=== PATIENT | male | born 1970 | race Caucasian/White ===

== ENCOUNTER 2019-02-25 14:11 | Inpatient (IN) | payer OTHER ==
[~2019-02-25] VITALS: Ht 165.1 cm; Wt 51.7 kg
[2019-02-25] VITALS (10 sets, daily range): BP systolic 110–140; BP diastolic 70–84
[2019-02-25] MEDS ORDERED: IV NORMAL SALINE 1000ML BAG 1,000 ML IV ONE ×2 (14:45→15:15)
[2019-02-25 15:20] LABS: BASO # 0.1 x10^3/uL (0.0-0.2); BASO % 1 % (0-3); EOS % 0 % (0-3); HEMATOCRIT 42.5 % (39.0-53.0); HEMOGLOBIN 13.7 g/dL (13.0-17.5); LYMPH # 0.8 x10^3/uL (1.0-4.8); LYMPH % 3 % (24-48); MEAN CORPUSCULAR HEMOGLOBIN 29 pg (25-35); MEAN CORPUSCULAR HGB CONC 32 g/dL (31-37); MEAN CORPUSCULAR VOLUME 91 fL (79-100); MONO # 1.2 x10^3/uL (0.0-1.1); MONO % 5 % (0-9); NEUT # 20.9 x10^3/uL (1.8-7.7); NEUT % 91 % (31-73); PLATELET COUNT 409 x10^3/uL (140-400); RED BLOOD COUNT 4.66 x10^6/uL (4.30-5.70); RED CELL DISTRIBUTION WIDTH 13.6 % (11.5-14.5)
[2019-02-25] MEDS ORDERED: INSULIN,REGULAR 150 UNIT DRIP 150 ML IV ONE (15:30)
[2019-02-25 15:45] LABS: ALBUMIN/GLOBULIN RATIO 0.6 (1.0-1.7); ALK PHOS 146 U/L (46-116); ALT (SGPT) 11 U/L (16-63); AST (SGOT) 13 U/L (15-37); BLOOD UREA NITROGEN 17 mg/dL (8-26); BUN/CREATININE RATIO 13 (6-20); CALCIUM 9.6 mg/dL (8.5-10.1); CHLORIDE 95 mmol/L (98-107); CREATININE 1.3 mg/dL (0.7-1.3); GFR 58.9; POTASSIUM 4.4 mmol/L (3.5-5.1); SODIUM 131 mmol/L (136-145); TOTAL BILIRUBIN 0.5 mg/dL (0.2-1.0); TOTAL PROTEIN 8.3 g/dL (6.4-8.2)
[2019-02-25 15:48] LABS: BASE EXCESS ABG -29 mmol/L (-3-3); CORRECTED PH ABG 6.95; CORRECTED PO2 ABG 136 mmHg; HCO3 ABG 2 mmol/L (21-28); PO2 ABG 148 mmHg (75-108); SAT O2 ABG 97 % (92-99)
[2019-02-25 15:50] LABS: CORRECTED PCO2 ABG < 10 mmHg; PCO2 ABG < 15 mmHg (35-46)
[2019-02-25 15:51] LABS: FIO2 ABG 21
[2019-02-25] MEDS ORDERED: VANCOMYCIN 1GM IVPB FOR OMNI 250 ML IV ONE (16:00)
[2019-02-25 16:08] LABS: CARBON DIOXIDE < 5 mmol/L (21-32); GLUCOSE 542 mg/dL (70-99)
[2019-02-25] MEDS ORDERED: IV NORMAL SALINE 1000ML BAG 1,000 ML IV SCH (16:08)
[2019-02-25] MEDS ORDERED: ONDANSETRON PF 4 MG/2 ML VIAL. IV PRN (16:15)
[2019-02-25] MEDS ORDERED: INSULIN REGULAR VIAL 150 UNIT in 0.9 % SODIUM CHLORIDE 150ML 150 ML IV PRN (16:45)
[2019-02-25] MEDS ORDERED: ACETAMINOPHEN 500 MG TABLET PO PRN (16:45)
[2019-02-25] MEDS ORDERED: TEMAZEPAM 7.5 MG CAPSULE PO PRN (16:45)
[2019-02-25] MEDS ORDERED: POTASSIUM CHLORIDE 10MEQ 100 ML IV PRN ×2 (16:45→21:00)
[2019-02-25] MEDS ORDERED: SODIUM BICARBONATE VIAL 50 MEQ in IV 1/2 NORMAL SALINE 1,000 ML IV ONE (16:45)
[2019-02-25] MEDS ORDERED: ONDANSETRON PF 4 MG/2 ML VIAL. IVP PRN (16:45)
[2019-02-25] MEDS ORDERED: CALCIUM CARBONATE 500 MG TAB.CHEW PO PRN (16:45)
--- NOTE | 2019-02-25 17:24 | PHYS DOC ---
Past Medical History Past Medical History: Diabetes-Type I, Other Additional Past Medical Histor: NEUROPATHY Past Surgical History: No Surgical History Alcohol Use: None Drug Use: None Adult General Chief Complaint Chief Complaint: HYPERGLYCEMIA HPI HPI Patient is a 48 year old male who was brought here by EMS from home due to been confused, general weakness, high blood sugar. Patient had history of insulin- dependent diabetic, he had the insulin at home but he had not taken them for a year. he had been doing okay until yesterday he started feeling weak and tired. His family said he had been picking on his skin on his legs and on his head. he appeared dehydrated, lethargic, following command . he denies any chest pain, no abdominal pain. he denies any fever. All other ROS is negative unless otherwise noted in HPI Review of Systems Review of Systems See above Current Medications Current Medications Current Medications Medications (Trade) Dose Ordered Sig/Rich Start Time Stop Time Status Last Admin Dose Admin Insulin Human Regular 150 ml @ 0 mls/hr 1X ONCE 02/25/19 15:30 02/25/19 15:32 DC 02/25/19 16:01 8.5 MLS/HR Sodium Chloride 1,000 ml @ 1,000 mls/hr 1X ONCE 02/25/19 15:15 02/25/19 16:14 DC 02/25/19 15:20 1,000 MLS/HR Vancomycin HCl 250 ml @ 250 mls/hr 1X ONCE 02/25/19 16:00 02/25/19 16:59 DC 02/25/19 16:04 250 MLS/HR Allergies Allergies Allergies Coded Allergies Type Severity Reaction Last Updated Verified No Known Drug Allergies 02/25/19 No Physical Exam Physical Exam Constitutional: Well developed, APPEARED THIN AND CACHECTIC, MILD acute distress, LETHARGIC appearance. [] HENT: Normocephalic, atraumatic, bilateral external ears normal, oropharynx IS VERY DRIED, no oral exudates, nose normal. [] Eyes: PERRLA, EOMI, conjunctiva normal, no discharge. [] Neck: Normal range of motion, no tenderness, supple, no stridor. [] Cardiovascular:Heart rate regular rhythm, no murmur [] Lungs & Thorax: Bilateral breath sounds clear to auscultation [] Abdomen: Bowel sounds normal, soft, no tenderness, no masses, no pulsatile masses. [] Skin: Warm, dry, no erythema, NONHEALING WOUND ON TOP OF HEAD, MULTIPLE SKIN LESIONS AT DIFFERENT HEALING STAGES ON LEGS. Back: No tenderness, no CVA tenderness. [] Extremities: No tenderness, no cyanosis, no clubbing, ROM intact, no edema. [] Neurologic: Patient was lethargic, but able to follow command. able to move all extremities. Psychologic: Affect normal, judgement normal, mood normal. [] Current Patient Data Vital Signs Vital Signs Date Time Temp Pulse Resp B/P (MAP) Pulse Ox O2 Delivery O2 Flow Rate FiO2 02/25/19 15:43 102 30 103/63 (76) 100 Room Air 02/25/19 14:11 93.4 93.4 Lab Values Laboratory Tests Test 02/25/19 14:22 02/25/19 15:07 02/25/19 15:40 02/25/19 15:48 Glucose (Fingerstick) 514 mg/dL (70-99) *H 484 mg/dL (70-99) H White Blood Count 23.0 x10^3/uL (4.0-11.0) H Red Blood Count 4.66 x10^6/uL (4.30-5.70) Hemoglobin 13.7 g/dL (13.0-17.5) Hematocrit 42.5 % (39.0-53.0) Mean Corpuscular Volume 91 fL (79-100) Mean Corpuscular Hemoglobin 29 pg (25-35) Mean Corpuscular Hemoglobin Concent 32 g/dL (31-37) Red Cell Distribution Width 13.6 % (11.5-14.5) Platelet Count 409 x10^3/uL (140-400) H Neutrophils (%) (Auto) 91 % (31-73) H Lymphocytes (%) (Auto) 3 % (24-48) L Monocytes (%) (Auto) 5 % (0-9) Eosinophils (%) (Auto) 0 % (0-3) Basophils (%) (Auto) 1 % (0-3) Neutrophils # (Auto) 20.9 x10^3/uL (1.8-7.7) H Lymphocytes # (Auto) 0.8 x10^3/uL (1.0-4.8) L Monocytes # (Auto) 1.2 x10^3/uL (0.0-1.1) H Eosinophils # (Auto) 0.0 x10^3/uL (0.0-0.7) Basophils # (Auto) 0.1 x10^3/uL (0.0-0.2) Segmented Neutrophils % 86 % (35-66) H Band Neutrophils % 3 % (0-9) Lymphocytes % 3 % (24-48) L Monocytes % 8 % (0-10) Platelet Estimate Increased (ADEQUATE) Anisocytosis Slight Crenated Cell Present Sodium Level 131 mmol/L (136-145) L Potassium Level 4.4 mmol/L (3.5-5.1) Chloride Level 95 mmol/L (98-107) L Carbon Dioxide Level < 5 mmol/L (21-32) *L Anion Gap (6-14) Blood Urea Nitrogen 17 mg/dL (8-26) Creatinine 1.3 mg/dL (0.7-1.3) Estimated GFR (Cockcroft-Gault) 58.9 BUN/Creatinine Ratio 13 (6-20) Glucose Level 542 mg/dL (70-99) *H Lactic Acid Level 2.0 mmol/L (0.4-2.0) Calcium Level 9.6 mg/dL (8.5-10.1) Total Bilirubin 0.5 mg/dL (0.2-1.0) Aspartate Amino Transferase (AST) 13 U/L (15-37) L Alanine Aminotransferase (ALT) 11 U/L (16-63) L Alkaline Phosphatase 146 U/L (46-116) H Total Protein 8.3 g/dL (6.4-8.2) H Albumin 3.0 g/dL (3.4-5.0) L Albumin/Globulin Ratio 0.6 (1.0-1.7) L Acetone Level Sm pos (NEG) O2 Saturation 97 % (92-99) Arterial Blood pH 6.93 (7.35-7.45) *L Arterial Blood pH (Temp corrected) 6.95 Arterial Blood pCO2 at Patient Temp < 15 mmHg (35-46) *L Arterial Blood pCO2 (Temp correct) < 10 mmHg Arterial Blood pO2 at Patient Temp 148 mmHg (75-108) H Arterial Blood pO2 (Temp corrected) 136 mmHg Arterial Blood HCO3 2 mmol/L (21-28) L Arterial Blood Base Excess -29 mmol/L (-3-3) L FiO2 21 Laboratory Tests 02/25/19 15:07 Laboratory Tests 02/25/19 15:07 EKG EKG EKG WAS READ BY THIS PHYSICIAN AT 1414, RATE OF 97 BPM, NO STEMI, SINUS RHYTHM. Course & Med Decision Making Course & Med Decision Making Pertinent Labs and Imaging studies reviewed. (See chart for details) 40-year-old male history of diabetes, noncompliant, presented ER with severe dehydration Hyper glycemia in DKA, multiple skin lesions on scalp, legs. He was given IV fluid in the ER, IV insulin, IV vancomycin. Patient was admitted to ICU. Dragon Disclaimer Dragon Disclaimer This electronic medical record was generated, in whole or in part, using a voice recognition dictation system. Departure Departure Impression: Primary Impression: DKA (diabetic ketoacidoses) Additional Impressions: Dehydration Scalp abscess Sepsis Disposition: ADMITTED INPATIENT Admitting Physician: FERNANDO ROSALES) Condition: IMPROVED Referrals: UNKNOWN PCP NAME (PCP) Problem Qualifiers JAMI ORTIZ DO Feb 25, 2019 17:24
[2019-02-25 17:42] LABS: % BANDS 3 % (0-9); % LYMPHS 3 % (24-48); % MONOS 8 % (0-10); % SEGS 86 % (35-66); ANISOCYTOSIS SLIGHT; PLT ESTIMATE INCREASED (ADEQUATE)
--- NOTE | 2019-02-25 18:00 | NUR ---
REc'd from ER per cart. Alert and oriented. Able to answer questions, girl friend at bedside. IV x 2 patebnt Bicarb gtt, NS and abx infusing. Visible open sores on body and top of head. Pt appears malnurished. States he has not taken his insulin for a long time. Denies taking any substances, no smoker or alcohol. States he has not been taking any of his prescribed meds (Insulin or amitryptyline for neuropathy. Will cont with DKA and sepsis protocol
[2019-02-25] MEDS: IV NORMAL SALINE 1000ML BAG 1,000 ML IV SCH ×2 (18:04→21:28)
[2019-02-25 19:45] LABS: BLOOD UREA NITROGEN 18 mg/dL (8-26); CALCIUM 8.6 mg/dL (8.5-10.1); CHLORIDE 105 mmol/L (98-107); CREATININE 1.1 mg/dL (0.7-1.3); GFR 71.4; GLUCOSE 367 mg/dL (70-99); POTASSIUM 3.6 mmol/L (3.5-5.1); SODIUM 138 mmol/L (136-145)
[2019-02-25 19:49] LABS: ANION GAP 28 (6-14); CARBON DIOXIDE < 5 mmol/L (21-32)
[2019-02-25] MEDS: IV DEXTROSE 5 %-0.45 % NACL 1,000 ML IV SCH ×2 (20:39→23:26)
[2019-02-25] MEDS: MAGNESIUM SULFATE 4GM 100 ML IV SCH (21:27)
[2019-02-25] MEDS: POTASSIUM CHLORIDE 10MEQ 100 ML IV PRN ×2 (22:10→23:26)
[2019-02-25] MEDS: ceFAZolin SODIUM IV Push 1 GM VIAL. IVP SCH (22:10)
[2019-02-26] VITALS (15 sets, daily range): BP systolic 101–129; BP diastolic 59–72
[2019-02-26] MEDS: POTASSIUM CHLORIDE 10MEQ 100 ML IV PRN ×2 (00:23→01:19)
--- NOTE | 2019-02-26 00:53 | NUR ---
Pt denies taking any medications for over a year.
[2019-02-26] MEDS: IV NORMAL SALINE 1000ML BAG 1,000 ML IV SCH ×3 (01:00→17:28)
[2019-02-26 01:38] LABS: GFR 79.8; POTASSIUM 3.5 mmol/L (3.5-5.1)
[2019-02-26] MEDS ORDERED: DEXTROSE 50% 25 GM / 50ML DISP.SYRIN. IV PRN ×2 (03:00)
[2019-02-26] MEDS ORDERED: INSULIN GLARGINE SYRINGE. SQ ONE (03:30)
[2019-02-26 04:56] LABS: BASO # 0.1 x10^3/uL (0.0-0.2); BASO % 1 % (0-3); EOS % 0 % (0-3); HEMATOCRIT 31.7 % (39.0-53.0); LYMPH % 7 % (24-48); MEAN CORPUSCULAR HEMOGLOBIN 29 pg (25-35); MEAN CORPUSCULAR HGB CONC 35 g/dL (31-37); MEAN CORPUSCULAR VOLUME 84 fL (79-100); MONO # 1.7 x10^3/uL (0.0-1.1); MONO % 12 % (0-9); NEUT # 11.2 x10^3/uL (1.8-7.7); NEUT % 80 % (31-73); PLATELET COUNT 317 x10^3/uL (140-400); RED BLOOD COUNT 3.76 x10^6/uL (4.30-5.70); RED CELL DISTRIBUTION WIDTH 13.1 % (11.5-14.5)
[2019-02-26 05:18] LABS: GFR 79.8; POTASSIUM 3.4 mmol/L (3.5-5.1)
[2019-02-26] MEDS: ceFAZolin SODIUM IV Push 1 GM VIAL. IVP SCH ×3 (05:37→21:23)
[2019-02-26] MEDS: INSULIN LISPRO 300 UNITS/3 ML VIAL. SQ SCH ×3 (08:00→17:33)
[2019-02-26 08:14] LABS: BILIRUBIN,URINE NEGATIVE (NEG); CLARITY,URINE CLEAR; COLOR,URINE YELLOW; NITRITE,URINE NEGATIVE (NEG); PH,URINE 5.5; PROTEIN,URINE 30 mg/dL (NEG-TRACE); UROBILINOGEN,URINE 0.2 mg/dL (0.2 mg/dL)
[2019-02-26 08:19] LABS: CALCIUM 7.8 mg/dL (8.5-10.1); CREATININE 0.9 mg/dL (0.7-1.3); GFR 90.1; POTASSIUM 3.3 mmol/L (3.5-5.1)
[2019-02-26 08:30] LABS: RBC,URINE OCC /HPF (0-2)
[2019-02-26 08:32] LABS: BACTERIA,URINE 0 /HPF (0-FEW); HYALINE CASTS, URINE OCCASIONAL /HPF
[2019-02-26 08:33] LABS: GRANULAR CASTS,URINE FEW /HPF
[2019-02-26] MEDS: VANCOMYCIN 1 GM in IV NORMAL SALINE 250ML 250 ML IV SCH ×2 (09:17→21:22)
[2019-02-26 09:41] LABS: BASE EXCESS ABG -9 mmol/L (-3-3); HCO3 ABG 16 mmol/L (21-28); PCO2 ABG 29 mmHg (35-46); PO2 ABG 93 mmHg (75-108); SAT O2 ABG 96 % (92-99)
[2019-02-26] MEDS: DICLOFENAC SODIUM 1% TOPICAL GEL 100GM TUBE. TP SCH ×2 (10:02→21:22)
[2019-02-26 10:03] LABS: FIO2 ABG 21
--- NOTE | 2019-02-26 10:58 | PDOC1 ---
History and Physical Date of Admission Date of Admission DATE: 02/26/19 TIME: 10:51 Identification/Chief Complaint Chief Complaint change in MS, high BS Source Source: Caregiver, Chart review, Patient History of Present Illness History of Present Illness 48 white male who looks older than stated age, maybe ran out of DM type 1 meds for yrs, has been off for a yr now and so confused and in DKA on arrival with pH 6,.9 , high agap low bicarb etc, I intiated DKA protocol overnight and managed and gave bicarb and now gap closed with BS less than 200s, and feeling much better, conversant with at bedside, Good uO, NS rumning, OK to transfer to non tele bed, eat, DM educn, start long acting and shiort acting (he was counting his carbs 1 yr ago but now SP?), SOme scalp wounds in this DM, im checking [id number] and UA too, WOund care conuslted for scalp.skin lesions that maybe mildly infected so vanc IV started by ER Past Medical History Endocrine: Diabetes Past Surgical History Past Surgical History: No pertinent history Family History Family History: Family History Unknown Social History Smoke: No ALCOHOL: none Drugs: None Current Problem List Problem List Problems Medical Problems: (1) Dehydration Status: Acute (2) DKA (diabetic ketoacidoses) Status: Acute (3) Scalp abscess Status: Acute (4) Sepsis Status: Acute Current Medications Current Medications Current Medications Sodium Chloride 1,000 ml @ 1,000 mls/hr 1X ONCE IV Last administered on 02/25/19at 15:20; Start 02/25/19 at 14:45; Stop 02/25/19 at 15:44; Status DC Sodium Chloride 1,000 ml @ 1,000 mls/hr 1X ONCE IV Last administered on 02/25/19at 15:20; Start 02/25/19 at 15:15; Stop 02/25/19 at 16:14; Status DC Insulin Human Regular 150 ml @ 0 mls/hr 1X ONCE IV Last administered on 02/25/19at 16:01; Start 02/25/19 at 15:30; Stop 02/25/19 at 15:32; Status DC Vancomycin HCl 250 ml @ 250 mls/hr 1X ONCE IV Last administered on 02/25/19at 16:04; Start 02/25/19 at 16:00; Stop 02/25/19 at 16:59; Status DC Ondansetron HCl (Zofran) 4 mg PRN Q8HRS PRN IV NAUSEA/VOMITING; Start 02/25/19 at 16:15; Stop 02/25/19 at 17:32; Status DC Sodium Chloride 1,000 ml @ 100 mls/hr Q10H IV ; Start 02/25/19 at 16:08; Stop 02/26/19 at 08:29; Status DC Sodium Chloride 1,000 ml @ 250 mls/hr Q4H IV Last administered on 02/25/19at 21:28; Start 02/25/19 at 17:00; Stop 02/26/19 at 03:06; Status DC Dextrose/Sodium Chloride 1,000 ml @ 250 mls/hr Q4H IV Last administered on 02/25/19at 23:26; Start 02/25/19 at 16:39; Stop 02/26/19 at 03:06; Status DC Insulin Human Regular 150 unit/ Sodium Chloride 151.5 ml @ 0 mls/hr CONT PRN PRN IV PER PROTOCOL; Start 02/25/19 at 16:45; Stop 02/26/19 at 03:06; Status DC Potassium Chloride/Water 100 ml @ 100 mls/hr PRN Q1HR PRN IV SEE COMMENTS Last administered on 02/26/19at 01:19; Start 02/25/19 at 16:45; Stop 02/26/19 at 03:06; Status DC Potassium Chloride/Water 100 ml @ 100 mls/hr PRN Q1HR PRN IV SEE COMMENTS Last administered on 02/25/19at 23:26; Start 02/25/19 at 16:45; Stop 02/26/19 at 03:06; Status DC Potassium Chloride/Water 100 ml @ 100 mls/hr PRN Q1HR PRN IV SEE COMMENTS; Start 02/25/19 at 16:45; Stop 02/26/19 at 03:06; Status DC Sodium Bicarbonate 50 meq/Sodium Chloride 1,050 ml @ 125 mls/hr 1X ONCE IV Last administered on 02/25/19at 17:51; Start 02/25/19 at 16:45; Stop 02/26/19 at 01:08; Status DC Calcium Carbonate/ Glycine (Tums) 500 mg PRN AFTMEALHC PRN PO INDIGESTION; Start 02/25/19 at 16:45 Temazepam (Restoril) 7.5 mg PRN QHS PRN PO INSOMNIA; Start 02/25/19 at 16:45 Acetaminophen (Tylenol) 500 mg PRN Q6HRS PRN PO MILD PAIN / TEMP; Start 02/25/19 at 16:45 Acetaminophen/ Codeine Phosphate (Tylenol #3) 1 tab PRN Q6HRS PRN PO MODERATE PAIN; Start 02/25/19 at 16:45 Ondansetron HCl (Zofran) 4 mg PRN Q6HRS PRN IVP NAUSEA/VOMITING; Start 02/25/19 at 16:45 Cefazolin Sodium 50 ml @ 100 mls/hr Q8HRS IV ; Start 02/25/19 at 22:00; Status UNV Cefazolin Sodium 50 ml @ As Directed STK-MED ONCE IV ; Start 02/25/19 at 17:12; Stop 02/25/19 at 17:32; Status DC Cefazolin Sodium 50 ml @ 100 mls/hr 1X ONCE IV Last administered on 02/25/19at 17:30; Start 02/25/19 at 17:30; Stop 02/25/19 at 17:59; Status DC Cefazolin Sodium (Ancef) 1 gm Q8HRS IVP Last administered on 02/26/19at 05:37; Start 02/25/19 at 22:00 Potassium Chloride/Water 100 ml @ 100 mls/hr PRN Q1HR PRN IV SEE COMMENTS; Start 02/25/19 at 21:00 Magnesium Sulfate 100 ml @ 25 mls/hr DAILY IV Last administered on 02/25/19at 21:27; Start 02/26/19 at 09:00; Stop 03/01/19 at 08:59 Dextrose (Dextrose 50%-Water Syringe) 12.5 gm PRN Q15MIN PRN IV SEE COMMENTS; Start 02/26/19 at 03:00; Status UNV Insulin Glargine (Lantus Syringe) 20 unit QHS SQ ; Start 02/26/19 at 21:00 Insulin Human Lispro (HumaLOG) 10 units TIDWMEALS SQ ; Start 02/26/19 at 08:00 Dextrose (Dextrose 50%-Water Syringe) 12.5 gm PRN Q15MIN PRN IV SEE COMMENTS; Start 02/26/19 at 03:00 Insulin Glargine (Lantus Syringe) 10 unit 1X ONCE SQ Last administered on 02/26/19at 03:16; Start 02/26/19 at 03:30; Stop 02/26/19 at 03:31; Status DC Sodium Chloride 1,000 ml @ 100 mls/hr Q10H IV Last administered on 02/26/19at 03:16; Start 02/26/19 at 03:00 Vancomycin HCl (Vanco Per Pharmacy) 1 each PRN DAILY PRN MC SEE COMMENTS; Start 02/26/19 at 08:45 Vancomycin HCl 1 gm/Sodium Chloride 250 ml @ 250 mls/hr Q12H IV Last administered on 02/26/19at 09:17; Start 02/26/19 at 09:00 Diclofenac Sodium (Voltaren) 1 faith BID TP Last administered on 02/26/19at 10:02; Start 02/26/19 at 10:30 Allergies Allergies: Coded Allergies: No Known Drug Allergies (Unverified , 02/25/19) ROS Review of System rt hip pain, wants to walk, asks for biofreeze Physical Exam General: Alert, Oriented X3, Cooperative, No acute distress HEENT: Atraumatic, PERRLA, EOMI, Other (scalp lesions) Lungs: Clear to auscultation, Normal air movement Heart: S1S2, RRR, no thrills, no rubs, no gallops, no murmurs Cardiovascular: S1 Abdomen: Normal bowel sounds, Soft, No tenderness, No hepatosplenomegaly, No masses Male Genitals Exam: normal genitalia, normal prostate Rectal Exam: not examined PELVIC: Nml ext genitalia Neuro: Normal gait, Normal speech, Strength at 5/5 X4 ext, Normal tone, Sensation intact, Cranial nerves 3-12 NL, Reflexes 2+ Psych/Mental Status: Mental status NL, Mood NL Vitals Vitals Vital Signs Date Time Temp Pulse Resp B/P (MAP) Pulse Ox O2 Delivery O2 Flow Rate FiO2 02/26/19 10:12 81 16 129/72 (91) 98 Room Air 02/26/19 07:00 98.8 98.8 Labs Labs Laboratory Tests Test 02/25/19 14:22 02/25/19 15:07 02/25/19 15:40 02/25/19 15:48 Glucose (Fingerstick) 514 mg/dL (70-99) 484 mg/dL (70-99) White Blood Count 23.0 x10^3/uL (4.0-11.0) Red Blood Count 4.66 x10^6/uL (4.30-5.70) Hemoglobin 13.7 g/dL (13.0-17.5) Hematocrit 42.5 % (39.0-53.0) Mean Corpuscular Volume 91 fL (79-100) Mean Corpuscular Hemoglobin 29 pg (25-35) Mean Corpuscular Hemoglobin Concent 32 g/dL (31-37) Red Cell Distribution Width 13.6 % (11.5-14.5) Platelet Count 409 x10^3/uL (140-400) Neutrophils (%) (Auto) 91 % (31-73) Lymphocytes (%) (Auto) 3 % (24-48) Monocytes (%) (Auto) 5 % (0-9) Eosinophils (%) (Auto) 0 % (0-3) Basophils (%) (Auto) 1 % (0-3) Neutrophils # (Auto) 20.9 x10^3/uL (1.8-7.7) Lymphocytes # (Auto) 0.8 x10^3/uL (1.0-4.8) Monocytes # (Auto) 1.2 x10^3/uL (0.0-1.1) Eosinophils # (Auto) 0.0 x10^3/uL (0.0-0.7) Basophils # (Auto) 0.1 x10^3/uL (0.0-0.2) Segmented Neutrophils % 86 % (35-66) Band Neutrophils % 3 % (0-9) Lymphocytes % 3 % (24-48) Monocytes % 8 % (0-10) Platelet Estimate Increased (ADEQUATE) Anisocytosis Slight Crenated Cell Present Sodium Level 131 mmol/L (136-145) Potassium Level 4.4 mmol/L (3.5-5.1) Chloride Level 95 mmol/L (98-107) Carbon Dioxide Level < 5 mmol/L (21-32) Anion Gap (6-14) Blood Urea Nitrogen 17 mg/dL (8-26) Creatinine 1.3 mg/dL (0.7-1.3) Estimated GFR (Cockcroft-Gault) 58.9 BUN/Creatinine Ratio 13 (6-20) Glucose Level 542 mg/dL (70-99) Lactic Acid Level 2.0 mmol/L (0.4-2.0) Calcium Level 9.6 mg/dL (8.5-10.1) Total Bilirubin 0.5 mg/dL (0.2-1.0) Aspartate Amino Transf (AST/SGOT) 13 U/L (15-37) Alanine Aminotransferase (ALT/SGPT) 11 U/L (16-63) Alkaline Phosphatase 146 U/L (46-116) Total Protein 8.3 g/dL (6.4-8.2) Albumin 3.0 g/dL (3.4-5.0) Albumin/Globulin Ratio 0.6 (1.0-1.7) Acetone Level Sm pos (NEG) O2 Saturation 97 % (92-99) Arterial Blood pH 6.93 (7.35-7.45) Arterial Blood pH (Temp corrected) 6.95 Arterial Blood pCO2 at Patient Temp < 15 mmHg (35-46) Arterial Blood pCO2 (Temp correct) < 10 mmHg Arterial Blood pO2 at Patient Temp 148 mmHg (75-108) Arterial Blood pO2 (Temp corrected) 136 mmHg Arterial Blood HCO3 2 mmol/L (21-28) Arterial Blood Base Excess -29 mmol/L (-3-3) FiO2 21 Test 02/25/19 16:52 02/25/19 17:50 02/25/19 19:00 02/25/19 19:07 Glucose (Fingerstick) 455 mg/dL (70-99) 407 mg/dL (70-99) 348 mg/dL (70-99) Sodium Level 138 mmol/L (136-145) Potassium Level 3.6 mmol/L (3.5-5.1) Chloride Level 105 mmol/L (98-107) Carbon Dioxide Level < 5 mmol/L (21-32) Anion Gap 28 (6-14) Blood Urea Nitrogen 18 mg/dL (8-26) Creatinine 1.1 mg/dL (0.7-1.3) Estimated GFR (Cockcroft-Gault) 71.4 Glucose Level 367 mg/dL (70-99) Lactic Acid Level 1.8 mmol/L (0.4-2.0) Calcium Level 8.6 mg/dL (8.5-10.1) Magnesium Level 1.7 mg/dL (1.8-2.4) Test 02/25/19 20:10 02/25/19 21:17 02/25/19 22:29 02/25/19 23:34 Glucose (Fingerstick) 269 mg/dL (70-99) 220 mg/dL (70-99) 152 mg/dL (70-99) 134 mg/dL (70-99) Test 02/26/19 00:25 02/26/19 00:38 02/26/19 01:41 02/26/19 02:51 Sodium Level 139 mmol/L (136-145) Potassium Level 3.5 mmol/L (3.5-5.1) Chloride Level 109 mmol/L (98-107) Carbon Dioxide Level 16 mmol/L (21-32) Anion Gap 14 (6-14) Blood Urea Nitrogen 14 mg/dL (8-26) Creatinine 1.0 mg/dL (0.7-1.3) Estimated GFR (Cockcroft-Gault) 79.8 Glucose Level 157 mg/dL (70-99) Calcium Level 8.0 mg/dL (8.5-10.1) Glucose (Fingerstick) 143 mg/dL (70-99) 176 mg/dL (70-99) 173 mg/dL (70-99) Test 02/26/19 04:30 02/26/19 08:00 02/26/19 08:02 White Blood Count 14.0 x10^3/uL (4.0-11.0) Red Blood Count 3.76 x10^6/uL (4.30-5.70) Hemoglobin 11.0 g/dL (13.0-17.5) Hematocrit 31.7 % (39.0-53.0) Mean Corpuscular Volume 84 fL (79-100) Mean Corpuscular Hemoglobin 29 pg (25-35) Mean Corpuscular Hemoglobin Concent 35 g/dL (31-37) Red Cell Distribution Width 13.1 % (11.5-14.5) Platelet Count 317 x10^3/uL (140-400) Neutrophils (%) (Auto) 80 % (31-73) Lymphocytes (%) (Auto) 7 % (24-48) Monocytes (%) (Auto) 12 % (0-9) Eosinophils (%) (Auto) 0 % (0-3) Basophils (%) (Auto) 1 % (0-3) Neutrophils # (Auto) 11.2 x10^3/uL (1.8-7.7) Lymphocytes # (Auto) 1.0 x10^3/uL (1.0-4.8) Monocytes # (Auto) 1.7 x10^3/uL (0.0-1.1) Eosinophils # (Auto) 0.0 x10^3/uL (0.0-0.7) Basophils # (Auto) 0.1 x10^3/uL (0.0-0.2) Sodium Level 138 mmol/L (136-145) 140 mmol/L (136-145) Potassium Level 3.4 mmol/L (3.5-5.1) 3.3 mmol/L (3.5-5.1) Chloride Level 109 mmol/L (98-107) 109 mmol/L (98-107) Carbon Dioxide Level 18 mmol/L (21-32) 17 mmol/L (21-32) Anion Gap 11 (6-14) 14 (6-14) Blood Urea Nitrogen 12 mg/dL (8-26) 12 mg/dL (8-26) Creatinine 1.0 mg/dL (0.7-1.3) 0.9 mg/dL (0.7-1.3) Estimated GFR (Cockcroft-Gault) 79.8 90.1 Glucose Level 116 mg/dL (70-99) 122 mg/dL (70-99) Calcium Level 8.0 mg/dL (8.5-10.1) 7.8 mg/dL (8.5-10.1) Urine Collection Type Unknown Urine Color Yellow Urine Clarity Clear Urine pH 5.5 Urine Specific [place] 1.015 Urine Protein 30 mg/dL (NEG-TRACE) Urine Glucose (UA) >=1000 mg/dL (NEG) Urine Ketones (Stick) >=80 mg/dL (NEG) Urine Blood Trace (NEG) Urine Nitrite Negative (NEG) Urine Bilirubin Negative (NEG) Urine Urobilinogen Dipstick 0.2 mg/dL (0.2 mg/dL) Urine Leukocyte Esterase Negative (NEG) Urine RBC Occ /HPF (0-2) Urine WBC 5-10 /HPF (0-4) Urine Bacteria 0 /HPF (0-FEW) Urine Hyaline Casts Occasional /HPF Urine Granular Casts Few /HPF Urine Mucus Slight /LPF O2 Saturation 96 % (92-99) Arterial Blood pH 7.34 (7.35-7.45) Arterial Blood pCO2 at Patient Temp 29 mmHg (35-46) Arterial Blood pO2 at Patient Temp 93 mmHg (75-108) Arterial Blood HCO3 16 mmol/L (21-28) Arterial Blood Base Excess -9 mmol/L (-3-3) FiO2 21 Laboratory Tests Test 02/25/19 14:22 02/25/19 15:07 02/25/19 15:40 02/25/19 15:48 Glucose (Fingerstick) 514 mg/dL (70-99) 484 mg/dL (70-99) White Blood Count 23.0 x10^3/uL (4.0-11.0) Red Blood Count 4.66 x10^6/uL (4.30-5.70) Hemoglobin 13.7 g/dL (13.0-17.5) Hematocrit 42.5 % (39.0-53.0) Mean Corpuscular Volume 91 fL (79-100) Mean Corpuscular Hemoglobin 29 pg (25-35) Mean Corpuscular Hemoglobin Concent 32 g/dL (31-37) Red Cell Distribution Width 13.6 % (11.5-14.5) Platelet Count 409 x10^3/uL (140-400) Neutrophils (%) (Auto) 91 % (31-73) Lymphocytes (%) (Auto) 3 % (24-48) Monocytes (%) (Auto) 5 % (0-9) Eosinophils (%) (Auto) 0 % (0-3) Basophils (%) (Auto) 1 % (0-3) Neutrophils # (Auto) 20.9 x10^3/uL (1.8-7.7) Lymphocytes # (Auto) 0.8 x10^3/uL (1.0-4.8) Monocytes # (Auto) 1.2 x10^3/uL (0.0-1.1) Eosinophils # (Auto) 0.0 x10^3/uL (0.0-0.7) Basophils # (Auto) 0.1 x10^3/uL (0.0-0.2) Segmented Neutrophils % 86 % (35-66) Band Neutrophils % 3 % (0-9) Lymphocytes % 3 % (24-48) Monocytes % 8 % (0-10) Platelet Estimate Increased (ADEQUATE) Anisocytosis Slight Crenated Cell Present Sodium Level 131 mmol/L (136-145) Potassium Level 4.4 mmol/L (3.5-5.1) Chloride Level 95 mmol/L (98-107) Carbon Dioxide Level < 5 mmol/L (21-32) Anion Gap (6-14) Blood Urea Nitrogen 17 mg/dL (8-26) Creatinine 1.3 mg/dL (0.7-1.3) Estimated GFR (Cockcroft-Gault) 58.9 BUN/Creatinine Ratio 13 (6-20) Glucose Level 542 mg/dL (70-99) Lactic Acid Level 2.0 mmol/L (0.4-2.0) Calcium Level 9.6 mg/dL (8.5-10.1) Total Bilirubin 0.5 mg/dL (0.2-1.0) Aspartate Amino Transf (AST/SGOT) 13 U/L (15-37) Alanine Aminotransferase (ALT/SGPT) 11 U/L (16-63) Alkaline Phosphatase 146 U/L (46-116) Total Protein 8.3 g/dL (6.4-8.2) Albumin 3.0 g/dL (3.4-5.0) Albumin/Globulin Ratio 0.6 (1.0-1.7) Acetone Level Sm pos (NEG) O2 Saturation 97 % (92-99) Arterial Blood pH 6.93 (7.35-7.45) Arterial Blood pH (Temp corrected) 6.95 Arterial Blood pCO2 at Patient Temp < 15 mmHg (35-46) Arterial Blood pCO2 (Temp correct) < 10 mmHg Arterial Blood pO2 at Patient Temp 148 mmHg (75-108) Arterial Blood pO2 (Temp corrected) 136 mmHg Arterial Blood HCO3 2 mmol/L (21-28) Arterial Blood Base Excess -29 mmol/L (-3-3) FiO2 21 Test 02/25/19 16:52 02/25/19 17:50 02/25/19 19:00 02/25/19 19:07 Glucose (Fingerstick) 455 mg/dL (70-99) 407 mg/dL (70-99) 348 mg/dL (70-99) Sodium Level 138 mmol/L (136-145) Potassium Level 3.6 mmol/L (3.5-5.1) Chloride Level 105 mmol/L (98-107) Carbon Dioxide Level < 5 mmol/L (21-32) Anion Gap 28 (6-14) Blood Urea Nitrogen 18 mg/dL (8-26) Creatinine 1.1 mg/dL (0.7-1.3) Estimated GFR (Cockcroft-Gault) 71.4 Glucose Level 367 mg/dL (70-99) Lactic Acid Level 1.8 mmol/L (0.4-2.0) Calcium Level 8.6 mg/dL (8.5-10.1) Magnesium Level 1.7 mg/dL (1.8-2.4) Test 02/25/19 20:10 02/25/19 21:17 02/25/19 22:29 02/25/19 23:34 Glucose (Fingerstick) 269 mg/dL (70-99) 220 mg/dL (70-99) 152 mg/dL (70-99) 134 mg/dL (70-99) Test 02/26/19 00:25 02/26/19 00:38 02/26/19 01:41 02/26/19 02:51 Sodium Level 139 mmol/L (136-145) Potassium Level 3.5 mmol/L (3.5-5.1) Chloride Level 109 mmol/L (98-107) Carbon Dioxide Level 16 mmol/L (21-32) Anion Gap 14 (6-14) Blood Urea Nitrogen 14 mg/dL (8-26) Creatinine 1.0 mg/dL (0.7-1.3) Estimated GFR (Cockcroft-Gault) 79.8 Glucose Level 157 mg/dL (70-99) Calcium Level 8.0 mg/dL (8.5-10.1) Glucose (Fingerstick) 143 mg/dL (70-99) 176 mg/dL (70-99) 173 mg/dL (70-99) Test 02/26/19 04:30 02/26/19 08:00 02/26/19 08:02 White Blood Count 14.0 x10^3/uL (4.0-11.0) Red Blood Count 3.76 x10^6/uL (4.30-5.70) Hemoglobin 11.0 g/dL (13.0-17.5) Hematocrit 31.7 % (39.0-53.0) Mean Corpuscular Volume 84 fL (79-100) Mean Corpuscular Hemoglobin 29 pg (25-35) Mean Corpuscular Hemoglobin Concent 35 g/dL (31-37) Red Cell Distribution Width 13.1 % (11.5-14.5) Platelet Count 317 x10^3/uL (140-400) Neutrophils (%) (Auto) 80 % (31-73) Lymphocytes (%) (Auto) 7 % (24-48) Monocytes (%) (Auto) 12 % (0-9) Eosinophils (%) (Auto) 0 % (0-3) Basophils (%) (Auto) 1 % (0-3) Neutrophils # (Auto) 11.2 x10^3/uL (1.8-7.7) Lymphocytes # (Auto) 1.0 x10^3/uL (1.0-4.8) Monocytes # (Auto) 1.7 x10^3/uL (0.0-1.1) Eosinophils # (Auto) 0.0 x10^3/uL (0.0-0.7) Basophils # (Auto) 0.1 x10^3/uL (0.0-0.2) Sodium Level 138 mmol/L (136-145) 140 mmol/L (136-145) Potassium Level 3.4 mmol/L (3.5-5.1) 3.3 mmol/L (3.5-5.1) Chloride Level 109 mmol/L (98-107) 109 mmol/L (98-107) Carbon Dioxide Level 18 mmol/L (21-32) 17 mmol/L (21-32) Anion Gap 11 (6-14) 14 (6-14) Blood Urea Nitrogen 12 mg/dL (8-26) 12 mg/dL (8-26) Creatinine 1.0 mg/dL (0.7-1.3) 0.9 mg/dL (0.7-1.3) Estimated GFR (Cockcroft-Gault) 79.8 90.1 Glucose Level 116 mg/dL (70-99) 122 mg/dL (70-99) Calcium Level 8.0 mg/dL (8.5-10.1) 7.8 mg/dL (8.5-10.1) Urine Collection Type Unknown Urine Color Yellow Urine Clarity Clear Urine pH 5.5 Urine Specific [place] 1.015 Urine Protein 30 mg/dL (NEG-TRACE) Urine Glucose (UA) >=1000 mg/dL (NEG) Urine Ketones (Stick) >=80 mg/dL (NEG) Urine Blood Trace (NEG) Urine Nitrite Negative (NEG) Urine Bilirubin Negative (NEG) Urine Urobilinogen Dipstick 0.2 mg/dL (0.2 mg/dL) Urine Leukocyte Esterase Negative (NEG) Urine RBC Occ /HPF (0-2) Urine WBC 5-10 /HPF (0-4) Urine Bacteria 0 /HPF (0-FEW) Urine Hyaline Casts Occasional /HPF Urine Granular Casts Few /HPF Urine Mucus Slight /LPF O2 Saturation 96 % (92-99) Arterial Blood pH 7.34 (7.35-7.45) Arterial Blood pCO2 at Patient Temp 29 mmHg (35-46) Arterial Blood pO2 at Patient Temp 93 mmHg (75-108) Arterial Blood HCO3 16 mmol/L (21-28) Arterial Blood Base Excess -9 mmol/L (-3-3) FiO2 21 VTE Prophylaxis Ordered VTE Prophylaxis Devices: Yes VTE Pharmacological Prophylaxi: Yes Assessment/Plan Assessment/Plan s/p severe dka with pH 6.9 and met enceph, resolved s/p bicarb RElative hypotension SKin lesions in a DM DM type 1, out of meds x 1 yr Proteinuria and glucosuria but no UTI RT hip pain PLAn: 2 MN NS 100cc [id number] ADA diet SSI high dose Start lantus and lispro - see orders MEtformin ok Allie will have no use in type 1 DM WOund care for scalp lesions VAnc for now, might be able to shift to PO plus bactroban cream RT hip xray Capsaicin cream/lidoderm patch to hip - if persists, maybe physiatry No home meds to reconcile T,.o ICU FUll code cc 35 including OVENRIGHT MANAGEMENT FOR DKA bicarb fluids etc RADHA RODRIGUEZ MD Feb 26, 2019 10:58
[2019-02-26] MEDS ORDERED: POTASSIUM CHLORIDE 20 MEQ TABLET.ER. PO ONE (11:00)
--- NOTE | 2019-02-26 11:32 | CONS ---
DATE OF CONSULTATION: 02/26/2019 Bello Morales APRN, dictating for Dr. Tobias Sanchez, Infectious Disease. REFERRING PHYSICIAN: Magdalena Hernandez MD REASON FOR CONSULTATION: Bacteremia. 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 At about 8:30, he started not to feel very well. At about 8:30, he became suddenly ill. He does not recall specifics, but that he was pale and talking funny. He was sent to the ER by ambulance. On arrival, he was hypothermic with a temperature of 93.4. He had a WBC count of 23,000. Lactic acid 2.0. He was hypoglycemic with bicarbonate of less than 5. He was found to have multiple wounds on his scalp and both legs. His blood cultures returned positive for gram-positive cocci in clusters in two of two bottles. He is currently on vancomycin and cefazolin. The patient says that about 4 or 5 months ago, he had scraped the top of his head on a garage cabinet door. He often scratches and picks at the area. He also has several wounds on his both legs that appeared after working in the yard several months ago as well. He says his last tetanus has been less than 5 years. He denies antibiotic use or hospitalizations within the last 6 months. He has two small dogs at home. He states that he has a little bit of headache. He denies confusion, sinus-nasal congestion or sore throat. Denies cough, shortness of air, or chest discomfort. He occasionally has some diarrhea. Denies nausea, vomiting or cramps. Denies difficulty passing his urine. He says his feet are very sensitive to touch due to neuropathy. PAST MEDICAL HISTORY: Diabetes. Peripheral neuropathy. PAST SURGICAL HISTORY: Tonsillectomy. FAMILY HISTORY: Noncontributory. SOCIAL HISTORY: The patient is single. He has a live-in girlfriend. He has two dogs. 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 ALLERGIES: No known drug allergies. MEDICATIONS: Vancomycin, cefazolin, bicarbonate, and insulin. Other medications are available and have been reviewed on the MAY. REVIEW OF SYSTEMS: Per history of present illness, otherwise all other review of systems are negative. PHYSICAL EXAMINATION: VITAL SIGNS: Temperature is 98.8, blood pressure 119/67, heart rate 97, respiratory rate 16, and pulse oximetry 98% on room air. Body mass index 19. GENERAL: The patient is propped up in bed, alert, in no apparent distress. HEENT: Pupils are equally round, reactive. Oral cavity, oropharynx pink and moist. He has a superficial scalp wound with dry blood and alopecia. NECK: Supple. LUNGS: Clear to auscultation. HEART: S1, S2 regular. ABDOMEN: Nondistended, soft, nontender with bowel sounds present. EXTREMITIES: Trace pedal edema in lower extremities bilaterally. No cyanosis. He has several dry annular wounds of lower extremities bilaterally with no associated redness, or drainage. SKIN: Warm to touch. NEUROLOGIC: Alert and oriented x 3. LABORATORY DATA: Today's WBC 14.0 from 23.0, hemoglobin 11.0, platelets 317,000. Sodium 140, potassium 3.3, creatinine 0.9, BUN 12, bicarb 17, glucose 122 from 542 on admission. Total bilirubin 0.5, AST 13, ALT 11, albumin 3.0. Urinalysis unremarkable for infection. Acetone level small. Blood cultures show gram-positive cocci in clusters in 2 of 2 bottles from 02/25/2019. DIAGNOSTIC STUDIES: No imaging. IMPRESSION: 1. Gram-positive cocci bacteremia with sepsis present on admission. 2. Nonhealing wounds involving scalp and lower extremities bilaterally. 3. Hypothermia. 4. Leukocytosis. 5. Diabetic ketoacidosis. 6. Peripheral neuropathy. PLAN: Continue the vancomycin per Pharmacy protocol as well as cefazolin. Wound care team has been consulted. We will follow up on culture results and adjust antibiotics accordingly. Continue to monitor WBC count, temperature and renal function closely. Glycemic control per primary. Discussed with significant other at bedside and nursing. Thank you, Dr. Hernandez, for asking us to participate in this patient's care. Should you have further questions or concerns, please call. TOBIAS SANCHEZ MD DR: KRYSTEN/heber JOB#: [id number] / [id number] MTDD
[2019-02-26] MEDS: VANCOMYCIN PER PHARMACY MC PRN (11:37)
--- NOTE | 2019-02-26 11:38 | NUR ---
Pharmacy Vancomycin Dosing Note S:Consulted to monitor and dose vancomycin started 02/25/19. O:NATHALIE WONG is a 48 year old M with Bacteremia . Height: 5 feet, 5 inches Weight: 51.705332 kg [place] Body Weight: 61.50 Adjusted Body Weight: 57.62 Dosing Weight: Actual Other Antibiotics: ANCEF LABS: Last BUN: 12 Last Creatinine: 0.9 Creatinine Clearance: 74 mL/min Last WBC: 14.0 Last Procalcitonin: Tmax (past 24 hours): 98.8 Microbiology: 02/25 BLOOD: g+c in clusters I/O: 2370/1250 Drug Levels: Last level: on at Last dose given 02/26/19 at 0916 Vancomycin Dosing: Loading Dose: x1 Dosing Weight: Actual Target Trough: 15-20 A: Based on: Body weight and renal function P: 1. Start Vancomycin 1000 mg IV q12h 2. Follow up Trough level on 02/27/19 at 0830 3. Pharmacy will continue to monitor, follow and adjust therapy as needed. ASHLYN RIVERA [facility], 02/26/19 [id number]
[2019-02-26] MEDS: LIDOCAINE (700MG/PATCH) PATCH. TD SCH (11:47)
--- NOTE | 2019-02-26 14:00 | NUR ---
Pt transferred to 588 per w/c. Report called to [place]. VSS. Pt belongings transferred with pt.
--- NOTE | 2019-02-26 14:00 | RAD ---
Study: HIP RIGHT 2 VIEW Indication: Pain without recent injury. Comparison: None. Findings: Cam-type deformity with a small bony excrescence at the superolateral femoral head/neck junction. The right hip joint space is maintained with minimal arthrosis.. No acute fracture. No articular surface collapse or other obvious radiographic features of avascular necrosis. 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 No acute fracture. Electronically signed by: SURESH MATHIS MD (02/26/2019 1:57 PM) [facility]
[2019-02-26] MEDS: PATCH REMOVAL. MC SCH (21:22)
[2019-02-26] MEDS: LACTOBACILLUS RHAMNOSUS GG 1 CAPSULE. PO SCH (21:23)
[2019-02-26] MEDS: INSULIN GLARGINE SYRINGE. SQ SCH (21:38)
[2019-02-27] MEDS: IV NORMAL SALINE 1000ML BAG 1,000 ML IV SCH ×3 (01:25→20:40)
[2019-02-27 03:00] VITALS: BP 119/72
[2019-02-27] MEDS: ceFAZolin SODIUM IV Push 1 GM VIAL. IVP SCH ×3 (05:59→21:52)
[2019-02-27 07:00] VITALS: BP 131/78
[2019-02-27 07:09] LABS: HEMOGLOBIN A1C 16.4 % (4.8-5.6)
[2019-02-27] MEDS: INSULIN LISPRO 300 UNITS/3 ML VIAL. SQ SCH ×3 (07:50→17:10)
[2019-02-27] MEDS: LACTOBACILLUS RHAMNOSUS GG 1 CAPSULE. PO SCH ×2 (07:56→20:40)
[2019-02-27] MEDS: DICLOFENAC SODIUM 1% TOPICAL GEL 100GM TUBE. TP SCH ×5 (07:56→20:40)
[2019-02-27] MEDS: LIDOCAINE (700MG/PATCH) PATCH. TD SCH (07:56)
[2019-02-27 08:40] LABS: BASO # 0.1 x10^3/uL (0.0-0.2); BASO % 1 % (0-3); EOS % 0 % (0-3); HEMATOCRIT 32.3 % (39.0-53.0); HEMOGLOBIN 11.2 g/dL (13.0-17.5); LYMPH # 0.8 x10^3/uL (1.0-4.8); LYMPH % 8 % (24-48); MEAN CORPUSCULAR HEMOGLOBIN 30 pg (25-35); MEAN CORPUSCULAR HGB CONC 35 g/dL (31-37); MEAN CORPUSCULAR VOLUME 85 fL (79-100); MONO # 0.9 x10^3/uL (0.0-1.1); MONO % 9 % (0-9); NEUT % 82 % (31-73); PLATELET COUNT 260 x10^3/uL (140-400); RED BLOOD COUNT 3.78 x10^6/uL (4.30-5.70); RED CELL DISTRIBUTION WIDTH 13.7 % (11.5-14.5); WHITE BLOOD COUNT 9.8 x10^3/uL (4.0-11.0)
[2019-02-27 08:51] LABS: CREATININE 0.6 mg/dL (0.7-1.3); GFR 143.8; MAGNESIUM 1.9 mg/dL (1.8-2.4)
[2019-02-27 08:57] LABS: VANC TR 12.3 mcg/mL (10.0-20.0)
[2019-02-27 08:58] LABS: POTASSIUM 2.7 mmol/L (3.5-5.1)
[2019-02-27] MEDS: MAGNESIUM SULFATE 4GM 100 ML IV SCH (09:00)
[2019-02-27] MEDS: VANCOMYCIN PER PHARMACY MC PRN (09:27)
--- NOTE | 2019-02-27 09:28 | NUR ---
Pharmacy Vancomycin Dosing Note S:Consulted to monitor and dose vancomycin started 02/25/19. O:NATHALIE WONG is a 48 year old M with Bacteremia . Height: 5 feet, 5 inches Weight: 51.324374 kg [place] Body Weight: 61.50 Adjusted Body Weight: 57.62 Dosing Weight: Actual Other Antibiotics: ANCEF LABS: Last BUN: 4 Last Creatinine: 0.6 Creatinine Clearance: >100 mL/min Last WBC: 9.8 Last Procalcitonin: Tmax (past 24 hours): 98.6 Microbiology: 02/25 BLOOD: g+c in clusters I/O: 410/1650 Drug Levels: Last Trough level: 12.3 on 02/27/19 at 0830 Last dose given 02/26/19 at 2122 Vancomycin Dosing: Loading Dose: x1 Dosing Weight: Actual Target Trough: 15-20 A: Based on: Subtherapeutic trough P: 1. Increase to Vancomycin 750 mg IV q8h 2. Follow up Trough level on 02/28/19 at 0900 3. Pharmacy will continue to monitor, follow and adjust therapy as needed. ASHLYN RIVERA RPH, 02/27/19 [id number]
[2019-02-27] MEDS: VANCOMYCIN 750 MG in IV NORMAL SALINE 250ML 250 ML IV SCH ×2 (09:57→17:06)
[2019-02-27] MEDS ORDERED: POTASSIUM CHLORIDE 20 MEQ TABLET.ER. PO ONE (10:00)
--- NOTE | 2019-02-27 10:50 | RAD ---
CT PELVIS WO CONTRAST dated 02/26/2019 6:23 PM Indication: Hip pain without recent injury Comparison: No comparison is available. Technique: Helical noncontrast images were performed. Sagittal and coronal reconstructions were obtained. One or more of the following individualized dose reduction techniques were utilized for this examination: 1. Automated exposure control 2. Adjustment of the mA and/or kV according to patient size 3. Use of iterative reconstruction technique Findings: No fracture is seen. There is a transitional vertebra at the lumbosacral junction. Sclerotic areas in the left ilium are likely bone islands, assuming the patient has no known malignancy history. There are mild arthritic changes at the hip joints. There may be a small amount of free fluid in the abdomen and and pelvis. No soft tissue mass or hematoma is seen. There is some soft tissue thickening suggested in the area of the proximal hamstring tendon on the right overlying the ischial tuberosity, and a focus of gas is also seen in this region. There is no obvious overlying skin ulcer. Sagittal images show evidence of early cortical disruption of the initial tuberosity in this region. IMPRESSION: There is soft tissue thickening and focal gas overlying the right ischial tuberosity, and there is suggestion of early bone destruction here. This could relate to infection, although there is no obvious overlying decubitus ulcer. No well-formed abscess is visible, although noncontrast CT is limited for this purpose. If further imaging evaluation is needed, MRI may be useful. Electronically signed by: Russ Prajapati Jr., MD (02/27/2019 10:47 AM) [facility] [place]
--- NOTE | 2019-02-27 10:50 | PDOC ---
[employer]GRESS NOTE Chief Complaint Chief Complaint DKA, dehydration, infected wound on scalp, hip pain History of Present Illness History of Present Illness 02/27/19 Pt seen and examined at bedside. Pt family at bedside. Pt says the pain cream is helpful for hip pain, and that lidocaine patches are not. Pt chart reviewed. Vitals/I&O Vitals/I&O: Vital Signs Date Time Temp Pulse Resp B/P (MAP) Pulse Ox O2 Delivery O2 Flow Rate FiO2 02/27/19 07:00 98.0 67 16 131/78 (95) 97 Room Air 98.0 I & O 02/26/19 02/26/19 02/27/19 15:00 23:00 07:00 Intake Total 360 ml 50 ml Output Total 1650 ml Balance -1290 ml 50 ml Physical Exam General: Alert, Cooperative, No acute distress Heart: Regular rate, Normal S1, Normal S2, No murmurs Lungs: Clear, Other (No respiratory distress) Abdomen: Normal bowel sounds, Soft, No tenderness Extremities: No clubbing, No cyanosis Skin: No rashes, No significant lesion Labs Labs: Laboratory Tests Test 02/26/19 11:44 02/26/19 17:19 02/26/19 20:48 02/27/19 07:42 Glucose (Fingerstick) 206 mg/dL (70-99) 191 mg/dL (70-99) 268 mg/dL (70-99) 130 mg/dL (70-99) Test 02/27/19 08:30 White Blood Count 9.8 x10^3/uL (4.0-11.0) Red Blood Count 3.78 x10^6/uL (4.30-5.70) Hemoglobin 11.2 g/dL (13.0-17.5) Hematocrit 32.3 % (39.0-53.0) Mean Corpuscular Volume 85 fL (79-100) Mean Corpuscular Hemoglobin 30 pg (25-35) Mean Corpuscular Hemoglobin Concent 35 g/dL (31-37) Red Cell Distribution Width 13.7 % (11.5-14.5) Platelet Count 260 x10^3/uL (140-400) Neutrophils (%) (Auto) 82 % (31-73) Lymphocytes (%) (Auto) 8 % (24-48) Monocytes (%) (Auto) 9 % (0-9) Eosinophils (%) (Auto) 0 % (0-3) Basophils (%) (Auto) 1 % (0-3) Neutrophils # (Auto) 8.0 x10^3/uL (1.8-7.7) Lymphocytes # (Auto) 0.8 x10^3/uL (1.0-4.8) Monocytes # (Auto) 0.9 x10^3/uL (0.0-1.1) Eosinophils # (Auto) 0.0 x10^3/uL (0.0-0.7) Basophils # (Auto) 0.1 x10^3/uL (0.0-0.2) Erythrocyte Sedimentation Rate 68 (0-15) Sodium Level 142 mmol/L (136-145) Potassium Level 2.7 mmol/L (3.5-5.1) Chloride Level 108 mmol/L (98-107) Carbon Dioxide Level 27 mmol/L (21-32) Anion Gap 7 (6-14) Blood Urea Nitrogen 4 mg/dL (8-26) Creatinine 0.6 mg/dL (0.7-1.3) Estimated GFR (Cockcroft-Gault) 143.8 Glucose Level 119 mg/dL (70-99) Calcium Level 8.0 mg/dL (8.5-10.1) Magnesium Level 1.9 mg/dL (1.8-2.4) Vancomycin Level Trough 12.3 mcg/mL (10.0-20.0) Vancomycin Last Dose Date 02/26/19 Vancomycin Last Dose Time 2100 Review of Systems Review of Systems: General: Denies fever GI: Denies abdominal pain Cardio: Denies chest pain Assessment and Plan Assessmemt and Plan ASSESSMENT: Problems Medical Problems: (1) Dehydration Status: Acute (2) DKA (diabetic ketoacidoses) Status: Acute (3) Scalp abscess Status: Acute (4) Sepsis Status: Acute s/p severe dka with pH 6.9 and met enceph, resolved s/p bicarb RElative hypotension SKin lesions in a DM DM type 1, out of meds x 1 yr Proteinuria and glucosuria but no UTI Hypokalemia RT hip pain PLAN: - IV fluids for hydration - [id number] ADA diet - Home medications - DVT prophylaxis - Capsaicin cream for hip pain - Pending CT pelvis for hip pain - Wound care for scalp lesions - Hypokalemia, replace as needed - Gram positive cocci in 2/2 bottles blood cultures, continue IV antibiotics, appreciate Infectious disease input. - Monitor blood glucose levels Full code Comment Review of Relevant I have reviewed the following items orestes (where applicable) has been applied. Medications: Current Medications Medications (Trade) Dose Ordered Sig/Rich Route PRN Reason Start Time Stop Time Status Last Admin Dose Admin Insulin Glargine (Lantus Syringe) 20 unit QHS SQ 02/26/19 21:00 02/26/19 21:38 Potassium Chloride (Klor-Con) 40 meq 1X ONCE PO 02/26/19 11:00 02/26/19 11:01 DC 02/26/19 11:01 Lidocaine (Lidoderm) 1 patch DAILY TD 02/26/19 11:30 02/27/19 07:56 Miscellaneous (Lidoderm Patch Removal) 1 ea QHS MC 02/26/19 21:00 02/26/19 21:22 Lactobacillus Rhamnosus (Culturelle) 1 cap BID PO 02/26/19 21:00 02/27/19 07:56 Vancomycin HCl (Vancomycin Trough Level) 1 each 1X ONCE MC 02/27/19 08:30 02/27/19 08:31 DC 02/27/19 08:30 Vancomycin HCl 750 mg/Sodium Chloride 250 ml @ 250 mls/hr Q8H IV 02/27/19 09:30 02/27/19 09:57 Potassium Chloride (Klor-Con) 40 meq 1X ONCE PO 02/27/19 10:00 02/27/19 10:01 DC 02/27/19 09:56 SHOBHA REYES III DO Feb 27, 2019 10:49
[2019-02-27 11:00] VITALS: BP 125/80
--- NOTE | 2019-02-27 13:33 | PDOC ---
Infectious Disease Note Subjective Subjective Feeling better Less right hip pain with walking Denies F/C/S/N/V ROS ROS per HPI Vital Sign Vital Signs Vital Signs Date Time Temp Pulse Resp B/P (MAP) Pulse Ox O2 Delivery O2 Flow Rate FiO2 02/27/19 11:00 98.5 70 16 125/80 (95) 98 Room Air 98.5 Physical Exam PHYSICAL EXAM GENERAL: The patient is propped up in bed, alert, in no apparent distress. HEENT: Pupils are equally round, reactive. Oral cavity, oropharynx pink and moist. Superficial scalp wound and alopecia. NECK: Supple. LUNGS: Clear to auscultation. HEART: S1, S2 regular. ABDOMEN: Nondistended, soft, nontender with bowel sounds present. EXTREMITIES: Trace pedal edema in lower extremities bilaterally. Sensitive to touch. No cyanosis. Several dry annular wounds/scabs both legs bilaterally wo associated redness or drainage. SKIN: Warm to touch. No signs of rash NEUROLOGIC: Alert and oriented x 3. Labs Lab Laboratory Tests Test 02/26/19 17:19 02/26/19 20:48 02/27/19 07:42 02/27/19 08:30 Glucose (Fingerstick) 191 mg/dL (70-99) 268 mg/dL (70-99) 130 mg/dL (70-99) White Blood Count 9.8 x10^3/uL (4.0-11.0) Red Blood Count 3.78 x10^6/uL (4.30-5.70) Hemoglobin 11.2 g/dL (13.0-17.5) Hematocrit 32.3 % (39.0-53.0) Mean Corpuscular Volume 85 fL (79-100) Mean Corpuscular Hemoglobin 30 pg (25-35) Mean Corpuscular Hemoglobin Concent 35 g/dL (31-37) Red Cell Distribution Width 13.7 % (11.5-14.5) Platelet Count 260 x10^3/uL (140-400) Neutrophils (%) (Auto) 82 % (31-73) Lymphocytes (%) (Auto) 8 % (24-48) Monocytes (%) (Auto) 9 % (0-9) Eosinophils (%) (Auto) 0 % (0-3) Basophils (%) (Auto) 1 % (0-3) Neutrophils # (Auto) 8.0 x10^3/uL (1.8-7.7) Lymphocytes # (Auto) 0.8 x10^3/uL (1.0-4.8) Monocytes # (Auto) 0.9 x10^3/uL (0.0-1.1) Eosinophils # (Auto) 0.0 x10^3/uL (0.0-0.7) Basophils # (Auto) 0.1 x10^3/uL (0.0-0.2) Erythrocyte Sedimentation Rate 68 (0-15) Sodium Level 142 mmol/L (136-145) Potassium Level 2.7 mmol/L (3.5-5.1) Chloride Level 108 mmol/L (98-107) Carbon Dioxide Level 27 mmol/L (21-32) Anion Gap 7 (6-14) Blood Urea Nitrogen 4 mg/dL (8-26) Creatinine 0.6 mg/dL (0.7-1.3) Estimated GFR (Cockcroft-Gault) 143.8 Glucose Level 119 mg/dL (70-99) Calcium Level 8.0 mg/dL (8.5-10.1) Magnesium Level 1.9 mg/dL (1.8-2.4) Vancomycin Level Trough 12.3 mcg/mL (10.0-20.0) Vancomycin Last Dose Date 02/26/19 Vancomycin Last Dose Time 2100 Test 02/27/19 11:33 Glucose (Fingerstick) 256 mg/dL (70-99) Pelvis CT: There is soft tissue thickening and focal gas overlying the right ischial tuberosity, and there is suggestion of early bone destruction here. This could relate to infection, although there is no obvious overlying decubitus ulcer. No well-formed abscess is visible, although noncontrast CT is limited for this purpose. If further imaging evaluation is needed, MRI may be useful. Micro IMPRESSION: There is soft tissue thickening and focal gas overlying the right ischial tuberosity, and there is suggestion of early bone destruction here. This could relate to infection, although there is no obvious overlying decubitus ulcer. No well-formed abscess is visible, although noncontrast CT is limited for this purpose. If further imaging evaluation is needed, MRI may be useful. BLOOD CULTURE Final GRAM POSITIVE COCCI IN CLUSTERS, IN 2 OF 2 BOTTLES, OF ONE SET. CALLED TO DAMON RIVERA RN IN ICU AT 8:25 ON 02/26/19 [facility] Objective Assessment GPC bacteremia with sepsis, POA. ID still pending Nonhealing wounds involving scalp and lower extremities, bilaterally - superficial Right hip pain - pelvis CT shows soft tissue thickening and focal gas overlying the right ischial tuberosity, and there is suggestion of early bone destruction. ESR 68 Hypothermia - better Leukocytosis - resolved DKA Peripheral neuropathy Plan Plan of Care Continue vanc per pharmacy protocol Trough 12.3 Continue cefazolin Wound care team consulted f/u cultures Monitor WBC/temp and renal function closely Glycemic control per primary May need Ortho eval D/w sig other at bedside Better today Await Ortho eval - F/u cults d/w sig other Attending Co-Sign Attending Co-Sign The patient was seen and interviewed as well as examined at the bedside. The chart was reviewed. The case was discussed. Agree with the plan of care. ALYSSA CHRISTY APRN Feb 27, 2019 13:33 TOBIAS SANCHEZ MD Feb 27, 2019 16:40
[2019-02-27 15:00] VITALS: BP 117/72
[2019-02-27 19:00] VITALS: BP 113/71
[2019-02-27] MEDS: PATCH REMOVAL. MC SCH (20:52)
[2019-02-27] MEDS: INSULIN GLARGINE SYRINGE. SQ SCH (20:52)
[2019-02-27 23:00] VITALS: BP 111/71
[2019-02-28] MEDS: VANCOMYCIN 750 MG in IV NORMAL SALINE 250ML 250 ML IV SCH ×3 (01:58→18:23)
[2019-02-28 03:00] VITALS: BP 109/69
[2019-02-28 04:50] LABS: BASO # 0.1 x10^3/uL (0.0-0.2); BASO % 1 % (0-3); EOS # 0.1 x10^3/uL (0.0-0.7); EOS % 1 % (0-3); HEMOGLOBIN 11.7 g/dL (13.0-17.5); LYMPH # 1.4 x10^3/uL (1.0-4.8); LYMPH % 13 % (24-48); MEAN CORPUSCULAR HEMOGLOBIN 29 pg (25-35); MEAN CORPUSCULAR HGB CONC 34 g/dL (31-37); MEAN CORPUSCULAR VOLUME 87 fL (79-100); MONO # 0.9 x10^3/uL (0.0-1.1); MONO % 9 % (0-9); NEUT % 77 % (31-73); PLATELET COUNT 283 x10^3/uL (140-400); RED BLOOD COUNT 4.05 x10^6/uL (4.30-5.70); RED CELL DISTRIBUTION WIDTH 13.8 % (11.5-14.5); WHITE BLOOD COUNT 10.5 x10^3/uL (4.0-11.0)
[2019-02-28] MEDS: ACETAMINOPHEN/CODEINE 300/30MG TABLET. PO PRN (04:54)
[2019-02-28] MEDS: IV NORMAL SALINE 1000ML BAG 1,000 ML IV SCH ×2 (05:58→17:41)
[2019-02-28] MEDS: ceFAZolin SODIUM IV Push 1 GM VIAL. IVP SCH ×2 (05:58→13:54)
[2019-02-28 06:20] LABS: CALCIUM 8.2 mg/dL (8.5-10.1); CREATININE 0.7 mg/dL (0.7-1.3); GFR 120.4
[2019-02-28 06:31] LABS: POTASSIUM 2.9 mmol/L (3.5-5.1)
--- NOTE | 2019-02-28 06:55 | EKG ---
[facility] [address] [place] [address] Test Date: 2019-02-25 Test Time: 14:13:44 Pat Name: NATHALIE WONG Department: Room: 588 1 Gender: M Cash Specialist: : 1970 Requested By: RADHA RODRIGUEZ Order Number: [id number] Reading MD: Jayy Lai MD Measurements Intervals [place] Rate: 96 P: 66 GA: 116 QRS: 62 QRSD: 94 T: -28 QT: 394 QTc: 505 Interpretive Statements SINUS RHYTHM NON-SPECIFIC ST/T CHANGES Electronically Signed On 03-01-2019 13:52:12 [employer]INNER by Jayy Lai MD
[2019-02-28 07:00] VITALS: BP 105/56
[2019-02-28] MEDS ORDERED: POTASSIUM CHLORIDE 20 MEQ TABLET.ER. PO ONE ×2 (07:00→11:00)
[2019-02-28] MEDS: INSULIN LISPRO 300 UNITS/3 ML VIAL. SQ SCH ×3 (08:00→17:00)
[2019-02-28] MEDS: LIDOCAINE (700MG/PATCH) PATCH. TD SCH (09:00)
--- NOTE | 2019-02-28 09:16 | NUR ---
SW following pt for dc planning. Chart reviewed. Pt lives at home with significant other. ID following pt. SW will be available as needed.
[2019-02-28 10:16] LABS: VANC TR 16.5 mcg/mL (10.0-20.0)
[2019-02-28] MEDS: LACTOBACILLUS RHAMNOSUS GG 1 CAPSULE. PO SCH ×2 (10:35→20:44)
[2019-02-28] MEDS: DICLOFENAC SODIUM 1% TOPICAL GEL 100GM TUBE. TP SCH ×4 (10:35→20:44)
[2019-02-28] MEDS: POTASSIUM CHLORIDE 20 MEQ TABLET.ER. PO SCH (10:35)
[2019-02-28 11:00] VITALS: BP 119/76
--- NOTE | 2019-02-28 11:04 | PDOC ---
Infectious Disease Note Subjective Subjective Feeling better Less right hip pain with walking but has not moved much so it is hurting Denies F/C/S/N/V Occ loose stool ROS ROS o/w neg Vital Sign Vital Signs Vital Signs Date Time Temp Pulse Resp B/P (MAP) Pulse Ox O2 Delivery O2 Flow Rate FiO2 02/28/19 07:00 98.1 62 16 105/56 (72) 98 Room Air 98.1 Physical Exam PHYSICAL EXAM GENERAL: The patient is propped up in bed, alert, in no apparent distress. HEENT: Pupils are equally round, reactive. Oral cavity, oropharynx pink and moist. Superficial scalp wound and alopecia. NECK: Supple. LUNGS: Clear to auscultation. HEART: S1, S2 regular. ABDOMEN: Nondistended, soft, nontender with bowel sounds present. EXTREMITIES: Trace pedal edema in lower extremities bilaterally. Sensitive to touch. No cyanosis. Several dry annular wounds/scabs both legs bilaterally wo associated redness or drainage. SKIN: Warm to touch. No signs of rash NEUROLOGIC: Alert and oriented x 3. Labs Lab Laboratory Tests Test 02/27/19 11:33 02/27/19 16:37 02/27/19 20:38 02/28/19 04:25 Glucose (Fingerstick) 256 mg/dL (70-99) 184 mg/dL (70-99) 261 mg/dL (70-99) White Blood Count 10.5 x10^3/uL (4.0-11.0) Red Blood Count 4.05 x10^6/uL (4.30-5.70) Hemoglobin 11.7 g/dL (13.0-17.5) Hematocrit 35.0 % (39.0-53.0) Mean Corpuscular Volume 87 fL (79-100) Mean Corpuscular Hemoglobin 29 pg (25-35) Mean Corpuscular Hemoglobin Concent 34 g/dL (31-37) Red Cell Distribution Width 13.8 % (11.5-14.5) Platelet Count 283 x10^3/uL (140-400) Neutrophils (%) (Auto) 77 % (31-73) Lymphocytes (%) (Auto) 13 % (24-48) Monocytes (%) (Auto) 9 % (0-9) Eosinophils (%) (Auto) 1 % (0-3) Basophils (%) (Auto) 1 % (0-3) Neutrophils # (Auto) 8.0 x10^3/uL (1.8-7.7) Lymphocytes # (Auto) 1.4 x10^3/uL (1.0-4.8) Monocytes # (Auto) 0.9 x10^3/uL (0.0-1.1) Eosinophils # (Auto) 0.1 x10^3/uL (0.0-0.7) Basophils # (Auto) 0.1 x10^3/uL (0.0-0.2) Sodium Level 144 mmol/L (136-145) Potassium Level 2.9 mmol/L (3.5-5.1) Chloride Level 110 mmol/L (98-107) Carbon Dioxide Level 23 mmol/L (21-32) Anion Gap 11 (6-14) Blood Urea Nitrogen 4 mg/dL (8-26) Creatinine 0.7 mg/dL (0.7-1.3) Estimated GFR (Cockcroft-Gault) 120.4 Glucose Level 144 mg/dL (70-99) Calcium Level 8.2 mg/dL (8.5-10.1) Test 02/28/19 07:57 02/28/19 09:05 Glucose (Fingerstick) 70 mg/dL (70-99) Vancomycin Level Trough 16.5 mcg/mL (10.0-20.0) Vancomycin Last Dose Date 02/28/19 Vancomycin Last Dose Time 0130 Micro IMPRESSION: There is soft tissue thickening and focal gas overlying the right ischial tuberosity, and there is suggestion of early bone destruction here. This could relate to infection, although there is no obvious overlying decubitus ulcer. No well-formed abscess is visible, although noncontrast CT is limited for this purpose. If further imaging evaluation is needed, MRI may be useful. BLOOD CULTURE Final GRAM POSITIVE COCCI IN CLUSTERS, IN 2 OF 2 BOTTLES, OF ONE SET. CALLED TO DAMON RIVERA RN IN ICU AT 8:25 ON 02/26/19 [facility] Objective Assessment GPC bacteremia with sepsis, POA. ID still pending Nonhealing wounds involving scalp and lower extremities, bilaterally - superficial - healing Right hip pain - pelvis CT shows soft tissue thickening and focal gas overlying the right ischial tuberosity, and there is suggestion of early bone destruction. ESR 68 Hypothermia - better Leukocytosis - resolved DKA Peripheral neuropathy Plan Plan of Care Continue vanc per pharmacy protocol Trough 12.[address] Nava this am who is arranging for IR to aspirate this area. Will change to Zosyn as do not want to delay any longer to expand abx. Was waiting for surgical decision and cults but will broaden now as uncertain when aspiration will get done Discontinue cefazolin Wound care team consulted f/u cultures Monitor WBC/temp and renal function closely in am Glycemic/Electrolytes control per primary TOBIAS SANCHEZ MD Feb 28, 2019 11:04
--- NOTE | 2019-02-28 11:10 | NUR ---
AM meds: am meds passed, computer before the eMAR was saved.
--- NOTE | 2019-02-28 11:49 | PDOC ---
PROGRESS NOTES Chief Complaint Chief Complaint impression GPC bacteremia with sepsis, POA. ID still pending Nonhealing wounds involving scalp and lower extremities, bilaterally - super ficial - healing Right hip pain - pelvis CT shows soft tissue thickening and focal gas overlying the right ischial tuberosity, and there is suggestion of early bone destruction. ESR 68 Hypothermia - better Leukocytosis - sepsis dehydration DKA Peripheral neuropathy Plan Plan of Care Continue vanc per pharmacy protocol Trough 12.3 Brandy arranging for IR to aspirate this area. on Zosyn iv Discontinue cefazolin Wound care team consulted f/u cultures Monitor WBC/temp and renal function History of Present Illness History of Present Illness 02/28/19 Pt seen and examined at bedside. Pt family at bedside. joint hip aspiration today Pt chart reviewed. d/w Vitals Vitals Vital Signs Date Time Temp Pulse Resp B/P (MAP) Pulse Ox O2 Delivery O2 Flow Rate FiO2 02/28/19 11:00 98.5 68 17 119/76 (90) 97 Room Air 98.5 Physical Exam Physical Exam GENERAL: The patient is propped up in bed, alert, in no apparent distress. HEENT: Pupils are equally round, reactive. Oral cavity, oropharynx pink and moist. Superficial scalp wound and alopecia. NECK: Supple. LUNGS: Clear to auscultation. HEART: S1, S2 regular. ABDOMEN: Nondistended, soft, nontender with bowel sounds present. EXTREMITIES: Trace pedal edema in lower extremities bilaterally. Sensitive to touch. No cyanosis. Several dry annular wounds/scabs both legs bilaterally wo associated redness or drainage. SKIN: Warm to touch. No signs of rash NEUROLOGIC: Alert and oriented x 3. General: Alert, Cooperative, No acute distress Heart: Regular rate, Normal S1, Normal S2, No murmurs Lungs: Clear, Other (No respiratory distress) Abdomen: Normal bowel sounds, Soft, No tenderness Extremities: No clubbing, No cyanosis Skin: No rashes, No significant lesion Labs LABS PATIENT: NATHALIE WONG ACCOUNT: [id number] : 1970 LOCATION: [address] [place] [address] AGE: 48 SEX: M EXAM STATUS: ADM IN ORD. PHYSICIAN: TOBIAS SANCHEZ MD REASON: right hip pain PROCEDURE: CT PELVIS WO CONTRAST CT PELVIS WO CONTRAST dated 02/26/2019 6:23 PM Indication: Hip pain without recent injury Comparison: No comparison is available. Technique: Helical noncontrast images were performed. Sagittal and coronal reconstructions were obtained. One or more of the following individualized dose reduction techniques were utilized for this examination: 1. Automated exposure control 2. Adjustment of the mA and/or kV according to patient size 3. Use of iterative reconstruction technique Findings: No fracture is seen. There is a transitional vertebra at the lumbosacral junction. Sclerotic areas in the left ilium are likely bone islands, assuming the patient has no known malignancy history. There are mild arthritic changes at the hip joints. There may be a small amount of free fluid in the abdomen and and pelvis. No soft tissue mass or hematoma is seen. There is some soft tissue thickening suggested in the area of the proximal hamstring tendon on the right overlying the ischial tuberosity, and a focus of gas is also seen in this region. There is no obvious overlying skin ulcer. Sagittal images show evidence of early cortical disruption of the initial tuberosity in this region. IMPRESSION: There is soft tissue thickening and focal gas overlying the right ischial tuberosity, and there is suggestion of early bone destruction here. This could relate to infection, although there is no obvious overlying decubitus ulcer. No well-formed abscess is visible, although noncontrast CT is limited for this purpose. If further imaging evaluation is needed, MRI may be useful. Electronically signed by: Russ Prajapati Jr., MD (02/27/2019 10:47 AM) [facility] [place] Laboratory Tests Test 02/27/19 16:37 02/27/19 20:38 02/28/19 04:25 02/28/19 07:57 Glucose (Fingerstick) 184 mg/dL (70-99) 261 mg/dL (70-99) 70 mg/dL (70-99) White Blood Count 10.5 x10^3/uL (4.0-11.0) Red Blood Count 4.05 x10^6/uL (4.30-5.70) Hemoglobin 11.7 g/dL (13.0-17.5) Hematocrit 35.0 % (39.0-53.0) Mean Corpuscular Volume 87 fL (79-100) Mean Corpuscular Hemoglobin 29 pg (25-35) Mean Corpuscular Hemoglobin Concent 34 g/dL (31-37) Red Cell Distribution Width 13.8 % (11.5-14.5) Platelet Count 283 x10^3/uL (140-400) Neutrophils (%) (Auto) 77 % (31-73) Lymphocytes (%) (Auto) 13 % (24-48) Monocytes (%) (Auto) 9 % (0-9) Eosinophils (%) (Auto) 1 % (0-3) Basophils (%) (Auto) 1 % (0-3) Neutrophils # (Auto) 8.0 x10^3/uL (1.8-7.7) Lymphocytes # (Auto) 1.4 x10^3/uL (1.0-4.8) Monocytes # (Auto) 0.9 x10^3/uL (0.0-1.1) Eosinophils # (Auto) 0.1 x10^3/uL (0.0-0.7) Basophils # (Auto) 0.1 x10^3/uL (0.0-0.2) Sodium Level 144 mmol/L (136-145) Potassium Level 2.9 mmol/L (3.5-5.1) Chloride Level 110 mmol/L (98-107) Carbon Dioxide Level 23 mmol/L (21-32) Anion Gap 11 (6-14) Blood Urea Nitrogen 4 mg/dL (8-26) Creatinine 0.7 mg/dL (0.7-1.3) Estimated GFR (Cockcroft-Gault) 120.4 Glucose Level 144 mg/dL (70-99) Calcium Level 8.2 mg/dL (8.5-10.1) Test 02/28/19 09:05 Vancomycin Level Trough 16.5 mcg/mL (10.0-20.0) Vancomycin Last Dose Date 02/28/19 Vancomycin Last Dose Time 0130 Assessment and Plan Assessmemt and Plan Problems Medical Problems: (1) Dehydration Status: Acute (2) DKA (diabetic ketoacidoses) Status: Acute (3) Scalp abscess Status: Acute (4) Sepsis Status: Acute Comment Review of Relevant I have reviewed the following items orestes (where applicable) has been applied. Labs Laboratory Tests Test 02/26/19 17:19 02/26/19 20:48 02/27/19 07:42 02/27/19 08:30 Glucose (Fingerstick) 191 mg/dL (70-99) 268 mg/dL (70-99) 130 mg/dL (70-99) White Blood Count 9.8 x10^3/uL (4.0-11.0) Red Blood Count 3.78 x10^6/uL (4.30-5.70) Hemoglobin 11.2 g/dL (13.0-17.5) Hematocrit 32.3 % (39.0-53.0) Mean Corpuscular Volume 85 fL (79-100) Mean Corpuscular Hemoglobin 30 pg (25-35) Mean Corpuscular Hemoglobin Concent 35 g/dL (31-37) Red Cell Distribution Width 13.7 % (11.5-14.5) Platelet Count 260 x10^3/uL (140-400) Neutrophils (%) (Auto) 82 % (31-73) Lymphocytes (%) (Auto) 8 % (24-48) Monocytes (%) (Auto) 9 % (0-9) Eosinophils (%) (Auto) 0 % (0-3) Basophils (%) (Auto) 1 % (0-3) Neutrophils # (Auto) 8.0 x10^3/uL (1.8-7.7) Lymphocytes # (Auto) 0.8 x10^3/uL (1.0-4.8) Monocytes # (Auto) 0.9 x10^3/uL (0.0-1.1) Eosinophils # (Auto) 0.0 x10^3/uL (0.0-0.7) Basophils # (Auto) 0.1 x10^3/uL (0.0-0.2) Erythrocyte Sedimentation Rate 68 (0-15) Sodium Level 142 mmol/L (136-145) Potassium Level 2.7 mmol/L (3.5-5.1) Chloride Level 108 mmol/L (98-107) Carbon Dioxide Level 27 mmol/L (21-32) Anion Gap 7 (6-14) Blood Urea Nitrogen 4 mg/dL (8-26) Creatinine 0.6 mg/dL (0.7-1.3) Estimated GFR (Cockcroft-Gault) 143.8 Glucose Level 119 mg/dL (70-99) Calcium Level 8.0 mg/dL (8.5-10.1) Magnesium Level 1.9 mg/dL (1.8-2.4) Vancomycin Level Trough 12.3 mcg/mL (10.0-20.0) Vancomycin Last Dose Date 02/26/19 Vancomycin Last Dose Time 2100 Test 02/27/19 11:33 02/27/19 16:37 02/27/19 20:38 02/28/19 04:25 Glucose (Fingerstick) 256 mg/dL (70-99) 184 mg/dL (70-99) 261 mg/dL (70-99) White Blood Count 10.5 x10^3/uL (4.0-11.0) Red Blood Count 4.05 x10^6/uL (4.30-5.70) Hemoglobin 11.7 g/dL (13.0-17.5) Hematocrit 35.0 % (39.0-53.0) Mean Corpuscular Volume 87 fL (79-100) Mean Corpuscular Hemoglobin 29 pg (25-35) Mean Corpuscular Hemoglobin Concent 34 g/dL (31-37) Red Cell Distribution Width 13.8 % (11.5-14.5) Platelet Count 283 x10^3/uL (140-400) Neutrophils (%) (Auto) 77 % (31-73) Lymphocytes (%) (Auto) 13 % (24-48) Monocytes (%) (Auto) 9 % (0-9) Eosinophils (%) (Auto) 1 % (0-3) Basophils (%) (Auto) 1 % (0-3) Neutrophils # (Auto) 8.0 x10^3/uL (1.8-7.7) Lymphocytes # (Auto) 1.4 x10^3/uL (1.0-4.8) Monocytes # (Auto) 0.9 x10^3/uL (0.0-1.1) Eosinophils # (Auto) 0.1 x10^3/uL (0.0-0.7) Basophils # (Auto) 0.1 x10^3/uL (0.0-0.2) Sodium Level 144 mmol/L (136-145) Potassium Level 2.9 mmol/L (3.5-5.1) Chloride Level 110 mmol/L (98-107) Carbon Dioxide Level 23 mmol/L (21-32) Anion Gap 11 (6-14) Blood Urea Nitrogen 4 mg/dL (8-26) Creatinine 0.7 mg/dL (0.7-1.3) Estimated GFR (Cockcroft-Gault) 120.4 Glucose Level 144 mg/dL (70-99) Calcium Level 8.2 mg/dL (8.5-10.1) Test 02/28/19 07:57 02/28/19 09:05 Glucose (Fingerstick) 70 mg/dL (70-99) Vancomycin Level Trough 16.5 mcg/mL (10.0-20.0) Vancomycin Last Dose Date 02/28/19 Vancomycin Last Dose Time 0130 Laboratory Tests Test 02/27/19 16:37 02/27/19 20:38 02/28/19 04:25 02/28/19 07:57 Glucose (Fingerstick) 184 mg/dL (70-99) 261 mg/dL (70-99) 70 mg/dL (70-99) White Blood Count 10.5 x10^3/uL (4.0-11.0) Red Blood Count 4.05 x10^6/uL (4.30-5.70) Hemoglobin 11.7 g/dL (13.0-17.5) Hematocrit 35.0 % (39.0-53.0) Mean Corpuscular Volume 87 fL (79-100) Mean Corpuscular Hemoglobin 29 pg (25-35) Mean Corpuscular Hemoglobin Concent 34 g/dL (31-37) Red Cell Distribution Width 13.8 % (11.5-14.5) Platelet Count 283 x10^3/uL (140-400) Neutrophils (%) (Auto) 77 % (31-73) Lymphocytes (%) (Auto) 13 % (24-48) Monocytes (%) (Auto) 9 % (0-9) Eosinophils (%) (Auto) 1 % (0-3) Basophils (%) (Auto) 1 % (0-3) Neutrophils # (Auto) 8.0 x10^3/uL (1.8-7.7) Lymphocytes # (Auto) 1.4 x10^3/uL (1.0-4.8) Monocytes # (Auto) 0.9 x10^3/uL (0.0-1.1) Eosinophils # (Auto) 0.1 x10^3/uL (0.0-0.7) Basophils # (Auto) 0.1 x10^3/uL (0.0-0.2) Sodium Level 144 mmol/L (136-145) Potassium Level 2.9 mmol/L (3.5-5.1) Chloride Level 110 mmol/L (98-107) Carbon Dioxide Level 23 mmol/L (21-32) Anion Gap 11 (6-14) Blood Urea Nitrogen 4 mg/dL (8-26) Creatinine 0.7 mg/dL (0.7-1.3) Estimated GFR (Cockcroft-Gault) 120.4 Glucose Level 144 mg/dL (70-99) Calcium Level 8.2 mg/dL (8.5-10.1) Test 02/28/19 09:05 Vancomycin Level Trough 16.5 mcg/mL (10.0-20.0) Vancomycin Last Dose Date 02/28/19 Vancomycin Last Dose Time 0130 Microbiology 02/25/19 Blood Culture - Final, Complete Medications Current Medications Sodium Chloride 1,000 ml @ 1,000 mls/hr 1X ONCE IV Last administered on 02/25/19at 15:20; Start 02/25/19 at 14:45; Stop 02/25/19 at 15:44; Status DC Sodium Chloride 1,000 ml @ 1,000 mls/hr 1X ONCE IV Last administered on 02/25/19at 15:20; Start 02/25/19 at 15:15; Stop 02/25/19 at 16:14; Status DC Insulin Human Regular 150 ml @ 0 mls/hr 1X ONCE IV Last administered on 02/25/19at 16:01; Start 02/25/19 at 15:30; Stop 02/25/19 at 15:32; Status DC Vancomycin HCl 250 ml @ 250 mls/hr 1X ONCE IV Last administered on 02/25/19at 16:04; Start 02/25/19 at 16:00; Stop 02/25/19 at 16:59; Status DC Ondansetron HCl (Zofran) 4 mg PRN Q8HRS PRN IV NAUSEA/VOMITING; Start 02/25/19 at 16:15; Stop 02/25/19 at 17:32; Status DC Sodium Chloride 1,000 ml @ 100 mls/hr Q10H IV ; Start 02/25/19 at 16:08; Stop 02/26/19 at 08:29; Status DC Sodium Chloride 1,000 ml @ 250 mls/hr Q4H IV Last administered on 02/25/19at 21:28; Start 02/25/19 at 17:00; Stop 02/26/19 at 03:06; Status DC Dextrose/Sodium Chloride 1,000 ml @ 250 mls/hr Q4H IV Last administered on 02/25/19at 23:26; Start 02/25/19 at 16:39; Stop 02/26/19 at 03:06; Status DC Insulin Human Regular 150 unit/ Sodium Chloride 151.5 ml @ 0 mls/hr CONT PRN PRN IV PER PROTOCOL; Start 02/25/19 at 16:45; Stop 02/26/19 at 03:06; Status DC Potassium Chloride/Water 100 ml @ 100 mls/hr PRN Q1HR PRN IV SEE COMMENTS Last administered on 02/26/19at 01:19; Start 02/25/19 at 16:45; Stop 02/26/19 at 03:06; Status DC Potassium Chloride/Water 100 ml @ 100 mls/hr PRN Q1HR PRN IV SEE COMMENTS Last administered on 02/25/19at 23:26; Start 02/25/19 at 16:45; Stop 02/26/19 at 03:06; Status DC Potassium Chloride/Water 100 ml @ 100 mls/hr PRN Q1HR PRN IV SEE COMMENTS; Start 02/25/19 at 16:45; Stop 02/26/19 at 03:06; Status DC Sodium Bicarbonate 50 meq/Sodium Chloride 1,050 ml @ 125 mls/hr 1X ONCE IV Last administered on 02/25/19at 17:51; Start 02/25/19 at 16:45; Stop 02/26/19 at 01:08; Status DC Calcium Carbonate/ Glycine (Tums) 500 mg PRN AFTMEALHC PRN PO INDIGESTION; Start 02/25/19 at 16:45 Temazepam (Restoril) 7.5 mg PRN QHS PRN PO INSOMNIA; Start 02/25/19 at 16:45 Acetaminophen (Tylenol) 500 mg PRN Q6HRS PRN PO MILD PAIN / TEMP; Start 02/25/19 at 16:45 Acetaminophen/ Codeine Phosphate (Tylenol #3) 1 tab PRN Q6HRS PRN PO MODERATE PAIN Last administered on 02/28/19at 04:54; Start 02/25/19 at 16:45 Ondansetron HCl (Zofran) 4 mg PRN Q6HRS PRN IVP NAUSEA/VOMITING; Start 02/25/19 at 16:45 Cefazolin Sodium 50 ml @ 100 mls/hr Q8HRS IV ; Start 02/25/19 at 22:00; Status UNV Cefazolin Sodium 50 ml @ As Directed STK-MED ONCE IV ; Start 02/25/19 at 17:12; Stop 02/25/19 at 17:32; Status DC Cefazolin Sodium 50 ml @ 100 mls/hr 1X ONCE IV Last administered on 02/25/19at 17:30; Start 02/25/19 at 17:30; Stop 02/25/19 at 17:59; Status DC Cefazolin Sodium (Ancef) 1 gm Q8HRS IVP Last administered on 02/28/19at 05:58; Start 02/25/19 at 22:00 Potassium Chloride/Water 100 ml @ 100 mls/hr PRN Q1HR PRN IV SEE COMMENTS; Start 02/25/19 at 21:00 Magnesium Sulfate 100 ml @ 25 mls/hr DAILY IV Last administered on 02/25/19at 21:27; Start 02/26/19 at 09:00; Stop 03/01/19 at 08:59 Dextrose (Dextrose 50%-Water Syringe) 12.5 gm PRN Q15MIN PRN IV SEE COMMENTS; Start 02/26/19 at 03:00; Status UNV Insulin Glargine (Lantus Syringe) 20 unit QHS SQ Last administered on 02/27/19at 20:52; Start 02/26/19 at 21:00 Insulin Human Lispro (HumaLOG) 10 units TIDWMEALS SQ Last administered on 02/26/19at 17:33; Start 02/26/19 at 08:00; Stop 02/26/19 at 18:45; Status DC Dextrose (Dextrose 50%-Water Syringe) 12.5 gm PRN Q15MIN PRN IV SEE COMMENTS; Start 02/26/19 at 03:00 Insulin Glargine (Lantus Syringe) 10 unit 1X ONCE SQ Last administered on 02/26/19 03:16; Start 02/26/19 at 03:30; Stop 02/26/19 at 03:31; Status DC Sodium Chloride 1,000 ml @ 100 mls/hr Q10H IV Last administered on 02/28/19 05:58; Start 02/26/19 at 03:00 Vancomycin HCl (Vanco Per Pharmacy) 1 each PRN DAILY PRN MC SEE COMMENTS Last administered on 02/27/19 09:27; Start 02/26/19 at 08:45 Vancomycin HCl 1 gm/Sodium Chloride 250 ml @ 250 mls/hr Q12H IV Last administered on 02/26/19 21:22; Start 02/26/19 at 09:00; Stop 02/27/19 at 09:06; Status DC Diclofenac Sodium (Voltaren) 1 faith BID TP Last administered on 02/27/19 07:56; Start 02/26/19 at 10:30; Stop 02/27/19 at 11:58; Status DC Potassium Chloride (Klor-Con) 40 meq 1X ONCE PO Last administered on 02/26/19 11:01; Start 02/26/19 at 11:00; Stop 02/26/19 at 11:01; Status DC Lidocaine (Lidoderm) 1 patch DAILY TD Last administered on 02/27/19 07:56; Start 02/26/19 at 11:30 Miscellaneous (Lidoderm Patch Removal) 1 ea QHS MC Last administered on 02/27/19 20:52; Start 02/26/19 at 21:00 Lactobacillus Rhamnosus (Culturelle) 1 cap BID PO Last administered on 02/28/19 10:35; Start 02/26/19 at 21:00 Vancomycin HCl (Vancomycin Trough Level) 1 each 1X ONCE MC Last administered on 02/27/19 08:30; Start 02/27/19 at 08:30; Stop 02/27/19 at 08:31; Status DC Insulin Human Lispro (HumaLOG) 0-7 UNITS TIDWMEALS SQ Last administered on 02/27/19 17:10; Start 02/27/19 at 08:00 Vancomycin HCl 750 mg/Sodium Chloride 250 ml @ 250 mls/hr Q8H IV Last administered on 12/9/19at 10:35; Start 02/27/19 at 09:30 Vancomycin HCl (Vancomycin Trough Level) 1 each 1X ONCE MC ; Start 02/28/19 at 09:00; Stop 02/28/19 at 09:01; Status DC Potassium Chloride (Klor-Con) 40 meq 1X ONCE PO Last administered on 02/27/19at 09:56; Start 02/27/19 at 10:00; Stop 02/27/19 at 10:01; Status DC Diclofenac Sodium (Voltaren) 1 faith QID TP Last administered on 02/28/19at 10:35; Start 02/27/19 at 12:00 Potassium Chloride (Klor-Con) 20 meq 1X ONCE PO ; Start 02/28/19 at 11:00; Stop 02/28/19 at 11:01; Status DC Potassium Chloride (Klor-Con) 40 meq 1X ONCE PO Last administered on 02/28/19at 06:58; Start 02/28/19 at 07:00; Stop 02/28/19 at 07:01; Status DC Potassium Chloride (Klor-Con) 40 meq DAILY PO Last administered on 02/28/19at 10:35; Start 02/28/19 at 09:00 Piperacillin Sod/ Tazobactam Sod 3.375 gm/Sodium Chloride 50 ml @ 100 mls/hr Q6HRS IV ; Start 02/28/19 at 12:00 Vitals/I & O Vital Sign - Last 24 Hours 02/27/19 02/27/19 02/27/19 02/27/19 15:00 19:00 19:45 23:00 Temp 98.9 99.3 99.3 98.9 99.3 99.3 Pulse 74 76 73 Resp 16 18 18 B/P (MAP) 117/72 (87) 113/71 (85) 111/71 (84) Pulse Ox 98 97 96 O2 Delivery Room Air Room Air Room Air Room Air 02/28/19 02/28/19 02/28/19 02/28/19 03:00 04:54 05:58 07:00 Temp 98.4 98.1 98.4 98.1 Pulse 72 62 Resp 18 16 B/P (MAP) 109/69 (82) 105/56 (72) Pulse Ox 96 98 O2 Delivery Room Air Room Air Room Air Room Air 02/28/19 11:00 Temp 98.5 98.5 Pulse 68 Resp 17 B/P (MAP) 119/76 (90) Pulse Ox 97 O2 Delivery Room Air Intake and Output 02/27/19 02/27/19 02/28/19 15:00 23:00 07:00 Intake Total 490 ml Balance 490 ml Nutrition Consultation Dietary Evaluation: Recommendations by RD: Dietary education by RD, Protein supplementation Comments: ADA, DBL meats encourage BS control RD available x [phone] if interested in diet education mvi and vit c per wound protocal Expected Outcomes/Goals: to meet >75% est protein needs glycemic control Malnutrition Findings: Body Fat Depletion (Non Severe: Mild Depletion Weight Status: Underweight ALIX RONQUILLO MD Feb 28, 2019 11:49
[2019-02-28] MEDS: PIPERACILLIN/TAZOBACTAM 3.375 GM in IV NORMAL SALINE 50ML 50 ML IV SCH ×3 (12:23→23:27)
[2019-02-28] MEDS: MAGNESIUM SULFATE 4GM 100 ML IV SCH (12:24)
--- NOTE | 2019-02-28 13:36 | NUR ---
Wound Care Wound care consult for head and leg abrasions. Pt has dry scabs to top of head and right lower leg, painted with Betadine. Pt also has open abrasion to left lower leg, dressed with Xeroform and foam dressing. Pt denied any other open wounds, refused skin inspection. WC will continue to follow for possible changes.
[2019-02-28 15:00] VITALS: BP 129/80
[2019-02-28 19:00] VITALS: BP 103/64
[2019-02-28] MEDS: VANCOMYCIN PER PHARMACY MC PRN (19:02)
[2019-02-28] MEDS: PATCH REMOVAL. MC SCH (20:44)
[2019-02-28] MEDS: INSULIN GLARGINE SYRINGE. SQ SCH (20:54)
[2019-02-28 23:00] VITALS: BP 106/64
--- NOTE | 2019-02-28 23:08 | CONS ---
DATE OF CONSULTATION: 02/28/2019 ORTHOPEDIC CONSULTATION REQUESTING PHYSICIAN: Dr. Magdalena Hernandez. REASON FOR CONSULTATION: Abnormal CT of right hip with right hip pain. HISTORY OF PRESENT ILLNESS: The patient is a 48-year-old male who was brought in and admitted from EMS due to weakness, confusion and high blood sugars at home. Apparently, he has a history of type 1 insulin-dependent diabetes and has not taken his insulin for about a year. He started feeling weak and tired day before admission and his family indicated he had been picking on his skin on his legs and his head. I am now consulted for hip pain, which he said has been going on for few weeks and certainly preexisted his very high blood sugar episode and confusion. He denies any injury or any healing problems, although he does have neuropathy in the lower extremities, particularly affecting his feet. PAST MEDICAL HISTORY: Diabetes with neuropathy. PAST SURGICAL HISTORY: Denies any past surgical history. FAMILY HISTORY: Unknown. SOCIAL HISTORY: Denies smoking, alcohol or drug use. MEDICATIONS: List is reviewed. ALLERGIES: He has no known drug allergies. REVIEW OF SYSTEMS: Significant for some right hip pain over the past few weeks, for which he had been using topical treatment of Biofreeze. He further explains to me that he hurts sometime sitting on the toilet and changes positions sometimes in bed, generally does not have as much hip pain with walking and is positional. He denies any previous history of ulcers over the symptomatic area of his hip, which he says is mainly where he sits down, but has some generalized pain over the right hip as well, somewhat worse with activity. PHYSICAL EXAMINATION: EXTREMITIES: He has very mild restriction of his end-range of motion of the right hip similar to the left. Leg lengths are equal. He has normal alignment, stability of bilateral knees and ankles. No tenderness when I stretch his hamstrings with a straight leg raise and he has no radiating pain. He does have neuropathy in a stocking distribution in both feet. No evidence of any sacral decubiti or other deep leg wound involvement, really has minimal tenderness over the trochanteric bursal area. IMAGING: X-rays show some mild degenerative change at the right hip. CT scan confirms a mild degenerative change and also shows some signal change with possible gas at the hamstring insertion over the inferior pubic ramus on the right. IMPRESSION: Admission with diabetic ketoacidosis and longer standing right hip pain and abnormality over the hamstring insertion on CT scan. TREATMENT PLAN: I went over with him that he does certainly have an abnormality on CT scan overlying the area where he is quite tender; however, there is no evidence of any ulcer or history of ulcer in the past. There is really no skin or other breakdown that would necessarily predispose this area to become infected and the presence of gas in the area without any type of overlying wound or history is certainly puzzling. I described to him and to his other care team that I would prefer this area to be aspirated by a CT-guided perhaps and needle aspiration through Interventional Radiology as I am concerned with pursuing surgical debridement of the area as he has already a poorly controlled diabetic with severe risk factors for healing based on his noncompliance with diabetes medicines for a year, history of neuropathy and the fact that this is an area where he would have likely almost constant pressure sitting or lying down. In other words, I would really want to be sure that this is infection in an unlikely area before undergoing surgical intervention due to his high risk. He understood this and agrees with the treatment plan and further evaluation pending any cultures or results obtained from the planned aspiration under Radiology guidance. AMNA LIVE MD DR: DEBBIE/heber JOB#: [id number] / [id number]
[2019-03-01] MEDS: ACETAMINOPHEN/CODEINE 300/30MG TABLET. PO PRN ×2 (00:41→21:33)
[2019-03-01] MEDS: VANCOMYCIN 750 MG in IV NORMAL SALINE 250ML 250 ML IV SCH ×3 (01:37→18:14)
[2019-03-01] MEDS: IV NORMAL SALINE 1000ML BAG 1,000 ML IV SCH ×3 (02:22→23:21)
[2019-03-01 03:00] VITALS: BP 100/64
[2019-03-01 05:04] LABS: BASO # 0.1 x10^3/uL (0.0-0.2); BASO % 1 % (0-3); EOS # 0.1 x10^3/uL (0.0-0.7); EOS % 2 % (0-3); HEMATOCRIT 27.8 % (39.0-53.0); HEMOGLOBIN 9.3 g/dL (13.0-17.5); LYMPH % 13 % (24-48); MEAN CORPUSCULAR HEMOGLOBIN 29 pg (25-35); MEAN CORPUSCULAR HGB CONC 33 g/dL (31-37); MEAN CORPUSCULAR VOLUME 87 fL (79-100); MONO # 0.8 x10^3/uL (0.0-1.1); MONO % 11 % (0-9); NEUT # 5.5 x10^3/uL (1.8-7.7); NEUT % 74 % (31-73); PLATELET COUNT 184 x10^3/uL (140-400); RED BLOOD COUNT 3.21 x10^6/uL (4.30-5.70); RED CELL DISTRIBUTION WIDTH 13.7 % (11.5-14.5); WHITE BLOOD COUNT 7.5 x10^3/uL (4.0-11.0)
[2019-03-01 05:23] LABS: CALCIUM 7.6 mg/dL (8.5-10.1); CREATININE 0.7 mg/dL (0.7-1.3); GFR 120.4; POTASSIUM 3.7 mmol/L (3.5-5.1)
[2019-03-01] MEDS: PIPERACILLIN/TAZOBACTAM 3.375 GM in IV NORMAL SALINE 50ML 50 ML IV SCH ×3 (05:28→18:14)
[2019-03-01 07:00] VITALS: BP 101/65
[2019-03-01] MEDS: INSULIN LISPRO 300 UNITS/3 ML VIAL. SQ SCH ×3 (08:00→18:21)
--- NOTE | 2019-03-01 08:20 | PDOC ---
Provider Note Provider Note IR NOTE CT reviewed. Small focus of gas and nonspecific soft tissue thickening at insertion of hamstring on pubic bone. No definitive focal fluid collection. If infectious, MRI would be much better to determine the extent of involvement and wether there is associated osteomyelitis. I can attempt needle aspiration, and will plan on doing so today as a positive result would be informative. My give some IV contrast and possibly biopsy affected soft tissues. Given current imaging, and without a significant fluid collection, I feel aspiration is of uncertain sensitivity, ie a negative aspirate does not adequately exclude the presence of infection. TIERNEY KENNEDY MD Mar 01, 2019 08:20
[2019-03-01] MEDS: POTASSIUM CHLORIDE 20 MEQ TABLET.ER. PO SCH (08:39)
[2019-03-01] MEDS: LIDOCAINE (700MG/PATCH) PATCH. TD SCH (08:39)
[2019-03-01] MEDS: LACTOBACILLUS RHAMNOSUS GG 1 CAPSULE. PO SCH ×2 (08:39→21:26)
[2019-03-01] MEDS: DICLOFENAC SODIUM 1% TOPICAL GEL 100GM TUBE. TP SCH ×4 (08:40→21:26)
--- NOTE | 2019-03-01 09:38 | PDOC ---
PROGRESS NOTES Chief Complaint Chief Complaint impression GPC bacteremia with sepsis, POA. ID still pending Nonhealing wounds involving scalp and lower extremities, bilaterally - super ficial - healing Right hip pain - pelvis CT shows soft tissue thickening and focal gas overlying the right ischial tuberosity, and there is suggestion of early bone destruction. ESR 68 Hypothermia - better Leukocytosis - sepsis dehydration DKA Peripheral neuropathy Plan Plan of Care Continue vanc per pharmacy protocol Trough 12.3 IR to aspirate this area. on Zosyn , CONTINUE Discontinue cefazolin 02/28 Wound care team FOLLOWING f/u cultures Monitor WBC/temp and renal function History of Present Illness History of Present Illness 03/01/19 Pt seen and examined at bedside. Pt family at bedside. joint hip aspiration Pt chart reviewed. d/w Vitals Vitals Vital Signs Date Time Temp Pulse Resp B/P (MAP) Pulse Ox O2 Delivery O2 Flow Rate FiO2 03/01/19 07:00 97.4 65 17 101/65 (77) 93 Room Air 97.4 Physical Exam Physical Exam GENERAL: The patient is propped up in bed, alert, in no apparent distress. HEENT: Pupils are equally round, reactive. Oral cavity, oropharynx pink and moist. Superficial scalp wound and alopecia. NECK: Supple. LUNGS: Clear to auscultation. HEART: S1, S2 regular. ABDOMEN: Nondistended, soft, nontender with bowel sounds present. EXTREMITIES: Trace pedal edema in lower extremities bilaterally. Sensitive to touch. No cyanosis. Several dry annular wounds/scabs both legs bilaterally wo associated redness or drainage. SKIN: Warm to touch. No signs of rash NEUROLOGIC: Alert and oriented x 3. General: Alert, Cooperative, No acute distress Heart: Regular rate, Normal S1, Normal S2, No murmurs Lungs: Clear, Other (No respiratory distress) Abdomen: Normal bowel sounds, Soft, No tenderness Extremities: No clubbing, No cyanosis Skin: No rashes, No significant lesion Labs LABS Laboratory Tests Test 02/28/19 11:50 02/28/19 16:49 02/28/19 20:23 03/01/19 04:31 Glucose (Fingerstick) 205 mg/dL (70-99) 131 mg/dL (70-99) 325 mg/dL (70-99) White Blood Count 7.5 x10^3/uL (4.0-11.0) Red Blood Count 3.21 x10^6/uL (4.30-5.70) Hemoglobin 9.3 g/dL (13.0-17.5) Hematocrit 27.8 % (39.0-53.0) Mean Corpuscular Volume 87 fL (79-100) Mean Corpuscular Hemoglobin 29 pg (25-35) Mean Corpuscular Hemoglobin Concent 33 g/dL (31-37) Red Cell Distribution Width 13.7 % (11.5-14.5) Platelet Count 184 x10^3/uL (140-400) Neutrophils (%) (Auto) 74 % (31-73) Lymphocytes (%) (Auto) 13 % (24-48) Monocytes (%) (Auto) 11 % (0-9) Eosinophils (%) (Auto) 2 % (0-3) Basophils (%) (Auto) 1 % (0-3) Neutrophils # (Auto) 5.5 x10^3/uL (1.8-7.7) Lymphocytes # (Auto) 1.0 x10^3/uL (1.0-4.8) Monocytes # (Auto) 0.8 x10^3/uL (0.0-1.1) Eosinophils # (Auto) 0.1 x10^3/uL (0.0-0.7) Basophils # (Auto) 0.1 x10^3/uL (0.0-0.2) Sodium Level 142 mmol/L (136-145) Potassium Level 3.7 mmol/L (3.5-5.1) Chloride Level 110 mmol/L (98-107) Carbon Dioxide Level 24 mmol/L (21-32) Anion Gap 8 (6-14) Blood Urea Nitrogen 8 mg/dL (8-26) Creatinine 0.7 mg/dL (0.7-1.3) Estimated GFR (Cockcroft-Gault) 120.4 Glucose Level 185 mg/dL (70-99) Calcium Level 7.6 mg/dL (8.5-10.1) Test 03/01/19 07:47 Glucose (Fingerstick) 110 mg/dL (70-99) Assessment and Plan Assessmemt and Plan Problems Medical Problems: (1) Dehydration Status: Acute (2) DKA (diabetic ketoacidoses) Status: Acute (3) Scalp abscess Status: Acute (4) Sepsis Status: Acute Comment Review of Relevant I have reviewed the following items orestes (where applicable) has been applied. Labs Laboratory Tests Test 02/27/19 11:33 02/27/19 16:37 02/27/19 20:38 02/27/19 21:20 Glucose (Fingerstick) 256 mg/dL (70-99) 184 mg/dL (70-99) 261 mg/dL (70-99) Clostridium difficile Toxin B Gene Negative (Negative) Test 02/28/19 04:25 02/28/19 07:57 02/28/19 09:05 02/28/19 11:50 White Blood Count 10.5 x10^3/uL (4.0-11.0) Red Blood Count 4.05 x10^6/uL (4.30-5.70) Hemoglobin 11.7 g/dL (13.0-17.5) Hematocrit 35.0 % (39.0-53.0) Mean Corpuscular Volume 87 fL (79-100) Mean Corpuscular Hemoglobin 29 pg (25-35) Mean Corpuscular Hemoglobin Concent 34 g/dL (31-37) Red Cell Distribution Width 13.8 % (11.5-14.5) Platelet Count 283 x10^3/uL (140-400) Neutrophils (%) (Auto) 77 % (31-73) Lymphocytes (%) (Auto) 13 % (24-48) Monocytes (%) (Auto) 9 % (0-9) Eosinophils (%) (Auto) 1 % (0-3) Basophils (%) (Auto) 1 % (0-3) Neutrophils # (Auto) 8.0 x10^3/uL (1.8-7.7) Lymphocytes # (Auto) 1.4 x10^3/uL (1.0-4.8) Monocytes # (Auto) 0.9 x10^3/uL (0.0-1.1) Eosinophils # (Auto) 0.1 x10^3/uL (0.0-0.7) Basophils # (Auto) 0.1 x10^3/uL (0.0-0.2) Sodium Level 144 mmol/L (136-145) Potassium Level 2.9 mmol/L (3.5-5.1) Chloride Level 110 mmol/L (98-107) Carbon Dioxide Level 23 mmol/L (21-32) Anion Gap 11 (6-14) Blood Urea Nitrogen 4 mg/dL (8-26) Creatinine 0.7 mg/dL (0.7-1.3) Estimated GFR (Cockcroft-Gault) 120.4 Glucose Level 144 mg/dL (70-99) Calcium Level 8.2 mg/dL (8.5-10.1) Glucose (Fingerstick) 70 mg/dL (70-99) 205 mg/dL (70-99) Vancomycin Level Trough 16.5 mcg/mL (10.0-20.0) Vancomycin Last Dose Date 02/28/19 Vancomycin Last Dose Time 0130 Test 02/28/19 16:49 02/28/19 20:23 03/01/19 04:31 03/01/19 07:47 Glucose (Fingerstick) 131 mg/dL (70-99) 325 mg/dL (70-99) 110 mg/dL (70-99) White Blood Count 7.5 x10^3/uL (4.0-11.0) Red Blood Count 3.21 x10^6/uL (4.30-5.70) Hemoglobin 9.3 g/dL (13.0-17.5) Hematocrit 27.8 % (39.0-53.0) Mean Corpuscular Volume 87 fL (79-100) Mean Corpuscular Hemoglobin 29 pg (25-35) Mean Corpuscular Hemoglobin Concent 33 g/dL (31-37) Red Cell Distribution Width 13.7 % (11.5-14.5) Platelet Count 184 x10^3/uL (140-400) Neutrophils (%) (Auto) 74 % (31-73) Lymphocytes (%) (Auto) 13 % (24-48) Monocytes (%) (Auto) 11 % (0-9) Eosinophils (%) (Auto) 2 % (0-3) Basophils (%) (Auto) 1 % (0-3) Neutrophils # (Auto) 5.5 x10^3/uL (1.8-7.7) Lymphocytes # (Auto) 1.0 x10^3/uL (1.0-4.8) Monocytes # (Auto) 0.8 x10^3/uL (0.0-1.1) Eosinophils # (Auto) 0.1 x10^3/uL (0.0-0.7) Basophils # (Auto) 0.1 x10^3/uL (0.0-0.2) Sodium Level 142 mmol/L (136-145) Potassium Level 3.7 mmol/L (3.5-5.1) Chloride Level 110 mmol/L (98-107) Carbon Dioxide Level 24 mmol/L (21-32) Anion Gap 8 (6-14) Blood Urea Nitrogen 8 mg/dL (8-26) Creatinine 0.7 mg/dL (0.7-1.3) Estimated GFR (Cockcroft-Gault) 120.4 Glucose Level 185 mg/dL (70-99) Calcium Level 7.6 mg/dL (8.5-10.1) Laboratory Tests Test 02/28/19 11:50 02/28/19 16:49 02/28/19 20:23 03/01/19 04:31 Glucose (Fingerstick) 205 mg/dL (70-99) 131 mg/dL (70-99) 325 mg/dL (70-99) White Blood Count 7.5 x10^3/uL (4.0-11.0) Red Blood Count 3.21 x10^6/uL (4.30-5.70) Hemoglobin 9.3 g/dL (13.0-17.5) Hematocrit 27.8 % (39.0-53.0) Mean Corpuscular Volume 87 fL (79-100) Mean Corpuscular Hemoglobin 29 pg (25-35) Mean Corpuscular Hemoglobin Concent 33 g/dL (31-37) Red Cell Distribution Width 13.7 % (11.5-14.5) Platelet Count 184 x10^3/uL (140-400) Neutrophils (%) (Auto) 74 % (31-73) Lymphocytes (%) (Auto) 13 % (24-48) Monocytes (%) (Auto) 11 % (0-9) Eosinophils (%) (Auto) 2 % (0-3) Basophils (%) (Auto) 1 % (0-3) Neutrophils # (Auto) 5.5 x10^3/uL (1.8-7.7) Lymphocytes # (Auto) 1.0 x10^3/uL (1.0-4.8) Monocytes # (Auto) 0.8 x10^3/uL (0.0-1.1) Eosinophils # (Auto) 0.1 x10^3/uL (0.0-0.7) Basophils # (Auto) 0.1 x10^3/uL (0.0-0.2) Sodium Level 142 mmol/L (136-145) Potassium Level 3.7 mmol/L (3.5-5.1) Chloride Level 110 mmol/L (98-107) Carbon Dioxide Level 24 mmol/L (21-32) Anion Gap 8 (6-14) Blood Urea Nitrogen 8 mg/dL (8-26) Creatinine 0.7 mg/dL (0.7-1.3) Estimated GFR (Cockcroft-Gault) 120.4 Glucose Level 185 mg/dL (70-99) Calcium Level 7.6 mg/dL (8.5-10.1) Test 03/01/19 07:47 Glucose (Fingerstick) 110 mg/dL (70-99) Microbiology 02/25/19 Blood Culture - Preliminary, Resulted 02/25/19 Blood Culture Result 1 ([facility]) - Preliminary, Resulted Medications Current Medications Sodium Chloride 1,000 ml @ 1,000 mls/hr 1X ONCE IV Last administered on 02/25/19at 15:20; Start 02/25/19 at 14:45; Stop 02/25/19 at 15:44; Status DC Sodium Chloride 1,000 ml @ 1,000 mls/hr 1X ONCE IV Last administered on 02/25/19at 15:20; Start 02/25/19 at 15:15; Stop 02/25/19 at 16:14; Status DC Insulin Human Regular 150 ml @ 0 mls/hr 1X ONCE IV Last administered on 02/25/19at 16:01; Start 02/25/19 at 15:30; Stop 02/25/19 at 15:32; Status DC Vancomycin HCl 250 ml @ 250 mls/hr 1X ONCE IV Last administered on 02/25/19at 16:04; Start 02/25/19 at 16:00; Stop 02/25/19 at 16:59; Status DC Ondansetron HCl (Zofran) 4 mg PRN Q8HRS PRN IV NAUSEA/VOMITING; Start 02/25/19 at 16:15; Stop 02/25/19 at 17:32; Status DC Sodium Chloride 1,000 ml @ 100 mls/hr Q10H IV ; Start 02/25/19 at 16:08; Stop 02/26/19 at 08:29; Status DC Sodium Chloride 1,000 ml @ 250 mls/hr Q4H IV Last administered on 02/25/19at 21:28; Start 02/25/19 at 17:00; Stop 02/26/19 at 03:06; Status DC Dextrose/Sodium Chloride 1,000 ml @ 250 mls/hr Q4H IV Last administered on 02/25/19at 23:26; Start 02/25/19 at 16:39; Stop 02/26/19 at 03:06; Status DC Insulin Human Regular 150 unit/ Sodium Chloride 151.5 ml @ 0 mls/hr CONT PRN PRN IV PER PROTOCOL; Start 02/25/19 at 16:45; Stop 02/26/19 at 03:06; Status DC Potassium Chloride/Water 100 ml @ 100 mls/hr PRN Q1HR PRN IV SEE COMMENTS Last administered on 02/26/19at 01:19; Start 02/25/19 at 16:45; Stop 02/26/19 at 03:06; Status DC Potassium Chloride/Water 100 ml @ 100 mls/hr PRN Q1HR PRN IV SEE COMMENTS Last administered on 02/25/19at 23:26; Start 02/25/19 at 16:45; Stop 02/26/19 at 03:06; Status DC Potassium Chloride/Water 100 ml @ 100 mls/hr PRN Q1HR PRN IV SEE COMMENTS; Start 02/25/19 at 16:45; Stop 02/26/19 at 03:06; Status DC Sodium Bicarbonate 50 meq/Sodium Chloride 1,050 ml @ 125 mls/hr 1X ONCE IV Last administered on 02/25/19at 17:51; Start 02/25/19 at 16:45; Stop 02/26/19 at 01:08; Status DC Calcium Carbonate/ Glycine (Tums) 500 mg PRN AFTMEALHC PRN PO INDIGESTION; Start 02/25/19 at 16:45 Temazepam (Restoril) 7.5 mg PRN QHS PRN PO INSOMNIA; Start 02/25/19 at 16:45 Acetaminophen (Tylenol) 500 mg PRN Q6HRS PRN PO MILD PAIN / TEMP; Start 02/25/19 at 16:45 Acetaminophen/ Codeine Phosphate (Tylenol #3) 1 tab PRN Q6HRS PRN PO MODERATE PAIN Last administered on 03/01/19at 00:41; Start 02/25/19 at 16:45 Ondansetron HCl (Zofran) 4 mg PRN Q6HRS PRN IVP NAUSEA/VOMITING; Start 02/25/19 at 16:45 Cefazolin Sodium 50 ml @ 100 mls/hr Q8HRS IV ; Start 02/25/19 at 22:00; Status UNV Cefazolin Sodium 50 ml @ As Directed STK-MED ONCE IV ; Start 02/25/19 at 17:12; Stop 02/25/19 at 17:32; Status DC Cefazolin Sodium 50 ml @ 100 mls/hr 1X ONCE IV Last administered on 02/25/19at 17:30; Start 02/25/19 at 17:30; Stop 02/25/19 at 17:59; Status DC Cefazolin Sodium (Ancef) 1 gm Q8HRS IVP Last administered on 02/28/19at 13:54; Start 02/25/19 at 22:00; Stop 02/28/19 at 18:52; Status DC Potassium Chloride/Water 100 ml @ 100 mls/hr PRN Q1HR PRN IV SEE COMMENTS; Start 02/25/19 at 21:00 Magnesium Sulfate 100 ml @ 25 mls/hr DAILY IV Last administered on 02/28/19at 12:24; Start 02/26/19 at 09:00; Stop 03/01/19 at 08:59; Status DC Dextrose (Dextrose 50%-Water Syringe) 12.5 gm PRN Q15MIN PRN IV SEE COMMENTS; Start 02/26/19 at 03:00; Status UNV Insulin Glargine (Lantus Syringe) 20 unit QHS SQ Last administered on 02/28/19at 20:54; Start 02/26/19 at 21:00 Insulin Human Lispro (HumaLOG) 10 units TIDWMEALS SQ Last administered on 02/26/19at 17:33; Start 02/26/19 at 08:00; Stop 02/26/19 at 18:45; Status DC Dextrose (Dextrose 50%-Water Syringe) 12.5 gm PRN Q15MIN PRN IV SEE COMMENTS; Start 02/26/19 at 03:00 Insulin Glargine (Lantus Syringe) 10 unit 1X ONCE SQ Last administered on 02/26/19 03:16; Start 02/26/19 at 03:30; Stop 02/26/19 at 03:31; Status DC Sodium Chloride 1,000 ml @ 100 mls/hr Q10H IV Last administered on 02/28/19 17:41; Start 02/26/19 at 03:00 Vancomycin HCl (Vanco Per Pharmacy) 1 each PRN DAILY PRN MC SEE COMMENTS Last administered on 02/28/19 19:02; Start 02/26/19 at 08:45 Vancomycin HCl 1 gm/Sodium Chloride 250 ml @ 250 mls/hr Q12H IV Last administered on 02/26/19 21:22; Start 02/26/19 at 09:00; Stop 02/27/19 at 09:06; Status DC Diclofenac Sodium (Voltaren) 1 faith BID TP Last administered on 02/27/19 07:56; Start 02/26/19 at 10:30; Stop 02/27/19 at 11:58; Status DC Potassium Chloride (Klor-Con) 40 meq 1X ONCE PO Last administered on 02/26/19 11:01; Start 02/26/19 at 11:00; Stop 02/26/19 at 11:01; Status DC Lidocaine (Lidoderm) 1 patch DAILY TD Last administered on 02/27/19 07:56; Start 02/26/19 at 11:30 Miscellaneous (Lidoderm Patch Removal) 1 ea QHS MC Last administered on 02/28/19 20:44; Start 02/26/19 at 21:00 Lactobacillus Rhamnosus (Culturelle) 1 cap BID PO Last administered on 03/01/19 08:39; Start 02/26/19 at 21:00 Vancomycin HCl (Vancomycin Trough Level) 1 each 1X ONCE MC Last administered on 02/27/19 08:30; Start 02/27/19 at 08:30; Stop 02/27/19 at 08:31; Status DC Insulin Human Lispro (HumaLOG) 0-7 UNITS TIDWMEALS SQ Last administered on 02/28/19 14:05; Start 02/27/19 at 08:00 Vancomycin HCl 750 mg/Sodium Chloride 250 ml @ 250 mls/hr Q8H IV Last administered on 03/01/19 08:41; Start 02/27/19 at 09:30 Vancomycin HCl (Vancomycin Trough Level) 1 each 1X ONCE MC Last administered on 02/28/19 09:00; Start 02/28/19 at 09:00; Stop 02/28/19 at 09:01; Status DC Potassium Chloride (Klor-Con) 40 meq 1X ONCE PO Last administered on 02/27/19 09:56; Start 02/27/19 at 10:00; Stop 02/27/19 at 10:01; Status DC Diclofenac Sodium (Voltaren) 1 faith QID TP Last administered on 03/01/19 08:40; Start 02/27/19 at 12:00 Potassium Chloride (Klor-Con) 20 meq 1X ONCE PO Last administered on 02/28/19at 12:24; Start 02/28/19 at 11:00; Stop 02/28/19 at 11:01; Status DC Potassium Chloride (Klor-Con) 40 meq 1X ONCE PO Last administered on 02/28/19 06:58; Start 02/28/19 at 07:00; Stop 02/28/19 at 07:01; Status DC Potassium Chloride (Klor-Con) 40 meq DAILY PO Last administered on 03/01/19 08:39; Start 02/28/19 at 09:00 Piperacillin Sod/ Tazobactam Sod 3.375 gm/Sodium Chloride 50 ml @ 100 mls/hr Q6HRS IV Last administered on 03/01/19 05:28; Start 02/28/19 at 12:00 Vitals/I & O Vital Sign - Last 24 Hours 02/28/19 02/28/19 02/28/19 02/28/19 11:00 15:00 19:00 20:00 Temp 98.5 97.8 98.5 98.5 97.8 98.5 Pulse 68 69 78 Resp 17 18 20 B/P (MAP) 119/76 (90) 129/80 (96) 103/64 (77) Pulse Ox 97 99 98 O2 Delivery Room Air Room Air Room Air Room Air 02/28/19 03/01/19 03/01/19 03/01/19 23:00 00:41 01:40 03:00 Temp 99.4 97.3 99.4 97.3 Pulse 70 60 Resp 20 18 B/P (MAP) 106/64 (78) 100/64 (76) Pulse Ox 99 97 O2 Delivery Room Air Room Air Room Air Room Air 03/01/19 07:00 Temp 97.4 97.4 Pulse 65 Resp 17 B/P (MAP) 101/65 (77) Pulse Ox 93 O2 Delivery Room Air Intake and Output 02/28/19 02/28/19 03/01/19 15:00 23:00 07:00 Intake Total 300 ml Balance 300 ml Nutrition Consultation Dietary Evaluation: Recommendations by RD: Dietary education by RD, Protein supplementation Comments: ADA, DBL meats encourage BS control RD available x [phone] if interested in diet education mvi and vit c per wound protocal Expected Outcomes/Goals: to meet >75% est protein needs glycemic control Malnutrition Findings: Body Fat Depletion (Non Severe: Mild Depletion Weight Status: Underweight ALIX RONQUILLO MD Mar 01, 2019 09:38
[2019-03-01 09:59] LABS: PROTHROMBIN TIME PATIENT 12.4 SEC (11.7-14.0)
[2019-03-01 11:00] VITALS: BP 105/71
--- NOTE | 2019-03-01 12:14 | PDOC ---
ORTHO PROGRESS NOTES Subjective Patient states feeling somewhat better with less pain. Procedure Pain in left posterior buttocks without reported injury Vitals Vital Signs Date Time Temp Pulse Resp B/P (MAP) Pulse Ox O2 Delivery O2 Flow Rate FiO2 03/01/19 11:00 97.8 70 17 105/71 (82) 97 Room Air 97.8 Labs Laboratory Tests Test 02/27/19 16:37 02/27/19 20:38 02/27/19 21:20 02/28/19 04:25 Glucose (Fingerstick) 184 mg/dL (70-99) 261 mg/dL (70-99) Clostridium difficile Toxin B Gene Negative (Negative) White Blood Count 10.5 x10^3/uL (4.0-11.0) Red Blood Count 4.05 x10^6/uL (4.30-5.70) Hemoglobin 11.7 g/dL (13.0-17.5) Hematocrit 35.0 % (39.0-53.0) Mean Corpuscular Volume 87 fL (79-100) Mean Corpuscular Hemoglobin 29 pg (25-35) Mean Corpuscular Hemoglobin Concent 34 g/dL (31-37) Red Cell Distribution Width 13.8 % (11.5-14.5) Platelet Count 283 x10^3/uL (140-400) Neutrophils (%) (Auto) 77 % (31-73) Lymphocytes (%) (Auto) 13 % (24-48) Monocytes (%) (Auto) 9 % (0-9) Eosinophils (%) (Auto) 1 % (0-3) Basophils (%) (Auto) 1 % (0-3) Neutrophils # (Auto) 8.0 x10^3/uL (1.8-7.7) Lymphocytes # (Auto) 1.4 x10^3/uL (1.0-4.8) Monocytes # (Auto) 0.9 x10^3/uL (0.0-1.1) Eosinophils # (Auto) 0.1 x10^3/uL (0.0-0.7) Basophils # (Auto) 0.1 x10^3/uL (0.0-0.2) Sodium Level 144 mmol/L (136-145) Potassium Level 2.9 mmol/L (3.5-5.1) Chloride Level 110 mmol/L (98-107) Carbon Dioxide Level 23 mmol/L (21-32) Anion Gap 11 (6-14) Blood Urea Nitrogen 4 mg/dL (8-26) Creatinine 0.7 mg/dL (0.7-1.3) Estimated GFR (Cockcroft-Gault) 120.4 Glucose Level 144 mg/dL (70-99) Calcium Level 8.2 mg/dL (8.5-10.1) Test 02/28/19 07:57 02/28/19 09:05 02/28/19 11:50 02/28/19 16:49 Glucose (Fingerstick) 70 mg/dL (70-99) 205 mg/dL (70-99) 131 mg/dL (70-99) Vancomycin Level Trough 16.5 mcg/mL (10.0-20.0) Vancomycin Last Dose Date 02/28/19 Vancomycin Last Dose Time 0130 Test 02/28/19 20:23 03/01/19 04:31 03/01/19 07:47 03/01/19 11:58 Glucose (Fingerstick) 325 mg/dL (70-99) 110 mg/dL (70-99) 184 mg/dL (70-99) White Blood Count 7.5 x10^3/uL (4.0-11.0) Red Blood Count 3.21 x10^6/uL (4.30-5.70) Hemoglobin 9.3 g/dL (13.0-17.5) Hematocrit 27.8 % (39.0-53.0) Mean Corpuscular Volume 87 fL (79-100) Mean Corpuscular Hemoglobin 29 pg (25-35) Mean Corpuscular Hemoglobin Concent 33 g/dL (31-37) Red Cell Distribution Width 13.7 % (11.5-14.5) Platelet Count 184 x10^3/uL (140-400) Neutrophils (%) (Auto) 74 % (31-73) Lymphocytes (%) (Auto) 13 % (24-48) Monocytes (%) (Auto) 11 % (0-9) Eosinophils (%) (Auto) 2 % (0-3) Basophils (%) (Auto) 1 % (0-3) Neutrophils # (Auto) 5.5 x10^3/uL (1.8-7.7) Lymphocytes # (Auto) 1.0 x10^3/uL (1.0-4.8) Monocytes # (Auto) 0.8 x10^3/uL (0.0-1.1) Eosinophils # (Auto) 0.1 x10^3/uL (0.0-0.7) Basophils # (Auto) 0.1 x10^3/uL (0.0-0.2) Prothrombin Time 12.4 SEC (11.7-14.0) Prothromb Time International Ratio 1.0 (0.8-1.1) Sodium Level 142 mmol/L (136-145) Potassium Level 3.7 mmol/L (3.5-5.1) Chloride Level 110 mmol/L (98-107) Carbon Dioxide Level 24 mmol/L (21-32) Anion Gap 8 (6-14) Blood Urea Nitrogen 8 mg/dL (8-26) Creatinine 0.7 mg/dL (0.7-1.3) Estimated GFR (Cockcroft-Gault) 120.4 Glucose Level 185 mg/dL (70-99) Calcium Level 7.6 mg/dL (8.5-10.1) Laboratory Tests Test 02/28/19 16:49 02/28/19 20:23 03/01/19 04:31 03/01/19 07:47 Glucose (Fingerstick) 131 mg/dL (70-99) 325 mg/dL (70-99) 110 mg/dL (70-99) White Blood Count 7.5 x10^3/uL (4.0-11.0) Red Blood Count 3.21 x10^6/uL (4.30-5.70) Hemoglobin 9.3 g/dL (13.0-17.5) Hematocrit 27.8 % (39.0-53.0) Mean Corpuscular Volume 87 fL (79-100) Mean Corpuscular Hemoglobin 29 pg (25-35) Mean Corpuscular Hemoglobin Concent 33 g/dL (31-37) Red Cell Distribution Width 13.7 % (11.5-14.5) Platelet Count 184 x10^3/uL (140-400) Neutrophils (%) (Auto) 74 % (31-73) Lymphocytes (%) (Auto) 13 % (24-48) Monocytes (%) (Auto) 11 % (0-9) Eosinophils (%) (Auto) 2 % (0-3) Basophils (%) (Auto) 1 % (0-3) Neutrophils # (Auto) 5.5 x10^3/uL (1.8-7.7) Lymphocytes # (Auto) 1.0 x10^3/uL (1.0-4.8) Monocytes # (Auto) 0.8 x10^3/uL (0.0-1.1) Eosinophils # (Auto) 0.1 x10^3/uL (0.0-0.7) Basophils # (Auto) 0.1 x10^3/uL (0.0-0.2) Prothrombin Time 12.4 SEC (11.7-14.0) Prothromb Time International Ratio 1.0 (0.8-1.1) Sodium Level 142 mmol/L (136-145) Potassium Level 3.7 mmol/L (3.5-5.1) Chloride Level 110 mmol/L (98-107) Carbon Dioxide Level 24 mmol/L (21-32) Anion Gap 8 (6-14) Blood Urea Nitrogen 8 mg/dL (8-26) Creatinine 0.7 mg/dL (0.7-1.3) Estimated GFR (Cockcroft-Gault) 120.4 Glucose Level 185 mg/dL (70-99) Calcium Level 7.6 mg/dL (8.5-10.1) Test 03/01/19 11:58 Glucose (Fingerstick) 184 mg/dL (70-99) X-Rays CT guided aspiration pending Notes awake and alert sitting up in bed at this time. Assessment and Plan Admitted with pain in posterior buttock with no reported injury. Pain decreased at this time. CT guided aspiration of fluid collection scheduled for today. ID seeing for antibiotic coverage Will await CT findings for further care planning. SUSAN CORREA APRN Mar 01, 2019 12:14
--- NOTE | 2019-03-01 12:32 | PDOC ---
Infectious Disease Note Subjective Subjective Feeling better. Awaiting procedure Less right hip pain with walking Denies F/C/S/N/V Occ loose stool Vital Sign Vital Signs Vital Signs Date Time Temp Pulse Resp B/P (MAP) Pulse Ox O2 Delivery O2 Flow Rate FiO2 03/01/19 11:00 97.8 70 17 105/71 (82) 97 Room Air 97.8 Physical Exam PHYSICAL EXAM GENERAL: The patient is propped up in bed, alert, in no apparent distress. Looks better HEENT: Pupils are equally round, reactive. Oral cavity, oropharynx pink and moist. Superficial scalp wound improved and alopecia. NECK: Supple. LUNGS: Clear to auscultation. HEART: S1, S2 regular. ABDOMEN: Nondistended, soft, nontender with bowel sounds present. EXTREMITIES: Trace pedal edema in lower extremities bilaterally. Sensitive to touch. No cyanosis. Several dry annular wounds/scabs both legs bilaterally wo associated redness or drainage. SKIN: Warm to touch. No signs of rash NEUROLOGIC: Alert and oriented x 3. Labs Lab Laboratory Tests Test 02/28/19 16:49 02/28/19 20:23 03/01/19 04:31 03/01/19 07:47 Glucose (Fingerstick) 131 mg/dL (70-99) 325 mg/dL (70-99) 110 mg/dL (70-99) White Blood Count 7.5 x10^3/uL (4.0-11.0) Red Blood Count 3.21 x10^6/uL (4.30-5.70) Hemoglobin 9.3 g/dL (13.0-17.5) Hematocrit 27.8 % (39.0-53.0) Mean Corpuscular Volume 87 fL (79-100) Mean Corpuscular Hemoglobin 29 pg (25-35) Mean Corpuscular Hemoglobin Concent 33 g/dL (31-37) Red Cell Distribution Width 13.7 % (11.5-14.5) Platelet Count 184 x10^3/uL (140-400) Neutrophils (%) (Auto) 74 % (31-73) Lymphocytes (%) (Auto) 13 % (24-48) Monocytes (%) (Auto) 11 % (0-9) Eosinophils (%) (Auto) 2 % (0-3) Basophils (%) (Auto) 1 % (0-3) Neutrophils # (Auto) 5.5 x10^3/uL (1.8-7.7) Lymphocytes # (Auto) 1.0 x10^3/uL (1.0-4.8) Monocytes # (Auto) 0.8 x10^3/uL (0.0-1.1) Eosinophils # (Auto) 0.1 x10^3/uL (0.0-0.7) Basophils # (Auto) 0.1 x10^3/uL (0.0-0.2) Prothrombin Time 12.4 SEC (11.7-14.0) Prothromb Time International Ratio 1.0 (0.8-1.1) Sodium Level 142 mmol/L (136-145) Potassium Level 3.7 mmol/L (3.5-5.1) Chloride Level 110 mmol/L (98-107) Carbon Dioxide Level 24 mmol/L (21-32) Anion Gap 8 (6-14) Blood Urea Nitrogen 8 mg/dL (8-26) Creatinine 0.7 mg/dL (0.7-1.3) Estimated GFR (Cockcroft-Gault) 120.4 Glucose Level 185 mg/dL (70-99) Calcium Level 7.6 mg/dL (8.5-10.1) Test 03/01/19 11:58 Glucose (Fingerstick) 184 mg/dL (70-99) Micro IMPRESSION: There is soft tissue thickening and focal gas overlying the right ischial tuberosity, and there is suggestion of early bone destruction here. This could relate to infection, although there is no obvious overlying decubitus ulcer. No well-formed abscess is visible, although noncontrast CT is limited for this purpose. If further imaging evaluation is needed, MRI may be useful. BLOOD CULTURE Final GRAM POSITIVE COCCI IN CLUSTERS, IN 2 OF 2 BOTTLES, OF ONE SET. CALLED TO DAMON RIVERA RN IN ICU AT 8:25 ON 02/26/19 DW MT BLOOD CULTURE LC Preliminary Preliminary report BLD CULT RESULT 1 Preliminary Comment Staphylococcus species Objective Assessment GPC bacteremia with sepsis, POA. ID still pending Staph species Nonhealing wounds involving scalp and lower extremities, bilaterally - superficial - healing Right hip pain - pelvis CT shows soft tissue thickening and focal gas overlying the right ischial tuberosity, and there is suggestion of early bone destruction. ESR 68 Hypothermia - better Leukocytosis - resolved DKA Peripheral neuropathy Plan Plan of Care Continue vanc per pharmacy protocol Trough 12.3 Will repeat Blood cults with Staph species Spoke with Dr. Nava this am who is arranging for IR to aspirate this are today. Changed to Zosyn 02/28 as do not want to delay any longer to expand abx. Was waiting for surgical decision and cults but will broaden now as uncertain when aspiration will get done Discontinued cefazolin 02/28 Wound care team consulted f/u cultures Monitor WBC/temp and renal function closely in am Glycemic/Electrolytes control per primary TOBIAS SANCHEZ MD Mar 01, 2019 12:32
[2019-03-01 15:00] VITALS: BP 148/80
[2019-03-01] MEDS: VANCOMYCIN PER PHARMACY MC PRN (15:41)
[2019-03-01 19:00] VITALS: BP 122/71
[2019-03-01] MEDS: PATCH REMOVAL. MC SCH (21:00)
--- NOTE | 2019-03-01 21:35 | NUR ---
NO lidoderm patch to remove. Pt claimed he refused it this morning.
[2019-03-01] MEDS: INSULIN GLARGINE SYRINGE. SQ SCH (22:24)
[2019-03-01 23:00] VITALS: BP 120/73
[2019-03-02] VITALS (11 sets, daily range): BP systolic 113–146; BP diastolic 64–85
[2019-03-02] MEDS: VANCOMYCIN 750 MG in IV NORMAL SALINE 250ML 250 ML IV SCH ×2 (01:53→09:26)
[2019-03-02] MEDS: PIPERACILLIN/TAZOBACTAM 3.375 GM in IV NORMAL SALINE 50ML 50 ML IV SCH ×6 (06:21→23:32)
[2019-03-02] MEDS: INSULIN LISPRO 300 UNITS/3 ML VIAL. SQ SCH ×3 (08:00→17:16)
[2019-03-02] MEDS ORDERED: LIDOCAINE WITH 8.4% SOD BICARB 3 ML DISP.SYRIN. ONE (08:01)
[2019-03-02] MEDS ORDERED: fentaNYL PF VIAL 100 MCG/2 ML VIAL ONE (08:26)
[2019-03-02] MEDS ORDERED: MIDAZOLAM HCL/PF 2 MG/2 ML VIAL. ONE (08:26)
[2019-03-02] MEDS ORDERED: LIDOCAINE WITH 8.4% SOD BICARB 3 ML DISP.SYRIN. IJ ONE (08:45)
[2019-03-02] MEDS ORDERED: MIDAZOLAM HCL/PF 2 MG/2 ML VIAL. IV ONE (08:45)
[2019-03-02] MEDS ORDERED: fentaNYL PF VIAL 100 MCG/2 ML VIAL IV ONE (08:45)
[2019-03-02] MEDS: LIDOCAINE (700MG/PATCH) PATCH. TD SCH (09:00)
[2019-03-02] MEDS: LACTOBACILLUS RHAMNOSUS GG 1 CAPSULE. PO SCH ×2 (09:24→21:36)
[2019-03-02] MEDS: POTASSIUM CHLORIDE 20 MEQ TABLET.ER. PO SCH (09:25)
[2019-03-02] MEDS: IV NORMAL SALINE 1000ML BAG 1,000 ML IV SCH ×2 (09:25→18:22)
[2019-03-02] MEDS: DICLOFENAC SODIUM 1% TOPICAL GEL 100GM TUBE. TP SCH ×4 (09:26→21:37)
--- NOTE | 2019-03-02 10:22 | PDOC ---
PROGRESS NOTES Chief Complaint Chief Complaint impression GPC bacteremia with sepsis, POA. ID still pending Nonhealing wounds involving scalp and lower extremities, bilaterally - super ficial - healing Right hip pain - pelvis CT shows soft tissue thickening and focal gas overlying the right ischial tuberosity, and there is suggestion of early bone destruction. ESR 68 Hypothermia - better Leukocytosis - sepsis dehydration DKA Peripheral neuropathy Plan Plan of Care Continue vanc per pharmacy protocol Trough 12.3 IR to aspirate this area. on Zosyn , CONTINUE Discontinue cefazolin 02/28 Wound care team FOLLOWING f/u cultures Monitor WBC/temp and renal function History of Present Illness History of Present Illness 03/02/19 Pt seen and examined at bedside. Pt family at bedside. joint hip aspiration Pt chart reviewed. d/w Vitals Vitals Vital Signs Date Time Temp Pulse Resp B/P (MAP) Pulse Ox O2 Delivery O2 Flow Rate FiO2 03/02/19 08:55 72 11 98 Room Air 03/02/19 08:55 2.0 03/02/19 07:00 98.2 125/69 (87) 98.2 Physical Exam Physical Exam GENERAL: The patient is propped up in bed, alert, in no apparent distress. Looks better HEENT: Pupils are equally round, reactive. Oral cavity, oropharynx pink and moist. Superficial scalp wound improved and alopecia. NECK: Supple. LUNGS: Clear to auscultation. HEART: S1, S2 regular. ABDOMEN: Nondistended, soft, nontender with bowel sounds present. EXTREMITIES: Trace pedal edema in lower extremities bilaterally. Sensitive to touch. No cyanosis. Several dry annular wounds/scabs both legs bilaterally wo associated redness or drainage. SKIN: Warm to touch. No signs of rash NEUROLOGIC: Alert and oriented x 3. General: Alert, Cooperative, No acute distress Heart: Regular rate, Normal S1, Normal S2, No murmurs Lungs: Clear, Other (No respiratory distress) Abdomen: Normal bowel sounds, Soft, No tenderness Extremities: No clubbing, No cyanosis Skin: No rashes, No significant lesion Labs LABS Laboratory Tests Test 03/01/19 11:58 03/01/19 16:49 03/01/19 20:36 03/02/19 08:08 Glucose (Fingerstick) 184 mg/dL (70-99) 220 mg/dL (70-99) 261 mg/dL (70-99) 193 mg/dL (70-99) Assessment and Plan Assessmemt and Plan Problems Medical Problems: (1) Dehydration Status: Acute (2) DKA (diabetic ketoacidoses) Status: Acute (3) Scalp abscess Status: Acute (4) Sepsis Status: Acute Comment Review of Relevant I have reviewed the following items orestes (where applicable) has been applied. Labs Laboratory Tests Test 02/28/19 11:50 02/28/19 16:49 02/28/19 20:23 03/01/19 04:31 Glucose (Fingerstick) 205 mg/dL (70-99) 131 mg/dL (70-99) 325 mg/dL (70-99) White Blood Count 7.5 x10^3/uL (4.0-11.0) Red Blood Count 3.21 x10^6/uL (4.30-5.70) Hemoglobin 9.3 g/dL (13.0-17.5) Hematocrit 27.8 % (39.0-53.0) Mean Corpuscular Volume 87 fL (79-100) Mean Corpuscular Hemoglobin 29 pg (25-35) Mean Corpuscular Hemoglobin Concent 33 g/dL (31-37) Red Cell Distribution Width 13.7 % (11.5-14.5) Platelet Count 184 x10^3/uL (140-400) Neutrophils (%) (Auto) 74 % (31-73) Lymphocytes (%) (Auto) 13 % (24-48) Monocytes (%) (Auto) 11 % (0-9) Eosinophils (%) (Auto) 2 % (0-3) Basophils (%) (Auto) 1 % (0-3) Neutrophils # (Auto) 5.5 x10^3/uL (1.8-7.7) Lymphocytes # (Auto) 1.0 x10^3/uL (1.0-4.8) Monocytes # (Auto) 0.8 x10^3/uL (0.0-1.1) Eosinophils # (Auto) 0.1 x10^3/uL (0.0-0.7) Basophils # (Auto) 0.1 x10^3/uL (0.0-0.2) Prothrombin Time 12.4 SEC (11.7-14.0) Prothromb Time International Ratio 1.0 (0.8-1.1) Sodium Level 142 mmol/L (136-145) Potassium Level 3.7 mmol/L (3.5-5.1) Chloride Level 110 mmol/L (98-107) Carbon Dioxide Level 24 mmol/L (21-32) Anion Gap 8 (6-14) Blood Urea Nitrogen 8 mg/dL (8-26) Creatinine 0.7 mg/dL (0.7-1.3) Estimated GFR (Cockcroft-Gault) 120.4 Glucose Level 185 mg/dL (70-99) Calcium Level 7.6 mg/dL (8.5-10.1) Test 03/01/19 07:47 03/01/19 11:58 03/01/19 16:49 03/01/19 20:36 Glucose (Fingerstick) 110 mg/dL (70-99) 184 mg/dL (70-99) 220 mg/dL (70-99) 261 mg/dL (70-99) Test 03/02/19 08:08 Glucose (Fingerstick) 193 mg/dL (70-99) Laboratory Tests Test 03/01/19 11:58 03/01/19 16:49 03/01/19 20:36 03/02/19 08:08 Glucose (Fingerstick) 184 mg/dL (70-99) 220 mg/dL (70-99) 261 mg/dL (70-99) 193 mg/dL (70-99) Microbiology 02/26/19 Urine Culture - Final, Complete 02/26/19 Urine Culture Result 1 (SUNITA) - Final, Complete 02/25/19 Blood Culture - Final, Complete 02/25/19 Blood Culture Result 1 (SUNITA) - Final, Complete 02/25/19 Antimicrobic Susceptibility - Final, Complete Medications Current Medications Sodium Chloride 1,000 ml @ 1,000 mls/hr 1X ONCE IV Last administered on 02/25/19at 15:20; Start 02/25/19 at 14:45; Stop 02/25/19 at 15:44; Status DC Sodium Chloride 1,000 ml @ 1,000 mls/hr 1X ONCE IV Last administered on 02/25/19at 15:20; Start 02/25/19 at 15:15; Stop 02/25/19 at 16:14; Status DC Insulin Human Regular 150 ml @ 0 mls/hr 1X ONCE IV Last administered on 02/25/19at 16:01; Start 02/25/19 at 15:30; Stop 02/25/19 at 15:32; Status DC Vancomycin HCl 250 ml @ 250 mls/hr 1X ONCE IV Last administered on 02/25/19at 16:04; Start 02/25/19 at 16:00; Stop 02/25/19 at 16:59; Status DC Ondansetron HCl (Zofran) 4 mg PRN Q8HRS PRN IV NAUSEA/VOMITING; Start 02/25/19 at 16:15; Stop 02/25/19 at 17:32; Status DC Sodium Chloride 1,000 ml @ 100 mls/hr Q10H IV ; Start 02/25/19 at 16:08; Stop 02/26/19 at 08:29; Status DC Sodium Chloride 1,000 ml @ 250 mls/hr Q4H IV Last administered on 02/25/19at 21:28; Start 02/25/19 at 17:00; Stop 02/26/19 at 03:06; Status DC Dextrose/Sodium Chloride 1,000 ml @ 250 mls/hr Q4H IV Last administered on 02/25/19at 23:26; Start 02/25/19 at 16:39; Stop 02/26/19 at 03:06; Status DC Insulin Human Regular 150 unit/ Sodium Chloride 151.5 ml @ 0 mls/hr CONT PRN PRN IV PER PROTOCOL; Start 02/25/19 at 16:45; Stop 02/26/19 at 03:06; Status DC Potassium Chloride/Water 100 ml @ 100 mls/hr PRN Q1HR PRN IV SEE COMMENTS Last administered on 02/26/19at 01:19; Start 02/25/19 at 16:45; Stop 02/26/19 at 03:06; Status DC Potassium Chloride/Water 100 ml @ 100 mls/hr PRN Q1HR PRN IV SEE COMMENTS Last administered on 02/25/19at 23:26; Start 02/25/19 at 16:45; Stop 02/26/19 at 03:06; Status DC Potassium Chloride/Water 100 ml @ 100 mls/hr PRN Q1HR PRN IV SEE COMMENTS; Start 02/25/19 at 16:45; Stop 02/26/19 at 03:06; Status DC Sodium Bicarbonate 50 meq/Sodium Chloride 1,050 ml @ 125 mls/hr 1X ONCE IV Last administered on 02/25/19at 17:51; Start 02/25/19 at 16:45; Stop 02/26/19 at 01:08; Status DC Calcium Carbonate/ Glycine (Tums) 500 mg PRN AFTMEALHC PRN PO INDIGESTION; Start 02/25/19 at 16:45 Temazepam (Restoril) 7.5 mg PRN QHS PRN PO INSOMNIA; Start 02/25/19 at 16:45 Acetaminophen (Tylenol) 500 mg PRN Q6HRS PRN PO MILD PAIN / TEMP; Start 02/25/19 at 16:45 Acetaminophen/ Codeine Phosphate (Tylenol #3) 1 tab PRN Q6HRS PRN PO MODERATE PAIN Last administered on 03/01/19at 21:33; Start 02/25/19 at 16:45 Ondansetron HCl (Zofran) 4 mg PRN Q6HRS PRN IVP NAUSEA/VOMITING; Start 02/25/19 at 16:45 Cefazolin Sodium 50 ml @ 100 mls/hr Q8HRS IV ; Start 02/25/19 at 22:00; Status UNV Cefazolin Sodium 50 ml @ As Directed STK-MED ONCE IV ; Start 02/25/19 at 17:12; Stop 02/25/19 at 17:32; Status DC Cefazolin Sodium 50 ml @ 100 mls/hr 1X ONCE IV Last administered on 02/25/19at 17:30; Start 02/25/19 at 17:30; Stop 02/25/19 at 17:59; Status DC Cefazolin Sodium (Ancef) 1 gm Q8HRS IVP Last administered on 02/28/19at 13:54; Start 02/25/19 at 22:00; Stop 02/28/19 at 18:52; Status DC Potassium Chloride/Water 100 ml @ 100 mls/hr PRN Q1HR PRN IV SEE COMMENTS; Start 02/25/19 at 21:00 Magnesium Sulfate 100 ml @ 25 mls/hr DAILY IV Last administered on 02/28/19at 12:24; Start 02/26/19 at 09:00; Stop 03/01/19 at 08:59; Status DC Dextrose (Dextrose 50%-Water Syringe) 12.5 gm PRN Q15MIN PRN IV SEE COMMENTS; Start 02/26/19 at 03:00; Status UNV Insulin Glargine (Lantus Syringe) 20 unit QHS SQ Last administered on 03/01/19at 22:24; Start 02/26/19 at 21:00 Insulin Human Lispro (HumaLOG) 10 units TIDWMEALS SQ Last administered on 02/26/19at 17:33; Start 02/26/19 at 08:00; Stop 02/26/19 at 18:45; Status DC Dextrose (Dextrose 50%-Water Syringe) 12.5 gm PRN Q15MIN PRN IV SEE COMMENTS; Start 02/26/19 at 03:00 Insulin Glargine (Lantus Syringe) 10 unit 1X ONCE SQ Last administered on 02/26/19at 03:16; Start 02/26/19 at 03:30; Stop 02/26/19 at 03:31; Status DC Sodium Chloride 1,000 ml @ 100 mls/hr Q10H IV Last administered on 03/02/19at 09:25; Start 02/26/19 at 03:00 Vancomycin HCl (Vanco Per Pharmacy) 1 each PRN DAILY PRN MC SEE COMMENTS Last administered on 03/01/19at 15:41; Start 02/26/19 at 08:45 Vancomycin HCl 1 gm/Sodium Chloride 250 ml @ 250 mls/hr Q12H IV Last administered on 02/26/19 21:22; Start 02/26/19 at 09:00; Stop 02/27/19 at 09:06; Status DC Diclofenac Sodium (Voltaren) 1 faith BID TP Last administered on 02/27/19 07:56; Start 02/26/19 at 10:30; Stop 02/27/19 at 11:58; Status DC Potassium Chloride (Klor-Con) 40 meq 1X ONCE PO Last administered on 02/26/19 11:01; Start 02/26/19 at 11:00; Stop 02/26/19 at 11:01; Status DC Lidocaine (Lidoderm) 1 patch DAILY TD Last administered on 02/27/19at 07:56; Start 02/26/19 at 11:30 Miscellaneous (Lidoderm Patch Removal) 1 ea QHS MC Last administered on 02/28/19 20:44; Start 02/26/19 at 21:00 Lactobacillus Rhamnosus (Culturelle) 1 cap BID PO Last administered on 03/02/19 09:24; Start 02/26/19 at 21:00 Vancomycin HCl (Vancomycin Trough Level) 1 each 1X ONCE MC Last administered on 02/27/19 08:30; Start 02/27/19 at 08:30; Stop 02/27/19 at 08:31; Status DC Insulin Human Lispro (HumaLOG) 0-7 UNITS TIDWMEALS SQ Last administered on 03/01/19 18:21; Start 02/27/19 at 08:00 Vancomycin HCl 750 mg/Sodium Chloride 250 ml @ 250 mls/hr Q8H IV Last administered on 03/02/19 09:26; Start 02/27/19 at 09:30 Vancomycin HCl (Vancomycin Trough Level) 1 each 1X ONCE MC Last administered on 02/28/19 09:00; Start 02/28/19 at 09:00; Stop 02/28/19 at 09:01; Status DC Potassium Chloride (Klor-Con) 40 meq 1X ONCE PO Last administered on 02/27/19 09:56; Start 02/27/19 at 10:00; Stop 02/27/19 at 10:01; Status DC Diclofenac Sodium (Voltaren) 1 faith QID TP Last administered on 03/02/19 09:26; Start 02/27/19 at 12:00 Potassium Chloride (Klor-Con) 20 meq 1X ONCE PO Last administered on 02/28/19 12:24; Start 02/28/19 at 11:00; Stop 02/28/19 at 11:01; Status DC Potassium Chloride (Klor-Con) 40 meq 1X ONCE PO Last administered on 02/28/19 06:58; Start 02/28/19 at 07:00; Stop 02/28/19 at 07:01; Status DC Potassium Chloride (Klor-Con) 40 meq DAILY PO Last administered on 03/02/19 09:25; Start 02/28/19 at 09:00 Piperacillin Sod/ Tazobactam Sod 3.375 gm/Sodium Chloride 50 ml @ 100 mls/hr Q6HRS IV Last administered on 03/02/19 06:21; Start 02/28/19 at 12:00 Lidocaine HCl (Buffered Lidocaine 1%) 3 ml STK-MED ONCE .ROUTE ; Start 03/02/19 at 08:01; Stop 03/02/19 at 08:02; Status DC Midazolam HCl (Versed) 2 mg STK-MED ONCE .ROUTE ; Start 03/02/19 at 08:26; Stop 03/02/19 at 08:26; Status DC Fentanyl Citrate (Fentanyl 2ml Vial) 100 mcg STK-MED ONCE .ROUTE ; Start 03/02 at 08:26; Stop 03/02/19 at 08:27; Status DC Lidocaine HCl (Buffered Lidocaine 1%) 3 ml 1X ONCE IJ Last administered on 1 05/03/18at 08:45; Start 03/02/19 at 08:45; Stop 03/02/19 at 08:48; Status DC Midazolam HCl (Versed) 2 mg 1X ONCE IV Last administered on 03/02/19at 08:45; Start 03/02/19 at 08:45; Stop 03/02/19 at 08:48; Status DC Fentanyl Citrate (Fentanyl 2ml Vial) 100 mcg 1X ONCE IV Last administered on 03/02/19at 08:45; Start 03/02/19 at 08:45; Stop 03/02/19 at 08:48; Status DC Vitals/I & O Vital Sign - Last 24 Hours 03/01/19 03/01/19 03/01/19 03/01/19 11:00 15:00 19:00 21:33 Temp 97.8 97.7 98.2 97.8 97.7 98.2 Pulse 70 58 66 Resp 17 17 18 20 B/P (MAP) 105/71 (82) 148/80 (102) 122/71 (88) Pulse Ox 97 100 100 100 O2 Delivery Room Air Room Air Room Air Room Air 03/01/19 03/01/19 03/02/19 03/02/19 22:33 23:00 03:00 07:00 Temp 98.5 98.1 98.2 98.5 98.1 98.2 Pulse 64 59 56 Resp 18 18 18 17 B/P (MAP) 120/73 (89) 113/69 (84) 125/69 (87) Pulse Ox 96 97 96 98 O2 Delivery Room Air Room Air Room Air Room Air 1203/02/19 03/02/19 03/02/19 08:00 08:35 08:40 08:45 Pulse 72 70 Resp 16 11 11 Pulse Ox 100 100 100 O2 Delivery Room Air Nasal Cannula Nasal Cannula Nasal Cannula O2 Flow Rate 2.0 2.0 2.0 03/02/19 03/02/19 03/02/19 03/02/19 08:45 08:50 08:55 08:55 Pulse 62 65 66 72 Resp 10 11 10 11 Pulse Ox 96 100 98 98 O2 Delivery Nasal Cannula Nasal Cannula Nasal Cannula Room Air O2 Flow Rate 2.0 2.0 2.0 Intake and Output 03/01/19 03/01/19 03/02/19 15:00 23:00 07:00 Intake Total 0 ml Balance 0 ml Nutrition Consultation Dietary Evaluation: Recommendations by RD: Dietary education by RD, Protein supplementation Comments: ADA, SHASTAL meats encourage BS control RD available x [phone] if interested in diet education mvi and vit c per wound protocal Expected Outcomes/Goals: to meet >75% est protein needs glycemic control Malnutrition Findings: Body Fat Depletion (Non Severe: Mild Depletion Weight Status: Underweight ALIX RONQUILLO MD Mar 02, 2019 10:22
--- NOTE | 2019-03-02 11:38 | NUR ---
SW following for discharge planning. Chart reviewed, discussed with RN, pt is from home, wound care, IV abx, blood cultures pending, skin infections. Pt having a procedure today. SW will continue to follow for any discharge planning needs.
--- NOTE | 2019-03-02 12:58 | PDOC ---
Infectious Disease Note Subjective Subjective Feeling better. Done with procedure Less right hip pain with walking Denies F/C/S/N/V Occ loose stool ROS ROS o/w neg Vital Sign Vital Signs Vital Signs Date Time Temp Pulse Resp B/P (MAP) Pulse Ox O2 Delivery O2 Flow Rate FiO2 03/02/19 11:00 72 17 124/70 (88) 95 Room Air 03/02/19 08:55 2.0 03/02/19 07:00 98.2 98.2 Physical Exam PHYSICAL EXAM GENERAL: The patient is propped up in bed, alert, in no apparent distress. Looks better HEENT: Pupils are equally round, reactive. Oral cavity, oropharynx pink and moist. Superficial scalp wound improved and alopecia. NECK: Supple. LUNGS: Clear to auscultation. HEART: S1, S2 regular. ABDOMEN: Nondistended, soft, nontender with bowel sounds present. EXTREMITIES: Trace pedal edema in lower extremities bilaterally. Sensitive to touch. No cyanosis. Several dry annular wounds/scabs both legs bilaterally wo associated redness or drainage. SKIN: Warm to touch. No signs of rash NEUROLOGIC: Alert and oriented x 3. Labs Lab Laboratory Tests Test 03/01/19 16:49 03/01/19 20:36 03/02/19 08:08 03/02/19 12:00 Glucose (Fingerstick) 220 mg/dL (70-99) 261 mg/dL (70-99) 193 mg/dL (70-99) 295 mg/dL (70-99) Micro IMPRESSION: There is soft tissue thickening and focal gas overlying the right ischial tuberosity, and there is suggestion of early bone destruction here. This could relate to infection, although there is no obvious overlying decubitus ulcer. No well-formed abscess is visible, although noncontrast CT is limited for this purpose. If further imaging evaluation is needed, MRI may be useful. BLOOD CULTURE Final GRAM POSITIVE COCCI IN CLUSTERS, IN 2 OF 2 BOTTLES, OF ONE SET. CALLED TO DAMON RIVERA RN IN ICU AT 8:25 ON 02/26/19 DW MT BLOOD CULTURE LC Preliminary Preliminary report BLD CULT RESULT 1 Preliminary Comment Staphylococcus species Objective Assessment Staph aureus bacteremia with sepsis, POA. ID still pending Nonhealing wounds involving scalp and lower extremities, bilaterally - superficial - healing Right hip pain - pelvis CT shows soft tissue thickening and focal gas overlying the right ischial tuberosity, and there is suggestion of early bone destruction. ESR 68 Hypothermia - better Leukocytosis - resolved DKA Peripheral neuropathy Plan Plan of Care Discontinue vanc per pharmacy protocol Trough 12.3 Repeat Blood cults with Staph species 03/01 ECHO Cont Zosyn for now and f/u cults from procedure Spoke with Dr. Nava this am who is arranging for IR to aspirate this are today. Changed to Zosyn 02/28 as do not want to delay any longer to expand abx. Was waiting for surgical decision and cults but will broaden now as uncertain when aspiration will get done Discontinued cefazolin 02/28 Wound care team consulted f/u cultures Monitor WBC/temp and renal function closely in am Glycemic/Electrolytes control per primary TOBIAS SANCHEZ MD Mar 02, 2019 12:58
[2019-03-02] MEDS: PATCH REMOVAL. MC SCH (21:00)
[2019-03-02] MEDS: INSULIN GLARGINE SYRINGE. SQ SCH (21:43)
[2019-03-03] MEDS: IV NORMAL SALINE 1000ML BAG 1,000 ML IV SCH ×2 (01:47→18:09)
[2019-03-03 03:00] VITALS: BP 113/72
[2019-03-03] MEDS: PIPERACILLIN/TAZOBACTAM 3.375 GM in IV NORMAL SALINE 50ML 50 ML IV SCH ×3 (05:46→17:45)
[2019-03-03 07:00] VITALS: BP 128/79
--- NOTE | 2019-03-03 07:53 | RAD ---
Examination: VENOUS UPPER EXTREMITY LEFT History: Swelling Comparison/Correlation: None FINDINGS: Grayscale and Doppler analysis of the left upper extremity deep venous system was performed with graded compression and augmentation. The internal jugular, subclavian, axillary, brachial, basilic, cephalic, radial and ulnar veins were assessed. There is no evidence of deep venous thrombosis. Mildly pulsatile flow is noted within the right anterior jugular vein and subclavian vein. IMPRESSION: 1. No evidence of deep venous thrombosis. 2. Mildly pulsatile flow within the right internal jugular vein and subclavian vein is question of volume overload state including CHF. Electronically signed by: Rob Gaxiola MD (03/03/2019 7:50 AM) [facility]
[2019-03-03] MEDS: INSULIN LISPRO 300 UNITS/3 ML VIAL. SQ SCH ×3 (08:00→18:03)
--- NOTE | 2019-03-03 08:14 | RAD ---
CT-guided biopsy, soft tissue thickening at the insertion of the hamstring tendon on the inferior pubic bone. 03/03/2019 6:08 AM Indication: Possible infection Discussion: The risks and benefits of the procedure, including but not limited to, bleeding and infection were discussed patient. Informed consent was obtained. The patient was brought to the CT scanner and placed in the prone position. A timeout procedure was performed. Group Exercise Manager CT imaging of the pelvis redemonstrates some soft tissue thickening and minimal gas overlying the insertion of the hamstrings tendon of the pubic bone. The overlying soft tissues were prepped and draped using maximum sterile barrier technique. 1% lidocaine without epinephrine was administered for local anesthesia. Under intermittent CT guidance, an 17-gauge needle was advanced into this region. Aspiration yielded no significant result. Core biopsy was performed and placed in a sterile container. Samples were delivered to pathology. The needle was removed and manual pressure held to achieve hemostasis. No immediate complications were identified. The procedure was performed under conscious sedation including continuous cardiopulmonary monitoring via dedicated sedation nurse. Sedation time: 20 minutes Impression: CT-guided biopsy, soft tissue thickening at the insertion of the hamstring tendons on the pubic bone. PQRS Compliance Statement: One or more of the following individualized dose reduction techniques were utilized for this examination: 1. Automated exposure control 2. Adjustment of the mA and/or kV according to patient size 3. Use of iterative reconstruction technique
[2019-03-03] MEDS: LIDOCAINE (700MG/PATCH) PATCH. TD SCH (08:16)
[2019-03-03] MEDS: POTASSIUM CHLORIDE 20 MEQ TABLET.ER. PO SCH (08:18)
[2019-03-03] MEDS: LACTOBACILLUS RHAMNOSUS GG 1 CAPSULE. PO SCH ×2 (08:18→21:54)
--- NOTE | 2019-03-03 08:21 | PDOC ---
PROGRESS NOTES Chief Complaint Chief Complaint impression GPC bacteremia with sepsis, POA. BLD CULT RESULT 1 Final Comment Staphylococcus aureus Nonhealing wounds involving scalp and lower extremities, bilaterally - superficial - healing Right hip pain - pelvis CT shows soft tissue thickening and focal gas overlying the right ischial tuberosity, and there is suggestion of early bone destruction. ESR 68 Hypothermia - better moderate protein-caloric malnutrition Leukocytosis - sepsis dehydration DKA Peripheral neuropathy TTE with Mod TV regurg PA pressure was estimated at 52 mmHg Plan IV Zosyn , CONTINUE Discontinue cefazolin 02/28 Wound care team FOLLOWING f/u cultures Monitor WBC/temp and renal function Doppler and Color Flow revealed mild to moderate regurgitation. There is moderate pulmonary hypertension. The PA pressure was estimated at 52 mmHg. No evidence of endocarditis on this surface study. If there is high clinical suspicion, recommend STEPHANY due to tricuspid regurgitation noted ID requested [email or web address]. STEPHANY explained scheduled for 3 PM tomorrow consult GI 37 min pt exam, chart review , > 50% of time spent with exam, chart review, pt care coordination History of Present Illness History of Present Illness 03/02/19 Pt seen and examined at bedside. Pt family at bedside. joint hip aspiration Pt chart reviewed. d/w Vitals Vitals Vital Signs Date Time Temp Pulse Resp B/P (MAP) Pulse Ox O2 Delivery O2 Flow Rate FiO2 03/03/19 07:00 98.0 60 128/79 (95) 98 Room Air 98.0 03/03/19 03:00 18 03/02/19 08:55 2.0 Physical Exam Physical Exam GENERAL: The patient is propped up in bed, alert, in no apparent distress. Looks better HEENT: Pupils are equally round, reactive. Oral cavity, oropharynx pink and moist. Superficial scalp wound improved and alopecia. NECK: Supple. LUNGS: Clear to auscultation. HEART: S1, S2 regular. ABDOMEN: Nondistended, soft, nontender with bowel sounds present. EXTREMITIES: Trace pedal edema in lower extremities bilaterally. Sensitive to touch. No cyanosis. Several dry annular wounds/scabs both legs bilaterally wo associated redness or drainage. SKIN: Warm to touch. No signs of rash NEUROLOGIC: Alert and oriented x 3. General: Alert, Oriented X3, Cooperative, No acute distress Heart: Regular rate, Normal S1, Normal S2, No murmurs Lungs: Clear, Other (No respiratory distress) Abdomen: Normal bowel sounds, Soft, No tenderness Extremities: No clubbing, No cyanosis Skin: No rashes, No significant lesion Labs LABS CT PELVIS WO CONTRAST dated 02/26/2019 6:23 PM Indication: Hip pain without recent injury Comparison: No comparison is available. Technique: Helical noncontrast images were performed. Sagittal and coronal reconstructions were obtained. One or more of the following individualized dose reduction techniques were utilized for this examination: 1. Automated exposure control 2. Adjustment of the mA and/or kV according to patient size 3. Use of iterative reconstruction technique Findings: No fracture is seen. There is a transitional vertebra at the lumbosacral junction. Sclerotic areas in the left ilium are likely bone islands, assuming the patient has no known malignancy history. There are mild arthritic changes at the hip joints. There may be a small amount of free fluid in the abdomen and and pelvis. No soft tissue mass or hematoma is seen. There is some soft tissue thickening suggested in the area of the proximal hamstring tendon on the right overlying the ischial tuberosity, and a focus of gas is also seen in this region. There is no obvious overlying skin ulcer. Sagittal images show evidence of early cortical disruption of the initial tuberosity in this region. IMPRESSION: There is soft tissue thickening and focal gas overlying the right ischial tuberosity, and there is suggestion of early bone destruction here. This could relate to infection, although there is no obvious overlying decubitus ulcer. No well-formed abscess is visible, although noncontrast CT is limited for this purpose. If further imaging evaluation is needed, MRI may be useful. Electronically signed by: Russ Prajapati Jr., MD (02/27/2019 10:47 AM) CT-guided biopsy, soft tissue thickening at the insertion of the hamstring tendon on the inferior pubic bone. 03/03/2019 6:08 AM Indication: Possible infection Discussion: The risks and benefits of the procedure, including but not limited to, bleeding and infection were discussed patient. Informed consent was obtained. The patient was brought to the CT scanner and placed in the prone position. A timeout procedure was performed. Card Decorator CT imaging of the pelvis redemonstrates some soft tissue thickening and minimal gas overlying the insertion of the hamstrings tendon of the pubic bone. The overlying soft tissues were prepped and draped using maximum sterile barrier technique. 1% lidocaine without epinephrine was administered for local anesthesia. Under intermittent CT guidance, an 17-gauge needle was advanced into this region. Aspiration yielded no significant result. Core biopsy was performed and placed in a sterile container. Samples were delivered to pathology. The needle was removed and manual pressure held to achieve hemostasis. No immediate complications were identified. The procedure was performed under conscious sedation including continuous cardiopulmonary monitoring via dedicated sedation nurse. Sedation time: 20 minutes Impression: CT-guided biopsy, soft tissue thickening at the insertion of the hamstring tendons on the pubic bone. PQRS Compliance Statement: One or more of the following individualized dose reduction techniques were utilized for this examination: 1. Automated exposure control 2. Adjustment of the mA and/or kV according to patient size 3. Use of iterative reconstruction technique DICTATED and SIGNED BY: TIERNEY KENNEDY MD RISK FACTORS Diabetes 2D DIMENSIONS RVDd 2.7 (2.9-3.5cm) Left Atrium(2D) 3.5 (1.6-4.0cm) IVSd 1.0 (0.7-1.1cm) Aortic Root(2D) 2.5 (2.0-3.7cm) LVDd 4.1 (3.9-5.9cm) LVOT Diameter 2.0 (1.8-2.4cm) PWd 0.8 (0.7-1.1cm) LVDs 2.1 (2.5-4.0cm) FS (%) 30.0 % SV 61.7 ml LVEF(%) 60.0 (>50%) Aortic Valve AoV Peak Rodney. 143.5cm/s AoV VTI 28.6cm AO Peak GR. 8.2mmHg LVOT Peak Rodney. 116.4cm/s AO Mean GR. 4mmHg REJI (VMAX) 2.53cm2 REJI (VTI) 3.00cm2 Mitral Valve MV E Velocity 92.8cm/s MV DECEL TIME 106ms MV A Velocity 62.1cm/s E/A Ratio 1.5 Tricuspid Valve TR P. Velocity 351cm/s RAP ESTIMATE 3mmHg TR Peak Gr. 49mmHg RVSP 52mmHg Pulmonary Vein S1 Velocity 84.0cm/s D2 Velocity 75.7cm/s LEFT VENTRICLE The left ventricle is normal size. There is mild concentric left ventricular hypertrophy. The left ventricular systolic function is normal and the ejection fraction is within normal range. The Ejection Fraction is 55-60%. There is normal LV segmental wall motion. The left ventricular diastolic function and filling is normal for age. RIGHT VENTRICLE The right ventricle is normal size. The right ventricular systolic function is normal. ATRIA The left atrium is mildly dilated. The right atrium size is normal. The interatrial septum is intact with no evidence for an atrial septal defect or patent foramen ovale as noted on 2-D or Doppler imaging. AORTIC VALVE The aortic valve is normal in structure and function. Doppler and Color Flow revealed no significant aortic regurgitation. There is no significant aortic valvular stenosis. There is no aortic valvular vegetation. MITRAL VALVE The mitral valve is normal in structure and function. There is no obvious vegetation on the mitral valve. There is no evidence of mitral valve prolapse. There is no mitral valve stenosis. Doppler and Color Flow revealed no mitral valve regurgitation noted. TRICUSPID VALVE The tricuspid valve is normal in structure and function. Doppler and Color Flow revealed mild to moderate regurgitation. There is moderate pulmonary hypertension. The PA pressure was estimated at 52 mmHg. There is no obvious tricuspid valve prolapse or vegetation. There is no tricuspid valve stenosis. PULMONIC VALVE The pulmonary valve is normal in structure and function. Doppler and Color Flow revealed mild pulmonic valvular regurgitation. There is no pulmonic valvular stenosis. GREAT VESSELS The aortic root is normal in size. The ascending aorta is normal in size. The IVC is normal in size and collapses >50% with inspiration. PERICARDIAL EFFUSION There is no evidence of significant pericardial effusion. Critical Notification Critical Value: No <Conclusion> The left ventricular systolic function is normal and the ejection fraction is within normal range. The Ejection Fraction is 55-60%. There is normal LV segmental wall motion. Doppler and Color Flow revealed mild to moderate regurgitation. There is moderate pulmonary hypertension. The PA pressure was estimated at 52 mmHg. No evidence of endocarditis on this surface study. If there is high clinical suspicion, recommend STEPHANY due to tricuspid regurgitation noted. Signed by : Gabby Lai, Electronically Approved : 03/03/2019 09:40:47 DICTATED and SIGNED BY: GABBY LAI MD DATE: 03/03/19 0937 Examination: VENOUS UPPER EXTREMITY LEFT History: Swelling Comparison/Correlation: None FINDINGS: Grayscale and Doppler analysis of the left upper extremity deep venous system was performed with graded compression and augmentation. The internal jugular, subclavian, axillary, brachial, basilic, cephalic, radial and ulnar veins were assessed. There is no evidence of deep venous thrombosis. Mildly pulsatile flow is noted within the right anterior jugular vein and subclavian vein. IMPRESSION: 1. No evidence of deep venous thrombosis. 2. Mildly pulsatile flow within the right internal jugular vein and subclavian vein is question of volume overload state including CHF. Electronically signed by: Rob Jean MD (03/03/2019 7:50 AM) [facility] DICTATED and SIGNED BY: ROB JEAN MD DATE: 03/03/19749 RECD: 02/25/19 [facility] DR: AJMI ORTIZ DO SOURCE: BLOOD ENTR: 02/26/[address] [facility] [address]: [facility]: ORDERED: BLD CULT - LC Procedure Result ------- ----- BLOOD CULTURE LC Final Preliminary report Final report BLD CULT RESULT 1 Final Comment Staphylococcus aureus Staphylococcus species Performed at: - [facility] [address], [place], [place] [id number] Steel Tester: CLEVELAND Pisano MD, Phone: [phone] Most isolates of Staphylococcus sp. produce a beta- lactamase enzyme rendering them resistant to penicillin. Please contact the laboratory if penicillin is being considered for therapy. ANTIMICROBIAL SUSCEPTIBILITY Final Comment S = Susceptible; I = Intermediate; R = Resistant P = Positive; N = Negative MICS are expressed in micrograms per mL Antibiotic RSLT#1 RSLT#2 RSLT#3 RSLT#4 Ciprofloxacin S<=0.5 Gentamicin S<=0.5 Levofloxacin S =0.25 Linezolid S =2 Moxifloxacin S<=0.25 Nitrofurantoin S<=16 Oxacillin S =0.5 Quinupristin/Dalfopristin S =0.5 Rifampin S<=0.5 Tetracycline S<=1 Trimethoprim/Sulfa S<=10 Vancomycin S<=0.5 Performed at: DA - [facility] [address], [place], [place] [id number] Steel Tester: CLEVELAND Pisano MD, Phone: [phone] Laboratory Tests Test 03/02/19 12:00 03/02/19 17:02 03/02/19 20:00 03/03/19 07:52 Glucose (Fingerstick) 295 mg/dL (70-99) 284 mg/dL (70-99) 191 mg/dL (70-99) 75 mg/dL (70-99) Assessment and Plan Assessmemt and Plan Problems Medical Problems: (1) Dehydration Status: Acute (2) DKA (diabetic ketoacidoses) Status: Acute (3) Scalp abscess Status: Acute (4) Sepsis Status: Acute Comment Review of Relevant I have reviewed the following items orestes (where applicable) has been applied. Labs Laboratory Tests Test 03/01/19 11:58 03/01/19 16:49 03/01/19 20:36 03/02/19 08:08 Glucose (Fingerstick) 184 mg/dL (70-99) 220 mg/dL (70-99) 261 mg/dL (70-99) 193 mg/dL (70-99) Test 03/02/19 12:00 03/02/19 17:02 03/02/19 20:00 03/03/19 07:52 Glucose (Fingerstick) 295 mg/dL (70-99) 284 mg/dL (70-99) 191 mg/dL (70-99) 75 mg/dL (70-99) Laboratory Tests Test 03/02/19 12:00 03/02/19 17:02 03/02/19 20:00 03/03/19 07:52 Glucose (Fingerstick) 295 mg/dL (70-99) 284 mg/dL (70-99) 191 mg/dL (70-99) 75 mg/dL (70-99) Microbiology 03/01/19 Blood Culture - Preliminary, Resulted NO GROWTH AFTER 1 DAY 02/26/19 Urine Culture - Final, Complete 02/26/19 Urine Culture Result 1 (SUNITA) - Final, Complete Medications Current Medications Sodium Chloride 1,000 ml @ 1,000 mls/hr 1X ONCE IV Last administered on 02/25/19at 15:20; Start 02/25/19 at 14:45; Stop 02/25/19 at 15:44; Status DC Sodium Chloride 1,000 ml @ 1,000 mls/hr 1X ONCE IV Last administered on 02/25/19at 15:20; Start 02/25/19 at 15:15; Stop 02/25/19 at 16:14; Status DC Insulin Human Regular 150 ml @ 0 mls/hr 1X ONCE IV Last administered on 02/25/19at 16:01; Start 02/25/19 at 15:30; Stop 02/25/19 at 15:32; Status DC Vancomycin HCl 250 ml @ 250 mls/hr 1X ONCE IV Last administered on 02/25/19at 16:04; Start 02/25/19 at 16:00; Stop 02/25/19 at 16:59; Status DC Ondansetron HCl (Zofran) 4 mg PRN Q8HRS PRN IV NAUSEA/VOMITING; Start 02/25/19 at 16:15; Stop 02/25/19 at 17:32; Status DC Sodium Chloride 1,000 ml @ 100 mls/hr Q10H IV ; Start 02/25/19 at 16:08; Stop 02/26/19 at 08:29; Status DC Sodium Chloride 1,000 ml @ 250 mls/hr Q4H IV Last administered on 02/25/19at 21:28; Start 02/25/19 at 17:00; Stop 02/26/19 at 03:06; Status DC Dextrose/Sodium Chloride 1,000 ml @ 250 mls/hr Q4H IV Last administered on 02/25/19at 23:26; Start 02/25/19 at 16:39; Stop 02/26/19 at 03:06; Status DC Insulin Human Regular 150 unit/ Sodium Chloride 151.5 ml @ 0 mls/hr CONT PRN PRN IV PER PROTOCOL; Start 02/25/19 at 16:45; Stop 02/26/19 at 03:06; Status DC Potassium Chloride/Water 100 ml @ 100 mls/hr PRN Q1HR PRN IV SEE COMMENTS Last administered on 02/26/19at 01:19; Start 02/25/19 at 16:45; Stop 02/26/19 at 03:06; Status DC Potassium Chloride/Water 100 ml @ 100 mls/hr PRN Q1HR PRN IV SEE COMMENTS Last administered on 02/25/19at 23:26; Start 02/25/19 at 16:45; Stop 02/26/19 at 03:06; Status DC Potassium Chloride/Water 100 ml @ 100 mls/hr PRN Q1HR PRN IV SEE COMMENTS; Start 02/25/19 at 16:45; Stop 02/26/19 at 03:06; Status DC Sodium Bicarbonate 50 meq/Sodium Chloride 1,050 ml @ 125 mls/hr 1X ONCE IV Last administered on 02/25/19at 17:51; Start 02/25/19 at 16:45; Stop 02/26/19 at 01:08; Status DC Calcium Carbonate/ Glycine (Tums) 500 mg PRN AFTMEALHC PRN PO INDIGESTION; Start 02/25/19 at 16:45 Temazepam (Restoril) 7.5 mg PRN QHS PRN PO INSOMNIA; Start 02/25/19 at 16:45 Acetaminophen (Tylenol) 500 mg PRN Q6HRS PRN PO MILD PAIN / TEMP; Start 02/25/19 at 16:45 Acetaminophen/ Codeine Phosphate (Tylenol #3) 1 tab PRN Q6HRS PRN PO MODERATE PAIN Last administered on 03/01/19at 21:33; Start 02/25/19 at 16:45 Ondansetron HCl (Zofran) 4 mg PRN Q6HRS PRN IVP NAUSEA/VOMITING; Start 02/25/19 at 16:45 Cefazolin Sodium 50 ml @ 100 mls/hr Q8HRS IV ; Start 02/25/19 at 22:00; Status UNV Cefazolin Sodium 50 ml @ As Directed STK-MED ONCE IV ; Start 02/25/19 at 17:12; Stop 02/25/19 at 17:32; Status DC Cefazolin Sodium 50 ml @ 100 mls/hr 1X ONCE IV Last administered on 02/25/19at 17:30; Start 02/25/19 at 17:30; Stop 02/25/19 at 17:59; Status DC Cefazolin Sodium (Ancef) 1 gm Q8HRS IVP Last administered on 02/28/19at 13:54; Start 02/25/19 at 22:00; Stop 02/28/19 at 18:52; Status DC Potassium Chloride/Water 100 ml @ 100 mls/hr PRN Q1HR PRN IV SEE COMMENTS; Start 02/25/19 at 21:00 Magnesium Sulfate 100 ml @ 25 mls/hr DAILY IV Last administered on 02/28/19at 12:24; Start 02/26/19 at 09:00; Stop 03/01/19 at 08:59; Status DC Dextrose (Dextrose 50%-Water Syringe) 12.5 gm PRN Q15MIN PRN IV SEE COMMENTS; Start 02/26/19 at 03:00; Status UNV Insulin Glargine (Lantus Syringe) 20 unit QHS SQ Last administered on 03/02/19at 21:43; Start 02/26/19 at 21:00 Insulin Human Lispro (HumaLOG) 10 units TIDWMEALS SQ Last administered on 02/26/19at 17:33; Start 02/26/19 at 08:00; Stop 02/26/19 at 18:45; Status DC Dextrose (Dextrose 50%-Water Syringe) 12.5 gm PRN Q15MIN PRN IV SEE COMMENTS; Start 02/26/19 at 03:00 Insulin Glargine (Lantus Syringe) 10 unit 1X ONCE SQ Last administered on 02/26/19at 03:16; Start 02/26/19 at 03:30; Stop 02/26/19 at 03:31; Status DC Sodium Chloride 1,000 ml @ 100 mls/hr Q10H IV Last administered on 03/03/19 01:47; Start 02/26/19 at 03:00 Vancomycin HCl (Vanco Per Pharmacy) 1 each PRN DAILY PRN MC SEE COMMENTS Last administered on 03/01/19 15:41; Start 02/26/19 at 08:45; Stop 03/02/19 at 12:58; Status DC Vancomycin HCl 1 gm/Sodium Chloride 250 ml @ 250 mls/hr Q12H IV Last admi nistered on 02/26/19 21:22; Start 02/26/19 at 09:00; Stop 02/27/19 at 09:06; Status DC Diclofenac Sodium (Voltaren) 1 faith BID TP Last administered on 02/27/19 07:56; Start 02/26/19 at 10:30; Stop 02/27/19 at 11:58; Status DC Potassium Chloride (Klor-Con) 40 meq 1X ONCE PO Last administered on 02/26/19 11:01; Start 02/26/19 at 11:00; Stop 02/26/19 at 11:01; Status DC Lidocaine (Lidoderm) 1 patch DAILY TD Last administered on 02/27/19 07:56; Start 02/26/19 at 11:30 Miscellaneous (Lidoderm Patch Removal) 1 ea QHS MC Last administered on 03/02/19 21:00; Start 02/26/19 at 21:00 Lactobacillus Rhamnosus (Culturelle) 1 cap BID PO Last administered on 03/03/19 08:18; Start 02/26/19 at 21:00 Vancomycin HCl (Vancomycin Trough Level) 1 each 1X ONCE MC Last administered on 02/27/19 08:30; Start 02/27/19 at 08:30; Stop 02/27/19 at 08:31; Status DC Insulin Human Lispro (HumaLOG) 0-7 UNITS TIDWMEALS SQ Last administered on 03/02/19 17:16; Start 02/27/19 at 08:00 Vancomycin HCl 750 mg/Sodium Chloride 250 ml @ 250 mls/hr Q8H IV Last administered on 03/02/19 09:26; Start 02/27/19 at 09:30; Stop 03/02/19 at 12:58; Status DC Vancomycin HCl (Vancomycin Trough Level) 1 each 1X ONCE MC Last administered on 12/9/19at 09:00; Start 02/28/19 at 09:00; Stop 02/28/19 at 09:01; Status DC Potassium Chloride (Klor-Con) 40 meq 1X ONCE PO Last administered on 02/27/19at 09:56; Start 02/27/19 at 10:00; Stop 02/27/19 at 10:01; Status DC Diclofenac Sodium (Voltaren) 1 faith QID TP Last administered on 03/02/19at 21 :37; Start 02/27/19 at 12:00 Potassium Chloride (Klor-Con) 20 meq 1X ONCE PO Last administered on 02/28/19at 12:24; Start 02/28/19 at 11:00; Stop 02/28/19 at 11:01; Status DC Potassium Chloride (Klor-Con) 40 meq 1X ONCE PO Last administered on 02/28/19at 06:58; Start 02/28/19 at 07:00; Stop 02/28/19 at 07:01; Status DC Potassium Chloride (Klor-Con) 40 meq DAILY PO Last administered on 03/03/19at 08:18; Start 02/28/19 at 09:00 Piperacillin Sod/ Tazobactam Sod 3.375 gm/Sodium Chloride 50 ml @ 100 mls/hr Q6HRS IV Last administered on 03/03/19at 05:46; Start 02/28/19 at 12:00 Lidocaine HCl (Buffered Lidocaine 1%) 3 ml STK-MED ONCE .ROUTE ; Start 03/02/19 at 08:01; Stop 03/02/19 at 08:02; Status DC Midazolam HCl (Versed) 2 mg STK-MED ONCE .ROUTE ; Start 03/02/19 at 08:26; Stop 03/02/19 at 08:26; Status DC Fentanyl Citrate (Fentanyl 2ml Vial) 100 mcg STK-MED ONCE .ROUTE ; Start 03/02/19 at 08:26; Stop 03/02/19 at 08:27; Status DC Lidocaine HCl (Buffered Lidocaine 1%) 3 ml 1X ONCE IJ Last administered on 03/02/19at 08:45; Start 03/02/19 at 08:45; Stop 03/02/19 at 08:48; Status DC Midazolam HCl (Versed) 2 mg 1X ONCE IV Last administered on 03/02/19at 08:45; Start 03/02/19 at 08:45; Stop 03/02/19 at 08:48; Status DC Fentanyl Citrate (Fentanyl 2ml Vial) 100 mcg 1X ONCE IV Last administered on 03/02/19at 08:45; Start 03/02/19 at 08:45; Stop 03/02/19 at 08:48; Status DC Vitals/I & O Vital Sign - Last 24 Hours 03/02/19 03/02/19 03/02/19 03/02/19 08:35 08:40 08:45 08:45 Pulse 72 70 62 Resp 16 11 11 10 Pulse Ox 100 100 100 96 O2 Delivery Nasal Cannula Nasal Cannula Nasal Cannula Nasal Cannula O2 Flow Rate 2.0 2.0 2.0 2.0 03/02/19 03/02/19 03/02/19 03/02/19 08:50 08:55 08:55 11:00 Pulse 65 66 72 72 Resp 11 10 11 17 B/P (MAP) 124/70 (88) Pulse Ox 100 98 98 95 O2 Delivery Nasal Cannula Nasal Cannula Room Air Room Air O2 Flow Rate 2.0 2.0 03/02/19 03/02/19 03/02/19 03/02/19 15:00 19:00 20:00 23:00 Temp 98.7 98.4 98.4 98.7 98.4 98.4 Pulse 60 66 66 Resp 17 20 20 B/P (MAP) 118/74 (89) 146/85 (105) 146/85 (105) Pulse Ox 98 93 94 O2 Delivery Room Air Room Air Room Air Room Air 03/03/19 03/03/19 03:00 07:00 Temp 98.6 98.0 98.6 98.0 Pulse 65 60 Resp 18 B/P (MAP) 113/72 (86) 128/79 (95) Pulse Ox 94 98 O2 Delivery Room Air Room Air Intake and Output 03/02/19 03/02/19 03/03/19 14:59 22:59 06:59 Intake Total 360 ml Balance 360 ml Nutrition Consultation Dietary Evaluation: Recommendations by RD: Dietary education by RD, Protein supplementation Comments: ADA, DBL meats encourage BS control RD available x [phone] if interested in diet education mvi and vit c per wound protocal Expected Outcomes/Goals: to meet >75% est protein needs glycemic control Malnutrition Findings: Body Fat Depletion (Non Severe: Mild Depletion Weight Status: Underweight ALIX RONQUILLO MD Mar 03, 2019 08:21
[2019-03-03] MEDS: DICLOFENAC SODIUM 1% TOPICAL GEL 100GM TUBE. TP SCH ×4 (09:00→21:55)
--- NOTE | 2019-03-03 09:41 | CARD ---
MR#: [id number] Date of Study: 03/03/2019 Ordering Physician: TOBIAS SANCHEZ, Referring Physician: Cydney ISAACS: Ivy Bryson RDCS APPROVED REPORT EXAM: Two-dimensional and M-mode echocardiogram with Doppler and color Doppler. Other Information Quality : Good INDICATION Infection:Rule out subacute bacterial endocarditis RISK FACTORS Diabetes 2D DIMENSIONS RVDd2.7 (2.9-3.5cm)Left Atrium(2D)3.5 (1.6-4.0cm) IVSd1.0 (0.7-1.1cm)Aortic Root(2D)2.5 (2.0-3.7cm) LVDd4.1 (3.9-5.9cm)LVOT Diameter2.0 (1.8-2.4cm) PWd0.8 (0.7-1.1cm)LVDs2.1 (2.5-4.0cm) FS (%) 30.0 %SV61.7 ml LVEF(%)60.0 (>50%) Aortic Valve AoV Peak Rodney.143.5cm/sAoV VTI28.6cm AO Peak GR.8.2mmHgLVOT Peak Rodney.116.4cm/s AO Mean GR.4mmHgAVA (VMAX)2.53cm2 REJI (VTI)3.00cm2 Mitral Valve MV E Gaazazcl29.8cm/sMV DECEL [id number] MV A Vyqckijb08.1cm/sE/A Ratio1.5 Tricuspid Valve TR P. Dbtexmgd820nr/sRAP [id number] TR Peak Gr.59bkXnYPKY38ipNp Pulmonary Vein S1 Dteegpgr75.0cm/sD2 Tbavxmrd50.7cm/s LEFT VENTRICLE The left ventricle is normal size. There is mild concentric left ventricular hypertrophy. The left ve ntricular systolic function is normal and the ejection fraction is within normal range. The Ejection Fraction is 55-60%. There is normal LV segmental wall motion. The left ventricular diastolic function and filling is normal for age. RIGHT VENTRICLE The right ventricle is normal size. The right ventricular systolic function is normal. ATRIA The left atrium is mildly dilated. The right atrium size is normal. The interatrial septum is intact with no evidence for an atrial septal defect or patent foramen ovale as noted on 2-D or Doppler imagi ng. AORTIC VALVE The aortic valve is normal in structure and function. Doppler and Color Flow revealed no significant aortic regurgitation. There is no significant aortic valvular stenosis. There is no aortic valvular v egetation. MITRAL VALVE The mitral valve is normal in structure and function. There is no obvious vegetation on the mitral va lve. There is no evidence of mitral valve prolapse. There is no mitral valve stenosis. Doppler and Co sol Flow revealed no mitral valve regurgitation noted. TRICUSPID VALVE The tricuspid valve is normal in structure and function. Doppler and Color Flow revealed mild to mode rate regurgitation. There is moderate pulmonary hypertension. The PA pressure was estimated at 52 mmH g. There is no obvious tricuspid valve prolapse or vegetation. There is no tricuspid valve stenosis. PULMONIC VALVE The pulmonary valve is normal in structure and function. Doppler and Color Flow revealed mild pulmoni c valvular regurgitation. There is no pulmonic valvular stenosis. GREAT VESSELS The aortic root is normal in size. The ascending aorta is normal in size. The IVC is normal in size a nd collapses >50% with inspiration. PERICARDIAL EFFUSION There is no evidence of significant pericardial effusion. Critical Notification Critical Value: No <Conclusion> The left ventricular systolic function is normal and the ejection fraction is within normal range. Th e Ejection Fraction is 55-60%. There is normal LV segmental wall motion. Doppler and Color Flow revealed mild to moderate regurgitation. There is moderate pulmonary hypertens ion. The PA pressure was estimated at 52 mmHg. No evidence of endocarditis on this surface study. If there is high clinical suspicion, recommend STEPHANY due to tricuspid regurgitation noted. Signed by : Jayy Lai, Electronically Approved : 03/03/2019 09:40:47
--- NOTE | 2019-03-03 10:40 | PDOC ---
Infectious Disease Note Subjective Subjective Feeling better. Less right hip pain with walking Denies F/C/S/N/V Occ loose stool Vital Sign Vital Signs Vital Signs Date Time Temp Pulse Resp B/P (MAP) Pulse Ox O2 Delivery O2 Flow Rate FiO2 03/03/19 07:00 98.0 60 128/79 (95) 98 Room Air 98.0 03/03/19 03:00 18 03/02/19 08:55 2.0 Physical Exam PHYSICAL EXAM GENERAL: The patient is propped up in bed, alert, in no apparent distress. Looks better HEENT: Pupils are equally round, reactive. Oral cavity, oropharynx pink and moist. Superficial scalp wound improved and alopecia. NECK: Supple. LUNGS: Clear to auscultation. HEART: S1, S2 regular. ABDOMEN: Nondistended, soft, nontender with bowel sounds present. EXTREMITIES: Trace pedal edema in lower extremities bilaterally. Sensitive to touch. No cyanosis. Several dry annular wounds/scabs both legs bilaterally wo associated redness or drainage. SKIN: Warm to touch. No signs of rash NEUROLOGIC: Alert and oriented x 3. Labs Lab Laboratory Tests Test 03/02/19 12:00 03/02/19 17:02 03/02/19 20:00 03/03/19 07:52 Glucose (Fingerstick) 295 mg/dL (70-99) 284 mg/dL (70-99) 191 mg/dL (70-99) 75 mg/dL (70-99) Micro IMPRESSION: There is soft tissue thickening and focal gas overlying the right ischial tuberosity, and there is suggestion of early bone destruction here. This could relate to infection, although there is no obvious overlying decubitus ulcer. No well-formed abscess is visible, although noncontrast CT is limited for this purpose. If further imaging evaluation is needed, MRI may be useful. Staphylococcus aureus Staphylococcus species Performed at: [facility] [address] [address], [place], [place] [id number] Financial Controller: CLEVELAND Pisano MD, Phone: [phone] Most isolates of Staphylococcus sp. produce a beta- lactamase enzyme rendering them resistant to penicillin. Please contact the laboratory if penicillin is being considered for therapy. ANTIMICROBIAL SUSCEPTIBILITY Final Comment S = Susceptible; I = Intermediate; R = Resistant P = Positive; N = Negative MICS are expressed in micrograms per mL Antibiotic RSLT#1 RSLT#2 RSLT#3 RSLT#4 Ciprofloxacin S<=0.5 Gentamicin S<=0.5 Levofloxacin S =0.25 Linezolid S =2 Moxifloxacin S<=0.25 Nitrofurantoin S<=16 Oxacillin S =0.5 Quinupristin/Dalfopristin S =0.5 Rifampin S<=0.5 Tetracycline S<=1 Trimethoprim/Sulfa S<=10 Vancomycin S<=0.5 BLOOD CULTURE Final GRAM POSITIVE COCCI IN CLUSTERS, IN 2 OF 2 BOTTLES, OF ONE SET. CALLED TO DAMON RIVERA RN IN ICU AT 8:25 ON 02/26/19 DW [facility] BLOOD CULTURE LC Preliminary Preliminary report BLD CULT RESULT 1 Preliminary Comment Staphylococcus species Objective Assessment MSSA bacteremia with sepsis, POA. 02/25 repeat 03/01 - neg so far TTE with Mod TV regurg 03/03 Nonhealing wounds involving scalp and lower extremities, bilaterally - superficial - healing Right hip pain - pelvis CT shows soft tissue thickening and focal gas overlying the right ischial tuberosity, and there is suggestion of early bone destruction. ESR 68 s/p biopsy/cults 03/02 Hypothermia - better Leukocytosis - resolved DKA Peripheral neuropathy Plan Plan of Care F/u Repeat Blood cults with Staph species 03/01 STEPHANY Cont Zosyn for now and f/u cults/biopsy from procedure 03/02 May need MRI but await cults/biopsy and Ortho eval Changed to Zosyn 02/28 as do not want to delay any longer to expand abx. Was waiting for surgical decision and cults but will broaden now as uncertain when aspiration will get done Discontinued cefazolin 02/28 Wound care team consulted f/u cultures Monitor WBC/temp and renal function closely in am Glycemic/Electrolytes control per primary TOBIAS SANCHEZ MD Mar 03, 2019 10:40
[2019-03-03 11:00] VITALS: BP 125/73
--- NOTE | 2019-03-03 13:59 | PDOC ---
Provider Note Provider Note 03/03/2019 1300 Pt is AOX3 and in no distress. Noted with bacteremia with MSSA. Notable for normal EF but with mild to moderate TR. Will need to differentiate any underlying endocarditis. ID requested STEPHANY. STEPHANY explained scheduled for 3 PM tomorrow. Risks and benefits explained but currently hesitant mainly scared about the procedure. Reassured pt with low risk complication. No hx of esophageal issues. I discussed further with him and he will let his nurse know today if he is agreeable. JUWAN PENG MIGRATION SPECIALIST Mar 03, 2019 13:59
[2019-03-03 15:03] VITALS: BP 133/78
--- NOTE | 2019-03-03 16:36 | PDOC2 ---
GI CONSULT Reason For Consult: Anemia, elevated alk phos HPI: HPI: 48 frisian/o male admitted with DKA. Also has had MSSA bacteremia and question of osteomyelitis. We were asked to see re: anemia and an elevated alkaline phosphatase value. Patient denies prior liver issues. No abdominal pain. Denies heartburn, dyspha priti, PUD, GB or pancreatic disease. No tobacco and only rare alcohol use. Infrequeent use of NSAIDS at home. No N, V. Occasionally will have loose stools, but no ongoing diarrhea. Denies constipation, overt bleeding or melena. Wt reasonably stable. Appetite OK. No prior endoscopy. GIFH negative. PMH: PMH: DMI with peripheral neuropathy. S/p tonsillectomy. FH: Family History: Cancer (father/?primary), CAD, CVA, DM, Hypertension Social History: Smoke: No ALCOHOL: none Drugs: None ROS: GEN: Denies fevers, chills, sweats HEENT: Denies blurred vision, sore throat CV: Denies chest pain RESP: Denies shortness of air, cough GI: Per HPI : Denies hematuria, dysuria ENDO: Denies weight changes NEURO: Denies confusion, dizziness MSK: Denies weakness, has right hip pain SKIN: Denies jaundice, pruritus Vitals: Vitals: Vital Signs Date Time Temp Pulse Resp B/P (MAP) Pulse Ox O2 Delivery O2 Flow Rate FiO2 03/03/19 15:03 98.0 67 14 133/78 (96) 97 Room Air 98.0 03/02/19 08:55 2.0 Labs: Labs: Laboratory Tests Test 03/02/19 17:02 03/02/19 20:00 03/03/19 07:52 03/03/19 11:35 Glucose (Fingerstick) 284 mg/dL (70-99) 191 mg/dL (70-99) 75 mg/dL (70-99) 182 mg/dL (70-99) Hemoglobin stable in 9's after dilutional drop from 11. AP 146; other LFT's normal. Elevated ESR. Allergies: Coded Allergies: No Known Drug Allergies (Unverified , 02/25/19) Imaging: Imaging: On CT pelvis: MPRESSION: There is soft tissue thickening and focal gas overlying the right ischial tuberosity, and there is suggestion of early bone destruction here. This could relate to infection, although there is no obvious overlying decubitus ulcer. No well-formed abscess is visible, although noncontrast CT is limited for this purpose. If further imaging evaluation is needed, MRI may be useful. S/p biopsy of this area; results pending. PE: GEN: NAD HEENT: Atraumatic, PERRLA LUNGS: CTAB HEART: RRR, no murmurs ABD: NABS, S/ND/NT, no masses EXTREMITY: No edema SKIN: No rashes, no jaundice NEURO/PSYCH: A & O 3 A/P: A/P: IMP: Anemia, normocytic and normal RDW. Suspect ACD. Elevated alkaline phosphatase, mild. If osteomyelitis, this could be the source. Hepatic steatosis possible. Nothing to strongly indicate biliary disease. CRC screening; could begin any time. Most recent guidelines favor starting at age 45. REC: Iron studies, B12. Abdominal sonogram. Await bone biopsy results. Thanks. ANNITA DE PAZ MD Mar 03, 2019 16:36
--- NOTE | 2019-03-03 16:41 | NUR ---
SW following for discharge planning. Discussed with RN, pt is from home, IV abx. Awaiting biopsy results. SW will continue to follow.
--- NOTE | 2019-03-03 17:11 | RAD ---
CHEST PA LATERAL History: Sepsis, bacteremia Comparison: None. Findings: Frontal and lateral views of the chest were obtained. The cardiomediastinal silhouette is normal. Pulmonary vasculature is normal. Small left pleural effusion is present. No infiltrate. There is no acute bone abnormality. IMPRESSION: Small left pleural effusion. Electronically signed by: Rob Gaxiola MD (03/03/2019 5:08 PM) [facility]
[2019-03-03 19:00] VITALS: BP 130/82
[2019-03-03] MEDS: PATCH REMOVAL. MC SCH (21:00)
[2019-03-03] MEDS: INSULIN GLARGINE SYRINGE. SQ SCH (22:01)
[2019-03-03 23:00] VITALS: BP 116/71
[2019-03-04] MEDS: PIPERACILLIN/TAZOBACTAM 3.375 GM in IV NORMAL SALINE 50ML 50 ML IV SCH ×4 (00:47→17:04)
[2019-03-04 03:00] VITALS: BP 125/78
[2019-03-04] MEDS: IV NORMAL SALINE 1000ML BAG 1,000 ML IV SCH ×3 (04:34→17:03)
[2019-03-04 06:06] LABS: BASO # 0.1 x10^3/uL (0.0-0.2); BASO % 1 % (0-3); EOS # 0.3 x10^3/uL (0.0-0.7); EOS % 4 % (0-3); HEMATOCRIT 27.7 % (39.0-53.0); HEMOGLOBIN 9.2 g/dL (13.0-17.5); LYMPH # 0.8 x10^3/uL (1.0-4.8); LYMPH % 11 % (24-48); MEAN CORPUSCULAR HEMOGLOBIN 29 pg (25-35); MEAN CORPUSCULAR HGB CONC 33 g/dL (31-37); MEAN CORPUSCULAR VOLUME 89 fL (79-100); MONO # 1.1 x10^3/uL (0.0-1.1); MONO % 16 % (0-9); NEUT % 69 % (31-73); PLATELET COUNT 259 x10^3/uL (140-400); RED BLOOD COUNT 3.13 x10^6/uL (4.30-5.70); RED CELL DISTRIBUTION WIDTH 13.7 % (11.5-14.5); WHITE BLOOD COUNT 7.2 x10^3/uL (4.0-11.0)
[2019-03-04 06:35] LABS: ALBUMIN 1.6 g/dL (3.4-5.0); ALBUMIN/GLOBULIN RATIO 0.4 (1.0-1.7); GFR 79.8; POTASSIUM 4.1 mmol/L (3.5-5.1); TOTAL BILIRUBIN 0.1 mg/dL (0.2-1.0); TOTAL PROTEIN 5.5 g/dL (6.4-8.2)
[2019-03-04 07:00] VITALS: BP 143/84
[2019-03-04] MEDS ORDERED: IV RINGERS,LACTATED 1000ML 1,000 ML IV SCH (07:00)
[2019-03-04] MEDS ORDERED: BENZOCAINE ONE 20% MUCOSAL SPRAY. MM ×2 (07:30)
[2019-03-04] MEDS ORDERED: LIDOCAINE 2% VISCOUS 15 ML SOLUTION. SWSW ONE ×2 (07:30)
[2019-03-04] MEDS ORDERED: LIDOCAINE 2% TOPICAL JELLY 30GM TUBE. TP ONE ×2 (07:30)
--- NOTE | 2019-03-04 07:35 | NUR ---
per sanitary aide, pt refusing STEPHANY scheduled for today as reported by KHURRAM Ng on day shift 03/03
--- NOTE | 2019-03-04 08:07 | RAD ---
Examination: ABDOMEN COMPLETE History: Elevated alkaline phosphatase Comparison/Correlation: None Findings: Upper abdominal ultrasound exam was performed. Hepatic echotexture is normal. Liver length is normal. Portal venous flow is normal. The gallbladder wall is slightly thickened measuring 0.38 cm this may be related to ascites. No cholelithiasis. No cholelithiasis. No pericholecystic fluid. No biliary dilatation. Common bile duct diameter is normal. Spleen measures up to 10.4 cm longitudinal. Abdominal aorta and inferior vena cava are unremarkable. Small amount ascites is present in Morison's pouch and about the spleen. Bilateral pleural effusions are present. Intermediate echogenicity within the abdominal midline and right lower quadrant which may represent stool and bowel is noted. Impression: No cholelithiasis. No biliary dilatation. Gallbladder wall thickening is present but ascites is noted and may account for this finding. Electronically signed by: Rob Gaxiola MD (03/04/2019 8:04 AM) [facility]
[2019-03-04] MEDS: LIDOCAINE (700MG/PATCH) PATCH. TD SCH (09:00)
[2019-03-04] MEDS: LACTOBACILLUS RHAMNOSUS GG 1 CAPSULE. PO SCH ×2 (09:11→22:11)
[2019-03-04] MEDS: POTASSIUM CHLORIDE 20 MEQ TABLET.ER. PO SCH (09:12)
[2019-03-04] MEDS: DICLOFENAC SODIUM 1% TOPICAL GEL 100GM TUBE. TP SCH ×4 (09:14→22:11)
[2019-03-04] MEDS: INSULIN LISPRO 300 UNITS/3 ML VIAL. SQ SCH ×3 (09:20→17:10)
[2019-03-04 11:00] VITALS: BP 122/75
--- NOTE | 2019-03-04 11:22 | PDOC ---
PROGRESS NOTES Chief Complaint Chief Complaint impression GPC bacteremia with sepsis, POA. BLD CULT RESULT 1 Final Comment Staphylococcus aureus Nonhealing wounds involving scalp and lower extremities, bilaterally - superficial - healing Right hip pain - pelvis CT shows soft tissue thickening and focal gas overlying the right ischial tuberosity, and there is suggestion of early bone destruction. ESR 68 Hypothermia - better moderate protein-caloric malnutrition Leukocytosis - sepsis dehydration DKA Peripheral neuropathy TTE with Mod TV regurg 03/03//PA pressure was estimated at 52 mmHg Plan IV Zosyn , CONTINUE Discontinue cefazolin 02/28 Wound care team FOLLOWING f/u cultures Monitor WBC/temp and renal function Doppler and Color Flow revealed mild to moderate regurgitation. There is moderate pulmonary hypertension. The PA pressure was estimated at 52 mmHg. No evidence of endocarditis on this surface study. If there is high clinical suspicion, recommend STEPHANY due to tricuspid regurgitation noted ID requested STEPHANY. STEPHANY refused ama consult GI May need MRI hip but await cults/biopsy and Ortho eval poor prognosis due to noncompliance 37 min pt exam, chart review , > 50% of time spent with exam, chart review, pt care coordination History of Present Illness History of Present Illness 03/02/19 Pt seen and examined at bedside. Pt family at bedside. joint hip aspiration Pt chart reviewed. d/w Vitals Vitals Vital Signs Date Time Temp Pulse Resp B/P (MAP) Pulse Ox O2 Delivery O2 Flow Rate FiO2 03/04/19 07:00 98.2 66 16 143/84 (103) 98 Room Air 98.2 Physical Exam Physical Exam GENERAL: The patient is propped up in bed, alert, in no apparent distress. Looks better HEENT: Pupils are equally round, reactive. Oral cavity, oropharynx pink and moist. Superficial scalp wound improved and alopecia. NECK: Supple. LUNGS: Clear to auscultation. HEART: S1, S2 regular. ABDOMEN: Nondistended, soft, nontender with bowel sounds present. EXTREMITIES: Trace pedal edema in lower extremities bilaterally. Sensitive to touch. No cyanosis. Several dry annular wounds/scabs both legs bilaterally wo associated redness or drainage. SKIN: Warm to touch. No signs of rash NEUROLOGIC: Alert and oriented x 3. General: Alert, Oriented X3, Cooperative, No acute distress Heart: Regular rate, Normal S1, Normal S2, No murmurs Lungs: Clear, Other (No respiratory distress) Abdomen: Normal bowel sounds, Soft, No tenderness Extremities: No clubbing, No cyanosis Skin: No rashes, No significant lesion Labs LABS Laboratory Tests Test 03/03/19 11:35 03/03/19 16:15 03/03/19 17:13 03/03/19 20:54 Glucose (Fingerstick) 182 mg/dL (70-99) 327 mg/dL (70-99) 290 mg/dL (70-99) Erythrocyte Sedimentation Rate 82 (0-15) Test 03/04/19 04:30 03/04/19 07:23 White Blood Count 7.2 x10^3/uL (4.0-11.0) Red Blood Count 3.13 x10^6/uL (4.30-5.70) Hemoglobin 9.2 g/dL (13.0-17.5) Hematocrit 27.7 % (39.0-53.0) Mean Corpuscular Volume 89 fL (79-100) Mean Corpuscular Hemoglobin 29 pg (25-35) Mean Corpuscular Hemoglobin Concent 33 g/dL (31-37) Red Cell Distribution Width 13.7 % (11.5-14.5) Platelet Count 259 x10^3/uL (140-400) Neutrophils (%) (Auto) 69 % (31-73) Lymphocytes (%) (Auto) 11 % (24-48) Monocytes (%) (Auto) 16 % (0-9) Eosinophils (%) (Auto) 4 % (0-3) Basophils (%) (Auto) 1 % (0-3) Neutrophils # (Auto) 5.0 x10^3/uL (1.8-7.7) Lymphocytes # (Auto) 0.8 x10^3/uL (1.0-4.8) Monocytes # (Auto) 1.1 x10^3/uL (0.0-1.1) Eosinophils # (Auto) 0.3 x10^3/uL (0.0-0.7) Basophils # (Auto) 0.1 x10^3/uL (0.0-0.2) Sodium Level 140 mmol/L (136-145) Potassium Level 4.1 mmol/L (3.5-5.1) Chloride Level 106 mmol/L (98-107) Carbon Dioxide Level 27 mmol/L (21-32) Anion Gap 7 (6-14) Blood Urea Nitrogen 12 mg/dL (8-26) Creatinine 1.0 mg/dL (0.7-1.3) Estimated GFR (Cockcroft-Gault) 79.8 BUN/Creatinine Ratio 12 (6-20) Glucose Level 277 mg/dL (70-99) Calcium Level 8.0 mg/dL (8.5-10.1) Iron Level 38 ug/dL (65-175) Total Iron Binding Capacity 163 ug/dL (250-450) Iron Saturation 23 % (15-34) Total Bilirubin 0.1 mg/dL (0.2-1.0) Aspartate Amino Transf (AST/SGOT) 13 U/L (15-37) Alanine Aminotransferase (ALT/SGPT) 9 U/L (16-63) Alkaline Phosphatase 71 U/L (46-116) Total Protein 5.5 g/dL (6.4-8.2) Albumin 1.6 g/dL (3.4-5.0) Albumin/Globulin Ratio 0.4 (1.0-1.7) Vitamin B12 Level 239 pg/mL (247-911) Glucose (Fingerstick) 159 mg/dL (70-99) Assessment and Plan Assessmemt and Plan Problems Medical Problems: (1) Dehydration Status: Acute (2) DKA (diabetic ketoacidoses) Status: Acute (3) Scalp abscess Status: Acute (4) Sepsis Status: Acute Comment Review of Relevant I have reviewed the following items orestes (where applicable) has been applied. Labs Laboratory Tests Test 03/02/19 12:00 03/02/19 17:02 03/02/19 20:00 03/03/19 07:52 Glucose (Fingerstick) 295 mg/dL (70-99) 284 mg/dL (70-99) 191 mg/dL (70-99) 75 mg/dL (70-99) Test 03/03/19 11:35 03/03/19 16:15 03/03/19 17:13 03/03/19 20:54 Glucose (Fingerstick) 182 mg/dL (70-99) 327 mg/dL (70-99) 290 mg/dL (70-99) Erythrocyte Sedimentation Rate 82 (0-15) Test 03/04/19 04:30 03/04/19 07:23 White Blood Count 7.2 x10^3/uL (4.0-11.0) Red Blood Count 3.13 x10^6/uL (4.30-5.70) Hemoglobin 9.2 g/dL (13.0-17.5) Hematocrit 27.7 % (39.0-53.0) Mean Corpuscular Volume 89 fL (79-100) Mean Corpuscular Hemoglobin 29 pg (25-35) Mean Corpuscular Hemoglobin Concent 33 g/dL (31-37) Red Cell Distribution Width 13.7 % (11.5-14.5) Platelet Count 259 x10^3/uL (140-400) Neutrophils (%) (Auto) 69 % (31-73) Lymphocytes (%) (Auto) 11 % (24-48) Monocytes (%) (Auto) 16 % (0-9) Eosinophils (%) (Auto) 4 % (0-3) Basophils (%) (Auto) 1 % (0-3) Neutrophils # (Auto) 5.0 x10^3/uL (1.8-7.7) Lymphocytes # (Auto) 0.8 x10^3/uL (1.0-4.8) Monocytes # (Auto) 1.1 x10^3/uL (0.0-1.1) Eosinophils # (Auto) 0.3 x10^3/uL (0.0-0.7) Basophils # (Auto) 0.1 x10^3/uL (0.0-0.2) Sodium Level 140 mmol/L (136-145) Potassium Level 4.1 mmol/L (3.5-5.1) Chloride Level 106 mmol/L (98-107) Carbon Dioxide Level 27 mmol/L (21-32) Anion Gap 7 (6-14) Blood Urea Nitrogen 12 mg/dL (8-26) Creatinine 1.0 mg/dL (0.7-1.3) Estimated GFR (Cockcroft-Gault) 79.8 BUN/Creatinine Ratio 12 (6-20) Glucose Level 277 mg/dL (70-99) Calcium Level 8.0 mg/dL (8.5-10.1) Iron Level 38 ug/dL (65-175) Total Iron Binding Capacity 163 ug/dL (250-450) Iron Saturation 23 % (15-34) Total Bilirubin 0.1 mg/dL (0.2-1.0) Aspartate Amino Transf (AST/SGOT) 13 U/L (15-37) Alanine Aminotransferase (ALT/SGPT) 9 U/L (16-63) Alkaline Phosphatase 71 U/L (46-116) Total Protein 5.5 g/dL (6.4-8.2) Albumin 1.6 g/dL (3.4-5.0) Albumin/Globulin Ratio 0.4 (1.0-1.7) Vitamin B12 Level 239 pg/mL (247-911) Glucose (Fingerstick) 159 mg/dL (70-99) Laboratory Tests Test 03/03/19 11:35 03/03/19 16:15 03/03/19 17:13 03/03/19 20:54 Glucose (Fingerstick) 182 mg/dL (70-99) 327 mg/dL (70-99) 290 mg/dL (70-99) Erythrocyte Sedimentation Rate 82 (0-15) Test 03/04/19 04:30 03/04/19 07:23 White Blood Count 7.2 x10^3/uL (4.0-11.0) Red Blood Count 3.13 x10^6/uL (4.30-5.70) Hemoglobin 9.2 g/dL (13.0-17.5) Hematocrit 27.7 % (39.0-53.0) Mean Corpuscular Volume 89 fL (79-100) Mean Corpuscular Hemoglobin 29 pg (25-35) Mean Corpuscular Hemoglobin Concent 33 g/dL (31-37) Red Cell Distribution Width 13.7 % (11.5-14.5) Platelet Count 259 x10^3/uL (140-400) Neutrophils (%) (Auto) 69 % (31-73) Lymphocytes (%) (Auto) 11 % (24-48) Monocytes (%) (Auto) 16 % (0-9) Eosinophils (%) (Auto) 4 % (0-3) Basophils (%) (Auto) 1 % (0-3) Neutrophils # (Auto) 5.0 x10^3/uL (1.8-7.7) Lymphocytes # (Auto) 0.8 x10^3/uL (1.0-4.8) Monocytes # (Auto) 1.1 x10^3/uL (0.0-1.1) Eosinophils # (Auto) 0.3 x10^3/uL (0.0-0.7) Basophils # (Auto) 0.1 x10^3/uL (0.0-0.2) Sodium Level 140 mmol/L (136-145) Potassium Level 4.1 mmol/L (3.5-5.1) Chloride Level 106 mmol/L (98-107) Carbon Dioxide Level 27 mmol/L (21-32) Anion Gap 7 (6-14) Blood Urea Nitrogen 12 mg/dL (8-26) Creatinine 1.0 mg/dL (0.7-1.3) Estimated GFR (Cockcroft-Gault) 79.8 BUN/Creatinine Ratio 12 (6-20) Glucose Level 277 mg/dL (70-99) Calcium Level 8.0 mg/dL (8.5-10.1) Iron Level 38 ug/dL (65-175) Total Iron Binding Capacity 163 ug/dL (250-450) Iron Saturation 23 % (15-34) Total Bilirubin 0.1 mg/dL (0.2-1.0) Aspartate Amino Transf (AST/SGOT) 13 U/L (15-37) Alanine Aminotransferase (ALT/SGPT) 9 U/L (16-63) Alkaline Phosphatase 71 U/L (46-116) Total Protein 5.5 g/dL (6.4-8.2) Albumin 1.6 g/dL (3.4-5.0) Albumin/Globulin Ratio 0.4 (1.0-1.7) Vitamin B12 Level 239 pg/mL (247-911) Glucose (Fingerstick) 159 mg/dL (70-99) Microbiology 03/02/19 Anaerobic/Aerobic Culture, Resulted Pending 03/02/19 Anaerobic Culture Result 1 (SUNITA), Resulted Pending 03/02/19 Aerobic Culture, Resulted Pending 03/02/19 Aerobic Culture Result 1 (SUNITA), Resulted Pending 03/02/19 Gram Stain - Final, Resulted 03/02/19 Gram Stain Result 1 (SUNITA) - Final, Resulted 03/02/19 Gram Stain Result 2 (SUNITA) - Final, Resulted 03/01/19 Blood Culture - Preliminary, Resulted NO GROWTH AFTER 2 DAYS 02/26/19 Urine Culture - Final, Complete 02/26/19 Urine Culture Result 1 (SUNITA) - Final, Complete Medications Current Medications Sodium Chloride 1,000 ml @ 1,000 mls/hr 1X ONCE IV Last administered on 02/25/19at 15:20; Start 02/25/19 at 14:45; Stop 02/25/19 at 15:44; Status DC Sodium Chloride 1,000 ml @ 1,000 mls/hr 1X ONCE IV Last administered on 02/25/19at 15:20; Start 02/25/19 at 15:15; Stop 02/25/19 at 16:14; Status DC Insulin Human Regular 150 ml @ 0 mls/hr 1X ONCE IV Last administered on 02/25/19at 16:01; Start 02/25/19 at 15:30; Stop 02/25/19 at 15:32; Status DC Vancomycin HCl 250 ml @ 250 mls/hr 1X ONCE IV Last administered on 02/25/19at 16:04; Start 02/25/19 at 16:00; Stop 02/25/19 at 16:59; Status DC Ondansetron HCl (Zofran) 4 mg PRN Q8HRS PRN IV NAUSEA/VOMITING; Start 02/25/19 at 16:15; Stop 02/25/19 at 17:32; Status DC Sodium Chloride 1,000 ml @ 100 mls/hr Q10H IV ; Start 02/25/19 at 16:08; Stop 02/26/19 at 08:29; Status DC Sodium Chloride 1,000 ml @ 250 mls/hr Q4H IV Last administered on 02/25/19at 21:28; Start 02/25/19 at 17:00; Stop 02/26/19 at 03:06; Status DC Dextrose/Sodium Chloride 1,000 ml @ 250 mls/hr Q4H IV Last administered on 02/25/19at 23:26; Start 02/25/19 at 16:39; Stop 02/26/19 at 03:06; Status DC Insulin Human Regular 150 unit/ Sodium Chloride 151.5 ml @ 0 mls/hr CONT PRN PRN IV PER PROTOCOL; Start 02/25/19 at 16:45; Stop 02/26/19 at 03:06; Status DC Potassium Chloride/Water 100 ml @ 100 mls/hr PRN Q1HR PRN IV SEE COMMENTS Last administered on 02/26/19at 01:19; Start 02/25/19 at 16:45; Stop 02/26/19 at 03:06; Status DC Potassium Chloride/Water 100 ml @ 100 mls/hr PRN Q1HR PRN IV SEE COMMENTS Last administered on 02/25/19at 23:26; Start 02/25/19 at 16:45; Stop 02/26/19 at 03:06; Status DC Potassium Chloride/Water 100 ml @ 100 mls/hr PRN Q1HR PRN IV SEE COMMENTS; Start 02/25/19 at 16:45; Stop 02/26/19 at 03:06; Status DC Sodium Bicarbonate 50 meq/Sodium Chloride 1,050 ml @ 125 mls/hr 1X ONCE IV L ast administered on 02/25/19at 17:51; Start 02/25/19 at 16:45; Stop 02/26/19 at 01:08; Status DC Calcium Carbonate/ Glycine (Tums) 500 mg PRN AFTMEALHC PRN PO INDIGESTION; Start 02/25/19 at 16:45 Temazepam (Restoril) 7.5 mg PRN QHS PRN PO INSOMNIA; Start 02/25/19 at 16:45 Acetaminophen (Tylenol) 500 mg PRN Q6HRS PRN PO MILD PAIN / TEMP; Start 02/25/19 at 16:45 Acetaminophen/ Codeine Phosphate (Tylenol #3) 1 tab PRN Q6HRS PRN PO MODERATE PAIN Last administered on 03/01/19at 21:33; Start 02/25/19 at 16:45 Ondansetron HCl (Zofran) 4 mg PRN Q6HRS PRN IVP NAUSEA/VOMITING; Start 02/25/19 at 16:45 Cefazolin Sodium 50 ml @ 100 mls/hr Q8HRS IV ; Start 02/25/19 at 22:00; Status UNV Cefazolin Sodium 50 ml @ As Directed STK-MED ONCE IV ; Start 02/25/19 at 17:12; Stop 02/25/19 at 17:32; Status DC Cefazolin Sodium 50 ml @ 100 mls/hr 1X ONCE IV Last administered on 02/25/19at 17:30; Start 02/25/19 at 17:30; Stop 02/25/19 at 17:59; Status DC Cefazolin Sodium (Ancef) 1 gm Q8HRS IVP Last administered on 02/28/19at 13:54; Start 02/25/19 at 22:00; Stop 02/28/19 at 18:52; Status DC Potassium Chloride/Water 100 ml @ 100 mls/hr PRN Q1HR PRN IV SEE COMMENTS; Start 02/25/19 at 21:00 Magnesium Sulfate 100 ml @ 25 mls/hr DAILY IV Last administered on 02/28/19at 12:24; Start 02/26/19 at 09:00; Stop 03/01/19 at 08:59; Status DC Dextrose (Dextrose 50%-Water Syringe) 12.5 gm PRN Q15MIN PRN IV SEE COMMENTS; Start 02/26/19 at 03:00; Status UNV Insulin Glargine (Lantus Syringe) 20 unit QHS SQ Last administered on 03/03/19at 22:01; Start 02/26/19 at 21:00 Insulin Human Lispro (HumaLOG) 10 units TIDWMEALS SQ Last administered on 02/26/19at 17:33; Start 02/26/19 at 08:00; Stop 02/26/19 at 18:45; Status DC Dextrose (Dextrose 50%-Water Syringe) 12.5 gm PRN Q15MIN PRN IV SEE COMMENTS; Start 02/26/19 at 03:00 Insulin Glargine (Lantus Syringe) 10 unit 1X ONCE SQ Last administered on 02/26/19at 03:16; Start 02/26/19 at 03:30; Stop 02/26/19 at 03:31; Status DC Sodium Chloride 1,000 ml @ 100 mls/hr Q10H IV Last administered on 03/04/19at 04:34; Start 02/26/19 at 03:00 Vancomycin HCl (Vanco Per Pharmacy) 1 each PRN DAILY PRN MC SEE COMMENTS Last administered on 03/01/19at 15:41; Start 02/26/19 at 08:45; Stop 03/02/19 at 12:58; Status DC Vancomycin HCl 1 gm/Sodium Chloride 250 ml @ 250 mls/hr Q12H IV Last administered on 02/26/19at 21:22; Start 02/26/19 at 09:00; Stop 02/27/19 at 09:06; Status DC Diclofenac Sodium (Voltaren) 1 faith BID TP Last administered on 02/27/19 07:56; Start 02/26/19 at 10:30; Stop 02/27/19 at 11:58; Status DC Potassium Chloride (Klor-Con) 40 meq 1X ONCE PO Last administered on 02/26/19 11:01; Start 02/26/19 at 11:00; Stop 02/26/19 at 11:01; Status DC Lidocaine (Lidoderm) 1 patch DAILY TD Last administered on 02/27/19 07:56; Start 02/26/19 at 11:30 Miscellaneous (Lidoderm Patch Removal) 1 ea QHS MC Last administered on 03/02/19 21:00; Start 02/26/19 at 21:00 Lactobacillus Rhamnosus (Culturelle) 1 cap BID PO Last administered on 03/04/19 09:11; Start 02/26/19 at 21:00 Vancomycin HCl (Vancomycin Trough Level) 1 each 1X ONCE MC Last administered on 02/27/19 08:30; Start 02/27/19 at 08:30; Stop 02/27/19 at 08:31; Status DC Insulin Human Lispro (HumaLOG) 0-7 UNITS TIDWMEALS SQ Last administered on 03/04/19 09:20; Start 02/27/19 at 08:00 Vancomycin HCl 750 mg/Sodium Chloride 250 ml @ 250 mls/hr Q8H IV Last administered on 03/02/19 09:26; Start 02/27/19 at 09:30; Stop 03/02/19 at 12:58; Status DC Vancomycin HCl (Vancomycin Trough Level) 1 each 1X ONCE MC Last administered on 02/28/19 09:00; Start 02/28/19 at 09:00; Stop 02/28/19 at 09:01; Status DC Potassium Chloride (Klor-Con) 40 meq 1X ONCE PO Last administered on 02/27/19 09:56; Start 02/27/19 at 10:00; Stop 02/27/19 at 10:01; Status DC Diclofenac Sodium (Voltaren) 1 faith QID TP Last administered on 03/04/19 09:14; Start 02/27/19 at 12:00 Potassium Chloride (Klor-Con) 20 meq 1X ONCE PO Last administered on 02/28/19at 12:24; Start 02/28/19 at 11:00; Stop 02/28/19 at 11:01; Status DC Potassium Chloride (Klor-Con) 40 meq 1X ONCE PO Last administered on 02/28/19at 06:58; Start 02/28/19 at 07:00; Stop 02/28/19 at 07:01; Status DC Potassium Chloride (Klor-Con) 40 meq DAILY PO Last administered on 03/04/19at 09:12; Start 02/28/19 at 09:00 Piperacillin Sod/ Tazobactam Sod 3.375 gm/Sodium Chloride 50 ml @ 100 mls/hr Q6HRS IV Last administered on 03/04/19at 05:58; Start 02/28/19 at 12:00 Lidocaine HCl (Buffered Lidocaine 1%) 3 ml STK-MED ONCE .ROUTE ; Start 03/02/19 at 08:01; Stop 03/02/19 at 08:02; Status DC Midazolam HCl (Versed) 2 mg STK-MED ONCE .ROUTE ; Start 03/02/19 at 08:26; Stop 03/02/19 at 08:26; Status DC Fentanyl Citrate (Fentanyl 2ml Vial) 100 mcg STK-MED ONCE .ROUTE ; Start 03/02/19 at 08:26; Stop 03/02/19 at 08:27; Status DC Lidocaine HCl (Buffered Lidocaine 1%) 3 ml 1X ONCE IJ Last administered on 03/02/19at 08:45; Start 03/02/19 at 08:45; Stop 03/02/19 at 08:48; Status DC Midazolam HCl (Versed) 2 mg 1X ONCE IV Last administered on 03/02/19at 08:45; Start 03/02/19 at 08:45; Stop 03/02/19 at 08:48; Status DC Fentanyl Citrate (Fentanyl 2ml Vial) 100 mcg 1X ONCE IV Last administered on 03/02/19at 08:45; Start 03/02/19 at 08:45; Stop 03/02/19 at 08:48; Status DC Ringer's Solution 1,000 ml @ 50 mls/hr Q20H IV ; Start 03/04/19 at 07:00; Stop 03/04/19 at 18:59 Lidocaine HCl (Viscous Lidocaine) 15 ml 1X ONCE SWSW ; Start 03/04/19 at 07:30; Stop 03/04/19 at 07:31; Status DC Lidocaine HCl (Xylocaine 2% Topical 30gm Tube) 1 faith 1X ONCE TP ; Start 03/04/19 at 07:30; Stop 03/04/19 at 07:31; Status DC Benzocaine (Hurricaine One) 2 spray 1X ONCE MM ; Start 03/04/19 at 07:30; Stop 03/04/19 at 07:31; Status DC Lidocaine HCl (Xylocaine 2% Topical 30gm Tube) 1 faith 1X ONCE TP ; Start 03/04/19 at 07:30; Stop 03/04/19 at 07:31; Status UNV Lidocaine HCl (Viscous Lidocaine) 15 ml 1X ONCE SWSW ; Start 03/04/19 at 07:30; Stop 03/04/19 at 07:31; Status UNV Benzocaine (Hurricaine One) 2 spray 1X ONCE MM ; Start 03/04/19 at 07:30; Stop 03/04/19 at 07:31; Status UNV Vitals/I & O Vital Sign - Last 24 Hours 03/03/19 03/03/19 03/03/19 03/03/19 15:03 19:00 20:00 23:00 Temp 98.0 98.5 98.8 98.0 98.5 98.8 Pulse 67 73 67 Resp 14 18 18 B/P (MAP) 133/78 (96) 130/82 (98) 116/71 (86) Pulse Ox 97 97 94 O2 Delivery Room Air Room Air Room Air Room Air 03/04/19 03/04/19 03:00 07:00 Temp 98.6 98.2 98.6 98.2 Pulse 66 66 Resp 18 16 B/P (MAP) 125/78 (94) 143/84 (103) Pulse Ox 94 98 O2 Delivery Nasal Cannula Room Air Intake and Output 03/03/19 03/03/19 03/04/19 15:00 23:00 07:00 Intake Total 0 ml Output Total 425 ml Balance -425 ml 0 ml Nutrition Consultation Dietary Evaluation: Recommendations by RD: Dietary education by RD, Protein supplementation Comments: ADA, DBL meats encourage BS control RD available x [phone] if interested in diet education mvi and vit c per wound protocal Expected Outcomes/Goals: to meet >75% est protein needs glycemic control Malnutrition Findings: Body Fat Depletion (Non Severe: Mild Depletion Weight Status: Underweight ALIX RONQUILLO MD Mar 04, 2019 11:22
--- NOTE | 2019-03-04 12:38 | PDOC ---
Infectious Disease Note Subjective Subjective Feeling better. Ambulating more Refussing STEPHANY Less right hip pain with walking Denies F/C/S/N/V Occ loose stool ROS ROS o/w neg Vital Sign Vital Signs Vital Signs Date Time Temp Pulse Resp B/P (MAP) Pulse Ox O2 Delivery O2 Flow Rate FiO2 03/04/19 11:00 98.0 67 14 122/75 (91) 96 Room Air 98.0 Physical Exam PHYSICAL EXAM GENERAL: The patient is propped up in bed, alert, in no apparent distress. Looks better HEENT: Pupils are equally round, reactive. Oral cavity, oropharynx pink and moist. Superficial scalp wound improved and alopecia. NECK: Supple. JVD LUNGS: Clear to auscultation. HEART: S1, S2 regular. ABDOMEN: Nondistended, soft, nontender with bowel sounds present. EXTREMITIES: Trace pedal edema in lower extremities bilaterally. Sensitive to touch. No cyanosis. Several dry annular wounds/scabs both legs bilaterally wo associated redness or drainage. LUE with trace edema SKIN: Warm to touch. No signs of rash NEUROLOGIC: Alert and oriented x 3. Labs Lab Laboratory Tests Test 03/03/19 16:15 03/03/19 17:13 03/03/19 20:54 03/04/19 04:30 Erythrocyte Sedimentation Rate 82 (0-15) Glucose (Fingerstick) 327 mg/dL (70-99) 290 mg/dL (70-99) White Blood Count 7.2 x10^3/uL (4.0-11.0) Red Blood Count 3.13 x10^6/uL (4.30-5.70) Hemoglobin 9.2 g/dL (13.0-17.5) Hematocrit 27.7 % (39.0-53.0) Mean Corpuscular Volume 89 fL (79-100) Mean Corpuscular Hemoglobin 29 pg (25-35) Mean Corpuscular Hemoglobin Concent 33 g/dL (31-37) Red Cell Distribution Width 13.7 % (11.5-14.5) Platelet Count 259 x10^3/uL (140-400) Neutrophils (%) (Auto) 69 % (31-73) Lymphocytes (%) (Auto) 11 % (24-48) Monocytes (%) (Auto) 16 % (0-9) Eosinophils (%) (Auto) 4 % (0-3) Basophils (%) (Auto) 1 % (0-3) Neutrophils # (Auto) 5.0 x10^3/uL (1.8-7.7) Lymphocytes # (Auto) 0.8 x10^3/uL (1.0-4.8) Monocytes # (Auto) 1.1 x10^3/uL (0.0-1.1) Eosinophils # (Auto) 0.3 x10^3/uL (0.0-0.7) Basophils # (Auto) 0.1 x10^3/uL (0.0-0.2) Sodium Level 140 mmol/L (136-145) Potassium Level 4.1 mmol/L (3.5-5.1) Chloride Level 106 mmol/L (98-107) Carbon Dioxide Level 27 mmol/L (21-32) Anion Gap 7 (6-14) Blood Urea Nitrogen 12 mg/dL (8-26) Creatinine 1.0 mg/dL (0.7-1.3) Estimated GFR (Cockcroft-Gault) 79.8 BUN/Creatinine Ratio 12 (6-20) Glucose Level 277 mg/dL (70-99) Calcium Level 8.0 mg/dL (8.5-10.1) Iron Level 38 ug/dL (65-175) Total Iron Binding Capacity 163 ug/dL (250-450) Iron Saturation 23 % (15-34) Total Bilirubin 0.1 mg/dL (0.2-1.0) Aspartate Amino Transf (AST/SGOT) 13 U/L (15-37) Alanine Aminotransferase (ALT/SGPT) 9 U/L (16-63) Alkaline Phosphatase 71 U/L (46-116) Total Protein 5.5 g/dL (6.4-8.2) Albumin 1.6 g/dL (3.4-5.0) Albumin/Globulin Ratio 0.4 (1.0-1.7) Vitamin B12 Level 239 pg/mL (247-911) Test 03/04/19 07:23 03/04/19 11:29 Glucose (Fingerstick) 159 mg/dL (70-99) 186 mg/dL (70-99) Micro IMPRESSION: There is soft tissue thickening and focal gas overlying the right ischial tuberosity, and there is suggestion of early bone destruction here. This could relate to infection, although there is no obvious overlying decubitus ulcer. No well-formed abscess is visible, although noncontrast CT is limited for this purpose. If further imaging evaluation is needed, MRI may be useful. Staphylococcus aureus Staphylococcus species Performed at: [facility] - [facility] [address], [place], [place] [id number] [employer]: CLEVELAND Pisano MD, Phone: [phone] Most isolates of Staphylococcus sp. produce a beta- lactamase enzyme rendering them resistant to penicillin. Please contact the laboratory if penicillin is being considered for therapy. ANTIMICROBIAL SUSCEPTIBILITY Final Comment S = Susceptible; I = Intermediate; R = Resistant P = Positive; N = Negative MICS are expressed in micrograms per mL Antibiotic RSLT#1 RSLT#2 RSLT#3 RSLT#4 Ciprofloxacin S<=0.5 Gentamicin S<=0.5 Levofloxacin S =0.25 Linezolid S =2 Moxifloxacin S<=0.25 Nitrofurantoin S<=16 Oxacillin S =0.5 Quinupristin/Dalfopristin S =0.5 Rifampin S<=0.5 Tetracycline S<=1 Trimethoprim/Sulfa S<=10 Vancomycin S<=0.5 BLOOD CULTURE Final GRAM POSITIVE COCCI IN CLUSTERS, IN 2 OF 2 BOTTLES, OF ONE SET. CALLED TO DAMON RIVERA RN IN ICU AT 8:25 ON 02/26/19 [facility] BLOOD CULTURE LC Preliminary Preliminary report BLD CULT RESULT 1 Preliminary Comment Staphylococcus species Objective Assessment MSSA bacteremia with sepsis, POA. 02/25 repeat 03/01 - neg so far TTE with Mod TV regurg 03/03 Nonhealing wounds involving scalp and lower extremities, bilaterally - superficial - healing Right hip pain - pelvis CT shows soft tissue thickening and focal gas overlying the right ischial tuberosity, and there is suggestion of early bone destruction. ESR 68 s/p biopsy/cults 03/02 Hypothermia - better Leukocytosis - resolved DKA Peripheral neuropathy Plan Plan of Care F/u Repeat Blood cults neg so far Tried to reinforce need for STEPHANY but he refuses - "does n't feel right" Explained may help explain arm swelling Cont Zosyn for now and f/u cults/biopsy from procedure 03/02 may taper soon May need MRI hip but await cults/biopsy and Ortho eval Changed to Zosyn 02/28 as do not want to delay any longer to expand abx. Was waiting for surgical decision and cults but broadened as uncertain when aspiration will get done Discontinued cefazolin 02/28 Wound care team consulted f/u cultures Monitor WBC/temp and renal function closely Glycemic/Electrolytes control per primary LUE edema per primary/cardiology D/w nursing TOBIAS SANCHEZ MD Mar 04, 2019 12:38
[2019-03-04] MEDS ORDERED: LIDOCAINE WITH 8.4% SOD BICARB 3 ML DISP.SYRIN. ONE (14:44)
[2019-03-04 15:00] VITALS: BP 159/86
[2019-03-04] MEDS ORDERED: LIDOCAINE WITH 8.4% SOD BICARB 3 ML DISP.SYRIN. INJ ONE (15:00)
--- NOTE | 2019-03-04 15:20 | RAD ---
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 The right upper extremity was prepped and draped using sterile barrier technique. All elements of maximal sterile barrier technique including the use of a cap, mask, sterile gown, sterile gloves, large sterile sheet, appropriate hand hygiene, and 2% chlorhexidine for cutaneous antisepsis (or acceptable alternative antiseptic per current guidelines) were followed for this procedure.. Real-time ultrasound demonstrated a patent right basilic vein which was prepped and draped in usual sterile fashion. 1% lidocaine used for local anesthesia. Using real-time ultrasound guidance the access needle percutaneously punctured the selected right basilic vein. Reference ultrasound images were saved to the medical record. A guidewire was advanced through the needle to the cavoatrial junction, and a peel-away sheath placed. The catheter was cut to length and inserted through the peel-away sheath such that its tip is at the cavoatrial junction. The wire and sheath were removed, and the catheter secured in place, and a sterile dressing was applied. Catheter was found to flush and aspirate normally. No immediate complications are identified. FLUORO TIME: 0.2 DOSE AREA PRODUCT: 1 Gycm2 Impression: Ultrasound and fluoroscopically guided placement of a right upper extremity PICC line.
--- NOTE | 2019-03-04 16:19 | NUR ---
SW following. Chart reviewed, discussed with RN. Pt declined STEPHANY. Pt getting a PICC line today. Not ready to discharge. SW will continue to follow for any discharge planning needs.
--- NOTE | 2019-03-04 16:48 | PDOC ---
G I PROGRESS NOTE Subjective No GI complaints. Physical Exam Lungs clear. RRR Abdomen soft, not tender nor distended. Review of Relevant I have reviewed the following items orestes (where applicable) has been applied. Labs Laboratory Tests Test 03/02/19 17:02 03/02/19 20:00 03/03/19 07:52 03/03/19 11:35 Glucose (Fingerstick) 284 mg/dL (70-99) 191 mg/dL (70-99) 75 mg/dL (70-99) 182 mg/dL (70-99) Test 03/03/19 16:15 03/03/19 17:13 03/03/19 20:54 03/04/19 04:30 Erythrocyte Sedimentation Rate 82 (0-15) Glucose (Fingerstick) 327 mg/dL (70-99) 290 mg/dL (70-99) White Blood Count 7.2 x10^3/uL (4.0-11.0) Red Blood Count 3.13 x10^6/uL (4.30-5.70) Hemoglobin 9.2 g/dL (13.0-17.5) Hematocrit 27.7 % (39.0-53.0) Mean Corpuscular Volume 89 fL (79-100) Mean Corpuscular Hemoglobin 29 pg (25-35) Mean Corpuscular Hemoglobin Concent 33 g/dL (31-37) Red Cell Distribution Width 13.7 % (11.5-14.5) Platelet Count 259 x10^3/uL (140-400) Neutrophils (%) (Auto) 69 % (31-73) Lymphocytes (%) (Auto) 11 % (24-48) Monocytes (%) (Auto) 16 % (0-9) Eosinophils (%) (Auto) 4 % (0-3) Basophils (%) (Auto) 1 % (0-3) Neutrophils # (Auto) 5.0 x10^3/uL (1.8-7.7) Lymphocytes # (Auto) 0.8 x10^3/uL (1.0-4.8) Monocytes # (Auto) 1.1 x10^3/uL (0.0-1.1) Eosinophils # (Auto) 0.3 x10^3/uL (0.0-0.7) Basophils # (Auto) 0.1 x10^3/uL (0.0-0.2) Sodium Level 140 mmol/L (136-145) Potassium Level 4.1 mmol/L (3.5-5.1) Chloride Level 106 mmol/L (98-107) Carbon Dioxide Level 27 mmol/L (21-32) Anion Gap 7 (6-14) Blood Urea Nitrogen 12 mg/dL (8-26) Creatinine 1.0 mg/dL (0.7-1.3) Estimated GFR (Cockcroft-Gault) 79.8 BUN/Creatinine Ratio 12 (6-20) Glucose Level 277 mg/dL (70-99) Calcium Level 8.0 mg/dL (8.5-10.1) Iron Level 38 ug/dL (65-175) Total Iron Binding Capacity 163 ug/dL (250-450) Iron Saturation 23 % (15-34) Total Bilirubin 0.1 mg/dL (0.2-1.0) Aspartate Amino Transf (AST/SGOT) 13 U/L (15-37) Alanine Aminotransferase (ALT/SGPT) 9 U/L (16-63) Alkaline Phosphatase 71 U/L (46-116) Total Protein 5.5 g/dL (6.4-8.2) Albumin 1.6 g/dL (3.4-5.0) Albumin/Globulin Ratio 0.4 (1.0-1.7) Vitamin B12 Level 239 pg/mL (247-911) Test 03/04/19 07:23 03/04/19 11:29 Glucose (Fingerstick) 159 mg/dL (70-99) 186 mg/dL (70-99) Laboratory Tests Test 03/03/19 17:13 03/03/19 20:54 03/04/19 04:30 03/04/19 07:23 Glucose (Fingerstick) 327 mg/dL (70-99) 290 mg/dL (70-99) 159 mg/dL (70-99) White Blood Count 7.2 x10^3/uL (4.0-11.0) Red Blood Count 3.13 x10^6/uL (4.30-5.70) Hemoglobin 9.2 g/dL (13.0-17.5) Hematocrit 27.7 % (39.0-53.0) Mean Corpuscular Volume 89 fL (79-100) Mean Corpuscular Hemoglobin 29 pg (25-35) Mean Corpuscular Hemoglobin Concent 33 g/dL (31-37) Red Cell Distribution Width 13.7 % (11.5-14.5) Platelet Count 259 x10^3/uL (140-400) Neutrophils (%) (Auto) 69 % (31-73) Lymphocytes (%) (Auto) 11 % (24-48) Monocytes (%) (Auto) 16 % (0-9) Eosinophils (%) (Auto) 4 % (0-3) Basophils (%) (Auto) 1 % (0-3) Neutrophils # (Auto) 5.0 x10^3/uL (1.8-7.7) Lymphocytes # (Auto) 0.8 x10^3/uL (1.0-4.8) Monocytes # (Auto) 1.1 x10^3/uL (0.0-1.1) Eosinophils # (Auto) 0.3 x10^3/uL (0.0-0.7) Basophils # (Auto) 0.1 x10^3/uL (0.0-0.2) Sodium Level 140 mmol/L (136-145) Potassium Level 4.1 mmol/L (3.5-5.1) Chloride Level 106 mmol/L (98-107) Carbon Dioxide Level 27 mmol/L (21-32) Anion Gap 7 (6-14) Blood Urea Nitrogen 12 mg/dL (8-26) Creatinine 1.0 mg/dL (0.7-1.3) Estimated GFR (Cockcroft-Gault) 79.8 BUN/Creatinine Ratio 12 (6-20) Glucose Level 277 mg/dL (70-99) Calcium Level 8.0 mg/dL (8.5-10.1) Iron Level 38 ug/dL (65-175) Total Iron Binding Capacity 163 ug/dL (250-450) Iron Saturation 23 % (15-34) Total Bilirubin 0.1 mg/dL (0.2-1.0) Aspartate Amino Transf (AST/SGOT) 13 U/L (15-37) Alanine Aminotransferase (ALT/SGPT) 9 U/L (16-63) Alkaline Phosphatase 71 U/L (46-116) Total Protein 5.5 g/dL (6.4-8.2) Albumin 1.6 g/dL (3.4-5.0) Albumin/Globulin Ratio 0.4 (1.0-1.7) Vitamin B12 Level 239 pg/mL (247-911) Test 03/04/19 11:29 Glucose (Fingerstick) 186 mg/dL (70-99) Microbiology 03/02/19 Anaerobic/Aerobic Culture, Resulted Pending 03/02/19 Anaerobic Culture Result 1 (SUNITA), Resulted Pending 03/02/19 Aerobic Culture - Preliminary, Resulted 03/02/19 Aerobic Culture Result 1 (SUNITA) - Preliminary, Resulted 03/02/19 Gram Stain - Final, Resulted 03/02/19 Gram Stain Result 1 (SUNITA) - Final, Resulted 03/02/19 Gram Stain Result 2 (SUNITA) - Final, Resulted 03/01/19 Blood Culture - Preliminary, Resulted NO GROWTH AFTER 3 DAYS 02/26/19 Urine Culture - Final, Complete 02/26/19 Urine Culture Result 1 (SUNITA) - Final, Complete Iron studies c/w ACD. Low B12. Vitals/I & O Vital Sign - Last 24 Hours 03/03/19 03/03/19 03/03/19 03/04/19 19:00 20:00 23:00 03:00 Temp 98.5 98.8 98.6 98.5 98.8 98.6 Pulse 73 67 66 Resp 18 18 18 B/P (MAP) 130/82 (98) 116/71 (86) 125/78 (94) Pulse Ox 97 94 94 O2 Delivery Room Air Room Air Room Air Nasal Cannula 03/04/19 03/04/19 03/04/19 03/04/19 07:00 08:00 11:00 15:00 Temp 98.2 98.0 98.0 98.2 98.0 98.0 Pulse 66 67 64 Resp 16 14 16 B/P (MAP) 143/84 (103) 122/75 (91) 159/86 (110) Pulse Ox 98 96 99 O2 Delivery Room Air Room Air Room Air Room Air Intake and Output 03/03/19 03/03/19 03/04/19 15:00 23:00 07:00 Intake Total 0 ml Output Total 425 ml Balance -425 ml 0 ml Images Findings: Upper abdominal ultrasound exam was performed. Hepatic echotexture is normal. Liver length is normal. Portal venous flow is normal. The gallbladder wall is slightly thickened measuring 0.38 cm this may be related to ascites. No cholelithiasis. No cholelithiasis. No pericholecystic fluid. No biliary dilatation. Common bile duct diameter is normal. Spleen measures up to 10.4 cm longitudinal. Abdominal aorta and inferior vena cava are unremarkable. Small amount ascites is present in Morison's pouch and about the spleen. Bilateral pleural effusions are present. Intermediate echogenicity within the abdominal midline and right lower quadrant which may represent stool and bowel is noted. Impression: No cholelithiasis. No biliary dilatation. Gallbladder wall thickening is present but ascites is noted and may account for this finding. ---Small amount of fluid, not really ascites/MT. Problem List Problems Medical Problems: (1) Dehydration Status: Acute (2) DKA (diabetic ketoacidoses) Status: Acute (3) Scalp abscess Status: Acute (4) Sepsis Status: Acute Assessment Elevated AP, now normal. ACD B12 low. Plan of Care Note B12 supplement. Off the weekend. Coverage available if needed. ANNITA DE PAZ MD Mar 04, 2019 16:48
[2019-03-04 19:00] VITALS: BP 119/73
[2019-03-04] MEDS: PATCH REMOVAL. MC SCH (21:00)
[2019-03-04] MEDS: INSULIN GLARGINE SYRINGE. SQ SCH (22:16)
[2019-03-04 23:00] VITALS: BP 143/81
[2019-03-05] MEDS: PIPERACILLIN/TAZOBACTAM 3.375 GM in IV NORMAL SALINE 50ML 50 ML IV SCH ×5 (00:11→19:30)
[2019-03-05 03:00] VITALS: BP 127/70
[2019-03-05] MEDS: IV NORMAL SALINE 1000ML BAG 1,000 ML IV SCH ×2 (03:43→17:37)
[2019-03-05 07:59] VITALS: BP 154/75
[2019-03-05] MEDS: DICLOFENAC SODIUM 1% TOPICAL GEL 100GM TUBE. TP SCH ×4 (09:00→21:32)
[2019-03-05] MEDS: LIDOCAINE (700MG/PATCH) PATCH. TD SCH (09:00)
[2019-03-05] MEDS: POTASSIUM CHLORIDE 20 MEQ TABLET.ER. PO SCH (09:37)
[2019-03-05] MEDS: LACTOBACILLUS RHAMNOSUS GG 1 CAPSULE. PO SCH ×2 (09:37→21:31)
[2019-03-05] MEDS: INSULIN LISPRO 300 UNITS/3 ML VIAL. SQ SCH ×3 (09:43→17:42)
--- NOTE | 2019-03-05 09:54 | PDOC ---
PROGRESS NOTES Chief Complaint Chief Complaint impression GPC bacteremia with sepsis, POA. BLD CULT RESULT 1 Final Comment Staphylococcus aureus Nonhealing wounds involving scalp and lower extremities, bilaterally - superficial - healing Right hip pain - pelvis CT shows soft tissue thickening and focal gas overlying the right ischial tuberosity, and there is suggestion of early bone destruction. ESR 68 Hypothermia - better moderate protein-caloric malnutrition Leukocytosis - sepsis dehydration DKA Peripheral neuropathy TTE with Mod TV regurg 03/03//PA pressure was estimated at 52 mmHg Gallbladder wall thickening is present but ascites is noted and may account for this finding. Plan IV Zosyn , CONTINUE Discontinue cefazolin 02/28 Wound care team FOLLOWING f/u cultures Monitor WBC/temp and renal function Doppler and Color Flow revealed mild to moderate regurgitation. There is moderate pulmonary hypertension. The PA pressure was estimated at 52 mmHg. No evidence of endocarditis on this surface study. If there is high clinical suspicion, recommend STEPHANY due to tricuspid regurgitation noted ID requested STEPHANY. STEPHANY refused ama consult GI May need MRI hip but await cults/biopsy and Ortho eval gi consult UDS poor prognosis due to noncompliance 39 min pt exam, chart review , > 50% of time spent with exam, chart review, pt care coordination History of Present Illness History of Present Illness 03/02/19 Pt seen and examined at bedside. Pt family at bedside. joint hip aspiration Pt chart reviewed. d/w Vitals Vitals Vital Signs Date Time Temp Pulse Resp B/P (MAP) Pulse Ox O2 Delivery O2 Flow Rate FiO2 03/05/19 07:59 97.7 59 16 154/75 (101) 97 Room Air 97.7 Physical Exam Physical Exam GENERAL: The patient is propped up in bed, alert, in no apparent distress. Looks better HEENT: Pupils are equally round, reactive. Oral cavity, oropharynx pink and moist. Superficial scalp wound improved and alopecia. NECK: Supple. JVD LUNGS: Clear to auscultation. HEART: S1, S2 regular. ABDOMEN: Nondistended, soft, nontender with bowel sounds present. EXTREMITIES: Trace pedal edema in lower extremities bilaterally. Sensitive to touch. No cyanosis. Several dry annular wounds/scabs both legs bilaterally wo associated redness or drainage. LUE with trace edema SKIN: Warm to touch. No signs of rash NEUROLOGIC: Alert and oriented x 3. General: Alert, Oriented X3, Cooperative, No acute distress Heart: Regular rate, Normal S1, Normal S2, No murmurs Lungs: Clear, Other (No respiratory distress) Abdomen: Normal bowel sounds, Soft, No tenderness Extremities: No clubbing, No cyanosis Skin: No rashes, No significant lesion Labs LABS Examination: ABDOMEN COMPLETE History: Elevated alkaline phosphatase Comparison/Correlation: None Findings: Upper abdominal ultrasound exam was performed. Hepatic echotexture is normal. Liver length is normal. Portal venous flow is normal. The gallbladder wall is slightly thickened measuring 0.38 cm this may be related to ascites. No cholelithiasis. No cholelithiasis. No pericholecystic fluid. No biliary dilatation. Common bile duct diameter is normal. Spleen measures up to 10.4 cm longitudinal. Abdominal aorta and inferior vena cava are unremarkable. Small amount ascites is present in Morison's pouch and about the spleen. Bilateral pleural effusions are present. Intermediate echogenicity within the abdominal midline and right lower quadrant which may represent stool and bowel is noted. Impression: No cholelithiasis. No biliary dilatation. Gallbladder wall thickening is present but ascites is noted and may account for this finding. Electronically signed by: Rob Jean MD (03/04/2019 8:04 AM) [facility] DICTATED and SIGNED BY: ROB JEAN MD DATE: 03/04/19 0804 Laboratory Tests Test 03/04/19 11:29 03/04/19 16:52 03/04/19 19:57 03/05/19 07:27 Glucose (Fingerstick) 186 mg/dL (70-99) 228 mg/dL (70-99) 265 mg/dL (70-99) 175 mg/dL (70-99) Assessment and Plan Assessmemt and Plan Problems Medical Problems: (1) Dehydration Status: Acute (2) DKA (diabetic ketoacidoses) Status: Acute (3) Scalp abscess Status: Acute (4) Sepsis Status: Acute Comment Review of Relevant I have reviewed the following items orestes (where applicable) has been applied. Labs Laboratory Tests Test 03/03/19 11:35 03/03/19 16:15 03/03/19 17:13 03/03/19 20:54 Glucose (Fingerstick) 182 mg/dL (70-99) 327 mg/dL (70-99) 290 mg/dL (70-99) Erythrocyte Sedimentation Rate 82 (0-15) Test 03/04/19 04:30 03/04/19 07:23 03/04/19 11:29 03/04/19 16:52 White Blood Count 7.2 x10^3/uL (4.0-11.0) Red Blood Count 3.13 x10^6/uL (4.30-5.70) Hemoglobin 9.2 g/dL (13.0-17.5) Hematocrit 27.7 % (39.0-53.0) Mean Corpuscular Volume 89 fL (79-100) Mean Corpuscular Hemoglobin 29 pg (25-35) Mean Corpuscular Hemoglobin Concent 33 g/dL (31-37) Red Cell Distribution Width 13.7 % (11.5-14.5) Platelet Count 259 x10^3/uL (140-400) Neutrophils (%) (Auto) 69 % (31-73) Lymphocytes (%) (Auto) 11 % (24-48) Monocytes (%) (Auto) 16 % (0-9) Eosinophils (%) (Auto) 4 % (0-3) Basophils (%) (Auto) 1 % (0-3) Neutrophils # (Auto) 5.0 x10^3/uL (1.8-7.7) Lymphocytes # (Auto) 0.8 x10^3/uL (1.0-4.8) Monocytes # (Auto) 1.1 x10^3/uL (0.0-1.1) Eosinophils # (Auto) 0.3 x10^3/uL (0.0-0.7) Basophils # (Auto) 0.1 x10^3/uL (0.0-0.2) Sodium Level 140 mmol/L (136-145) Potassium Level 4.1 mmol/L (3.5-5.1) Chloride Level 106 mmol/L (98-107) Carbon Dioxide Level 27 mmol/L (21-32) Anion Gap 7 (6-14) Blood Urea Nitrogen 12 mg/dL (8-26) Creatinine 1.0 mg/dL (0.7-1.3) Estimated GFR (Cockcroft-Gault) 79.8 BUN/Creatinine Ratio 12 (6-20) Glucose Level 277 mg/dL (70-99) Calcium Level 8.0 mg/dL (8.5-10.1) Iron Level 38 ug/dL (65-175) Total Iron Binding Capacity 163 ug/dL (250-450) Iron Saturation 23 % (15-34) Total Bilirubin 0.1 mg/dL (0.2-1.0) Aspartate Amino Transf (AST/SGOT) 13 U/L (15-37) Alanine Aminotransferase (ALT/SGPT) 9 U/L (16-63) Alkaline Phosphatase 71 U/L (46-116) Total Protein 5.5 g/dL (6.4-8.2) Albumin 1.6 g/dL (3.4-5.0) Albumin/Globulin Ratio 0.4 (1.0-1.7) Vitamin B12 Level 239 pg/mL (247-911) Glucose (Fingerstick) 159 mg/dL (70-99) 186 mg/dL (70-99) 228 mg/dL (70-99) Test 03/04/19 19:57 03/05/19 07:27 Glucose (Fingerstick) 265 mg/dL (70-99) 175 mg/dL (70-99) Laboratory Tests Test 03/04/19 11:29 03/04/19 16:52 03/04/19 19:57 03/05/19 07:27 Glucose (Fingerstick) 186 mg/dL (70-99) 228 mg/dL (70-99) 265 mg/dL (70-99) 175 mg/dL (70-99) Microbiology 03/02/19 Anaerobic/Aerobic Culture, Resulted Pending 03/02/19 Anaerobic Culture Result 1 (SUNITA), Resulted Pending 03/02/19 Aerobic Culture - Preliminary, Resulted 03/02/19 Aerobic Culture Result 1 (SUNITA) - Preliminary, Resulted 03/02/19 Gram Stain - Final, Resulted 03/02/19 Gram Stain Result 1 (SUNITA) - Final, Resulted 03/02/19 Gram Stain Result 2 (SUNITA) - Final, Resulted 03/01/19 Blood Culture - Preliminary, Resulted NO GROWTH AFTER 3 DAYS 02/26/19 Urine Culture - Final, Complete 02/26/19 Urine Culture Result 1 (SUNITA) - Final, Complete Medications Current Medications Sodium Chloride 1,000 ml @ 1,000 mls/hr 1X ONCE IV Last administered on 02/25/19at 15:20; Start 02/25/19 at 14:45; Stop 02/25/19 at 15:44; Status DC Sodium Chloride 1,000 ml @ 1,000 mls/hr 1X ONCE IV Last administered on 02/25/19at 15:20; Start 02/25/19 at 15:15; Stop 02/25/19 at 16:14; Status DC Insulin Human Regular 150 ml @ 0 mls/hr 1X ONCE IV Last administered on 02/25/19at 16:01; Start 02/25/19 at 15:30; Stop 02/25/19 at 15:32; Status DC Vancomycin HCl 250 ml @ 250 mls/hr 1X ONCE IV Last administered on 02/25/19at 16:04; Start 02/25/19 at 16:00; Stop 02/25/19 at 16:59; Status DC Ondansetron HCl (Zofran) 4 mg PRN Q8HRS PRN IV NAUSEA/VOMITING; Start 02/25/19 at 16:15; Stop 02/25/19 at 17:32; Status DC Sodium Chloride 1,000 ml @ 100 mls/hr Q10H IV ; Start 02/25/19 at 16:08; Stop 02/26/19 at 08:29; Status DC Sodium Chloride 1,000 ml @ 250 mls/hr Q4H IV Last administered on 02/25/19at 21:28; Start 02/25/19 at 17:00; Stop 02/26/19 at 03:06; Status DC Dextrose/Sodium Chloride 1,000 ml @ 250 mls/hr Q4H IV Last administered on 02/25/19at 23:26; Start 02/25/19 at 16:39; Stop 02/26/19 at 03:06; Status DC Insulin Human Regular 150 unit/ Sodium Chloride 151.5 ml @ 0 mls/hr CONT PRN PRN IV PER PROTOCOL; Start 02/25/19 at 16:45; Stop 02/26/19 at 03:06; Status DC Potassium Chloride/Water 100 ml @ 100 mls/hr PRN Q1HR PRN IV SEE COMMENTS Last administered on 02/26/19at 01:19; Start 02/25/19 at 16:45; Stop 02/26/19 at 03:06; Status DC Potassium Chloride/Water 100 ml @ 100 mls/hr PRN Q1HR PRN IV SEE COMMENTS Last administered on 02/25/19at 23:26; Start 02/25/19 at 16:45; Stop 02/26/19 at 03:06; Status DC Potassium Chloride/Water 100 ml @ 100 mls/hr PRN Q1HR PRN IV SEE COMMENTS; Start 02/25/19 at 16:45; Stop 02/26/19 at 03:06; Status DC Sodium Bicarbonate 50 meq/Sodium Chloride 1,050 ml @ 125 mls/hr 1X ONCE IV Last administered on 02/25/19at 17:51; Start 02/25/19 at 16:45; Stop 02/26/19 at 01:08; Status DC Calcium Carbonate/ Glycine (Tums) 500 mg PRN AFTMEALHC PRN PO INDIGESTION; Start 02/25/19 at 16:45 Temazepam (Restoril) 7.5 mg PRN QHS PRN PO INSOMNIA; Start 02/25/19 at 16:45 Acetaminophen (Tylenol) 500 mg PRN Q6HRS PRN PO MILD PAIN / TEMP; Start 02/25/19 at 16:45 Acetaminophen/ Codeine Phosphate (Tylenol #3) 1 tab PRN Q6HRS PRN PO MODERATE PAIN Last administered on 03/01/19at 21:33; Start 02/25/19 at 16:45 Ondansetron HCl (Zofran) 4 mg PRN Q6HRS PRN IVP NAUSEA/VOMITING; Start 02/25/19 at 16:45 Cefazolin Sodium 50 ml @ 100 mls/hr Q8HRS IV ; Start 02/25/19 at 22:00; Status UNV Cefazolin Sodium 50 ml @ As Directed STK-MED ONCE IV ; Start 02/25/19 at 17:12; Stop 02/25/19 at 17:32; Status DC Cefazolin Sodium 50 ml @ 100 mls/hr 1X ONCE IV Last administered on 02/25/19at 17:30; Start 02/25/19 at 17:30; Stop 02/25/19 at 17:59; Status DC Cefazolin Sodium (Ancef) 1 gm Q8HRS IVP Last administered on 02/28/19at 13:54; Start 02/25/19 at 22:00; Stop 02/28/19 at 18:52; Status DC Potassium Chloride/Water 100 ml @ 100 mls/hr PRN Q1HR PRN IV SEE COMMENTS; Start 02/25/19 at 21:00 Magnesium Sulfate 100 ml @ 25 mls/hr DAILY IV Last administered on 02/28/19at 12:24; Start 02/26/19 at 09:00; Stop 03/01/19 at 08:59; Status DC Dextrose (Dextrose 50%-Water Syringe) 12.5 gm PRN Q15MIN PRN IV SEE COMMENTS; Start 02/26/19 at 03:00; Status UNV Insulin Glargine (Lantus Syringe) 20 unit QHS SQ Last administered on 03/04/19at 22:16; Start 02/26/19 at 21:00 Insulin Human Lispro (HumaLOG) 10 units TIDWMEALS SQ Last administered on 02/26/19at 17:33; Start 02/26/19 at 08:00; Stop 02/26/19 at 18:45; Status DC Dextrose (Dextrose 50%-Water Syringe) 12.5 gm PRN Q15MIN PRN IV SEE COMMENTS; Start 02/26/19 at 03:00 Insulin Glargine (Lantus Syringe) 10 unit 1X ONCE SQ Last administered on 02/26/19at 03:16; Start 02/26/19 at 03:30; Stop 02/26/19 at 03:31; Status DC Sodium Chloride 1,000 ml @ 100 mls/hr Q10H IV Last administered on 03/05/19at 03:43; Start 02/26/19 at 03:00 Vancomycin HCl (Vanco Per Pharmacy) 1 each PRN DAILY PRN MC SEE COMMENTS Last administered on 03/01/19at 15:41; Start 02/26/19 at 08:45; Stop 03/02/19 at 12:58; Status DC Vancomycin HCl 1 gm/Sodium Chloride 250 ml @ 250 mls/hr Q12H IV Last administered on 02/26/19at 21:22; Start 02/26/19 at 09:00; Stop 02/27/19 at 09:06; Status DC Diclofenac Sodium (Voltaren) 1 faith BID TP Last administered on 02/27/19at 07:56; Start 02/26/19 at 10:30; Stop 02/27/19 at 11:58; Status DC Potassium Chloride (Klor-Con) 40 meq 1X ONCE PO Last administered on 02/26/19 11:01; Start 02/26/19 at 11:00; Stop 02/26/19 at 11:01; Status DC Lidocaine (Lidoderm) 1 patch DAILY TD Last administered on 02/27/19 07:56; Start 02/26/19 at 11:30 Miscellaneous (Lidoderm Patch Removal) 1 ea QHS MC Last administered on 03/02/19 21:00; Start 02/26/19 at 21:00 Lactobacillus Rhamnosus (Culturelle) 1 cap BID PO Last administered on 03/05/19 09:37; Start 02/26/19 at 21:00 Vancomycin HCl (Vancomycin Trough Level) 1 each 1X ONCE MC Last administered on 02/27/19 08:30; Start 02/27/19 at 08:30; Stop 02/27/19 at 08:31; Status DC Insulin Human Lispro (HumaLOG) 0-7 UNITS TIDWMEALS SQ Last administered on 03/05/19 09:43; Start 02/27/19 at 08:00 Vancomycin HCl 750 mg/Sodium Chloride 250 ml @ 250 mls/hr Q8H IV Last administered on 03/02/19 09:26; Start 02/27/19 at 09:30; Stop 03/02/19 at 12:58; Status DC Vancomycin HCl (Vancomycin Trough Level) 1 each 1X ONCE MC Last administered on 02/28/19 09:00; Start 02/28/19 at 09:00; Stop 02/28/19 at 09:01; Status DC Potassium Chloride (Klor-Con) 40 meq 1X ONCE PO Last administered on 02/27/19 09:56; Start 02/27/19 at 10:00; Stop 02/27/19 at 10:01; Status DC Diclofenac Sodium (Voltaren) 1 faith QID TP Last administered on 03/04/19 22:11; Start 02/27/19 at 12:00 Potassium Chloride (Klor-Con) 20 meq 1X ONCE PO Last administered on 02/28/19 12:24; Start 02/28/19 at 11:00; Stop 02/28/19 at 11:01; Status DC Potassium Chloride (Klor-Con) 40 meq 1X ONCE PO Last administered on 12/9/19at 06:58; Start 02/28/19 at 07:00; Stop 02/28/19 at 07:01; Status DC Potassium Chloride (Klor-Con) 40 meq DAILY PO Last administered on 03/05/19at 09:37; Start 02/28/19 at 09:00 Piperacillin Sod/ Tazobactam Sod 3.375 gm/Sodium Chloride 50 ml @ 100 mls/hr Q6HRS IV Last administered on 03/05/19at 05:57; Start 02/28/19 at 12:00 Lidocaine HCl (Buffered Lidocaine 1%) 3 ml STK-MED ONCE .ROUTE ; Start 03/02/19 at 08:01; Stop 03/02/19 at 08:02; Status DC Midazolam HCl (Versed) 2 mg STK-MED ONCE .ROUTE ; Start 03/02/19 at 08:26; Stop 03/02/19 at 08:26; Status DC Fentanyl Citrate (Fentanyl 2ml Vial) 100 mcg STK-MED ONCE .ROUTE ; Start 03/02/19 at 08:26; Stop 03/02/19 at 08:27; Status DC Lidocaine HCl (Buffered Lidocaine 1%) 3 ml 1X ONCE IJ Last administered on 03/02/19at 08:45; Start 03/02/19 at 08:45; Stop 03/02/19 at 08:48; Status DC Midazolam HCl (Versed) 2 mg 1X ONCE IV Last administered on 03/02/19at 08:45; Start 03/02/19 at 08:45; Stop 03/02/19 at 08:48; Status DC Fentanyl Citrate (Fentanyl 2ml Vial) 100 mcg 1X ONCE IV Last administered on 03/02/19at 08:45; Start 03/02/19 at 08:45; Stop 03/02/19 at 08:48; Status DC Ringer's Solution 1,000 ml @ 50 mls/hr Q20H IV ; Start 03/04/19 at 07:00; Stop 03/04/19 at 18:59; Status DC Lidocaine HCl (Viscous Lidocaine) 15 ml 1X ONCE SWSW ; Start 03/04/19 at 07:30; Stop 03/04/19 at 07:31; Status DC Lidocaine HCl (Xylocaine 2% Topical 30gm Tube) 1 faith 1X ONCE TP ; Start 03/04/19 at 07:30; Stop 03/04/19 at 07:31; Status DC Benzocaine (Hurricaine One) 2 spray 1X ONCE MM ; Start 03/04/19 at 07:30; Stop 03/04/19 at 07:31; Status DC Lidocaine HCl (Xylocaine 2% Topical 30gm Tube) 1 faith 1X ONCE TP ; Start 03/04/19 at 07:30; Stop 03/04/19 at 07:31; Status UNV Lidocaine HCl (Viscous Lidocaine) 15 ml 1X ONCE SWSW ; Start 03/04/19 at 07:30; Stop 03/04/19 at 07:31; Status UNV Benzocaine (Hurricaine One) 2 spray 1X ONCE MM ; Start 03/04/19 at 07:30; Stop 03/04/19 at 07:31; Status UNV Lidocaine HCl (Buffered Lidocaine 1%) 3 ml STK-MED ONCE .ROUTE ; Start 03/04/19 at 14:44; Stop 03/04/19 at 14:45; Status DC Lidocaine HCl (Buffered Lidocaine 1%) 3 ml 1X ONCE INJ Last administered on 03/04/19at 15:00; Start 03/04/19 at 15:00; Stop 03/04/19 at 15:01; Status DC Vitals/I & O Vital Sign - Last 24 Hours 03/04/19 03/04/19 03/04/19 03/04/19 11:00 15:00 19:00 20:30 Temp 98.0 98.0 98.2 98.0 98.0 98.2 Pulse 67 64 76 Resp 14 16 17 B/P (MAP) 122/75 (91) 159/86 (110) 119/73 (88) Pulse Ox 96 99 97 O2 Delivery Room Air Room Air Room Air Room Air 03/04/19 03/05/19 03/05/19 23:00 03:00 07:59 Temp 98.3 98.3 97.7 98.3 98.3 97.7 Pulse 72 58 59 Resp 19 20 16 B/P (MAP) 143/81 (101) 127/70 (89) 154/75 (101) Pulse Ox 96 96 97 O2 Delivery Room Air Room Air Room Air Nutrition Consultation Dietary Evaluation: Recommendations by RD: Dietary education by RD, Protein supplementation Comments: ADA, DBL meats encourage BS control RD available x [phone] if interested in diet education mvi and vit c per wound protocal Expected Outcomes/Goals: to meet >75% est protein needs glycemic control Malnutrition Findings: Body Fat Depletion (Non Severe: Mild Depletion Weight Status: Underweight ALIX RONQUILLO MD Mar 05, 2019 09:54
--- NOTE | 2019-03-05 11:40 | NUR ---
Voltaren 0900 dose: Pt wanted to shower, did not apply Voltaren. Pt was in shower until almost 1200, will apply 1300 dose. Will continue to monitor pt.
[2019-03-05 11:59] VITALS: BP 137/76
--- NOTE | 2019-03-05 12:59 | PDOC ---
Infectious Disease Note Subjective Subjective Having loose stools, 2 so far today Denies N/V/cramps/F/C Still refusing STEPHANY Less right hip pain with walking ROS ROS per HPI Vital Sign Vital Signs Vital Signs Date Time Temp Pulse Resp B/P (MAP) Pulse Ox O2 Delivery O2 Flow Rate FiO2 03/05/19 07:59 97.7 59 16 154/75 (101) 97 Room Air 97.7 Physical Exam PHYSICAL EXAM GENERAL: Propped up in bed, alert, in no apparent distress. HEENT: Pupils are equally round, reactive. Oral cavity, oropharynx pink and moist. Superficial scalp wound improved and alopecia. NECK: Supple. JVD LUNGS: Clear to auscultation. HEART: S1, S2 regular. ABDOMEN: Nondistended, soft, nontender with bowel sounds present. EXTREMITIES: Trace pedal edema in lower extremities bilaterally. Sensitive to touch. No cyanosis. Several dry annular wounds/scabs both legs bilaterally wo associated redness or drainage. LUE with trace edema SKIN: Warm to touch. No signs of rash NEUROLOGIC: Alert and oriented x 3. Labs Lab Laboratory Tests Test 03/04/19 16:52 03/04/19 19:57 03/05/19 07:27 Glucose (Fingerstick) 228 mg/dL (70-99) 265 mg/dL (70-99) 175 mg/dL (70-99) Micro 03/02. Left hip GRAM STAIN RES 2 Final No organisms seen Objective Assessment MSSA bacteremia with sepsis, POA. 02/25 repeat 03/01 - neg so far TTE with Mod TV regurg 03/03 Nonhealing wounds involving scalp and lower extremities, bilaterally - superficial - healing Right hip pain - pelvis CT shows soft tissue thickening and focal gas overlying the right ischial tuberosity, and there is suggestion of early bone destruction. ESR 68 s/p biopsy/cults 03/02. no org on gram stain Hypothermia - better Leukocytosis - resolved DKA Peripheral neuropathy Loose stools, c. diff neg 02/27 Plan Plan of Care F/u Repeat Blood cults neg so far Continue to refuse STEPHANY Cont Zosyn for now and f/u cults/biopsy from procedure 03/02 may taper soon May need MRI hip but await cults/biopsy and Ortho eval Wound care team consulted Monitor WBC/temp and renal function closely Glycemic/Electrolytes control per primary LUE edema per primary/cardiology Attending Co-Sign The patient was seen and interviewed as well as examined at the bedside. The chart was reviewed. The case was discussed with [employer] TE[employer]ER. Agree with the plan of care. ALYSSA CHRISTY APRN Mar 05, 2019 12:59 SURENDRA SINGH MD Mar 05, 2019 13:01
[2019-03-05 15:59] VITALS: BP 124/78
[2019-03-05 19:00] VITALS: BP 143/79
[2019-03-05] MEDS: PATCH REMOVAL. MC SCH (21:00)
[2019-03-05] MEDS: INSULIN GLARGINE SYRINGE. SQ SCH (21:35)
[2019-03-05 23:07] VITALS: BP 134/80
[2019-03-06] MEDS: PIPERACILLIN/TAZOBACTAM 3.375 GM in IV NORMAL SALINE 50ML 50 ML IV SCH ×4 (00:26→18:00)
[2019-03-06] MEDS: IV NORMAL SALINE 1000ML BAG 1,000 ML IV SCH ×2 (02:48→15:06)
[2019-03-06 03:09] VITALS: BP 132/74
[2019-03-06 07:00] VITALS: BP 114/67
[2019-03-06] MEDS: LIDOCAINE (700MG/PATCH) PATCH. TD SCH (07:45)
[2019-03-06] MEDS: INSULIN LISPRO 300 UNITS/3 ML VIAL. SQ SCH ×3 (07:55→18:05)
--- NOTE | 2019-03-06 09:21 | NUR ---
AM meds: per report, pt did not sleep much last night. Pt was walking the halls in the 0800 hr. Went to pt's room at approx 0920 to pass meds, pt was sleeping. Will let pt sleep at this point, will pass meds when pt wakes up. Will continue to monitor.
[2019-03-06 10:37] VITALS: BP 118/67
--- NOTE | 2019-03-06 10:46 | PDOC ---
PROGRESS NOTES Chief Complaint Chief Complaint impression GPC bacteremia with sepsis, POA. BLD CULT RESULT 1 Final Comment Staphylococcus aureus AEROBIC RES 1 Preliminary Comment Staphylococcus aureus No growth in 36 - 48 hours. 1-2 colonies . GRAM STAIN Final Final report Nonhealing wounds involving scalp and lower extremities, bilaterally - superficial - healing Right hip pain - pelvis CT shows soft tissue thickening and focal gas overlying the right ischial tuberosity, and there is suggestion of early bone destruction. ESR 68 Hypothermia - better moderate protein-caloric malnutrition Leukocytosis - sepsis dehydration DKA Peripheral neuropathy TTE with Mod TV regurg 03/03///PA pressure was estimated at 52 mmHg NORMOCYTIC ANEMIA Gallbladder wall thickening is present but ascites is noted and may account for this finding. Plan IV Zosyn , CONTINUE Discontinue cefazolin 02/28 Wound care team FOLLOWING f/u cultures Monitor WBC/temp and renal function Doppler and Color Flow revealed mild to moderate regurgitation. There is moderate pulmonary hypertension. The PA pressure was estimated at 52 mmHg. No evidence of endocarditis on this surface study. If there is high clinical suspicion, recommend STEPHANY due to tricuspid regurgitation noted ID requested STEPHANY. STEPHANY refused ama consult GI May need MRI hip but await cults/biopsy and Ortho eval gi consult UDS FE PANEL RETIC COUNT ESR, CBC, COMP 03/06 NEEDS I/D RIGHT HIP poor prognosis due to noncompliance min pt exam, chart review , > 50% of time spent with exam, chart review, pt care coordination History of Present Illness History of Present Illness 03/06/19 Pt seen and examined at bedside. Pt family at bedside. joint hip aspiration Pt chart reviewed. NEEDS I/D RIGHT HIP 28 MIN PT EXAM, CHART REVIEW, > 50% OF TIME SPENT WITH EXAM, CHART REVIEW, PT CARE COORDINATION Vitals Vitals Vital Signs Date Time Temp Pulse Resp B/P (MAP) Pulse Ox O2 Delivery O2 Flow Rate FiO2 03/06/19 10:37 98.4 71 17 118/67 (84) 95 Room Air 98.4 Physical Exam Physical Exam GENERAL: Propped up in bed, alert, in no apparent distress. HEENT: Pupils are equally round, reactive. Oral cavity, oropharynx pink and moist. Superficial scalp wound improved and alopecia. NECK: Supple. JVD LUNGS: Clear to auscultation. HEART: S1, S2 regular. ABDOMEN: Nondistended, soft, nontender with bowel sounds present. EXTREMITIES: Trace pedal edema in lower extremities bilaterally. Sensitive to touch. No cyanosis. Several dry annular wounds/scabs both legs bilaterally wo associated redness or drainage. LUE with trace edema SKIN: Warm to touch. No signs of rash NEUROLOGIC: Alert and oriented x 3. General: Alert, Oriented X3, Cooperative, No acute distress Heart: Regular rate, Normal S1, Normal S2, No murmurs Lungs: Clear, Other (No respiratory distress) Abdomen: Normal bowel sounds, Soft, No tenderness Extremities: No clubbing, No cyanosis Skin: No rashes, No significant lesion Labs LABS SPEC #: [id number] NILO: 03/02/19 STATUS: RES REQ #: [id number] RECD: 03/02/19 [facility] DR: TIERNEY KENNEDY MD SOURCE: HIP ENTR: 03/02/[address] [facility] [address]: SURENDRA SINGH MD SPDESC: RIGHT TUNGRADHA VILLEDA MD UNKNOWN PCP NAME WOODY ROBLES MD ORDERED: ANAER/AEROB/GS COMMENTS: PELVIS TISSUE (RIGHT HIP) Has specimen been collected/obtained? Y Procedure Result ----- ------- ANAEROBIC-AEROBIC CULTURE PENDING ANAEROBIC RES 1 PENDING AEROBIC CULT Preliminary Preliminary report AEROBIC RES 1 Preliminary Comment Staphylococcus aureus No growth in 36 - 48 hours. 1-2 colonies . GRAM STAIN Final Final report GRAM STAIN RES 1 Final Comment No white blood cells seen. GRAM STAIN RES 2 Final No organisms seen Performed at: [facility] [id number] [facility] [address], [place], [place] [id number] Powder Room Attendant: CLEVELAND Pisano MD, Phone: [phone] Laboratory Tests Test 03/05/19 12:33 03/05/19 17:30 03/05/19 21:15 03/06/19 07:33 Glucose (Fingerstick) 235 mg/dL (70-99) 288 mg/dL (70-99) 254 mg/dL (70-99) 85 mg/dL (70-99) Assessment and Plan Assessmemt and Plan Problems Medical Problems: (1) Dehydration Status: Acute (2) DKA (diabetic ketoacidoses) Status: Acute (3) Scalp abscess Status: Acute (4) Sepsis Status: Acute Comment Review of Relevant I have reviewed the following items orestes (where applicable) has been applied. Labs Laboratory Tests Test 03/04/19 11:29 03/04/19 16:52 03/04/19 19:57 03/05/19 07:27 Glucose (Fingerstick) 186 mg/dL (70-99) 228 mg/dL (70-99) 265 mg/dL (70-99) 175 mg/dL (70-99) Test 03/05/19 12:33 03/05/19 17:30 03/05/19 21:15 03/06/19 07:33 Glucose (Fingerstick) 235 mg/dL (70-99) 288 mg/dL (70-99) 254 mg/dL (70-99) 85 mg/dL (70-99) Laboratory Tests Test 03/05/19 12:33 03/05/19 17:30 03/05/19 21:15 03/06/19 07:33 Glucose (Fingerstick) 235 mg/dL (70-99) 288 mg/dL (70-99) 254 mg/dL (70-99) 85 mg/dL (70-99) Microbiology 03/02/19 Anaerobic/Aerobic Culture, Resulted Pending 03/02/19 Anaerobic Culture Result 1 (SUNITA), Resulted Pending 03/02/19 Aerobic Culture - Preliminary, Resulted 03/02/19 Aerobic Culture Result 1 (SUNITA) - Preliminary, Resulted 03/02/19 Gram Stain - Final, Resulted 03/02/19 Gram Stain Result 1 (SUNITA) - Final, Resulted 03/02/19 Gram Stain Result 2 (SUNITA) - Final, Resulted 03/01/19 Blood Culture - Preliminary, Resulted NO GROWTH AFTER 4 DAYS 02/26/19 Urine Culture - Final, Complete 02/26/19 Urine Culture Result 1 (SUNITA) - Final, Complete Medications Current Medications Sodium Chloride 1,000 ml @ 1,000 mls/hr 1X ONCE IV Last administered on 02/25/19at 15:20; Start 02/25/19 at 14:45; Stop 02/25/19 at 15:44; Status DC Sodium Chloride 1,000 ml @ 1,000 mls/hr 1X ONCE IV Last administered on 02/25/19at 15:20; Start 02/25/19 at 15:15; Stop 02/25/19 at 16:14; Status DC Insulin Human Regular 150 ml @ 0 mls/hr 1X ONCE IV Last administered on 02/25at 16:01; Start 02/25/19 at 15:30; Stop 02/25/19 at 15:32; Status DC Vancomycin HCl 250 ml @ 250 mls/hr 1X ONCE IV Last administered on 02/25/19at 16:04; Start 02/25/19 at 16:00; Stop 02/25/19 at 16:59; Status DC Ondansetron HCl (Zofran) 4 mg PRN Q8HRS PRN IV NAUSEA/VOMITING; Start 02/25/19 at 16:15; Stop 02/25/19 at 17:32; Status DC Sodium Chloride 1,000 ml @ 100 mls/hr Q10H IV ; Start 02/25/19 at 16:08; Stop 02/26/19 at 08:29; Status DC Sodium Chloride 1,000 ml @ 250 mls/hr Q4H IV Last administered on 02/25/19at 21:28; Start 02/25/19 at 17:00; Stop 02/26/19 at 03:06; Status DC Dextrose/Sodium Chloride 1,000 ml @ 250 mls/hr Q4H IV Last administered on 02/25/19at 23:26; Start 02/25/19 at 16:39; Stop 02/26/19 at 03:06; Status DC Insulin Human Regular 150 unit/ Sodium Chloride 151.5 ml @ 0 mls/hr CONT PRN PRN IV PER PROTOCOL; Start 02/25/19 at 16:45; Stop 02/26/19 at 03:06; Status DC Potassium Chloride/Water 100 ml @ 100 mls/hr PRN Q1HR PRN IV SEE COMMENTS Last administered on 02/26/19at 01:19; Start 02/25/19 at 16:45; Stop 02/26/19 at 03:06; Status DC Potassium Chloride/Water 100 ml @ 100 mls/hr PRN Q1HR PRN IV SEE COMMENTS Last administered on 02/25/19at 23:26; Start 02/25/19 at 16:45; Stop 02/26/19 at 03:06; Status DC Potassium Chloride/Water 100 ml @ 100 mls/hr PRN Q1HR PRN IV SEE COMMENTS; Start 02/25/19 at 16:45; Stop 02/26/19 at 03:06; Status DC Sodium Bicarbonate 50 meq/Sodium Chloride 1,050 ml @ 125 mls/hr 1X ONCE IV Last administered on 02/25/19at 17:51; Start 02/25/19 at 16:45; Stop 02/26/19 at 01:08; Status DC Calcium Carbonate/ Glycine (Tums) 500 mg PRN AFTMEALHC PRN PO INDIGESTION; Start 02/25/19 at 16:45 Temazepam (Restoril) 7.5 mg PRN QHS PRN PO INSOMNIA; Start 02/25/19 at 16:45 Acetaminophen (Tylenol) 500 mg PRN Q6HRS PRN PO MILD PAIN / TEMP; Start 02/25/19 at 16:45 Acetaminophen/ Codeine Phosphate (Tylenol #3) 1 tab PRN Q6HRS PRN PO MODERATE PAIN Last administered on 03/01/19at 21:33; Start 02/25/19 at 16:45 Ondansetron HCl (Zofran) 4 mg PRN Q6HRS PRN IVP NAUSEA/VOMITING; Start 02/25/19 at 16:45 Cefazolin Sodium 50 ml @ 100 mls/hr Q8HRS IV ; Start 02/25/19 at 22:00; Status UNV Cefazolin Sodium 50 ml @ As Directed STK-MED ONCE IV ; Start 02/25/19 at 17:12; Stop 02/25/19 at 17:32; Status DC Cefazolin Sodium 50 ml @ 100 mls/hr 1X ONCE IV Last administered on 02/25/19at 17:30; Start 02/25/19 at 17:30; Stop 02/25/19 at 17:59; Status DC Cefazolin Sodium (Ancef) 1 gm Q8HRS IVP Last administered on 02/28/19at 13:54; Start 02/25/19 at 22:00; Stop 02/28/19 at 18:52; Status DC Potassium Chloride/Water 100 ml @ 100 mls/hr PRN Q1HR PRN IV SEE COMMENTS; Start 02/25/19 at 21:00 Magnesium Sulfate 100 ml @ 25 mls/hr DAILY IV Last administered on 02/28/19at 12:24; Start 02/26/19 at 09:00; Stop 03/01/19 at 08:59; Status DC Dextrose (Dextrose 50%-Water Syringe) 12.5 gm PRN Q15MIN PRN IV SEE COMMENTS; Start 02/26/19 at 03:00; Status UNV Insulin Glargine (Lantus Syringe) 20 unit QHS SQ Last administered on 03/05/19at 21:35; Start 02/26/19 at 21:00 Insulin Human Lispro (HumaLOG) 10 units TIDWMEALS SQ Last administered on 02/26/19at 17:33; Start 02/26/19 at 08:00; Stop 02/26/19 at 18:45; Status DC Dextrose (Dextrose 50%-Water Syringe) 12.5 gm PRN Q15MIN PRN IV SEE COMMENTS; Start 02/26/19 at 03:00 Insulin Glargine (Lantus Syringe) 10 unit 1X ONCE SQ Last administered on 02/26/19at 03:16; Start 02/26/19 at 03:30; Stop 02/26/19 at 03:31; Status DC Sodium Chloride 1,000 ml @ 100 mls/hr Q10H IV Last administered on 03/06/19 02:48; Start 02/26/19 at 03:00 Vancomycin HCl (Vanco Per Pharmacy) 1 each PRN DAILY PRN MC SEE COMMENTS Last administered on 03/01/19 15:41; Start 02/26/19 at 08:45; Stop 03/02/19 at 12:58; Status DC Vancomycin HCl 1 gm/Sodium Chloride 250 ml @ 250 mls/hr Q12H IV Last administered on 02/26/19 21:22; Start 02/26/19 at 09:00; Stop 02/27/19 at 09:06; Status DC Diclofenac Sodium (Voltaren) 1 faith BID TP Last administered on 02/27/19 07:56; Start 02/26/19 at 10:30; Stop 02/27/19 at 11:58; Status DC Potassium Chloride (Klor-Con) 40 meq 1X ONCE PO Last administered on 02/26/19 11:01; Start 02/26/19 at 11:00; Stop 02/26/19 at 11:01; Status DC Lidocaine (Lidoderm) 1 patch DAILY TD Last administered on 02/27/19 07:56; Start 02/26/19 at 11:30 Miscellaneous (Lidoderm Patch Removal) 1 ea QHS MC Last administered on 03/02/19 21:00; Start 02/26/19 at 21:00 Lactobacillus Rhamnosus (Culturelle) 1 cap BID PO Last administered on 21:31; Start 02/26/19 at 21:00 Vancomycin HCl (Vancomycin Trough Level) 1 each 1X ONCE MC Last administered on 02/27/19 08:30; Start 02/27/19 at 08:30; Stop 02/27/19 at 08:31; Status DC Insulin Human Lispro (HumaLOG) 0-7 UNITS TIDWMEALS SQ Last administered on 03/05/19 17:42; Start 02/27/19 at 08:00 Vancomycin HCl 750 mg/Sodium Chloride 250 ml @ 250 mls/hr Q8H IV Last administered on 03/02/19 09:26; Start 02/27/19 at 09:30; Stop 03/02/19 at 12:58; Status DC Vancomycin HCl (Vancomycin Trough Level) 1 each 1X ONCE MC Last administered on 12/9/19at 09:00; Start 02/28/19 at 09:00; Stop 02/28/19 at 09:01; Status DC Potassium Chloride (Klor-Con) 40 meq 1X ONCE PO Last administered on 02/27/19at 09:56; Start 02/27/19 at 10:00; Stop 02/27/19 at 10:01; Status DC Diclofenac Sodium (Voltaren) 1 faith QID TP Last administered on 03/05/19at 21:32; Start 02/27/19 at 12:00 Potassium Chloride (Klor-Con) 20 meq 1X ONCE PO Last administered on 02/28/19at 12:24; Start 02/28/19 at 11:00; Stop 02/28/19 at 11:01; Status DC Potassium Chloride (Klor-Con) 40 meq 1X ONCE PO Last administered on 02/28/19at 06:58; Start 02/28/19 at 07:00; Stop 02/28/19 at 07:01; Status DC Potassium Chloride (Klor-Con) 40 meq DAILY PO Last administered on 03/05/19at 09:37; Start 02/28/19 at 09:00 Piperacillin Sod/ Tazobactam Sod 3.375 gm/Sodium Chloride 50 ml @ 100 mls/hr Q6HRS IV Last administered on 03/06/19at 05:39; Start 02/28/19 at 12:00 Lidocaine HCl (Buffered Lidocaine 1%) 3 ml STK-MED ONCE .ROUTE ; Start 03/02/19 at 08:01; Stop 03/02/19 at 08:02; Status DC Midazolam HCl (Versed) 2 mg STK-MED ONCE .ROUTE ; Start 03/02/19 at 08:26; Stop 03/02/19 at 08:26; Status DC Fentanyl Citrate (Fentanyl 2ml Vial) 100 mcg STK-MED ONCE .ROUTE ; Start 03/02/19 at 08:26; Stop 03/02/19 at 08:27; Status DC Lidocaine HCl (Buffered Lidocaine 1%) 3 ml 1X ONCE IJ Last administered on 03/02/19at 08:45; Start 03/02/19 at 08:45; Stop 03/02/19 at 08:48; Status DC Midazolam HCl (Versed) 2 mg 1X ONCE IV Last administered on 03/02/19at 08:45; Start 03/02/19 at 08:45; Stop 03/02/19 at 08:48; Status DC Fentanyl Citrate (Fentanyl 2ml Vial) 100 mcg 1X ONCE IV Last administered on 03/02/19at 08:45; Start 03/02/19 at 08:45; Stop 03/02/19 at 08:48; Status DC Ringer's Solution 1,000 ml @ 50 mls/hr Q20H IV ; Start 03/04/19 at 07:00; Stop 03/04/19 at 18:59; Status DC Lidocaine HCl (Viscous Lidocaine) 15 ml 1X ONCE SWSW ; Start 03/04/19 at 07:30; Stop 03/04/19 at 07:31; Status DC Lidocaine HCl (Xylocaine 2% Topical 30gm Tube) 1 faith 1X ONCE TP ; Start 03/04/19 at 07:30; Stop 03/04/19 at 07:31; Status DC Benzocaine (Hurricaine One) 2 spray 1X ONCE MM ; Start 03/04/19 at 07:30; Stop 03/04/19 at 07:31; Status DC Lidocaine HCl (Xylocaine 2% Topical 30gm Tube) 1 faith 1X ONCE TP ; Start 03/04/19 at 07:30; Stop 03/04/19 at 07:31; Status UNV Lidocaine HCl (Viscous Lidocaine) 15 ml 1X ONCE SWSW ; Start 03/04/19 at 07:30; Stop 03/04/19 at 07:31; Status UNV Benzocaine (Hurricaine One) 2 spray 1X ONCE MM ; Start 03/04/19 at 07:30; Stop 03/04/19 at 07:31; Status UNV Lidocaine HCl (Buffered Lidocaine 1%) 3 ml STK-MED ONCE .ROUTE ; Start 03/04/19 at 14:44; Stop 03/04/19 at 14:45; Status DC Lidocaine HCl (Buffered Lidocaine 1%) 3 ml 1X ONCE INJ Last administered on 03/04/19at 15:00; Start 03/04/19 at 15:00; Stop 03/04/19 at 15:01; Status DC Vitals/I & O Vital Sign - Last 24 Hours 03/05/19 03/05/19 03/05/19 03/05/19 11:59 11:59 15:59 19:00 Temp 98.6 98.6 97.9 98.1 98.6 98.6 97.9 98.1 Pulse 66 66 65 67 Resp 16 16 16 20 B/P (MAP) 137/76 (96) 137/76 (96) 124/78 (93) 143/79 (100) Pulse Ox 98 98 97 99 O2 Delivery Room Air Room Air Room Air Room Air 03/05/19 03/05/19 03/06/19 03/06/19 20:00 23:07 03:09 07:00 Temp 98.6 98.2 98.3 98.6 98.2 98.3 Pulse 64 59 62 Resp 20 20 17 B/P (MAP) 134/80 (98) 132/74 (93) 114/67 (83) Pulse Ox 96 95 96 O2 Delivery Room Air Room Air Room Air Room Air 03/06/19 10:37 Temp 98.4 98.4 Pulse 71 Resp 17 B/P (MAP) 118/67 (84) Pulse Ox 95 O2 Delivery Room Air Intake and Output 03/05/19 03/05/19 03/06/19 15:00 23:00 07:00 Intake Total 50 ml Balance 50 ml Nutrition Consultation Dietary Evaluation: Recommendations by RD: Dietary education by RD, Protein supplementation Comments: ADA, DBL meats encourage BS control RD available x [phone] if interested in diet education mvi and vit c per wound protocal Expected Outcomes/Goals: to meet >75% est protein needs glycemic control Malnutrition Findings: Body Fat Depletion (Non Severe: Mild Depletion Weight Status: Underweight ALIX RONQUILLO MD Mar 06, 2019 10:46
[2019-03-06] MEDS: POTASSIUM CHLORIDE 20 MEQ TABLET.ER. PO SCH (11:04)
[2019-03-06] MEDS: LACTOBACILLUS RHAMNOSUS GG 1 CAPSULE. PO SCH ×2 (11:04→22:33)
[2019-03-06] MEDS: DICLOFENAC SODIUM 1% TOPICAL GEL 100GM TUBE. TP SCH ×4 (11:05→22:42)
--- NOTE | 2019-03-06 12:22 | PDOC ---
Infectious Disease Note Subjective Subjective feeling little better ROS ROS no n/v/d/sob Vital Sign Vital Signs Vital Signs Date Time Temp Pulse Resp B/P (MAP) Pulse Ox O2 Delivery O2 Flow Rate FiO2 03/06/19 10:37 98.4 71 17 118/67 (84) 95 Room Air 98.4 Physical Exam PHYSICAL EXAM GENERAL: Propped up in bed, alert, in no apparent distress. HEENT: Pupils are equally round, reactive. Oral cavity, oropharynx pink and moist. Superficial scalp wound improved and alopecia. NECK: Supple. JVD LUNGS: Clear to auscultation. HEART: S1, S2 regular. ABDOMEN: Nondistended, soft, nontender with bowel sounds present. EXTREMITIES: Trace pedal edema in lower extremities bilaterally. Sensitive to touch. No cyanosis. Several dry annular wounds/scabs both legs bilaterally wo associated redness or drainage. LUE with trace edema SKIN: Warm to touch. No signs of rash NEUROLOGIC: Alert and oriented x 3. Labs Lab Laboratory Tests Test 03/05/19 12:33 03/05/19 17:30 03/05/19 21:15 03/06/19 07:33 Glucose (Fingerstick) 235 mg/dL (70-99) 288 mg/dL (70-99) 254 mg/dL (70-99) 85 mg/dL (70-99) Test 03/06/19 11:13 Glucose (Fingerstick) 127 mg/dL (70-99) Micro Hip culture MSSA Objective Assessment MSSA bacteremia with sepsis, POA. 02/25 repeat 03/01 - neg so far TTE with Mod TV regurg 03/03 Nonhealing wounds involving scalp and lower extremities, bilaterally - shahid perficial - healing Right hip pain - pelvis CT shows soft tissue thickening and focal gas overlying the right ischial tuberosity, and there is suggestion of early bone destruction. ESR 68 s/p biopsy/cults 03/02. culture + MSSA Hypothermia - better Leukocytosis - resolved DKA Peripheral neuropathy Loose stools, c. diff neg 02/27 Plan Plan of Care F/u Repeat Blood cults neg so far Continue to refuse STEPHANY Cont Zosyn for now and f/u cults/biopsy from procedure 03/02 may taper soon May need MRI hip but await cults/biopsy and Ortho eval Wound care team consulted Monitor WBC/temp and renal function closely Glycemic/Electrolytes control per primary LUE edema per primary/cardiology d/w dr Ring, pt will need I and D of rt hip SUZANNE SINGH MD Mar 06, 2019 12:22
[2019-03-06 14:05] LABS: BASO # 0.1 x10^3/uL (0.0-0.2); BASO % 1 % (0-3); EOS # 0.3 x10^3/uL (0.0-0.7); EOS % 4 % (0-3); HEMATOCRIT 29.5 % (39.0-53.0); HEMOGLOBIN 9.6 g/dL (13.0-17.5); LYMPH # 0.9 x10^3/uL (1.0-4.8); LYMPH % 14 % (24-48); MEAN CORPUSCULAR HEMOGLOBIN 29 pg (25-35); MEAN CORPUSCULAR HGB CONC 33 g/dL (31-37); MEAN CORPUSCULAR VOLUME 89 fL (79-100); MONO % 16 % (0-9); NEUT # 4.1 x10^3/uL (1.8-7.7); NEUT % 65 % (31-73); PLATELET COUNT 301 x10^3/uL (140-400); RED BLOOD COUNT 3.31 x10^6/uL (4.30-5.70); RED CELL DISTRIBUTION WIDTH 13.6 % (11.5-14.5); WHITE BLOOD COUNT 6.2 x10^3/uL (4.0-11.0)
[2019-03-06 14:15] LABS: ALBUMIN 1.9 g/dL (3.4-5.0); ALBUMIN/GLOBULIN RATIO 0.5 (1.0-1.7); CALCIUM 8.1 mg/dL (8.5-10.1); CREATININE 1.2 mg/dL (0.7-1.3); GFR 64.6; POTASSIUM 4.3 mmol/L (3.5-5.1); TOTAL BILIRUBIN 0.1 mg/dL (0.2-1.0)
[2019-03-06 14:38] LABS: AMPHETAMINE/METHAMPHETAMINE NEG (NEG); BARBITURATES NEG (NEG); BENZODIAZEPINES NEG (NEG); CANNABINOIDS NEG (NEG); COCAINE NEG (NEG); METHADONE NEG (NEG); OPIATES NEG (NEG); PHENCYCLIDINE NEG (NEG)
[2019-03-06 14:54] VITALS: BP 145/84
[2019-03-06 19:19] VITALS: BP 135/79
[2019-03-06] MEDS: PATCH REMOVAL. MC SCH (21:00)
[2019-03-06] MEDS ORDERED: INSULIN LISPRO 300 UNITS/3 ML VIAL. SQ SCH (22:30)
[2019-03-06] MEDS: INSULIN GLARGINE SYRINGE. SQ SCH (22:31)
[2019-03-06] MEDS ORDERED: INSULIN LISPRO 300 UNITS/3 ML VIAL. SQ ONE (22:45)
[2019-03-06 23:10] VITALS: BP 145/79
[2019-03-07] MEDS: PIPERACILLIN/TAZOBACTAM 3.375 GM in IV NORMAL SALINE 50ML 50 ML IV SCH ×2 (00:18→05:47)
[2019-03-07] MEDS: IV NORMAL SALINE 1000ML BAG 1,000 ML IV SCH ×2 (00:18→09:59)
[2019-03-07 03:20] VITALS: BP 105/63
[2019-03-07 07:00] VITALS: BP 134/68
[2019-03-07] MEDS: INSULIN LISPRO 300 UNITS/3 ML VIAL. SQ SCH ×3 (08:00→17:22)
[2019-03-07] MEDS ORDERED: IV DEXTROSE 5% 250 ML BAG. IV PRN (08:15)
--- NOTE | 2019-03-07 08:40 | NUR ---
Patient blood sugar 55,pt. alert and oriented times 4, states he was a little shaky, 120 cc juice given and D5W 250 cc per policy. Patient ate breakfast and blood sugar now 123, he is asymptomatic. See critical results, lab and emar.
[2019-03-07] MEDS: LIDOCAINE (700MG/PATCH) PATCH. TD SCH (09:00)
[2019-03-07] MEDS: DICLOFENAC SODIUM 1% TOPICAL GEL 100GM TUBE. TP SCH ×4 (09:00→21:23)
[2019-03-07] MEDS: POTASSIUM CHLORIDE 20 MEQ TABLET.ER. PO SCH (09:17)
[2019-03-07] MEDS: LACTOBACILLUS RHAMNOSUS GG 1 CAPSULE. PO SCH ×2 (09:58→21:22)
--- NOTE | 2019-03-07 10:23 | PDOC ---
Infectious Disease Note Subjective Subjective feeling little better ROS ROS no n/v/d/fever Vital Sign Vital Signs Vital Signs Date Time Temp Pulse Resp B/P (MAP) Pulse Ox O2 Delivery O2 Flow Rate FiO2 03/07/19 07:00 98.2 70 17 134/68 (90) 95 Room Air 98.2 03/06/19 20:30 2.0 Physical Exam PHYSICAL EXAM GENERAL: Propped up in bed, alert, in no apparent distress. HEENT: Pupils are equally round, reactive. Oral cavity, oropharynx pink and moist. Superficial scalp wound improved and alopecia. NECK: Supple. JVD LUNGS: Clear to auscultation. HEART: S1, S2 regular. ABDOMEN: Nondistended, soft, nontender with bowel sounds present. EXTREMITIES: Trace pedal edema in lower extremities bilaterally. Sensitive to touch. No cyanosis. Several dry annular wounds/scabs both legs bilaterally wo associated redness or drainage. LUE with trace edema SKIN: Warm to touch. No signs of rash NEUROLOGIC: Alert and oriented x 3. Labs Lab Laboratory Tests Test 03/06/19 11:13 03/06/19 13:10 03/06/19 14:10 03/06/19 16:05 Glucose (Fingerstick) 127 mg/dL (70-99) 266 mg/dL (70-99) White Blood Count 6.2 x10^3/uL (4.0-11.0) Red Blood Count 3.31 x10^6/uL (4.30-5.70) Hemoglobin 9.6 g/dL (13.0-17.5) Hematocrit 29.5 % (39.0-53.0) Mean Corpuscular Volume 89 fL (79-100) Mean Corpuscular Hemoglobin 29 pg (25-35) Mean Corpuscular Hemoglobin Concent 33 g/dL (31-37) Red Cell Distribution Width 13.6 % (11.5-14.5) Platelet Count 301 x10^3/uL (140-400) Neutrophils (%) (Auto) 65 % (31-73) Lymphocytes (%) (Auto) 14 % (24-48) Monocytes (%) (Auto) 16 % (0-9) Eosinophils (%) (Auto) 4 % (0-3) Basophils (%) (Auto) 1 % (0-3) Neutrophils # (Auto) 4.1 x10^3/uL (1.8-7.7) Lymphocytes # (Auto) 0.9 x10^3/uL (1.0-4.8) Monocytes # (Auto) 1.0 x10^3/uL (0.0-1.1) Eosinophils # (Auto) 0.3 x10^3/uL (0.0-0.7) Basophils # (Auto) 0.1 x10^3/uL (0.0-0.2) Erythrocyte Sedimentation Rate 80 (0-15) Absolute Reticulocyte Count 0.079 x10^6/uL (0.020-0.120) Percent Reticulocyte Count 2.4 % (0.5-2.3) Immature Reticulocyte Fraction 0.53 (0.20-0.60) Sodium Level 140 mmol/L (136-145) Potassium Level 4.3 mmol/L (3.5-5.1) Chloride Level 104 mmol/L (98-107) Carbon Dioxide Level 31 mmol/L (21-32) Anion Gap 5 (6-14) Blood Urea Nitrogen 14 mg/dL (8-26) Creatinine 1.2 mg/dL (0.7-1.3) Estimated GFR (Cockcroft-Gault) 64.6 BUN/Creatinine Ratio 12 (6-20) Glucose Level 166 mg/dL (70-99) Calcium Level 8.1 mg/dL (8.5-10.1) Iron Level 14 ug/dL (65-175) Total Iron Binding Capacity < 36 ug/dL (250-450) Iron Saturation 0 % (15-34) Total Bilirubin 0.1 mg/dL (0.2-1.0) Aspartate Amino Transf (AST/SGOT) 17 U/L (15-37) Alanine Aminotransferase (ALT/SGPT) 12 U/L (16-63) Alkaline Phosphatase 73 U/L (46-116) Total Protein 6.0 g/dL (6.4-8.2) Albumin 1.9 g/dL (3.4-5.0) Albumin/Globulin Ratio 0.5 (1.0-1.7) Urine Opiates Screen Neg (NEG) Urine Methadone Screen Neg (NEG) Urine Barbiturates Neg (NEG) Urine Phencyclidine Screen Neg (NEG) Urine Amphetamine/Methamphetamine Neg (NEG) Urine Benzodiazepines Screen Neg (NEG) Urine Cocaine Screen Neg (NEG) Urine Cannabinoids Screen Neg (NEG) Urine Ethyl Alcohol Neg (NEG) Test 03/06/19 21:09 03/07/19 07:55 03/07/19 08:36 Glucose (Fingerstick) 317 mg/dL (70-99) 55 mg/dL (70-99) 123 mg/dL (70-99) Micro Hip culture MSSA BC MSSA Objective Assessment MSSA bacteremia with sepsis, POA. 02/25 repeat 03/01 - neg so far TTE with Mod TV regurg 03/03 Nonhealing wounds involving scalp and lower extremities, bilaterally - superficial - healing Right hip pain - pelvis CT shows soft tissue thickening and focal gas overlying the right ischial tuberosity, and there is suggestion of early bone destruction. ESR 68 s/p biopsy/cults 03/02. culture + MSSA Hypothermia - better Leukocytosis - resolved DKA Peripheral neuropathy Loose stools, c. diff neg 02/27 Plan Plan of Care F/u Repeat Blood cults neg so far from 03/01 Continue to refuse STEPHANY Cont Zosyn for now and f/u cults/biopsy from procedure 03/02 may taper soon Wound care team consulted Monitor WBC/temp and renal function closely Glycemic/Electrolytes control per primary LUE edema per primary/cardiology pt will need I and SUZANNE ALANIS MD Mar 07, 2019 10:23
[2019-03-07] MEDS ORDERED: DEXTROSE 50% 25 GM / 50ML DISP.SYRIN. IV PRN (10:45)
[2019-03-07 11:00] VITALS: BP 152/83
--- NOTE | 2019-03-07 12:09 | PDOC ---
PROGRESS NOTES Chief Complaint Chief Complaint GPC bacteremia with sepsis, POA. refusing STEPHANY Nonhealing wounds involving scalp and lower extremities, bilaterally - superfic ial - healing Right hip pain - pelvis CT shows soft tissue thickening and focal gas overlying the right ischial tuberosity, and there is suggestion of early bone destruction. ESR 68 Hypothermia - better moderate protein-caloric malnutrition Leukocytosis - sepsis dehydration DKA Peripheral neuropathy TTE with Mod TV regurg 03/03//PA pressure was estimated at 52 mmHg NORMOCYTIC ANEMIA Gallbladder wall thickening is present but ascites is noted and may account for this finding. History of Present Illness History of Present Illness OUt of room VEterans pt Chart reviewed REFusing STEPHANY - i was gonna talk to him re reason ON IV abx per ID NO fevers HAs gotten 20 bags IVF, creat ok and eating BS high - on latus 15 qhs WIll need I and D per ID note - ortho on case Hgb1c 16 PLAn: INc lantus to 20 qhs STEPHANY recommended I and D recommended SSI high dose I will see him once he gets back Vitals Vitals Vital Signs Date Time Temp Pulse Resp B/P (MAP) Pulse Ox O2 Delivery O2 Flow Rate FiO2 03/07/19 08:00 Room Air 03/07/19 07:00 98.2 70 17 134/68 (90) 95 98.2 03/06/19 20:30 2.0 Physical Exam Physical Exam GENERAL: Propped up in bed, alert, in no apparent distress. HEENT: Pupils are equally round, reactive. Oral cavity, oropharynx pink and moist. Superficial scalp wound improved and alopecia. NECK: Supple. JVD LUNGS: Clear to auscultation. HEART: S1, S2 regular. ABDOMEN: Nondistended, soft, nontender with bowel sounds present. EXTREMITIES: Trace pedal edema in lower extremities bilaterally. Sensitive to touch. No cyanosis. Several dry annular wounds/scabs both legs bilaterally wo associated redness or drainage. LUE with trace edema SKIN: Warm to touch. No signs of rash NEUROLOGIC: Alert and oriented x 3. General: Alert, Oriented X3, Cooperative, No acute distress Heart: Regular rate, Normal S1, Normal S2, No murmurs Lungs: Clear, Other (No respiratory distress) Abdomen: Normal bowel sounds, Soft, No tenderness Extremities: No clubbing, No cyanosis Skin: No rashes, No significant lesion Labs LABS Laboratory Tests Test 03/06/19 13:10 03/06/19 14:10 03/06/19 16:05 03/06/19 21:09 White Blood Count 6.2 x10^3/uL (4.0-11.0) Red Blood Count 3.31 x10^6/uL (4.30-5.70) Hemoglobin 9.6 g/dL (13.0-17.5) Hematocrit 29.5 % (39.0-53.0) Mean Corpuscular Volume 89 fL (79-100) Mean Corpuscular Hemoglobin 29 pg (25-35) Mean Corpuscular Hemoglobin Concent 33 g/dL (31-37) Red Cell Distribution Width 13.6 % (11.5-14.5) Platelet Count 301 x10^3/uL (140-400) Neutrophils (%) (Auto) 65 % (31-73) Lymphocytes (%) (Auto) 14 % (24-48) Monocytes (%) (Auto) 16 % (0-9) Eosinophils (%) (Auto) 4 % (0-3) Basophils (%) (Auto) 1 % (0-3) Neutrophils # (Auto) 4.1 x10^3/uL (1.8-7.7) Lymphocytes # (Auto) 0.9 x10^3/uL (1.0-4.8) Monocytes # (Auto) 1.0 x10^3/uL (0.0-1.1) Eosinophils # (Auto) 0.3 x10^3/uL (0.0-0.7) Basophils # (Auto) 0.1 x10^3/uL (0.0-0.2) Erythrocyte Sedimentation Rate 80 (0-15) Absolute Reticulocyte Count 0.079 x10^6/uL (0.020-0.120) Percent Reticulocyte Count 2.4 % (0.5-2.3) Immature Reticulocyte Fraction 0.53 (0.20-0.60) Sodium Level 140 mmol/L (136-145) Potassium Level 4.3 mmol/L (3.5-5.1) Chloride Level 104 mmol/L (98-107) Carbon Dioxide Level 31 mmol/L (21-32) Anion Gap 5 (6-14) Blood Urea Nitrogen 14 mg/dL (8-26) Creatinine 1.2 mg/dL (0.7-1.3) Estimated GFR (Cockcroft-Gault) 64.6 BUN/Creatinine Ratio 12 (6-20) Glucose Level 166 mg/dL (70-99) Calcium Level 8.1 mg/dL (8.5-10.1) Iron Level 14 ug/dL (65-175) Total Iron Binding Capacity < 36 ug/dL (250-450) Iron Saturation 0 % (15-34) Total Bilirubin 0.1 mg/dL (0.2-1.0) Aspartate Amino Transf (AST/SGOT) 17 U/L (15-37) Alanine Aminotransferase (ALT/SGPT) 12 U/L (16-63) Alkaline Phosphatase 73 U/L (46-116) Total Protein 6.0 g/dL (6.4-8.2) Albumin 1.9 g/dL (3.4-5.0) Albumin/Globulin Ratio 0.5 (1.0-1.7) Urine Opiates Screen Neg (NEG) Urine Methadone Screen Neg (NEG) Urine Barbiturates Neg (NEG) Urine Phencyclidine Screen Neg (NEG) Urine Amphetamine/Methamphetamine Neg (NEG) Urine Benzodiazepines Screen Neg (NEG) Urine Cocaine Screen Neg (NEG) Urine Cannabinoids Screen Neg (NEG) Urine Ethyl Alcohol Neg (NEG) Glucose (Fingerstick) 266 mg/dL (70-99) 317 mg/dL (70-99) Test 03/07/19 07:55 03/07/19 08:36 Glucose (Fingerstick) 55 mg/dL (70-99) 123 mg/dL (70-99) Review of Systems Review of Systems out of room Assessment and Plan Assessmemt and Plan Problems Medical Problems: (1) Dehydration Status: Acute (2) DKA (diabetic ketoacidoses) Status: Acute (3) Scalp abscess Status: Acute (4) Sepsis Status: Acute Comment Review of Relevant I have reviewed the following items orestes (where applicable) has been applied. Labs Laboratory Tests Test 03/05/19 12:33 03/05/19 17:30 03/05/19 21:15 03/06/19 07:33 Glucose (Fingerstick) 235 mg/dL (70-99) 288 mg/dL (70-99) 254 mg/dL (70-99) 85 mg/dL (70-99) Test 03/06/19 11:13 03/06/19 13:10 03/06/19 14:10 03/06/19 16:05 Glucose (Fingerstick) 127 mg/dL (70-99) 266 mg/dL (70-99) White Blood Count 6.2 x10^3/uL (4.0-11.0) Red Blood Count 3.31 x10^6/uL (4.30-5.70) Hemoglobin 9.6 g/dL (13.0-17.5) Hematocrit 29.5 % (39.0-53.0) Mean Corpuscular Volume 89 fL (79-100) Mean Corpuscular Hemoglobin 29 pg (25-35) Mean Corpuscular Hemoglobin Concent 33 g/dL (31-37) Red Cell Distribution Width 13.6 % (11.5-14.5) Platelet Count 301 x10^3/uL (140-400) Neutrophils (%) (Auto) 65 % (31-73) Lymphocytes (%) (Auto) 14 % (24-48) Monocytes (%) (Auto) 16 % (0-9) Eosinophils (%) (Auto) 4 % (0-3) Basophils (%) (Auto) 1 % (0-3) Neutrophils # (Auto) 4.1 x10^3/uL (1.8-7.7) Lymphocytes # (Auto) 0.9 x10^3/uL (1.0-4.8) Monocytes # (Auto) 1.0 x10^3/uL (0.0-1.1) Eosinophils # (Auto) 0.3 x10^3/uL (0.0-0.7) Basophils # (Auto) 0.1 x10^3/uL (0.0-0.2) Erythrocyte Sedimentation Rate 80 (0-15) Absolute Reticulocyte Count 0.079 x10^6/uL (0.020-0.120) Percent Reticulocyte Count 2.4 % (0.5-2.3) Immature Reticulocyte Fraction 0.53 (0.20-0.60) Sodium Level 140 mmol/L (136-145) Potassium Level 4.3 mmol/L (3.5-5.1) Chloride Level 104 mmol/L (98-107) Carbon Dioxide Level 31 mmol/L (21-32) Anion Gap 5 (6-14) Blood Urea Nitrogen 14 mg/dL (8-26) Creatinine 1.2 mg/dL (0.7-1.3) Estimated GFR (Cockcroft-Gault) 64.6 BUN/Creatinine Ratio 12 (6-20) Glucose Level 166 mg/dL (70-99) Calcium Level 8.1 mg/dL (8.5-10.1) Iron Level 14 ug/dL (65-175) Total Iron Binding Capacity < 36 ug/dL (250-450) Iron Saturation 0 % (15-34) Total Bilirubin 0.1 mg/dL (0.2-1.0) Aspartate Amino Transf (AST/SGOT) 17 U/L (15-37) Alanine Aminotransferase (ALT/SGPT) 12 U/L (16-63) Alkaline Phosphatase 73 U/L (46-116) Total Protein 6.0 g/dL (6.4-8.2) Albumin 1.9 g/dL (3.4-5.0) Albumin/Globulin Ratio 0.5 (1.0-1.7) Urine Opiates Screen Neg (NEG) Urine Methadone Screen Neg (NEG) Urine Barbiturates Neg (NEG) Urine Phencyclidine Screen Neg (NEG) Urine Amphetamine/Methamphetamine Neg (NEG) Urine Benzodiazepines Screen Neg (NEG) Urine Cocaine Screen Neg (NEG) Urine Cannabinoids Screen Neg (NEG) Urine Ethyl Alcohol Neg (NEG) Test 03/06/19 21:09 03/07/19 07:55 03/07/19 08:36 Glucose (Fingerstick) 317 mg/dL (70-99) 55 mg/dL (70-99) 123 mg/dL (70-99) Laboratory Tests Test 03/06/19 13:10 03/06/19 14:10 03/06/19 16:05 03/06/19 21:09 White Blood Count 6.2 x10^3/uL (4.0-11.0) Red Blood Count 3.31 x10^6/uL (4.30-5.70) Hemoglobin 9.6 g/dL (13.0-17.5) Hematocrit 29.5 % (39.0-53.0) Mean Corpuscular Volume 89 fL (79-100) Mean Corpuscular Hemoglobin 29 pg (25-35) Mean Corpuscular Hemoglobin Concent 33 g/dL (31-37) Red Cell Distribution Width 13.6 % (11.5-14.5) Platelet Count 301 x10^3/uL (140-400) Neutrophils (%) (Auto) 65 % (31-73) Lymphocytes (%) (Auto) 14 % (24-48) Monocytes (%) (Auto) 16 % (0-9) Eosinophils (%) (Auto) 4 % (0-3) Basophils (%) (Auto) 1 % (0-3) Neutrophils # (Auto) 4.1 x10^3/uL (1.8-7.7) Lymphocytes # (Auto) 0.9 x10^3/uL (1.0-4.8) Monocytes # (Auto) 1.0 x10^3/uL (0.0-1.1) Eosinophils # (Auto) 0.3 x10^3/uL (0.0-0.7) Basophils # (Auto) 0.1 x10^3/uL (0.0-0.2) Erythrocyte Sedimentation Rate 80 (0-15) Absolute Reticulocyte Count 0.079 x10^6/uL (0.020-0.120) Percent Reticulocyte Count 2.4 % (0.5-2.3) Immature Reticulocyte Fraction 0.53 (0.20-0.60) Sodium Level 140 mmol/L (136-145) Potassium Level 4.3 mmol/L (3.5-5.1) Chloride Level 104 mmol/L (98-107) Carbon Dioxide Level 31 mmol/L (21-32) Anion Gap 5 (6-14) Blood Urea Nitrogen 14 mg/dL (8-26) Creatinine 1.2 mg/dL (0.7-1.3) Estimated GFR (Cockcroft-Gault) 64.6 BUN/Creatinine Ratio 12 (6-20) Glucose Level 166 mg/dL (70-99) Calcium Level 8.1 mg/dL (8.5-10.1) Iron Level 14 ug/dL (65-175) Total Iron Binding Capacity < 36 ug/dL (250-450) Iron Saturation 0 % (15-34) Total Bilirubin 0.1 mg/dL (0.2-1.0) Aspartate Amino Transf (AST/SGOT) 17 U/L (15-37) Alanine Aminotransferase (ALT/SGPT) 12 U/L (16-63) Alkaline Phosphatase 73 U/L (46-116) Total Protein 6.0 g/dL (6.4-8.2) Albumin 1.9 g/dL (3.4-5.0) Albumin/Globulin Ratio 0.5 (1.0-1.7) Urine Opiates Screen Neg (NEG) Urine Methadone Screen Neg (NEG) Urine Barbiturates Neg (NEG) Urine Phencyclidine Screen Neg (NEG) Urine Amphetamine/Methamphetamine Neg (NEG) Urine Benzodiazepines Screen Neg (NEG) Urine Cocaine Screen Neg (NEG) Urine Cannabinoids Screen Neg (NEG) Urine Ethyl Alcohol Neg (NEG) Glucose (Fingerstick) 266 mg/dL (70-99) 317 mg/dL (70-99) Test 03/07/19 07:55 03/07/19 08:36 Glucose (Fingerstick) 55 mg/dL (70-99) 123 mg/dL (70-99) Microbiology 03/02/19 Anaerobic/Aerobic Culture, Resulted Pending 03/02/19 Anaerobic Culture Result 1 (SUNITA), Resulted Pending 03/02/19 Aerobic Culture - Final, Resulted 03/02/19 Aerobic Culture Result 1 (SUNITA) - Final, Resulted 03/02/19 Antimicrobic Susceptibility - Final, Resulted 03/02/19 Gram Stain - Final, Resulted 03/02/19 Gram Stain Result 1 (SUNITA) - Final, Resulted 03/02/19 Gram Stain Result 2 (SUNITA) - Final, Resulted 03/01/19 Blood Culture - Final, Complete NO GROWTH AFTER 5 DAYS 02/26/19 Urine Culture - Final, Complete 02/26/19 Urine Culture Result 1 (SUNITA) - Final, Complete Medications Current Medications Sodium Chloride 1,000 ml @ 1,000 mls/hr 1X ONCE IV Last administered on 02/25/19at 15:20; Start 02/25/19 at 14:45; Stop 02/25/19 at 15:44; Status DC Sodium Chloride 1,000 ml @ 1,000 mls/hr 1X ONCE IV Last administered on 02/25/19at 15:20; Start 02/25/19 at 15:15; Stop 02/25/19 at 16:14; Status DC Insulin Human Regular 150 ml @ 0 mls/hr 1X ONCE IV Last administered on at 16:01; Start 02/25/19 at 15:30; Stop 02/25/19 at 15:32; Status DC Vancomycin HCl 250 ml @ 250 mls/hr 1X ONCE IV Last administered on 02/25/19at 16:04; Start 02/25/19 at 16:00; Stop 02/25/19 at 16:59; Status DC Ondansetron HCl (Zofran) 4 mg PRN Q8HRS PRN IV NAUSEA/VOMITING; Start 02/25/19 at 16:15; Stop 02/25/19 at 17:32; Status DC Sodium Chloride 1,000 ml @ 100 mls/hr Q10H IV ; Start 02/25/19 at 16:08; Stop 02/26/19 at 08:29; Status DC Sodium Chloride 1,000 ml @ 250 mls/hr Q4H IV Last administered on 02/25/19at 21:28; Start 02/25/19 at 17:00; Stop 02/26/19 at 03:06; Status DC Dextrose/Sodium Chloride 1,000 ml @ 250 mls/hr Q4H IV Last administered on 02/25/19at 23:26; Start 02/25/19 at 16:39; Stop 02/26/19 at 03:06; Status DC Insulin Human Regular 150 unit/ Sodium Chloride 151.5 ml @ 0 mls/hr CONT PRN PRN IV PER PROTOCOL; Start 02/25/19 at 16:45; Stop 02/26/19 at 03:06; Status DC Potassium Chloride/Water 100 ml @ 100 mls/hr PRN Q1HR PRN IV SEE COMMENTS Last administered on 02/26/19at 01:19; Start 02/25/19 at 16:45; Stop 02/26/19 at 03:06; Status DC Potassium Chloride/Water 100 ml @ 100 mls/hr PRN Q1HR PRN IV SEE COMMENTS Last administered on 02/25/19at 23:26; Start 02/25/19 at 16:45; Stop 02/26/19 at 03:06; Status DC Potassium Chloride/Water 100 ml @ 100 mls/hr PRN Q1HR PRN IV SEE COMMENTS; Start 02/25/19 at 16:45; Stop 02/26/19 at 03:06; Status DC Sodium Bicarbonate 50 meq/Sodium Chloride 1,050 ml @ 125 mls/hr 1X ONCE IV Last administered on 02/25/19at 17:51; Start 02/25/19 at 16:45; Stop 02/26/19 at 01:08; Status DC Calcium Carbonate/ Glycine (Tums) 500 mg PRN AFTMEALHC PRN PO INDIGESTION; Start 02/25/19 at 16:45 Temazepam (Restoril) 7.5 mg PRN QHS PRN PO INSOMNIA; Start 02/25/19 at 16:45 Acetaminophen (Tylenol) 500 mg PRN Q6HRS PRN PO MILD PAIN / TEMP; Start 02/25/19 at 16:45 Acetaminophen/ Codeine Phosphate (Tylenol #3) 1 tab PRN Q6HRS PRN PO MODERATE PAIN Last administered on 03/01/19at 21:33; Start 02/25/19 at 16:45 Ondansetron HCl (Zofran) 4 mg PRN Q6HRS PRN IVP NAUSEA/VOMITING; Start 02/25/19 at 16:45 Cefazolin Sodium 50 ml @ 100 mls/hr Q8HRS IV ; Start 02/25/19 at 22:00; Status UNV Cefazolin Sodium 50 ml @ As Directed STK-MED ONCE IV ; Start 02/25/19 at 17:12; Stop 02/25/19 at 17:32; Status DC Cefazolin Sodium 50 ml @ 100 mls/hr 1X ONCE IV Last administered on 02/25/19at 17:30; Start 02/25/19 at 17:30; Stop 02/25/19 at 17:59; Status DC Cefazolin Sodium (Ancef) 1 gm Q8HRS IVP Last administered on 02/28/19at 13:54; Start 02/25/19 at 22:00; Stop 02/28/19 at 18:52; Status DC Potassium Chloride/Water 100 ml @ 100 mls/hr PRN Q1HR PRN IV SEE COMMENTS; Start 02/25/19 at 21:00 Magnesium Sulfate 100 ml @ 25 mls/hr DAILY IV Last administered on 02/28/19at 12:24; Start 02/26/19 at 09:00; Stop 03/01/19 at 08:59; Status DC Dextrose (Dextrose 50%-Water Syringe) 12.5 gm PRN Q15MIN PRN IV SEE COMMENTS; Start 02/26/19 at 03:00; Status UNV Insulin Glargine (Lantus Syringe) 20 unit QHS SQ Last administered on 03/06/19at 22:31; Start 02/26/19 at 21:00 Insulin Human Lispro (HumaLOG) 10 units TIDWMEALS SQ Last administered on 02/26/19at 17:33; Start 02/26/19 at 08:00; Stop 02/26/19 at 18:45; Status DC Dextrose (Dextrose 50%-Water Syringe) 12.5 gm PRN Q15MIN PRN IV SEE COMMENTS; Start 02/26/19 at 03:00; Stop 03/07/19 at 10:41; Status DC Insulin Glargine (Lantus Syringe) 10 unit 1X ONCE SQ Last administered on 02/26/19at 03:16; Start 02/26/19 at 03:30; Stop 02/26/19 at 03:31; Status DC Sodium Chloride 1,000 ml @ 100 mls/hr Q10H IV Last administered on 03/07/19at 09:59; Start 02/26/19 at 03:00; Stop 03/07/19 at 10:39; Status DC Vancomycin HCl (Vanco Per Pharmacy) 1 each PRN DAILY PRN MC SEE COMMENTS Last administered on 03/01/19at 15:41; Start 02/26/19 at 08:45; Stop 03/02/19 at 12:58; Status DC Vancomycin HCl 1 gm/Sodium Chloride 250 ml @ 250 mls/hr Q12H IV Last administered on 02/26/19at 21:22; Start 02/26/19 at 09:00; Stop 02/27/19 at 09:06; Status DC Diclofenac Sodium (Voltaren) 1 faith BID TP Last administered on 02/27/19at 07:56; Start 02/26/19 at 10:30; Stop 02/27/19 at 11:58; Status DC Potassium Chloride (Klor-Con) 40 meq 1X ONCE PO Last administered on 02/26/19at 11:01; Start 02/26/19 at 11:00; Stop 02/26/19 at 11:01; Status DC Lidocaine (Lidoderm) 1 patch DAILY TD Last administered on 02/27/19 07:56; Start 02/26/19 at 11:30 Miscellaneous (Lidoderm Patch Removal) 1 ea QHS MC Last administered on 03/02/19 21:00; Start 02/26/19 at 21:00 Lactobacillus Rhamnosus (Culturelle) 1 cap BID PO Last administered on 03/07/19 09:58; Start 02/26/19 at 21:00 Vancomycin HCl (Vancomycin Trough Level) 1 each 1X ONCE MC Last administered on 02/27/19at 08:30; Start 02/27/19 at 08:30; Stop 02/27/19 at 08:31; Status DC Insulin Human Lispro (HumaLOG) 0-7 UNITS TIDWMEALS SQ Last administered on 03/06/19 18:05; Start 02/27/19 at 08:00; Stop 03/07/19 at 10:42; Status DC Vancomycin HCl 750 mg/Sodium Chloride 250 ml @ 250 mls/hr Q8H IV Last administered on 03/02/19 09:26; Start 02/27/19 at 09:30; Stop 03/02/19 at 12:58; Status DC Vancomycin HCl (Vancomycin Trough Level) 1 each 1X ONCE MC Last administered on 02/28/19 09:00; Start 02/28/19 at 09:00; Stop 02/28/19 at 09:01; Status DC Potassium Chloride (Klor-Con) 40 meq 1X ONCE PO Last administered on 02/27/19 09:56; Start 02/27/19 at 10:00; Stop 02/27/19 at 10:01; Status DC Diclofenac Sodium (Voltaren) 1 faith QID TP Last administered on 03/06/19at 22:42; Start 02/27/19 at 12:00 Potassium Chloride (Klor-Con) 20 meq 1X ONCE PO Last administered on 02/28/19at 12:24; Start 02/28/19 at 11:00; Stop 02/28/19 at 11:01; Status DC Potassium Chloride (Klor-Con) 40 meq 1X ONCE PO Last administered on 02/28/19 06:58; Start 02/28/19 at 07:00; Stop 02/28/19 at 07:01; Status DC Potassium Chloride (Klor-Con) 40 meq DAILY PO Last administered on 12/16/19at 09:17; Start 02/28/19 at 09:00 Piperacillin Sod/ Tazobactam Sod 3.375 gm/Sodium Chloride 50 ml @ 100 mls/hr Q6HRS IV Last administered on 03/07/19at 05:47; Start 02/28/19 at 12:00; Stop 03/07/19 at 10:37; Status DC Lidocaine HCl (Buffered Lidocaine 1%) 3 ml STK-MED ONCE .ROUTE ; Start 03/02/19 at 08:01; Stop 03/02/19 at 08:02; Status DC Midazolam HCl (Versed) 2 mg STK-MED ONCE .ROUTE ; Start 03/02/19 at 08:26; Stop 03/02/19 at 08:26; Status DC Fentanyl Citrate (Fentanyl 2ml Vial) 100 mcg STK-MED ONCE .ROUTE ; Start 02/08 at 08:26; Stop 03/02/19 at 08:27; Status DC Lidocaine HCl (Buffered Lidocaine 1%) 3 ml 1X ONCE IJ Last administered on 03/02/19at 08:45; Start 03/02/19 at 08:45; Stop 03/02/19 at 08:48; Status DC Midazolam HCl (Versed) 2 mg 1X ONCE IV Last administered on 03/02/19at 08:45; Start 03/02/19 at 08:45; Stop 03/02/19 at 08:48; Status DC Fentanyl Citrate (Fentanyl 2ml Vial) 100 mcg 1X ONCE IV Last administered on 03/02/19at 08:45; Start 03/02/19 at 08:45; Stop 03/02/19 at 08:48; Status DC Ringer's Solution 1,000 ml @ 50 mls/hr Q20H IV ; Start 03/04/19 at 07:00; Stop 03/04/19 at 18:59; Status DC Lidocaine HCl (Viscous Lidocaine) 15 ml 1X ONCE SWSW ; Start 03/04/19 at 07:30; Stop 03/04/19 at 07:31; Status DC Lidocaine HCl (Xylocaine 2% Topical 30gm Tube) 1 faith 1X ONCE TP ; Start 03/04/19 at 07:30; Stop 03/04/19 at 07:31; Status DC Benzocaine (Hurricaine One) 2 spray 1X ONCE MM ; Start 03/04/19 at 07:30; Stop 03/04/19 at 07:31; Status DC Lidocaine HCl (Xylocaine 2% Topical 30gm Tube) 1 faith 1X ONCE TP ; Start 03/04/19 at 07:30; Stop 03/04/19 at 07:31; Status UNV Lidocaine HCl (Viscous Lidocaine) 15 ml 1X ONCE SWSW ; Start 03/04/19 at 07:30; Stop 03/04/19 at 07:31; Status UNV Benzocaine (Hurricaine One) 2 spray 1X ONCE MM ; Start 03/04/19 at 07:30; Stop 03/04/19 at 07:31; Status UNV Lidocaine HCl (Buffered Lidocaine 1%) 3 ml STK-MED ONCE .ROUTE ; Start 03/04/19 at 14:44; Stop 03/04/19 at 14:45; Status DC Lidocaine HCl (Buffered Lidocaine 1%) 3 ml 1X ONCE INJ Last administered on 03/04/19at 15:00; Start 03/04/19 at 15:00; Stop 03/04/19 at 15:01; Status DC Insulin Human Lispro (HumaLOG) 11 units 1X SQ ; Start 03/06/19 at 22:30; Stop 03/06/19 at 22:36; Status DC Insulin Human Lispro (HumaLOG) 11 units 1X ONCE SQ Last administered on 03/06/19at 22:41; Start 03/06/19 at 22:45; Stop 03/06/19 at 22:46; Status DC Dextrose (Iv Dextrose 5%) 250 ml PRN Q15MIN PRN IV SEE COMMENTS Last administered on 03/07/19at 08:10; Start 03/07/19 at 08:15; Stop 03/07/19 at 10:41; Status DC Cefazolin Sodium 2 gm/Dextrose 50 ml @ 100 mls/hr Q8HRS IV ; Start 03/07/19 at 14:00; Status UNV Cefazolin Sodium/ Dextrose 50 ml @ 100 mls/hr Q8HRS IV ; Start 03/07/19 at 14:00 Insulin Human Lispro (HumaLOG) 0-9 UNITS TIDWMEALS SQ ; Start 03/07/19 at 12:00 Dextrose (Dextrose 50%-Water Syringe) 12.5 gm PRN Q15MIN PRN IV SEE COMMENTS; Start 12/16/19 at 10:45 Dextrose (Iv Dextrose 5%) 250 ml PRN Q15MIN PRN IV SEE COMMENTS; Start 03/07/19 at 10:45 Vitals/I & O Vital Sign - Last 24 Hours 03/06/19 03/06/19 03/06/19 03/06/19 14:54 19:19 20:30 23:10 Temp 98.2 97.9 98.0 98.2 97.9 98.0 Pulse 69 73 71 Resp 17 16 16 B/P (MAP) 145/84 (104) 135/79 (97) 145/79 (101) Pulse Ox 98 94 94 O2 Delivery Room Air Room Air Room Air Room Air O2 Flow Rate 2.0 03/07/19 03/07/19 03/07/19 03:20 07:00 08:00 Temp 98.1 98.2 98.1 98.2 Pulse 67 70 Resp 16 17 B/P (MAP) 105/63 (77) 134/68 (90) Pulse Ox 94 95 O2 Delivery Nasal Cannula Room Air Room Air Intake and Output 03/06/19 03/06/19 03/07/19 15:00 23:00 07:00 Intake Total 50 ml 350 ml Balance 50 ml 350 ml Nutrition Consultation Dietary Evaluation: Recommendations by RD: Dietary education by RD, Protein supplementation Comments: ADA, DBL meats encourage BS control RD available x [phone] if interested in diet education REC mvi and vit c per wound protocal Expected Outcomes/Goals: to meet >75% est protein needs glycemic control Goals : ongoing Malnutrition Findings: Body Fat Depletion (Non Severe: Mild Depletion Weight Status: Underweight RADHA RODRIGUEZ MD Mar 07, 2019 12:09
--- NOTE | 2019-03-07 13:10 | PDOC ---
Subjective: Subjective: No GI complaints. Discussed B12 - he "gets enough shots" so prefers to take replacement orally. Objective: Vital Signs: Vital Signs Date Time Temp Pulse Resp B/P (MAP) Pulse Ox O2 Delivery O2 Flow Rate FiO2 03/07/19 08:00 Room Air 03/07/19 07:00 98.2 70 17 134/68 (90) 95 98.2 03/06/19 20:30 2.0 Labs: Laboratory Tests Test 03/06/19 16:05 03/06/19 21:09 03/07/19 07:55 03/07/19 08:36 Glucose (Fingerstick) 266 mg/dL (70-99) 317 mg/dL (70-99) 55 mg/dL (70-99) 123 mg/dL (70-99) Test 03/07/19 11:47 Glucose (Fingerstick) 214 mg/dL (70-99) Imaging: Abd US Impression: No cholelithiasis. No biliary dilatation. Gallbladder wall thickening is present but ascites is noted and may account for this finding. PE: GEN: NAD - eating three sandwiches w/ lots of ketchup LUNGS: room air HEART: RRR ABD: S/ND/NT NEURO/PSYCH: A & O 3 A/P: Anemia - initial iron studies c/w ACD, also B12 deficient DKA, MSSA bacteremia, abnormal pelv CT s/p biopsy -- Add B12 - he prefers oral meds. Outpt screening colonoscopy. ADITYA STEVE Mar 07, 2019 13:10
--- NOTE | 2019-03-07 13:14 | SNU/HH DC ---
DISCHARGE ORDERS DISCHARGE INFORMATION: DISCHARGE DATE: Mar 07, 2019 FINAL DIAGNOSIS Problems Medical Problems: (1) Dehydration Status: Acute (2) DKA (diabetic ketoacidoses) Status: Acute (3) Scalp abscess Status: Acute (4) Sepsis Status: Acute CONDITION ON DISCHARGE: Stable CODE STATUS: Code Status: Full LONG-TERM: SNF STAY <30 DAYS: Yes HOSPICE: HOSPICE: No HOSPICE EVAL & TREAT: No LTAC: ADMIT TO LTAC: No POST DISCHARGE ORDERS: ACTIVITY ORDERS: Resume previous activity DIET AFTER DISCHARGE: ADA WOUND/INCISION CARE: Ice to area for comfort, Keep wound/cast CDI CHECKS AFTER DISCHARGE: CHECKS AFTER DISCHARGE: Check blood press - daily COMMENTS: Buttock FOLLOW-UP: PHYSICIAN FOLLOW-UP: iodine every after bath/local wound care to scalp TREATMENT/EQUIPMENT ORDERS: ADAPTIVE EQUIPMENT NEEDED: None Physical Therapy For: Evalulation/Treatment Occupational Therapy For: Evaluation/Treatment RADHA RODRIGUEZ MD Mar 07, 2019 13:14
[2019-03-07] MEDS ORDERED: LIDO700A21 TD (13:16)
[2019-03-07] MEDS ORDERED: INSU100V8 SQ (13:16)
[2019-03-07] MEDS ORDERED: POTA20TA4 PO (13:16)
[2019-03-07] MEDS ORDERED: TEMA7.5C2 PO (13:16)
[2019-03-07] MEDS ORDERED: ACET1TAB33 PO (13:16)
[2019-03-07] MEDS ORDERED: CYAN-25 PO (13:16)
[2019-03-07] MEDS ORDERED: DICL100G18 TP (13:16)
--- NOTE | 2019-03-07 13:16 | SNU/HH DC ---
DISCHARGE ORDERS DISCHARGE INFORMATION: DISCHARGE DATE: Mar 07, 2019 FINAL DIAGNOSIS Problems Medical Problems: (1) Dehydration Status: Acute (2) DKA (diabetic ketoacidoses) Status: Acute (3) Scalp abscess Status: Acute (4) Sepsis Status: Acute CONDITION ON DISCHARGE: Stable CODE STATUS: Code Status: Full FPC: SNF STAY <30 DAYS: Yes HOSPICE: HOSPICE: No HOSPICE EVAL & TREAT: No LTAC: ADMIT TO LTAC: No POST DISCHARGE ORDERS: ACTIVITY ORDERS: Resume previous activity DIET AFTER DISCHARGE: ADA WOUND/INCISION CARE: Ice to area for comfort, Keep wound/cast CDI CHECKS AFTER DISCHARGE: CHECKS AFTER DISCHARGE: Check blood press - daily COMMENTS: Buttock FOLLOW-UP: PHYSICIAN FOLLOW-UP: iodine every after bath/local wound care to scalp ADDITIONAL FOLLOW-UP: iv abx , cefazolin q8 as per ID re duration TREATMENT/EQUIPMENT ORDERS: ADAPTIVE EQUIPMENT NEEDED: None INFUSION EQUIPMENT NEEDED: PICC Line Physical Therapy For: Evalulation/Treatment Occupational Therapy For: Evaluation/Treatment DISCHARGE MEDICATIONS: Home Meds Active Scripts Lidocaine (Lidocaine PATCH ) 1 Each Adh..patch, 1 PATCH TD DAILY for msk pain, #14 PATCH Prov:RADHA RODRIGUEZ MD 03/07/19 Cyanocobalamin (Vitamin B-12) (VITAMIN B-12) 1,000 Mcg Tablet, 1000 MCG PO DAILY for mvi, #30 TAB Prov:RADHA RODRIGUEZ MD 03/07/19 Insulin Glargine,Hum.rec.anlog (LANTUS) 100 Unit/1 Ml Vial, 20 UNIT SQ QHS for dm for 30 Days, EACH Prov:RADHA RODRIGUEZ MD 03/07/19 Potassium Chloride (KLOR-CON M20) 20 Meq Tab.er.prt, 40 MEQ PO DAILY for low K for 7 Days, #14 TAB.SR Prov:RADHA RODRIGUEZ MD 03/07/19 Acetaminophen With Codeine (ACETAMINOPHEN-COD #3 TABLET) 1 Each Tablet, 1 TAB PO PRN Q6HRS PRN for MODERATE PAIN, #30 TAB Prov:RADHA RODRIGUEZ MD 03/07/19 Temazepam (RESTORIL) 7.5 Mg Capsule, 7.5 MG PO PRN QHS PRN for INSOMNIA, #30 CAP Prov:RADHA RODRIGUEZ MD 03/07/19 Diclofenac Sodium (VOLTAREN) 100 Gm Gel..gram., 1 MYLA TP QID for wound for 14 Days, #56 EACH Prov:RADHA RODRIGUEZ MD 03/07/19 RADHA RODRIGUEZ MD Mar 07, 2019 13:16
--- NOTE | 2019-03-07 13:20 | PDOC3 ---
Discharge Summary Visit Information Date of Admission: Mar 01, 2019 Date of Discharge: Mar 07, 2019 Admitting Diagnosis Comment: GPC bacteremia with sepsis, POA. refusing STEPHANY Nonhealing wounds involving scalp and lower extremities, bilaterally - superficial - healing Right hip pain - pelvis CT shows soft tissue thickening and focal gas overlying the right ischial tuberosity, and there is suggestion of early bone destruction. ESR 68 Hypothermia - better moderate protein-caloric malnutrition Leukocytosis - sepsis dehydration DKA Peripheral neuropathy TTE with Mod TV regurg 03/03///PA pressure was estimated at 52 mmHg NORMOCYTIC ANEMIA Gallbladder wall thickening is present but ascites is noted and may account for this finding. Final Diagnosis Problems Medical Problems: (1) Dehydration Status: Acute (2) DKA (diabetic ketoacidoses) Status: Acute (3) Scalp abscess Status: Acute (4) Sepsis Status: Acute Brief Hospital Course Allergies Allergies Coded Allergies Type Severity Reaction Last Updated Verified No Known Drug Allergies 02/25/19 No Vital Signs Vital Signs Date Time Temp Pulse Resp B/P (MAP) Pulse Ox O2 Delivery O2 Flow Rate FiO2 03/07/19 08:00 Room Air 03/07/19 07:00 98.2 70 17 134/68 (90) 95 98.2 03/06/19 20:30 2.0 Lab Results Laboratory Tests Test 03/05/19 17:30 03/05/19 21:15 03/06/19 07:33 03/06/19 11:13 Glucose (Fingerstick) 288 mg/dL (70-99) 254 mg/dL (70-99) 85 mg/dL (70-99) 127 mg/dL (70-99) Test 03/06/19 13:10 03/06/19 14:10 03/06/19 16:05 03/06/19 21:09 White Blood Count 6.2 x10^3/uL (4.0-11.0) Red Blood Count 3.31 x10^6/uL (4.30-5.70) Hemoglobin 9.6 g/dL (13.0-17.5) Hematocrit 29.5 % (39.0-53.0) Mean Corpuscular Volume 89 fL (79-100) Mean Corpuscular Hemoglobin 29 pg (25-35) Mean Corpuscular Hemoglobin Concent 33 g/dL (31-37) Red Cell Distribution Width 13.6 % (11.5-14.5) Platelet Count 301 x10^3/uL (140-400) Neutrophils (%) (Auto) 65 % (31-73) Lymphocytes (%) (Auto) 14 % (24-48) Monocytes (%) (Auto) 16 % (0-9) Eosinophils (%) (Auto) 4 % (0-3) Basophils (%) (Auto) 1 % (0-3) Neutrophils # (Auto) 4.1 x10^3/uL (1.8-7.7) Lymphocytes # (Auto) 0.9 x10^3/uL (1.0-4.8) Monocytes # (Auto) 1.0 x10^3/uL (0.0-1.1) Eosinophils # (Auto) 0.3 x10^3/uL (0.0-0.7) Basophils # (Auto) 0.1 x10^3/uL (0.0-0.2) Erythrocyte Sedimentation Rate 80 (0-15) Absolute Reticulocyte Count 0.079 x10^6/uL (0.020-0.120) Percent Reticulocyte Count 2.4 % (0.5-2.3) Immature Reticulocyte Fraction 0.53 (0.20-0.60) Sodium Level 140 mmol/L (136-145) Potassium Level 4.3 mmol/L (3.5-5.1) Chloride Level 104 mmol/L (98-107) Carbon Dioxide Level 31 mmol/L (21-32) Anion Gap 5 (6-14) Blood Urea Nitrogen 14 mg/dL (8-26) Creatinine 1.2 mg/dL (0.7-1.3) Estimated GFR (Cockcroft-Gault) 64.6 BUN/Creatinine Ratio 12 (6-20) Glucose Level 166 mg/dL (70-99) Calcium Level 8.1 mg/dL (8.5-10.1) Iron Level 14 ug/dL (65-175) Total Iron Binding Capacity < 36 ug/dL (250-450) Iron Saturation 0 % (15-34) Total Bilirubin 0.1 mg/dL (0.2-1.0) Aspartate Amino Transf (AST/SGOT) 17 U/L (15-37) Alanine Aminotransferase (ALT/SGPT) 12 U/L (16-63) Alkaline Phosphatase 73 U/L (46-116) Total Protein 6.0 g/dL (6.4-8.2) Albumin 1.9 g/dL (3.4-5.0) Albumin/Globulin Ratio 0.5 (1.0-1.7) Urine Opiates Screen Neg (NEG) Urine Methadone Screen Neg (NEG) Urine Barbiturates Neg (NEG) Urine Phencyclidine Screen Neg (NEG) Urine Amphetamine/Methamphetamine Neg (NEG) Urine Benzodiazepines Screen Neg (NEG) Urine Cocaine Screen Neg (NEG) Urine Cannabinoids Screen Neg (NEG) Urine Ethyl Alcohol Neg (NEG) Glucose (Fingerstick) 266 mg/dL (70-99) 317 mg/dL (70-99) Test 03/07/19 07:55 03/07/19 08:36 03/07/19 11:47 Glucose (Fingerstick) 55 mg/dL (70-99) 123 mg/dL (70-99) 214 mg/dL (70-99) Laboratory Tests Test 03/06/19 14:10 03/06/19 16:05 03/06/19 21:09 03/07/19 07:55 Urine Opiates Screen Neg (NEG) Urine Methadone Screen Neg (NEG) Urine Barbiturates Neg (NEG) Urine Phencyclidine Screen Neg (NEG) Urine Amphetamine/Methamphetamine Neg (NEG) Urine Benzodiazepines Screen Neg (NEG) Urine Cocaine Screen Neg (NEG) Urine Cannabinoids Screen Neg (NEG) Urine Ethyl Alcohol Neg (NEG) Glucose (Fingerstick) 266 mg/dL (70-99) 317 mg/dL (70-99) 55 mg/dL (70-99) Test 03/07/19 08:36 03/07/19 11:47 Glucose (Fingerstick) 123 mg/dL (70-99) 214 mg/dL (70-99) Brief Hospital Course Mr. Osorio is a 48 old white male, bad DM,. no home meds at home on arrival, came in with infected scalp wound and uncontrolled DM, NOw we had to start lantus 20 qhs, colleague started, unsure why not metformin or glyburide (pls refer to prev progress notes0, Im seeing him today, [facility] where he can get cefazolin q 8 as per iD, has a picc, bec of GPC bacteremia (staph aureus) and he is refusing STEPHANY, Still refusing STEPHANY RT elbow swelling, prev site of IV peripheral, SONO neg for DVT Advised elevation (Does not want warm compress claims not working), not wanting NSAIDs too, I advsied arm elevation SNu today dc 32 mins Discharge Information Condition at Discharge: Improved, Stable Disposition/Orders: Other (snu) Scheduled Cyanocobalamin (Vitamin B-12) (Vitamin B-12) 1,000 Mcg Tablet, 1,000 MCG PO DAILY for mvi, #30 Prescribed by: RADHA RODRIGUEZ on 03/07/19 1316 Diclofenac Sodium (Voltaren) 100 Gm Gel..gram., 1 MYLA TP QID for wound for 14 Days, #56 Prescribed by: RADHA RODRIGUEZ on 03/07/19 1316 Insulin Glargine,Hum.rec.anlog (Lantus) 100 Unit/1 Ml Vial, 20 UNIT SQ QHS for dm for 30 Days Prescribed by: RADHA RODRIGUEZ on 03/07/19 131 Lidocaine (Lidocaine PATCH ) 1 Each Adh..patch, 1 PATCH TD DAILY for msk p ain, #14 Prescribed by: RADHA RODRIGUEZ on 03/07/19 1316 Potassium Chloride (Klor-Con M20) 20 Meq Tab.er.prt, 40 MEQ PO DAILY for low K for 7 Days, #14 Prescribed by: RADHA RODRIGUEZ on 03/07/19 1316 Scheduled PRN Acetaminophen With Codeine (Acetaminophen-Cod #3 Tablet) 1 Each Tablet, 1 TAB PO PRN Q6HRS PRN for MODERATE PAIN, #30 Prescribed by: RADHA RODRIGUEZ on 03/07/19 1316 Temazepam (Restoril) 7.5 Mg Capsule, 7.5 MG PO PRN QHS PRN for INSOMNIA, #30 Prescribed by: RADHA RODRIGUEZ on 03/07/19 1316 RADHA RODRIGUEZ MD Mar 07, 2019 13:20
[2019-03-07] MEDS: CYANOCOBALAMIN (VITAMIN B-12) 1,000 MCG TABLET. PO SCH (13:28)
[2019-03-07] MEDS ORDERED: ceFAZolin SODIUM 2 GM in IV DEXTROSE 5% 50 ML IV SCH (14:00)
--- NOTE | 2019-03-07 14:03 | NUR ---
SELWYN following for discharge planning. Chart reviewed, discussed with RN. Pt needing IV abx and wound care upon discharge. SELWYN contacted [facility] who advised pt is 40% service connected so does not qualify for alf. Pt does not have a primary care provider so is not able to get home health, IV abx or wound care at home, as there is no PCP to order and [facility] the [facility]. Pt needs to call Elig[facility] ([phone] x [phone]) [facility]. SELWYN spoke with Sasha at the [facility] who advised if pt came to their ED it wouldn't be guaranteed that he would be able to get the IV cefazolin after leaving. SELWYN discussed with case management, Bello. Selwyn waiting to hear from Dr. Hills re frequency and dosage of the IV cefazolin. SELWYN will continue to follow.
[2019-03-07 15:00] VITALS: BP 132/76
[2019-03-07 19:00] VITALS: BP 134/77
--- NOTE | 2019-03-07 19:14 | PDOC ---
PROGRESS NOTES Subjective Subjective Problems overnight: Both last Thursday and today Mr. Osorio reports that his right hip pain is very much decreased. Specifically today he indicates that he can get up and around with minimal pain and sitting on the toilet which gave him very severe pain previously is not bothering him and as a result he does not have to raise up his right buttocks to sit on the toilet. He is very pleased with his ability to get around and the resolution of his hip pain so far Objective Vital Signs Vital Signs Date Time Temp Pulse Resp B/P (MAP) Pulse Ox O2 Delivery O2 Flow Rate FiO2 03/07/19 15:00 98.3 72 17 132/76 (94) 97 Room Air 98.3 03/06/19 20:30 2.0 Physical Exam On examination he has only very minimal tenderness on the hamstring insertion at the pubic ramus there is no overlying skin compromise or fluctuance present he has good mobility of the hip no tenderness on sitting and is able to ambulate without difficulty Labs Laboratory Tests Test 03/05/19 21:15 03/06/19 07:33 03/06/19 11:13 03/06/19 13:10 Glucose (Fingerstick) 254 mg/dL (70-99) 85 mg/dL (70-99) 127 mg/dL (70-99) White Blood Count 6.2 x10^3/uL (4.0-11.0) Red Blood Count 3.31 x10^6/uL (4.30-5.70) Hemoglobin 9.6 g/dL (13.0-17.5) Hematocrit 29.5 % (39.0-53.0) Mean Corpuscular Volume 89 fL (79-100) Mean Corpuscular Hemoglobin 29 pg (25-35) Mean Corpuscular Hemoglobin Concent 33 g/dL (31-37) Red Cell Distribution Width 13.6 % (11.5-14.5) Platelet Count 301 x10^3/uL (140-400) Neutrophils (%) (Auto) 65 % (31-73) Lymphocytes (%) (Auto) 14 % (24-48) Monocytes (%) (Auto) 16 % (0-9) Eosinophils (%) (Auto) 4 % (0-3) Basophils (%) (Auto) 1 % (0-3) Neutrophils # (Auto) 4.1 x10^3/uL (1.8-7.7) Lymphocytes # (Auto) 0.9 x10^3/uL (1.0-4.8) Monocytes # (Auto) 1.0 x10^3/uL (0.0-1.1) Eosinophils # (Auto) 0.3 x10^3/uL (0.0-0.7) Basophils # (Auto) 0.1 x10^3/uL (0.0-0.2) Erythrocyte Sedimentation Rate 80 (0-15) Absolute Reticulocyte Count 0.079 x10^6/uL (0.020-0.120) Percent Reticulocyte Count 2.4 % (0.5-2.3) Immature Reticulocyte Fraction 0.53 (0.20-0.60) Sodium Level 140 mmol/L (136-145) Potassium Level 4.3 mmol/L (3.5-5.1) Chloride Level 104 mmol/L (98-107) Carbon Dioxide Level 31 mmol/L (21-32) Anion Gap 5 (6-14) Blood Urea Nitrogen 14 mg/dL (8-26) Creatinine 1.2 mg/dL (0.7-1.3) Estimated GFR (Cockcroft-Gault) 64.6 BUN/Creatinine Ratio 12 (6-20) Glucose Level 166 mg/dL (70-99) Calcium Level 8.1 mg/dL (8.5-10.1) Iron Level 14 ug/dL (65-175) Total Iron Binding Capacity < 36 ug/dL (250-450) Iron Saturation 0 % (15-34) Total Bilirubin 0.1 mg/dL (0.2-1.0) Aspartate Amino Transf (AST/SGOT) 17 U/L (15-37) Alanine Aminotransferase (ALT/SGPT) 12 U/L (16-63) Alkaline Phosphatase 73 U/L (46-116) Total Protein 6.0 g/dL (6.4-8.2) Albumin 1.9 g/dL (3.4-5.0) Albumin/Globulin Ratio 0.5 (1.0-1.7) Test 03/06/19 14:10 03/06/19 16:05 03/06/19 21:09 03/07/19 07:55 Urine Opiates Screen Neg (NEG) Urine Methadone Screen Neg (NEG) Urine Barbiturates Neg (NEG) Urine Phencyclidine Screen Neg (NEG) Urine Amphetamine/Methamphetamine Neg (NEG) Urine Benzodiazepines Screen Neg (NEG) Urine Cocaine Screen Neg (NEG) Urine Cannabinoids Screen Neg (NEG) Urine Ethyl Alcohol Neg (NEG) Glucose (Fingerstick) 266 mg/dL (70-99) 317 mg/dL (70-99) 55 mg/dL (70-99) Test 03/07/19 08:36 03/07/19 11:47 03/07/19 17:15 Glucose (Fingerstick) 123 mg/dL (70-99) 214 mg/dL (70-99) 282 mg/dL (70-99) Laboratory Tests Test 03/06/19 21:09 03/07/19 07:55 03/07/19 08:36 03/07/19 11:47 Glucose (Fingerstick) 317 mg/dL (70-99) 55 mg/dL (70-99) 123 mg/dL (70-99) 214 mg/dL (70-99) Test 03/07/19 17:15 Glucose (Fingerstick) 282 mg/dL (70-99) Assessment Assessment Nonoperative treatment of left hamstring origin pain, CT abnormality with potential infection, confirmed by interventional radiology needle aspirate growing MSSA Plan Plan of Care I went over with the patient today the culture finding from his needle biopsy showing MSSA. This was a new result from Thursday when we last met. I went over the possible treatments with him of continued nonoperative treatment with antibiotics versus surgical exploration and the potential advantages of surgery in being able to debride the affected area versus the risks of a wound and a pressure susceptible area particularly in a poorly controlled diabetic that would limit his healing potential. He feels that the hip is getting better and would like to proceed with nonoperative treatment like we discussed on Thursday. I told him that I had further discussion with the infectious disease doctor and reviewed the entire case. I think although there is room for judgment in his treatment that we both as physicians agree that ongoing non-operative treatment with antibiotics especially based on the patient's improvement would be appropriate. Clinically he seems very much improved has very little functional limitation and I think overall there would be high risks of undergoing surgery and an area susceptible to pressure particularly with with his healing concerns due to diabetes nutritional and other medical issues. All his questions were answered he confirms his desire to continue to undergo nonoperative treatment. I encouraged him to call at any time if his situation is worsening that we could reconsider surgery but otherwise symptomatic limitations and his considerations for discharge and postoperative treatment per medical management and ongoing administration of antibiotics AMNA LVIE MD Mar 07, 2019 19:14
[2019-03-07] MEDS: PATCH REMOVAL. MC SCH (21:00)
[2019-03-07] MEDS: INSULIN GLARGINE SYRINGE. SQ SCH (21:35)
[2019-03-07 23:00] VITALS: BP 162/89
[2019-03-08 03:00] VITALS: BP 137/77
[2019-03-08 07:00] VITALS: BP 126/70
[2019-03-08] MEDS: INSULIN LISPRO 300 UNITS/3 ML VIAL. SQ SCH ×3 (08:00→17:00)
[2019-03-08] MEDS: LIDOCAINE (700MG/PATCH) PATCH. TD SCH (08:33)
[2019-03-08] MEDS: DICLOFENAC SODIUM 1% TOPICAL GEL 100GM TUBE. TP SCH ×4 (09:00→21:00)
[2019-03-08] MEDS: POTASSIUM CHLORIDE 20 MEQ TABLET.ER. PO SCH (09:17)
[2019-03-08] MEDS: LACTOBACILLUS RHAMNOSUS GG 1 CAPSULE. PO SCH ×2 (09:17→21:02)
[2019-03-08] MEDS: CYANOCOBALAMIN (VITAMIN B-12) 1,000 MCG TABLET. PO SCH (09:18)
--- NOTE | 2019-03-08 09:37 | PDOC ---
Infectious Disease Note Subjective Subjective feeling little better ROS ROS no n/v/d/sob Vital Sign Vital Signs Vital Signs Date Time Temp Pulse Resp B/P (MAP) Pulse Ox O2 Delivery O2 Flow Rate FiO2 03/08/19 07:00 98.0 68 14 126/70 (88) 97 Room Air 98.0 Physical Exam PHYSICAL EXAM GENERAL: Propped up in bed, alert, in no apparent distress. HEENT: Pupils are equally round, reactive. Oral cavity, oropharynx pink and moist. Superficial scalp wound improved and alopecia. NECK: Supple. JVD LUNGS: Clear to auscultation. HEART: S1, S2 regular. ABDOMEN: Nondistended, soft, nontender with bowel sounds present. EXTREMITIES: Trace pedal edema in lower extremities bilaterally. Sensitive to touch. No cyanosis. Several dry annular wounds/scabs both legs bilaterally wo associated redness or drainage. LUE with trace edema SKIN: Warm to touch. No signs of rash NEUROLOGIC: Alert and oriented x 3. Labs Lab Laboratory Tests Test 03/07/19 11:47 03/07/19 17:15 03/07/19 21:20 03/08/19 07:36 Glucose (Fingerstick) 214 mg/dL (70-99) 282 mg/dL (70-99) 278 mg/dL (70-99) 149 mg/dL (70-99) Micro Hip culture MSSA BC MSSA Objective Assessment MSSA bacteremia with sepsis, POA. 02/25 repeat 03/01 - neg so far TTE with Mod TV regurg 03/03 Nonhealing wounds involving scalp and lower extremities, bilaterally - superficial - healing Right hip pain - pelvis CT shows soft tissue thickening and focal gas overlying the right ischial tuberosity, and there is suggestion of early bone destruction. ESR 68 s/p biopsy/cults 03/02. culture + MSSA Hypothermia - better Leukocytosis - resolved DKA Peripheral neuropathy Loose stools, c. diff neg 02/27 Plan Plan of Care STEPHANY ,pt refused Repeat BC neg 03/01 cefazolin for 6 wks ss to arrange through [facility]ANNE MARIE MD Mar 08, 2019 09:37
[2019-03-08 11:00] VITALS: BP 138/79
--- NOTE | 2019-03-08 11:00 | PDOC ---
Subjective: Subjective: Feels fine. Objective: Objective: D/w nurse - no GI concerns - discharge plans unclear - needs weeks of atbx w/ home health or SNU - [facility] Vital Signs: Vital Signs Date Time Temp Pulse Resp B/P (MAP) Pulse Ox O2 Delivery O2 Flow Rate FiO2 03/08/19 07:00 98.0 68 14 126/70 (88) 97 Room Air 98.0 Labs: Laboratory Tests Test 03/07/19 11:47 03/07/19 17:15 03/07/19 21:20 03/08/19 07:36 Glucose (Fingerstick) 214 mg/dL (70-99) 282 mg/dL (70-99) 278 mg/dL (70-99) 149 mg/dL (70-99) PE: GEN: NAD - walking up and down arias, stops at fridge for a Sprite LUNGS: room air SKIN: scalp wounds NEURO/PSYCH: A & O 3 A/P: Anemia - on B12 replacement DKA, MSSA bacteremia -- Awaiting DC, continue B12. ADITYA STEVE Mar 08, 2019 11:00
--- NOTE | 2019-03-08 12:13 | PDOC ---
PROGRESS NOTES Chief Complaint Chief Complaint GPC bacteremia with sepsis, POA. refusing STEPHANY Nonhealing wounds involving scalp and lower extremities, bilaterally - superfic ial - healing Right hip pain - pelvis CT shows soft tissue thickening and focal gas overlying the right ischial tuberosity, and there is suggestion of early bone destruction. ESR 68 Hypothermia - better moderate protein-caloric malnutrition Leukocytosis - sepsis dehydration DKA Peripheral neuropathy TTE with Mod TV regurg 03/03///PA pressure was estimated at 52 mmHg NORMOCYTIC ANEMIA Gallbladder wall thickening is present but ascites is noted and may account for this finding. History of Present Illness History of Present Illness he has no complaints DIfficult dc as per case mx ([facility] etc) NEeds 6 weeks IV cefazolin TID HAs GPC STAPH BAteremia and refusing STEPHANY Doing well with current cefazolin PLAN: Dc plans in the works NEeds 6 weeks IV abx bec this is STAPH BACTEREMIA - refuses STEPHANY I updated pt of his status- he is aware Vitals Vitals Vital Signs Date Time Temp Pulse Resp B/P (MAP) Pulse Ox O2 Delivery O2 Flow Rate FiO2 03/08/19 07:00 98.0 68 14 126/70 (88) 97 Room Air 98.0 Physical Exam Physical Exam GENERAL: Propped up in bed, alert, in no apparent distress. HEENT: Pupils are equally round, reactive. Oral cavity, oropharynx pink and moist. Superficial scalp wound improved and alopecia. NECK: Supple. JVD LUNGS: Clear to auscultation. HEART: S1, S2 regular. ABDOMEN: Nondistended, soft, nontender with bowel sounds present. EXTREMITIES: Trace pedal edema in lower extremities bilaterally. Sensitive to touch. No cyanosis. Several dry annular wounds/scabs both legs bilaterally wo associated redness or drainage. LUE with trace edema SKIN: Warm to touch. No signs of rash NEUROLOGIC: Alert and oriented x 3. General: Alert, Oriented X3, Cooperative, No acute distress Heart: Regular rate, Normal S1, Normal S2, No murmurs Lungs: Clear, Other (No respiratory distress) Abdomen: Normal bowel sounds, Soft, No tenderness Extremities: No clubbing, No cyanosis Skin: No rashes, No significant lesion Labs LABS Laboratory Tests Test 03/07/19 17:15 03/07/19 21:20 03/08/19 07:36 03/08/19 11:14 Glucose (Fingerstick) 282 mg/dL (70-99) 278 mg/dL (70-99) 149 mg/dL (70-99) 174 mg/dL (70-99) Review of Systems Review of Systems neg 14 pt reviewed Assessment and Plan Assessmemt and Plan Problems Medical Problems: (1) Dehydration Status: Acute (2) DKA (diabetic ketoacidoses) Status: Acute (3) Scalp abscess Status: Acute (4) Sepsis Status: Acute Comment Review of Relevant I have reviewed the following items orestes (where applicable) has been applied. Labs Laboratory Tests Test 03/06/19 13:10 03/06/19 14:10 03/06/19 16:05 03/06/19 21:09 White Blood Count 6.2 x10^3/uL (4.0-11.0) Red Blood Count 3.31 x10^6/uL (4.30-5.70) Hemoglobin 9.6 g/dL (13.0-17.5) Hematocrit 29.5 % (39.0-53.0) Mean Corpuscular Volume 89 fL (79-100) Mean Corpuscular Hemoglobin 29 pg (25-35) Mean Corpuscular Hemoglobin Concent 33 g/dL (31-37) Red Cell Distribution Width 13.6 % (11.5-14.5) Platelet Count 301 x10^3/uL (140-400) Neutrophils (%) (Auto) 65 % (31-73) Lymphocytes (%) (Auto) 14 % (24-48) Monocytes (%) (Auto) 16 % (0-9) Eosinophils (%) (Auto) 4 % (0-3) Basophils (%) (Auto) 1 % (0-3) Neutrophils # (Auto) 4.1 x10^3/uL (1.8-7.7) Lymphocytes # (Auto) 0.9 x10^3/uL (1.0-4.8) Monocytes # (Auto) 1.0 x10^3/uL (0.0-1.1) Eosinophils # (Auto) 0.3 x10^3/uL (0.0-0.7) Basophils # (Auto) 0.1 x10^3/uL (0.0-0.2) Erythrocyte Sedimentation Rate 80 (0-15) Absolute Reticulocyte Count 0.079 x10^6/uL (0.020-0.120) Percent Reticulocyte Count 2.4 % (0.5-2.3) Immature Reticulocyte Fraction 0.53 (0.20-0.60) Sodium Level 140 mmol/L (136-145) Potassium Level 4.3 mmol/L (3.5-5.1) Chloride Level 104 mmol/L (98-107) Carbon Dioxide Level 31 mmol/L (21-32) Anion Gap 5 (6-14) Blood Urea Nitrogen 14 mg/dL (8-26) Creatinine 1.2 mg/dL (0.7-1.3) Estimated GFR (Cockcroft-Gault) 64.6 BUN/Creatinine Ratio 12 (6-20) Glucose Level 166 mg/dL (70-99) Calcium Level 8.1 mg/dL (8.5-10.1) Iron Level 14 ug/dL (65-175) Total Iron Binding Capacity < 36 ug/dL (250-450) Iron Saturation 0 % (15-34) Total Bilirubin 0.1 mg/dL (0.2-1.0) Aspartate Amino Transf (AST/SGOT) 17 U/L (15-37) Alanine Aminotransferase (ALT/SGPT) 12 U/L (16-63) Alkaline Phosphatase 73 U/L (46-116) Total Protein 6.0 g/dL (6.4-8.2) Albumin 1.9 g/dL (3.4-5.0) Albumin/Globulin Ratio 0.5 (1.0-1.7) Urine Opiates Screen Neg (NEG) Urine Methadone Screen Neg (NEG) Urine Barbiturates Neg (NEG) Urine Phencyclidine Screen Neg (NEG) Urine Amphetamine/Methamphetamine Neg (NEG) Urine Benzodiazepines Screen Neg (NEG) Urine Cocaine Screen Neg (NEG) Urine Cannabinoids Screen Neg (NEG) Urine Ethyl Alcohol Neg (NEG) Glucose (Fingerstick) 266 mg/dL (70-99) 317 mg/dL (70-99) Test 03/07/19 07:55 03/07/19 08:36 03/07/19 11:47 03/07/19 17:15 Glucose (Fingerstick) 55 mg/dL (70-99) 123 mg/dL (70-99) 214 mg/dL (70-99) 282 mg/dL (70-99) Test 03/07/19 21:20 03/08/19 07:36 03/08/19 11:14 Glucose (Fingerstick) 278 mg/dL (70-99) 149 mg/dL (70-99) 174 mg/dL (70-99) Laboratory Tests Test 03/07/19 17:15 03/07/19 21:20 03/08/19 07:36 03/08/19 11:14 Glucose (Fingerstick) 282 mg/dL (70-99) 278 mg/dL (70-99) 149 mg/dL (70-99) 174 mg/dL (70-99) Microbiology 03/02/19 Anaerobic/Aerobic Culture, Resulted Pending 03/02/19 Anaerobic Culture Result 1 (SUNITA), Resulted Pending 03/02/19 Aerobic Culture - Final, Resulted 03/02/19 Aerobic Culture Result 1 (SUNITA) - Final, Resulted 03/02/19 Antimicrobic Susceptibility - Final, Resulted 03/02/19 Gram Stain - Final, Resulted 03/02/19 Gram Stain Result 1 (SUNITA) - Final, Resulted 03/02/19 Gram Stain Result 2 (SUNITA) - Final, Resulted 03/01/19 Blood Culture - Final, Complete NO GROWTH AFTER 5 DAYS 02/26/19 Urine Culture - Final, Complete 02/26/19 Urine Culture Result 1 (SUNITA) - Final, Complete Medications Current Medications Sodium Chloride 1,000 ml @ 1,000 mls/hr 1X ONCE IV Last administered on 02/25/19at 15:20; Start 02/25/19 at 14:45; Stop 02/25/19 at 15:44; Status DC Sodium Chloride 1,000 ml @ 1,000 mls/hr 1X ONCE IV Last administered on 02/25/19at 15:20; Start 02/25/19 at 15:15; Stop 02/25/19 at 16:14; Status DC Insulin Human Regular 150 ml @ 0 mls/hr 1X ONCE IV Last administered on 02/25/19at 16:01; Start 02/25/19 at 15:30; Stop 02/25/19 at 15:32; Status DC Vancomycin HCl 250 ml @ 250 mls/hr 1X ONCE IV Last administered on 02/25/19at 16:04; Start 02/25/19 at 16:00; Stop 02/25/19 at 16:59; Status DC Ondansetron HCl (Zofran) 4 mg PRN Q8HRS PRN IV NAUSEA/VOMITING; Start 02/25/19 at 16:15; Stop 02/25/19 at 17:32; Status DC Sodium Chloride 1,000 ml @ 100 mls/hr Q10H IV ; Start 02/25/19 at 16:08; Stop 02/26/19 at 08:29; Status DC Sodium Chloride 1,000 ml @ 250 mls/hr Q4H IV Last administered on 02/25/19at 21:28; Start 02/25/19 at 17:00; Stop 02/26/19 at 03:06; Status DC Dextrose/Sodium Chloride 1,000 ml @ 250 mls/hr Q4H IV Last administered on 02/25/19at 23:26; Start 02/25/19 at 16:39; Stop 02/26/19 at 03:06; Status DC Insulin Human Regular 150 unit/ Sodium Chloride 151.5 ml @ 0 mls/hr CONT PRN PRN IV PER PROTOCOL; Start 02/25/19 at 16:45; Stop 02/26/19 at 03:06; Status DC Potassium Chloride/Water 100 ml @ 100 mls/hr PRN Q1HR PRN IV SEE COMMENTS Last administered on 02/26/19at 01:19; Start 02/25/19 at 16:45; Stop 02/26/19 at 03:06; Status DC Potassium Chloride/Water 100 ml @ 100 mls/hr PRN Q1HR PRN IV SEE COMMENTS Last administered on 02/25/19at 23:26; Start 02/25/19 at 16:45; Stop 02/26/19 at 03:06; Status DC Potassium Chloride/Water 100 ml @ 100 mls/hr PRN Q1HR PRN IV SEE COMMENTS; Start 02/25/19 at 16:45; Stop 02/26/19 at 03:06; Status DC Sodium Bicarbonate 50 meq/Sodium Chloride 1,050 ml @ 125 mls/hr 1X ONCE IV Last administered on 02/25/19at 17:51; Start 02/25/19 at 16:45; Stop 02/26/19 at 01:08; Status DC Calcium Carbonate/ Glycine (Tums) 500 mg PRN AFTMEALHC PRN PO INDIGESTION; Start 02/25/19 at 16:45 Temazepam (Restoril) 7.5 mg PRN QHS PRN PO INSOMNIA; Start 02/25/19 at 16:45 Acetaminophen (Tylenol) 500 mg PRN Q6HRS PRN PO MILD PAIN / TEMP; Start 02/25/19 at 16:45 Acetaminophen/ Codeine Phosphate (Tylenol #3) 1 tab PRN Q6HRS PRN PO MODERATE PAIN Last administered on 03/01/19at 21:33; Start 02/25/19 at 16:45 Ondansetron HCl (Zofran) 4 mg PRN Q6HRS PRN IVP NAUSEA/VOMITING; Start 02/25/19 at 16:45 Cefazolin Sodium 50 ml @ 100 mls/hr Q8HRS IV ; Start 02/25/19 at 22:00; Status UNV Cefazolin Sodium 50 ml @ As Directed STK-MED ONCE IV ; Start 02/25/19 at 17:12; Stop 02/25/19 at 17:32; Status DC Cefazolin Sodium 50 ml @ 100 mls/hr 1X ONCE IV Last administered on 02/25/19at 17:30; Start 02/25/19 at 17:30; Stop 02/25/19 at 17:59; Status DC Cefazolin Sodium (Ancef) 1 gm Q8HRS IVP Last administered on 02/28/19at 13:54; Start 02/25/19 at 22:00; Stop 02/28/19 at 18:52; Status DC Potassium Chloride/Water 100 ml @ 100 mls/hr PRN Q1HR PRN IV SEE COMMENTS; Start 02/25/19 at 21:00 Magnesium Sulfate 100 ml @ 25 mls/hr DAILY IV Last administered on 02/28/19at 12:24; Start 02/26/19 at 09:00; Stop 03/01/19 at 08:59; Status DC Dextrose (Dextrose 50%-Water Syringe) 12.5 gm PRN Q15MIN PRN IV SEE COMMENTS; Start 02/26/19 at 03:00; Status UNV Insulin Glargine (Lantus Syringe) 20 unit QHS SQ Last administered on 03/07/19at 21:35; Start 02/26/19 at 21:00 Insulin Human Lispro (HumaLOG) 10 units TIDWMEALS SQ Last administered on 02/26/19at 17:33; Start 02/26/19 at 08:00; Stop 02/26/19 at 18:45; Status DC Dextrose (Dextrose 50%-Water Syringe) 12.5 gm PRN Q15MIN PRN IV SEE COMMENTS; Start 02/26/19 at 03:00; Stop 03/07/19 at 10:41; Status DC Insulin Glargine (Lantus Syringe) 10 unit 1X ONCE SQ Last administered on 02/26/19at 03:16; Start 02/26/19 at 03:30; Stop 02/26/19 at 03:31; Status DC Sodium Chloride 1,000 ml @ 100 mls/hr Q10H IV Last administered on 03/07/19at 09:59; Start 02/26/19 at 03:00; Stop 03/07/19 at 10:39; Status DC Vancomycin HCl (Vanco Per Pharmacy) 1 each PRN DAILY PRN MC SEE COMMENTS Last administered on 03/01/19at 15:41; Start 02/26/19 at 08:45; Stop 03/02/19 at 12:58; Status DC Vancomycin HCl 1 gm/Sodium Chloride 250 ml @ 250 mls/hr Q12H IV Last administered on 02/26/19 21:22; Start 02/26/19 at 09:00; Stop 02/27/19 at 09:06; Status DC Diclofenac Sodium (Voltaren) 1 jeannine BID TP Last administered on 02/27/19 07:56; Start 02/26/19 at 10:30; Stop 02/27/19 at 11:58; Status DC Potassium Chloride (Klor-Con) 40 meq 1X ONCE PO Last administered on 02/26/19at 11:01; Start 02/26/19 at 11:00; Stop 02/26/19 at 11:01; Status DC Lidocaine (Lidoderm) 1 patch DAILY TD Last administered on 02/27/19at 07:56; Start 02/26/19 at 11:30 Miscellaneous (Lidoderm Patch Removal) 1 ea QHS MC Last administered on 03/07/19at 21:00; Start 02/26/19 at 21:00 Lactobacillus Rhamnosus (Culturelle) 1 cap BID PO Last administered on 03/08/19at 09:17; Start 02/26/19 at 21:00 Vancomycin HCl (Vancomycin Trough Level) 1 each 1X ONCE MC Last administered on 02/27/19at 08:30; Start 02/27/19 at 08:30; Stop 02/27/19 at 08:31; Status DC Insulin Human Lispro (HumaLOG) 0-7 UNITS TIDWMEALS SQ Last administered on 03/06/19at 18:05; Start 02/27/19 at 08:00; Stop 03/07/19 at 10:42; Status DC Vancomycin HCl 750 mg/Sodium Chloride 250 ml @ 250 mls/hr Q8H IV Last administered on 03/02/19at 09:26; Start 02/27/19 at 09:30; Stop 03/02/19 at 12:58; Status DC Vancomycin HCl (Vancomycin Trough Level) 1 each 1X ONCE MC Last administered on 02/28/19at 09:00; Start 02/28/19 at 09:00; Stop 02/28/19 at 09:01; Status DC Potassium Chloride (Klor-Con) 40 meq 1X ONCE PO Last administered on 02/27/19at 09:56; Start 02/27/19 at 10:00; Stop 02/27/19 at 10:01; Status DC Diclofenac Sodium (Voltaren) 1 jeannine QID TP Last administered on 03/07/19at 21:23; Start 02/27/19 at 12:00 Potassium Chloride (Klor-Con) 20 meq 1X ONCE PO Last administered on 02/28/19at 12:24; Start 02/28/19 at 11:00; Stop 02/28/19 at 11:01; Status DC Potassium Chloride (Klor-Con) 40 meq 1X ONCE PO Last administered on 02/28/19at 06:58; Start 02/28/19 at 07:00; Stop 02/28/19 at 07:01; Status DC Potassium Chloride (Klor-Con) 40 meq DAILY PO Last administered on 03/08/19at 09:17; Start 02/28/19 at 09:00 Piperacillin Sod/ Tazobactam Sod 3.375 gm/Sodium Chloride 50 ml @ 100 mls/hr Q6HRS IV Last administered on 03/07/19at 05:47; Start 02/28/19 at 12:00; Stop 03/07/19 at 10:37; Status DC Lidocaine HCl (Buffered Lidocaine 1%) 3 ml STK-MED ONCE .ROUTE ; Start 03/02/19 at 08:01; Stop 03/02/19 at 08:02; Status DC Midazolam HCl (Versed) 2 mg STK-MED ONCE .ROUTE ; Start 03/02/19 at 08:26; Stop 03/02/19 at 08:26; Status DC Fentanyl Citrate (Fentanyl 2ml Vial) 100 mcg STK-MED ONCE .ROUTE ; Start 03/02/19 at 08:26; Stop 03/02/19 at 08:27; Status DC Lidocaine HCl (Buffered Lidocaine 1%) 3 ml 1X ONCE IJ Last administered on 03/02/19at 08:45; Start 03/02/19 at 08:45; Stop 03/02/19 at 08:48; Status DC Midazolam HCl (Versed) 2 mg 1X ONCE IV Last administered on 03/02/19at 08:45; Start 03/02/19 at 08:45; Stop 03/02/19 at 08:48; Status DC Fentanyl Citrate (Fentanyl 2ml Vial) 100 mcg 1X ONCE IV Last administered on 03/02/19at 08:45; Start 03/02/19 at 08:45; Stop 03/02/19 at 08:48; Status DC Ringer's Solution 1,000 ml @ 50 mls/hr Q20H IV ; Start 03/04/19 at 07:00; Stop 03/04/19 at 18:59; Status DC Lidocaine HCl (Viscous Lidocaine) 15 ml 1X ONCE SWSW ; Start 03/04/19 at 07:30; Stop 03/04/19 at 07:31; Status DC Lidocaine HCl (Xylocaine 2% Topical 30gm Tube) 1 jeannine 1X ONCE TP ; Start 03/04/19 at 07:30; Stop 03/04/19 at 07:31; Status DC Benzocaine (Hurricaine One) 2 spray 1X ONCE MM ; Start 03/04/19 at 07:30; Stop 03/04/19 at 07:31; Status DC Lidocaine HCl (Xylocaine 2% Topical 30gm Tube) 1 jeannine 1X ONCE TP ; Start 03/04/19 at 07:30; Stop 03/04/19 at 07:31; Status UNV Lidocaine HCl (Viscous Lidocaine) 15 ml 1X ONCE SWSW ; Start 03/04/19 at 07:30; Stop 03/04/19 at 07:31; Status UNV Benzocaine (Hurricaine One) 2 spray 1X ONCE MM ; Start 03/04/19 at 07:30; Stop 03/04/19 at 07:31; Status UNV Lidocaine HCl (Buffered Lidocaine 1%) 3 ml STK-MED ONCE .ROUTE ; Start 03/04/19 at 14:44; Stop 03/04/19 at 14:45; Status DC Lidocaine HCl (Buffered Lidocaine 1%) 3 ml 1X ONCE INJ Last administered on 03/04/19at 15:00; Start 03/04/19 at 15:00; Stop 03/04/19 at 15:01; Status DC Insulin Human Lispro (HumaLOG) 11 units 1X SQ ; Start 03/06/19 at 22:30; Stop 03/06/19 at 22:36; Status DC Insulin Human Lispro (HumaLOG) 11 units 1X ONCE SQ Last administered on 03/06/19at 22:41; Start 03/06/19 at 22:45; Stop 03/06/19 at 22:46; Status DC Dextrose (Iv Dextrose 5%) 250 ml PRN Q15MIN PRN IV SEE COMMENTS Last administered on 03/07/19at 08:10; Start 03/07/19 at 08:15; Stop 03/07/19 at 10:41; Status DC Cefazolin Sodium 2 gm/Dextrose 50 ml @ 100 mls/hr Q8HRS IV ; Start 03/07/19 at 14:00; Status UNV Cefazolin Sodium/ Dextrose 50 ml @ 100 mls/hr Q8HRS IV Last administered on 03/08/19at 06:06; Start 03/07/19 at 14:00 Insulin Human Lispro (HumaLOG) 0-9 UNITS TIDWMEALS SQ Last administered on 03/07/19at 17:22; Start 03/07/19 at 12:00 Dextrose (Dextrose 50%-Water Syringe) 12.5 gm PRN Q15MIN PRN IV SEE COMMENTS; Start 03/07/19 at 10:45 Dextrose (Iv Dextrose 5%) 250 ml PRN Q15MIN PRN IV SEE COMMENTS; Start 03/07/19 at 10:45 Cyanocobalamin (Vitamin B-12) 1,000 mcg DAILY PO Last administered on 03/08/19at 09:18; Start 03/07/19 at 14:00 Active Scripts Active Lidocaine PATCH (Lidocaine) 1 Each Adh..patch 1 Patch TD DAILY Vitamin B-12 (Cyanocobalamin (Vitamin B-12)) 1,000 Mcg Tablet 1,000 Mcg PO DAILY Lantus (Insulin Glargine,Hum.rec.anlog) 100 Unit/1 Ml Vial 20 Unit SQ QHS 30 Days Klor-Con M20 (Potassium Chloride) 20 Meq Tab.er.prt 40 Meq PO DAILY 7 Days Acetaminophen-Cod #3 Tablet (Acetaminophen/Codeine Phosphate) 1 Each Tablet 1 Tab PO PRN Q6HRS PRN Restoril (Temazepam) 7.5 Mg Capsule 7.5 Mg PO PRN QHS PRN Voltaren (Diclofenac Sodium) 100 Gm Gel..gram. 1 Jeannine TP QID 14 Days Vitals/I & O Vital Sign - Last 24 Hours 03/07/19 03/07/19 03/07/19 03/07/19 15:00 19:00 19:30 23:00 Temp 98.3 98.8 98.7 98.3 98.8 98.7 Pulse 72 78 74 Resp 17 18 18 B/P (MAP) 132/76 (94) 134/77 (96) 162/89 (113) Pulse Ox 97 98 98 O2 Delivery Room Air Room Air Room Air Room Air 03/08/19 03/08/19 03:00 07:00 Temp 98.7 98.0 98.7 98.0 Pulse 74 68 Resp 18 14 B/P (MAP) 137/77 (97) 126/70 (88) Pulse Ox 95 97 O2 Delivery Room Air Room Air Intake and Output 03/07/19 03/07/19 03/08/19 15:00 23:00 07:00 Intake Total 1270 ml 240 ml 240 ml Balance 1270 ml 240 ml 240 ml Nutrition Consultation Dietary Evaluation: Recommendations by RD: Dietary education by RD, Protein supplementation Comments: ADA, DBL meats encourage BS control RD available x [phone] if interested in diet education REC mvi and vit c per wound protocal Expected Outcomes/Goals: to meet >75% est protein needs glycemic control Goals : ongoing Malnutrition Findings: Body Fat Depletion (Non Severe: Mild Depletion Weight Status: Underweight RADHA RODRIGUEZ MD Mar 08, 2019 12:13
[2019-03-08 15:00] VITALS: BP 130/75
[2019-03-08 19:00] VITALS: BP 154/87
[2019-03-08] MEDS: PATCH REMOVAL. MC SCH (21:00)
[2019-03-08] MEDS: INSULIN GLARGINE SYRINGE. SQ SCH (21:07)
[2019-03-08 23:00] VITALS: BP 135/77
[2019-03-09 03:00] VITALS: BP 152/83
[2019-03-09 07:00] VITALS: BP 128/76
[2019-03-09] MEDS: LIDOCAINE (700MG/PATCH) PATCH. TD SCH (08:22)
[2019-03-09] MEDS: DICLOFENAC SODIUM 1% TOPICAL GEL 100GM TUBE. TP SCH ×4 (08:54→21:00)
[2019-03-09] MEDS: LACTOBACILLUS RHAMNOSUS GG 1 CAPSULE. PO SCH ×2 (08:56→22:31)
[2019-03-09] MEDS: CYANOCOBALAMIN (VITAMIN B-12) 1,000 MCG TABLET. PO SCH (08:56)
[2019-03-09] MEDS: POTASSIUM CHLORIDE 20 MEQ TABLET.ER. PO SCH (08:56)
[2019-03-09] MEDS: INSULIN LISPRO 300 UNITS/3 ML VIAL. SQ SCH ×3 (09:07→17:43)
--- NOTE | 2019-03-09 09:46 | PDOC ---
Infectious Disease Note Subjective Subjective feeling much better ROS ROS no n/v/d/sob Vital Sign Vital Signs Vital Signs Date Time Temp Pulse Resp B/P (MAP) Pulse Ox O2 Delivery O2 Flow Rate FiO2 03/09/19 07:00 97.9 66 18 128/76 (93) 97 Room Air 97.9 Physical Exam PHYSICAL EXAM GENERAL: Propped up in bed, alert, in no apparent distress. HEENT: Pupils are equally round, reactive. Oral cavity, oropharynx pink and moist. Superficial scalp wound improved and alopecia. NECK: Supple. JVD LUNGS: Clear to auscultation. HEART: S1, S2 regular. ABDOMEN: Nondistended, soft, nontender with bowel sounds present. EXTREMITIES: Trace pedal edema in lower extremities bilaterally. Sensitive to touch. No cyanosis. Several dry annular wounds/scabs both legs bilaterally wo associated redness or drainage. LUE with trace edema SKIN: Warm to touch. No signs of rash NEUROLOGIC: Alert and oriented x 3. Labs Lab Laboratory Tests Test 03/08/19 11:14 03/08/19 16:38 03/08/19 21:01 03/09/19 07:28 Glucose (Fingerstick) 174 mg/dL (70-99) 270 mg/dL (70-99) 317 mg/dL (70-99) 245 mg/dL (70-99) Micro culture MSSA BC MSSA Objective Assessment MSSA bacteremia with sepsis, POA. 02/25 repeat 03/01 - neg so far TTE with Mod TV regurg 03/03 Nonhealing wounds involving scalp and lower extremities, bilaterally - superficial - healing Right hip pain - pelvis CT shows soft tissue thickening and focal gas overlying the right ischial tuberosity, and there is suggestion of early bone destruction. ESR 68 s/p biopsy/cults 03/02. culture + MSSA Hypothermia - better Leukocytosis - resolved DKA Peripheral neuropathy Loose stools, c. diff neg 02/27 Plan Plan of Care STEPHANY ,pt refused CT-guided biopsy, soft tissue thickening at the insertion of the hamstring tendons on the pubic bone.,, MSSA Repeat BC neg 03/01 cefazolin for 6 wks ss to arrange through SUZANNE MARIE MD Mar 09, 2019 09:46
--- NOTE | 2019-03-09 09:57 | PDOC ---
PROGRESS NOTES Chief Complaint Chief Complaint GPC bacteremia (STAPH AUREAUS) with sepsis, POA. refusing STEPHANY (wont change mx) Nonhealing wounds involving scalp and lower extremities, bilaterally - superficial - healing Right hip pain - pelvis CT shows soft tissue thickening and focal gas overlying the right ischial tuberosity, and there is suggestion of early bone destruction. ESR 68 Hypothermia - better moderate protein-caloric malnutrition Leukocytosis - sepsis dehydration DKA Peripheral neuropathy TTE with Mod TV regurg 03/03///PA pressure was estimated at 52 mmHg NORMOCYTIC ANEMIA Gallbladder wall thickening is present but ascites is noted and may account for this finding. History of Present Illness History of Present Illness he has no complaints DIfficult dc as per case mx ([facility] etc) NEeds 6 weeks IV cefazolin TID HAs GPC STAPH BAteremia and refusing STEPHANY (will not change mx anyways) Doing well with current cefazolin PLAN: Dc plans in the works NEeds 6 weeks IV abx bec this is STAPH BACTEREMIA - I updated pt of his status- he is aware Vitals Vitals Vital Signs Date Time Temp Pulse Resp B/P (MAP) Pulse Ox O2 Delivery O2 Flow Rate FiO2 03/09/19 07:00 97.9 66 18 128/76 (93) 97 Room Air 97.9 Physical Exam Physical Exam GENERAL: Propped up in bed, alert, in no apparent distress. HEENT: Pupils are equally round, reactive. Oral cavity, oropharynx pink and moist. Superficial scalp wound improved and alopecia. NECK: Supple. JVD LUNGS: Clear to auscultation. HEART: S1, S2 regular. ABDOMEN: Nondistended, soft, nontender with bowel sounds present. EXTREMITIES: Trace pedal edema in lower extremities bilaterally. Sensitive to touch. No cyanosis. Several dry annular wounds/scabs both legs bilaterally wo associated redness or drainage. LUE with trace edema SKIN: Warm to touch. No signs of rash NEUROLOGIC: Alert and oriented x 3. General: Alert, Oriented X3, Cooperative, No acute distress Heart: Regular rate, Normal S1, Normal S2, No murmurs Lungs: Clear, Other (No respiratory distress) Abdomen: Normal bowel sounds, Soft, No tenderness Extremities: No clubbing, No cyanosis Skin: No rashes, No significant lesion Labs LABS Laboratory Tests Test 03/08/19 11:14 03/08/19 16:38 03/08/19 21:01 03/09/19 07:28 Glucose (Fingerstick) 174 mg/dL (70-99) 270 mg/dL (70-99) 317 mg/dL (70-99) 245 mg/dL (70-99) Review of Systems Review of Systems neg 14 pt reviewed Assessment and Plan Assessmemt and Plan Problems Medical Problems: (1) Dehydration Status: Acute (2) DKA (diabetic ketoacidoses) Status: Acute (3) Scalp abscess Status: Acute (4) Sepsis Status: Acute Comment Review of Relevant I have reviewed the following items orestes (where applicable) has been applied. Labs Laboratory Tests Test 03/07/19 11:47 03/07/19 17:15 03/07/19 21:20 03/08/19 07:36 Glucose (Fingerstick) 214 mg/dL (70-99) 282 mg/dL (70-99) 278 mg/dL (70-99) 149 mg/dL (70-99) Test 03/08/19 11:14 03/08/19 16:38 03/08/19 21:01 03/09/19 07:28 Glucose (Fingerstick) 174 mg/dL (70-99) 270 mg/dL (70-99) 317 mg/dL (70-99) 245 mg/dL (70-99) Laboratory Tests Test 03/08/19 11:14 03/08/19 16:38 03/08/19 21:01 03/09/19 07:28 Glucose (Fingerstick) 174 mg/dL (70-99) 270 mg/dL (70-99) 317 mg/dL (70-99) 245 mg/dL (70-99) Microbiology 03/02/19 Anaerobic/Aerobic Culture - Final, Complete 03/02/19 Anaerobic Culture Result 1 (SUNITA) - Final, Complete 03/02/19 Aerobic Culture - Final, Complete 03/02/19 Aerobic Culture Result 1 (SUNITA) - Final, Complete 03/02/19 Antimicrobic Susceptibility - Final, Complete 03/02/19 Gram Stain - Final, Complete 03/02/19 Gram Stain Result 1 (SUNITA) - Final, Complete 03/02/19 Gram Stain Result 2 (SUNITA) - Final, Complete 03/02/19 Yeast/Fungus Susceptibility - Final, Complete 03/01/19 Blood Culture - Final, Complete NO GROWTH AFTER 5 DAYS 02/26/19 Urine Culture - Final, Complete 02/26/19 Urine Culture Result 1 (SUNITA) - Final, Complete Medications Current Medications Sodium Chloride 1,000 ml @ 1,000 mls/hr 1X ONCE IV Last administered on 02/25/19at 15:20; Start 02/25/19 at 14:45; Stop 02/25/19 at 15:44; Status DC Sodium Chloride 1,000 ml @ 1,000 mls/hr 1X ONCE IV Last administered on 02/25/19at 15:20; Start 02/25/19 at 15:15; Stop 02/25/19 at 16:14; Status DC Insulin Human Regular 150 ml @ 0 mls/hr 1X ONCE IV Last administered on 02/25/19at 16:01; Start 02/25/19 at 15:30; Stop 02/25/19 at 15:32; Status DC Vancomycin HCl 250 ml @ 250 mls/hr 1X ONCE IV Last administered on 02/25/19at 16:04; Start 02/25/19 at 16:00; Stop 02/25/19 at 16:59; Status DC Ondansetron HCl (Zofran) 4 mg PRN Q8HRS PRN IV NAUSEA/VOMITING; Start 02/25/19 at 16:15; Stop 02/25/19 at 17:32; Status DC Sodium Chloride 1,000 ml @ 100 mls/hr Q10H IV ; Start 02/25/19 at 16:08; Stop 02/26/19 at 08:29; Status DC Sodium Chloride 1,000 ml @ 250 mls/hr Q4H IV Last administered on 02/25/19at 21:28; Start 02/25/19 at 17:00; Stop 02/26/19 at 03:06; Status DC Dextrose/Sodium Chloride 1,000 ml @ 250 mls/hr Q4H IV Last administered on 02/25/19at 23:26; Start 02/25/19 at 16:39; Stop 02/26/19 at 03:06; Status DC Insulin Human Regular 150 unit/ Sodium Chloride 151.5 ml @ 0 mls/hr CONT PRN PRN IV PER PROTOCOL; Start 02/25/19 at 16:45; Stop 02/26/19 at 03:06; Status DC Potassium Chloride/Water 100 ml @ 100 mls/hr PRN Q1HR PRN IV SEE COMMENTS Last administered on 02/26/19at 01:19; Start 02/25/19 at 16:45; Stop 02/26/19 at 03:06; Status DC Potassium Chloride/Water 100 ml @ 100 mls/hr PRN Q1HR PRN IV SEE COMMENTS Last administered on 02/25/19at 23:26; Start 02/25/19 at 16:45; Stop 02/26/19 at 03:06; Status DC Potassium Chloride/Water 100 ml @ 100 mls/hr PRN Q1HR PRN IV SEE COMMENTS; Start 02/25/19 at 16:45; Stop 02/26/19 at 03:06; Status DC Sodium Bicarbonate 50 meq/Sodium Chloride 1,050 ml @ 125 mls/hr 1X ONCE IV Last administered on 02/25/19at 17:51; Start 02/25/19 at 16:45; Stop 02/26/19 at 01:08; Status DC Calcium Carbonate/ Glycine (Tums) 500 mg PRN AFTMEALHC PRN PO INDIGESTION; Start 02/25/19 at 16:45 Temazepam (Restoril) 7.5 mg PRN QHS PRN PO INSOMNIA; Start 02/25/19 at 16:45 Acetaminophen (Tylenol) 500 mg PRN Q6HRS PRN PO MILD PAIN / TEMP; Start 02/25/19 at 16:45 Acetaminophen/ Codeine Phosphate (Tylenol #3) 1 tab PRN Q6HRS PRN PO MODERATE PAIN Last administered on 03/01/19at 21:33; Start 02/25/19 at 16:45 Ondansetron HCl (Zofran) 4 mg PRN Q6HRS PRN IVP NAUSEA/VOMITING; Start 02/25/19 at 16:45 Cefazolin Sodium 50 ml @ 100 mls/hr Q8HRS IV ; Start 02/25/19 at 22:00; Status UNV Cefazolin Sodium 50 ml @ As Directed STK-MED ONCE IV ; Start 02/25/19 at 17:12; Stop 02/25/19 at 17:32; Status DC Cefazolin Sodium 50 ml @ 100 mls/hr 1X ONCE IV Last administered on 02/25/19at 17:30; Start 02/25/19 at 17:30; Stop 02/25/19 at 17:59; Status DC Cefazolin Sodium (Ancef) 1 gm Q8HRS IVP Last administered on 02/28/19at 13:54; Start 02/25/19 at 22:00; Stop 02/28/19 at 18:52; Status DC Potassium Chloride/Water 100 ml @ 100 mls/hr PRN Q1HR PRN IV SEE COMMENTS; Start 02/25/19 at 21:00; Stop 03/08/19 at 12:11; Status DC Magnesium Sulfate 100 ml @ 25 mls/hr DAILY IV Last administered on 02/28/19at 12:24; Start 02/26/19 at 09:00; Stop 03/01/19 at 08:59; Status DC Dextrose (Dextrose 50%-Water Syringe) 12.5 gm PRN Q15MIN PRN IV SEE COMMENTS; Start 02/26/19 at 03:00; Status UNV Insulin Glargine (Lantus Syringe) 20 unit QHS SQ Last administered on 03/08/19at 21:07; Start 02/26/19 at 21:00 Insulin Human Lispro (HumaLOG) 10 units TIDWMEALS SQ Last administered on 02/26/19at 17:33; Start 02/26/19 at 08:00; Stop 02/26/19 at 18:45; Status DC Dextrose (Dextrose 50%-Water Syringe) 12.5 gm PRN Q15MIN PRN IV SEE COMMENTS; Start 02/26/19 at 03:00; Stop 03/07/19 at 10:41; Status DC Insulin Glargine (Lantus Syringe) 10 unit 1X ONCE SQ Last administered on 02/26/19at 03:16; Start 02/26/19 at 03:30; Stop 02/26/19 at 03:31; Status DC Sodium Chloride 1,000 ml @ 100 mls/hr Q10H IV Last administered on 03/07/19at 09:59; Start 02/26/19 at 03:00; Stop 03/07/19 at 10:39; Status DC Vancomycin HCl (Vanco Per Pharmacy) 1 each PRN DAILY PRN MC SEE COMMENTS Last administered on 03/01/19at 15:41; Start 02/26/19 at 08:45; Stop 03/02/19 at 12:58; Status DC Vancomycin HCl 1 gm/Sodium Chloride 250 ml @ 250 mls/hr Q12H IV Last administered on 02/26/19 21:22; Start 02/26/19 at 09:00; Stop 02/27/19 at 09:06; Status DC Diclofenac Sodium (Voltaren) 1 jeannine BID TP Last administered on 02/27/19 07:56; Start 02/26/19 at 10:30; Stop 02/27/19 at 11:58; Status DC Potassium Chloride (Klor-Con) 40 meq 1X ONCE PO Last administered on 02/26/19 11:01; Start 02/26/19 at 11:00; Stop 02/26/19 at 11:01; Status DC Lidocaine (Lidoderm) 1 patch DAILY TD Last administered on 02/27/19 07:56; Start 02/26/19 at 11:30 Miscellaneous (Lidoderm Patch Removal) 1 ea QHS MC Last administered on 03/08/19 21:00; Start 02/26/19 at 21:00 Lactobacillus Rhamnosus (Culturelle) 1 cap BID PO Last administered on 03/09/19 08:56; Start 02/26/19 at 21:00 Vancomycin HCl (Vancomycin Trough Level) 1 each 1X ONCE MC Last administered on 02/27/19 08:30; Start 02/27/19 at 08:30; Stop 02/27/19 at 08:31; Status DC Insulin Human Lispro (HumaLOG) 0-7 UNITS TIDWMEALS SQ Last administered on 03/06/19 18:05; Start 02/27/19 at 08:00; Stop 03/07/19 at 10:42; Status DC Vancomycin HCl 750 mg/Sodium Chloride 250 ml @ 250 mls/hr Q8H IV Last administered on 03/02/19 09:26; Start 02/27/19 at 09:30; Stop 03/02/19 at 12:58; Status DC Vancomycin HCl (Vancomycin Trough Level) 1 each 1X ONCE MC Last administered on 02/28/19 09:00; Start 02/28/19 at 09:00; Stop 02/28/19 at 09:01; Status DC Potassium Chloride (Klor-Con) 40 meq 1X ONCE PO Last administered on 02/27/19 09:56; Start 02/27/19 at 10:00; Stop 02/27/19 at 10:01; Status DC Diclofenac Sodium (Voltaren) 1 jeannine QID TP Last administered on 03/07/19at 21:23; Start 02/27/19 at 12:00 Potassium Chloride (Klor-Con) 20 meq 1X ONCE PO Last administered on 02/28/19at 12:24; Start 02/28/19 at 11:00; Stop 02/28/19 at 11:01; Status DC Potassium Chloride (Klor-Con) 40 meq 1X ONCE PO Last administered on 02/28/19at 06:58; Start 02/28/19 at 07:00; Stop 02/28/19 at 07:01; Status DC Potassium Chloride (Klor-Con) 40 meq DAILY PO Last administered on 03/09/19at 08:56; Start 02/28/19 at 09:00 Piperacillin Sod/ Tazobactam Sod 3.375 gm/Sodium Chloride 50 ml @ 100 mls/hr Q6HRS IV Last administered on 03/07/19at 05:47; Start 02/28/19 at 12:00; Stop 03/07/19 at 10:37; Status DC Lidocaine HCl (Buffered Lidocaine 1%) 3 ml STK-MED ONCE .ROUTE ; Start 03/02/19 at 08:01; Stop 03/02/19 at 08:02; Status DC Midazolam HCl (Versed) 2 mg STK-MED ONCE .ROUTE ; Start 03/02/19 at 08:26; Stop 03/02/19 at 08:26; Status DC Fentanyl Citrate (Fentanyl 2ml Vial) 100 mcg STK-MED ONCE .ROUTE ; Start 03/02/19 at 08:26; Stop 03/02/19 at 08:27; Status DC Lidocaine HCl (Buffered Lidocaine 1%) 3 ml 1X ONCE IJ Last administered on 03/02/19at 08:45; Start 03/02/19 at 08:45; Stop 03/02/19 at 08:48; Status DC Midazolam HCl (Versed) 2 mg 1X ONCE IV Last administered on 03/02/19at 08:45; Start 03/02/19 at 08:45; Stop 03/02/19 at 08:48; Status DC Fentanyl Citrate (Fentanyl 2ml Vial) 100 mcg 1X ONCE IV Last administered on 03/02/19at 08:45; Start 03/02/19 at 08:45; Stop 03/02/19 at 08:48; Status DC Ringer's Solution 1,000 ml @ 50 mls/hr Q20H IV ; Start 03/04/19 at 07:00; Stop 03/04/19 at 18:59; Status DC Lidocaine HCl (Viscous Lidocaine) 15 ml 1X ONCE SWSW ; Start 03/04/19 at 07:30; Stop 03/04/19 at 07:31; Status DC Lidocaine HCl (Xylocaine 2% Topical 30gm Tube) 1 jeannine 1X ONCE TP ; Start 03/04/19 at 07:30; Stop 03/04/19 at 07:31; Status DC Benzocaine (Hurricaine One) 2 spray 1X ONCE MM ; Start 03/04/19 at 07:30; Stop 03/04/19 at 07:31; Status DC Lidocaine HCl (Xylocaine 2% Topical 30gm Tube) 1 jeannine 1X ONCE TP ; Start 03/04/19 at 07:30; Stop 03/04/19 at 07:31; Status UNV Lidocaine HCl (Viscous Lidocaine) 15 ml 1X ONCE SWSW ; Start 03/04/19 at 07:30; Stop 03/04/19 at 07:31; Status UNV Benzocaine (Hurricaine One) 2 spray 1X ONCE MM ; Start 03/04/19 at 07:30; Stop 03/04/19 at 07:31; Status UNV Lidocaine HCl (Buffered Lidocaine 1%) 3 ml STK-MED ONCE .ROUTE ; Start 03/04/19 at 14:44; Stop 03/04/19 at 14:45; Status DC Lidocaine HCl (Buffered Lidocaine 1%) 3 ml 1X ONCE INJ Last administered on 03/04/19at 15:00; Start 03/04/19 at 15:00; Stop 03/04/19 at 15:01; Status DC Insulin Human Lispro (HumaLOG) 11 units 1X SQ ; Start 03/06/19 at 22:30; Stop 03/06/19 at 22:36; Status DC Insulin Human Lispro (HumaLOG) 11 units 1X ONCE SQ Last administered on 03/06/19at 22:41; Start 03/06/19 at 22:45; Stop 03/06/19 at 22:46; Status DC Dextrose (Iv Dextrose 5%) 250 ml PRN Q15MIN PRN IV SEE COMMENTS Last administered on 03/07/19at 08:10; Start 03/07/19 at 08:15; Stop 03/07/19 at 10:41; Status DC Cefazolin Sodium 2 gm/Dextrose 50 ml @ 100 mls/hr Q8HRS IV ; Start 03/07/19 at 14:00; Status UNV Cefazolin Sodium/ Dextrose 50 ml @ 100 mls/hr Q8HRS IV Last administered on 03/09/19at 05:52; Start 03/07/19 at 14:00 Insulin Human Lispro (HumaLOG) 0-9 UNITS TIDWMEALS SQ Last administered on 03/09/19at 09:07; Start 03/07/19 at 12:00 Dextrose (Dextrose 50%-Water Syringe) 12.5 gm PRN Q15MIN PRN IV SEE COMMENTS; Start 03/07/19 at 10:45 Dextrose (Iv Dextrose 5%) 250 ml PRN Q15MIN PRN IV SEE COMMENTS; Start 03/07/19 at 10:45 Cyanocobalamin (Vitamin B-12) 1,000 mcg DAILY PO Last administered on 02/20 11/08at 08:56; Start 03/07/19 at 14:00 Active Scripts Active Lidocaine PATCH (Lidocaine) 1 Each Adh..patch 1 Patch TD DAILY Vitamin B-12 (Cyanocobalamin (Vitamin B-12)) 1,000 Mcg Tablet 1,000 Mcg PO DAILY Lantus (Insulin Glargine,Hum.rec.anlog) 100 Unit/1 Ml Vial 20 Unit SQ QHS 30 Days Klor-Con M20 (Potassium Chloride) 20 Meq Tab.er.prt 40 Meq PO DAILY 7 Days Acetaminophen-Cod #3 Tablet (Acetaminophen/Codeine Phosphate) 1 Each Tablet 1 Tab PO PRN Q6HRS PRN Restoril (Temazepam) 7.5 Mg Capsule 7.5 Mg PO PRN QHS PRN Voltaren (Diclofenac Sodium) 100 Gm Gel..gram. 1 Jeannine TP QID 14 Days Vitals/I & O Vital Sign - Last 24 Hours 03/08/19 03/08/19 03/08/19 03/08/19 11:00 15:00 19:00 20:00 Temp 98.1 98.0 98.6 98.1 98.0 98.6 Pulse 72 75 77 Resp 14 14 16 B/P (MAP) 138/79 (98) 130/75 (93) 154/87 (109) Pulse Ox 95 95 93 O2 Delivery Room Air Room Air Room Air Room Air 03/08/19 03/09/19 03/09/19 23:00 03:00 07:00 Temp 98.0 98.4 97.9 98.0 98.4 97.9 Pulse 74 73 66 Resp 16 16 18 B/P (MAP) 135/77 (96) 152/83 (106) 128/76 (93) Pulse Ox 94 97 97 O2 Delivery Room Air Room Air Room Air Nutrition Consultation Dietary Evaluation: Recommendations by RD: Dietary education by RD, Protein supplementation Comments: ADA, DBL meats encourage BS control RD available x [phone] if interested in diet education REC mvi and vit c per wound protocal Expected Outcomes/Goals: to meet >75% est protein needs glycemic control Goals : ongoing Malnutrition Findings: Body Fat Depletion (Non Severe: Mild Depletion Weight Status: Underweight RADHA RODRIGUEZ MD Mar 09, 2019 09:57
--- NOTE | 2019-03-09 11:04 | PDOC ---
Objective: Vital Signs: Vital Signs Date Time Temp Pulse Resp B/P (MAP) Pulse Ox O2 Delivery O2 Flow Rate FiO2 03/09/19 07:00 97.9 66 18 128/76 (93) 97 Room Air 97.9 Labs: Laboratory Tests Test 03/08/19 11:14 03/08/19 16:38 03/08/19 21:01 03/09/19 07:28 Glucose (Fingerstick) 174 mg/dL 270 mg/dL 317 mg/dL 245 mg/dL Test 03/09/19 10:26 Glucose (Fingerstick) 204 mg/dL AEROBIC RES 1 Final Comment Staphylococcus aureus PE: GEN: NAD NEURO/PSYCH: sleeping, not awakened A/P: Anemia - on B12 replacement DKA, MSSA bacteremia -- Awaiting DC, continue B12. Hemodynamically unstable?: No Is patient in severe pain?: No Is NPO status required?: No ADITYA STEVE Mar 09, 2019 11:04
[2019-03-09 11:13] VITALS: BP 132/76
--- NOTE | 2019-03-09 13:07 | NUR ---
SW info: Pt called [facility], was informed his PCP is now Dr. Max Martin telephone [phone]. Rep verified to pt that there is not a case management social worker/case finishing machine adjuster assigned to him.
--- NOTE | 2019-03-09 14:19 | NUR ---
Wound Care: Patient seen per wound care follow up for head and left leg abrasions. Patient has dry scabs to top of head and right lower leg, painted with Betadine. Pt also has open abrasion to left lower leg, wound cleansed, assessed, and measured. Redressed with contact layer and foam dressing. No other wounds noted upon complete head to toe assessment, coccyx is reddened but remains blanchable. Dressing change instructions left in room. Bed lowered and call light in reach. Will follow patient regarding wound care.
[2019-03-09 15:23] VITALS: BP 126/67
--- NOTE | 2019-03-09 16:07 | NUR ---
SW following. Discussed with RN, pt believes he has [employer] (?) insurance. Case management confirmed with registration, pt is not eligible for [employer]. SW to contact [facility] and determine pt's transition social worker to try to find solution to pt discharge planning. SW will continue to follow. RN notified.
[2019-03-09 19:00] VITALS: BP 142/79
[2019-03-09] MEDS: PATCH REMOVAL. MC SCH (21:00)
[2019-03-09] MEDS: INSULIN GLARGINE SYRINGE. SQ SCH (22:41)
[2019-03-09 23:00] VITALS: BP 139/67
[2019-03-10 03:00] VITALS: BP 139/70
[2019-03-10 07:00] VITALS: BP 122/64
[2019-03-10] MEDS: DICLOFENAC SODIUM 1% TOPICAL GEL 100GM TUBE. TP SCH ×4 (07:27→21:00)
[2019-03-10] MEDS: LIDOCAINE (700MG/PATCH) PATCH. TD SCH (07:27)
[2019-03-10] MEDS: INSULIN LISPRO 300 UNITS/3 ML VIAL. SQ SCH ×3 (08:00→17:14)
[2019-03-10] MEDS: IV DEXTROSE 5% 250 ML BAG. IV PRN ×2 (08:04→08:27)
--- NOTE | 2019-03-10 08:10 | NUR ---
FSBG 44, patient alert and oriented times 4. Patient states just beginning to feel shaky, 120 cc juice given, D5%W 250 cc IV per protocol and patient eating breakfast now, will recheck blood sugar per protocol. Patient verb. understanding POC.
[2019-03-10] MEDS: CYANOCOBALAMIN (VITAMIN B-12) 1,000 MCG TABLET. PO SCH (08:28)
[2019-03-10] MEDS: POTASSIUM CHLORIDE 20 MEQ TABLET.ER. PO SCH (08:29)
[2019-03-10] MEDS: LACTOBACILLUS RHAMNOSUS GG 1 CAPSULE. PO SCH ×2 (08:29→21:36)
--- NOTE | 2019-03-10 08:30 | NUR ---
Blood sugar now 127, patient states aymptomatic now. One bag 250 D5W given as patient blood sugar now in normal range. Continue to monitor.
--- NOTE | 2019-03-10 10:19 | PDOC ---
Subjective: Subjective: Feels fine. Objective: Vital Signs: Vital Signs Date Time Temp Pulse Resp B/P (MAP) Pulse Ox O2 Delivery O2 Flow Rate FiO2 03/10/19 08:00 Room Air 03/10/19 07:00 98.6 72 16 122/64 (83) 90 98.6 Labs: Laboratory Tests Test 03/09/19 10:26 03/09/19 16:44 03/09/19 20:48 03/10/19 08:00 Glucose (Fingerstick) 204 mg/dL (70-99) 225 mg/dL (70-99) 250 mg/dL (70-99) 44 mg/dL (70-99) Test 03/10/19 08:28 Glucose (Fingerstick) 127 mg/dL (70-99) PE: GEN: walking to fridge NEURO/PSYCH: A & O 3 A/P: Anemia - on B12 replacement DM, MSSA bacteremia -- Awaiting DC. Hemodynamically unstable?: No Is patient in severe pain?: No Is NPO status required?: No ADITYA STEVE Mar 10, 2019 10:19
--- NOTE | 2019-03-10 10:40 | PDOC ---
PROGRESS NOTES Chief Complaint Chief Complaint impression GPC bacteremia (STAPH AUREAUS) with sepsis, POA. refusing STEPHANY (wont change mx) Nonhealing wounds involving scalp and lower extremities, bilaterally - superficial - healing Right hip pain - pelvis CT shows soft tissue thickening and focal gas overlying the right ischial tuberosity, and there is suggestion of early bone destruction. ESR 68 Hypothermia - better moderate protein-caloric malnutrition Leukocytosis - sepsis dehydration DKA Peripheral neuropathy TTE with Mod TV regurg 03/03///PA pressure was estimated at 52 mmHg NORMOCYTIC ANEMIA Gallbladder wall thickening is present but ascites is noted and may account for this finding. cont iv ancef q 8 hrs cefazolin for 6 wks ss [facility] min pt exam, chart review, > 50% of time spent with exam, chart review, pt care coordination History of Present Illness History of Present Illness he has no complaints DIfficult dc as per case mx ([facility] etc) NEeds 6 weeks IV cefazolin TID HAs GPC STAPH BAteremia and refusing STEPHANY (will not change mx anyways) Doing well with current cefazolin PLAN: Dc plans in the works NEeds 6 weeks IV abx bec this is STAPH BACTEREMIA - I updated pt of his status- he is aware Vitals Vitals Vital Signs Date Time Temp Pulse Resp B/P (MAP) Pulse Ox O2 Delivery O2 Flow Rate FiO2 03/10/19 08:00 Room Air 03/10/19 07:00 98.6 72 16 122/64 (83) 90 98.6 Physical Exam Physical Exam GENERAL: Propped up in bed, alert, in no apparent distress. HEENT: Pupils are equally round, reactive. Oral cavity, oropharynx pink and moist. Superficial scalp wound improved and alopecia. NECK: Supple. JVD LUNGS: Clear to auscultation. HEART: S1, S2 regular. ABDOMEN: Nondistended, soft, nontender with bowel sounds present. EXTREMITIES: Trace pedal edema in lower extremities bilaterally. Sensitive to touch. No cyanosis. Several dry annular wounds/scabs both legs bilaterally wo associated redness or drainage. LUE with trace edema SKIN: Warm to touch. No signs of rash NEUROLOGIC: Alert and oriented x 3. General: Alert, Oriented X3, Cooperative, No acute distress Heart: Regular rate, Normal S1, Normal S2, No murmurs Lungs: Clear, Other (No respiratory distress) Abdomen: Normal bowel sounds, Soft, No tenderness Extremities: No clubbing, No cyanosis, No edema Skin: No rashes, No significant lesion Labs LABS Laboratory Tests Test 03/09/19 16:44 03/09/19 20:48 03/10/19 08:00 03/10/19 08:28 Glucose (Fingerstick) 225 mg/dL (70-99) 250 mg/dL (70-99) 44 mg/dL (70-99) 127 mg/dL (70-99) Assessment and Plan Assessmemt and Plan Problems Medical Problems: (1) Dehydration Status: Acute (2) DKA (diabetic ketoacidoses) Status: Acute (3) Scalp abscess Status: Acute (4) Sepsis Status: Acute Comment Review of Relevant I have reviewed the following items orestes (where applicable) has been applied. Labs Laboratory Tests Test 03/08/19 11:14 03/08/19 16:38 03/08/19 21:01 03/09/19 07:28 Glucose (Fingerstick) 174 mg/dL (70-99) 270 mg/dL (70-99) 317 mg/dL (70-99) 245 mg/dL (70-99) Test 03/09/19 10:26 03/09/19 16:44 03/09/19 20:48 03/10/19 08:00 Glucose (Fingerstick) 204 mg/dL (70-99) 225 mg/dL (70-99) 250 mg/dL (70-99) 44 mg/dL (70-99) Test 03/10/19 08:28 Glucose (Fingerstick) 127 mg/dL (70-99) Laboratory Tests Test 03/09/19 16:44 03/09/19 20:48 03/10/19 08:00 03/10/19 08:28 Glucose (Fingerstick) 225 mg/dL (70-99) 250 mg/dL (70-99) 44 mg/dL (70-99) 127 mg/dL (70-99) Microbiology 03/02/19 Anaerobic/Aerobic Culture - Final, Complete 03/02/19 Anaerobic Culture Result 1 (SUNITA) - Final, Complete 03/02/19 Aerobic Culture - Final, Complete 03/02/19 Aerobic Culture Result 1 (SUNITA) - Final, Complete 03/02/19 Antimicrobic Susceptibility - Final, Complete 03/02/19 Gram Stain - Final, Complete 03/02/19 Gram Stain Result 1 (SUNITA) - Final, Complete 03/02/19 Gram Stain Result 2 (SUNITA) - Final, Complete 03/02/19 Yeast/Fungus Susceptibility - Final, Complete 03/01/19 Blood Culture - Final, Complete NO GROWTH AFTER 5 DAYS 02/26/19 Urine Culture - Final, Complete 02/26/19 Urine Culture Result 1 (SUNITA) - Final, Complete Medications Current Medications Sodium Chloride 1,000 ml @ 1,000 mls/hr 1X ONCE IV Last administered on 02/25/19at 15:20; Start 02/25/19 at 14:45; Stop 02/25/19 at 15:44; Status DC Sodium Chloride 1,000 ml @ 1,000 mls/hr 1X ONCE IV Last administered on 02/25/19at 15:20; Start 02/25/19 at 15:15; Stop 02/25/19 at 16:14; Status DC Insulin Human Regular 150 ml @ 0 mls/hr 1X ONCE IV Last administered on 02/25/19at 16:01; Start 02/25/19 at 15:30; Stop 02/25/19 at 15:32; Status DC Vancomycin HCl 250 ml @ 250 mls/hr 1X ONCE IV Last administered on 02/25/19at 16:04; Start 02/25/19 at 16:00; Stop 02/25/19 at 16:59; Status DC Ondansetron HCl (Zofran) 4 mg PRN Q8HRS PRN IV NAUSEA/VOMITING; Start 02/25/19 at 16:15; Stop 02/25/19 at 17:32; Status DC Sodium Chloride 1,000 ml @ 100 mls/hr Q10H IV ; Start 02/25/19 at 16:08; Stop 02/26/19 at 08:29; Status DC Sodium Chloride 1,000 ml @ 250 mls/hr Q4H IV Last administered on 02/25/19at 21:28; Start 02/25/19 at 17:00; Stop 02/26/19 at 03:06; Status DC Dextrose/Sodium Chloride 1,000 ml @ 250 mls/hr Q4H IV Last administered on 02/25/19at 23:26; Start 02/25/19 at 16:39; Stop 02/26/19 at 03:06; Status DC Insulin Human Regular 150 unit/ Sodium Chloride 151.5 ml @ 0 mls/hr CONT PRN PRN IV PER PROTOCOL; Start 02/25/19 at 16:45; Stop 02/26/19 at 03:06; Status DC Potassium Chloride/Water 100 ml @ 100 mls/hr PRN Q1HR PRN IV SEE COMMENTS Last administered on 02/26/19at 01:19; Start 02/25/19 at 16:45; Stop 02/26/19 at 03:06; Status DC Potassium Chloride/Water 100 ml @ 100 mls/hr PRN Q1HR PRN IV SEE COMMENTS Last administered on 02/25/19at 23:26; Start 02/25/19 at 16:45; Stop 02/26/19 at 03:06; Status DC Potassium Chloride/Water 100 ml @ 100 mls/hr PRN Q1HR PRN IV SEE COMMENTS; Start 02/25/19 at 16:45; Stop 02/26/19 at 03:06; Status DC Sodium Bicarbonate 50 meq/Sodium Chloride 1,050 ml @ 125 mls/hr 1X ONCE IV Last administered on 02/25/19at 17:51; Start 02/25/19 at 16:45; Stop 02/26/19 at 01:08; Status DC Calcium Carbonate/ Glycine (Tums) 500 mg PRN AFTMEALHC PRN PO INDIGESTION; Start 02/25/19 at 16:45 Temazepam (Restoril) 7.5 mg PRN QHS PRN PO INSOMNIA; Start 02/25/19 at 16:45 Acetaminophen (Tylenol) 500 mg PRN Q6HRS PRN PO MILD PAIN / TEMP; Start 02/25/19 at 16:45 Acetaminophen/ Codeine Phosphate (Tylenol #3) 1 tab PRN Q6HRS PRN PO MODERATE PAIN Last administered on 03/01/19at 21:33; Start 02/25/19 at 16:45 Ondansetron HCl (Zofran) 4 mg PRN Q6HRS PRN IVP NAUSEA/VOMITING; Start 02/25/19 at 16:45 Cefazolin Sodium 50 ml @ 100 mls/hr Q8HRS IV ; Start 02/25/19 at 22:00; Status UNV Cefazolin Sodium 50 ml @ As Directed STK-MED ONCE IV ; Start 02/25/19 at 17:12; Stop 02/25/19 at 17:32; Status DC Cefazolin Sodium 50 ml @ 100 mls/hr 1X ONCE IV Last administered on 02/25/19at 17:30; Start 02/25/19 at 17:30; Stop 02/25/19 at 17:59; Status DC Cefazolin Sodium (Ancef) 1 gm Q8HRS IVP Last administered on 02/28/19at 13:54; Start 02/25/19 at 22:00; Stop 02/28/19 at 18:52; Status DC Potassium Chloride/Water 100 ml @ 100 mls/hr PRN Q1HR PRN IV SEE COMMENTS; Start 02/25/19 at 21:00; Stop 03/08/19 at 12:11; Status DC Magnesium Sulfate 100 ml @ 25 mls/hr DAILY IV Last administered on 02/28/19at 12:24; Start 02/26/19 at 09:00; Stop 03/01/19 at 08:59; Status DC Dextrose (Dextrose 50%-Water Syringe) 12.5 gm PRN Q15MIN PRN IV SEE COMMENTS; Start 02/26/19 at 03:00; Status UNV Insulin Glargine (Lantus Syringe) 20 unit QHS SQ Last administered on 03/09/19at 22:41; Start 02/26/19 at 21:00 Insulin Human Lispro (HumaLOG) 10 units TIDWMEALS SQ Last administered on 02/26/19at 17:33; Start 02/26/19 at 08:00; Stop 02/26/19 at 18:45; Status DC Dextrose (Dextrose 50%-Water Syringe) 12.5 gm PRN Q15MIN PRN IV SEE COMMENTS; Start 02/26/19 at 03:00; Stop 03/07/19 at 10:41; Status DC Insulin Glargine (Lantus Syringe) 10 unit 1X ONCE SQ Last administered on 02/26/19at 03:16; Start 02/26/19 at 03:30; Stop 02/26/19 at 03:31; Status DC Sodium Chloride 1,000 ml @ 100 mls/hr Q10H IV Last administered on 03/07/19at 09:59; Start 02/26/19 at 03:00; Stop 03/07/19 at 10:39; Status DC Vancomycin HCl (Vanco Per Pharmacy) 1 each PRN DAILY PRN MC SEE COMMENTS Last administered on 03/01/19at 15:41; Start 02/26/19 at 08:45; Stop 03/02/19 at 12:58; Status DC Vancomycin HCl 1 gm/Sodium Chloride 250 ml @ 250 mls/hr Q12H IV Last administered on 02/26/19 21:22; Start 02/26/19 at 09:00; Stop 02/27/19 at 09:06; Status DC Diclofenac Sodium (Voltaren) 1 jeannine BID TP Last administered on 02/27/19 07:56; Start 02/26/19 at 10:30; Stop 02/27/19 at 11:58; Status DC Potassium Chloride (Klor-Con) 40 meq 1X ONCE PO Last administered on 02/26/19 11:01; Start 02/26/19 at 11:00; Stop 02/26/19 at 11:01; Status DC Lidocaine (Lidoderm) 1 patch DAILY TD Last administered on 02/27/19 07:56; Start 02/26/19 at 11:30 Miscellaneous (Lidoderm Patch Removal) 1 ea QHS MC Last administered on 03/08/19 21:00; Start 02/26/19 at 21:00 Lactobacillus Rhamnosus (Culturelle) 1 cap BID PO Last administered on 03/10/19 08:29; Start 02/26/19 at 21:00 Vancomycin HCl (Vancomycin Trough Level) 1 each 1X ONCE MC Last administered on 02/27/19 08:30; Start 02/27/19 at 08:30; Stop 02/27/19 at 08:31; Status DC Insulin Human Lispro (HumaLOG) 0-7 UNITS TIDWMEALS SQ Last administered on 03/06/19 18:05; Start 02/27/19 at 08:00; Stop 03/07/19 at 10:42; Status DC Vancomycin HCl 750 mg/Sodium Chloride 250 ml @ 250 mls/hr Q8H IV Last administered on 03/02/19 09:26; Start 02/27/19 at 09:30; Stop 03/02/19 at 12:58; Status DC Vancomycin HCl (Vancomycin Trough Level) 1 each 1X ONCE MC Last administered on 02/28/19at 09:00; Start 02/28/19 at 09:00; Stop 02/28/19 at 09:01; Status DC Potassium Chloride (Klor-Con) 40 meq 1X ONCE PO Last administered on 02/27/19at 09:56; Start 02/27/19 at 10:00; Stop 02/27/19 at 10:01; Status DC Diclofenac Sodium (Voltaren) 1 jeannine QID TP Last administered on 03/07/19at 21:23; Start 02/27/19 at 12:00 Potassium Chloride (Klor-Con) 20 meq 1X ONCE PO Last administered on 02/28/19at 12:24; Start 02/28/19 at 11:00; Stop 02/28/19 at 11:01; Status DC Potassium Chloride (Klor-Con) 40 meq 1X ONCE PO Last administered on 02/28/19at 06:58; Start 02/28/19 at 07:00; Stop 02/28/19 at 07:01; Status DC Potassium Chloride (Klor-Con) 40 meq DAILY PO Last administered on 03/10/19at 08:29; Start 02/28/19 at 09:00 Piperacillin Sod/ Tazobactam Sod 3.375 gm/Sodium Chloride 50 ml @ 100 mls/hr Q6HRS IV Last administered on 03/07/19at 05:47; Start 02/28/19 at 12:00; Stop 03/07/19 at 10:37; Status DC Lidocaine HCl (Buffered Lidocaine 1%) 3 ml STK-MED ONCE .ROUTE ; Start 03/02/19 at 08:01; Stop 03/02/19 at 08:02; Status DC Midazolam HCl (Versed) 2 mg STK-MED ONCE .ROUTE ; Start 03/02/19 at 08:26; Stop 03/02/19 at 08:26; Status DC Fentanyl Citrate (Fentanyl 2ml Vial) 100 mcg STK-MED ONCE .ROUTE ; Start 03/02/19 at 08:26; Stop 03/02/19 at 08:27; Status DC Lidocaine HCl (Buffered Lidocaine 1%) 3 ml 1X ONCE IJ Last administered on 03/02/19at 08:45; Start 03/02/19 at 08:45; Stop 03/02/19 at 08:48; Status DC Midazolam HCl (Versed) 2 mg 1X ONCE IV Last administered on 03/02/19at 08:45; Start 03/02/19 at 08:45; Stop 03/02/19 at 08:48; Status DC Fentanyl Citrate (Fentanyl 2ml Vial) 100 mcg 1X ONCE IV Last administered on 03/02/19at 08:45; Start 03/02/19 at 08:45; Stop 03/02/19 at 08:48; Status DC Ringer's Solution 1,000 ml @ 50 mls/hr Q20H IV ; Start 03/04/19 at 07:00; Stop 03/04/19 at 18:59; Status DC Lidocaine HCl (Viscous Lidocaine) 15 ml 1X ONCE SWSW ; Start 03/04/19 at 07:30; Stop 03/04/19 at 07:31; Status DC Lidocaine HCl (Xylocaine 2% Topical 30gm Tube) 1 jeannine 1X ONCE TP ; Start 03/04/19 at 07:30; Stop 03/04/19 at 07:31; Status DC Benzocaine (Hurricaine One) 2 spray 1X ONCE MM ; Start 03/04/19 at 07:30; Stop 03/04/19 at 07:31; Status DC Lidocaine HCl (Xylocaine 2% Topical 30gm Tube) 1 jeannine 1X ONCE TP ; Start 03/04/19 at 07:30; Stop 03/04/19 at 07:31; Status UNV Lidocaine HCl (Viscous Lidocaine) 15 ml 1X ONCE SWSW ; Start 03/04/19 at 07:30; Stop 03/04/19 at 07:31; Status UNV Benzocaine (Hurricaine One) 2 spray 1X ONCE MM ; Start 03/04/19 at 07:30; Stop 03/04/19 at 07:31; Status UNV Lidocaine HCl (Buffered Lidocaine 1%) 3 ml STK-MED ONCE .ROUTE ; Start 03/04/19 at 14:44; Stop 03/04/19 at 14:45; Status DC Lidocaine HCl (Buffered Lidocaine 1%) 3 ml 1X ONCE INJ Last administered on 03/04/19at 15:00; Start 03/04/19 at 15:00; Stop 03/04/19 at 15:01; Status DC Insulin Human Lispro (HumaLOG) 11 units 1X SQ ; Start 03/06/19 at 22:30; Stop 03/06/19 at 22:36; Status DC Insulin Human Lispro (HumaLOG) 11 units 1X ONCE SQ Last administered on at 22:41; Start 03/06/19 at 22:45; Stop 03/06/19 at 22:46; Status DC Dextrose (Iv Dextrose 5%) 250 ml PRN Q15MIN PRN IV SEE COMMENTS Last administered on 03/07/19at 08:10; Start 03/07/19 at 08:15; Stop 03/07/19 at 10:41; Status DC Cefazolin Sodium 2 gm/Dextrose 50 ml @ 100 mls/hr Q8HRS IV ; Start 03/07/19 at 14:00; Status UNV Cefazolin Sodium/ Dextrose 50 ml @ 100 mls/hr Q8HRS IV Last administered on 03/10/19at 05:36; Start 03/07/19 at 14:00 Insulin Human Lispro (HumaLOG) 0-9 UNITS TIDWMEALS SQ Last administered on 03/09/19at 17:43; Start 03/07/19 at 12:00 Dextrose (Dextrose 50%-Water Syringe) 12.5 gm PRN Q15MIN PRN IV SEE COMMENTS; Start 03/07/19 at 10:45 Dextrose (Iv Dextrose 5%) 250 ml PRN Q15MIN PRN IV SEE COMMENTS Last administered on 03/10/19at 08:04; Start 03/07/19 at 10:45 Cyanocobalamin (Vitamin B-12) 1,000 mcg DAILY PO Last administered on 03/10/19a t 08:28; Start 03/07/19 at 14:00 Active Scripts Active Lidocaine PATCH (Lidocaine) 1 Each Adh..patch 1 Patch TD DAILY Vitamin B-12 (Cyanocobalamin (Vitamin B-12)) 1,000 Mcg Tablet 1,000 Mcg PO DAILY Lantus (Insulin Glargine,Hum.rec.anlog) 100 Unit/1 Ml Vial 20 Unit SQ QHS 30 Days Klor-Con M20 (Potassium Chloride) 20 Meq Tab.er.prt 40 Meq PO DAILY 7 Days Acetaminophen-Cod #3 Tablet (Acetaminophen/Codeine Phosphate) 1 Each Tablet 1 Tab PO PRN Q6HRS PRN Restoril (Temazepam) 7.5 Mg Capsule 7.5 Mg PO PRN QHS PRN Voltaren (Diclofenac Sodium) 100 Gm Gel..gram. 1 Jeannine TP QID 14 Days Vitals/I & O Vital Sign - Last 24 Hours 03/09/19 03/09/19 03/09/19 03/09/19 11:13 15:23 19:00 20:09 Temp 98.0 97.8 98.5 98.0 97.8 98.5 Pulse 70 65 72 Resp 18 18 18 B/P (MAP) 132/76 (94) 126/67 (86) 142/79 (100) Pulse Ox 95 96 95 O2 Delivery Room Air Room Air Room Air Room Air 03/09/19 03/10/19 03/10/19 03/10/19 23:00 03:00 07:00 08:00 Temp 99.2 98.5 98.6 99.2 98.5 98.6 Pulse 75 72 72 Resp 18 18 16 B/P (MAP) 139/67 (91) 139/70 (93) 122/64 (83) Pulse Ox 96 93 90 O2 Delivery Room Air Room Air Room Air Room Air Intake and Output 03/09/19 03/09/19 03/10/19 15:00 23:00 07:00 Intake Total 500 ml 250 ml 220 ml Balance 500 ml 250 ml 220 ml Nutrition Consultation Dietary Evaluation: Recommendations by RD: Dietary education by RD, Protein supplementation Comments: ADA, DBL meats encourage BS control RD available x [phone] if interested in diet education REC mvi and vit c per wound protocal Expected Outcomes/Goals: to meet >75% est protein needs glycemic control Goals : ongoing Malnutrition Findings: Body Fat Depletion (Non Severe: Mild Depletion Weight Status: Underweight Hemodynamically unstable?: No Is patient in severe pain?: No Is NPO status required?: No ALIX RONQUILLO MD Mar 10, 2019 10:40
--- NOTE | 2019-03-10 10:43 | PDOC ---
Infectious Disease Note Subjective Subjective feeling much better ROS ROS no n/v/d/sob Vital Sign Vital Signs Vital Signs Date Time Temp Pulse Resp B/P (MAP) Pulse Ox O2 Delivery O2 Flow Rate FiO2 03/10/19 08:00 Room Air 03/10/19 07:00 98.6 72 16 122/64 (83) 90 98.6 Physical Exam PHYSICAL EXAM GENERAL: Propped up in bed, alert, in no apparent distress. HEENT: Pupils are equally round, reactive. Oral cavity, oropharynx pink and moist. Superficial scalp wound improved and alopecia. NECK: Supple. JVD LUNGS: Clear to auscultation. HEART: S1, S2 regular. ABDOMEN: Nondistended, soft, nontender with bowel sounds present. EXTREMITIES: Trace pedal edema in lower extremities bilaterally. Sensitive to touch. No cyanosis. Several dry annular wounds/scabs both legs bilaterally wo associated redness or drainage. LUE with trace edema SKIN: Warm to touch. No signs of rash NEUROLOGIC: Alert and oriented x 3. Labs Lab Laboratory Tests Test 03/09/19 16:44 03/09/19 20:48 03/10/19 08:00 03/10/19 08:28 Glucose (Fingerstick) 225 mg/dL (70-99) 250 mg/dL (70-99) 44 mg/dL (70-99) 127 mg/dL (70-99) Micro culture MSSA BC MSSA Objective Assessment MSSA bacteremia with sepsis, POA. 02/25 repeat 03/01 - neg so far TTE with Mod TV regurg 03/03 Nonhealing wounds involving scalp and lower extremities, bilaterally - superficial - healing Right hip pain - pelvis CT shows soft tissue thickening and focal gas overlying the right ischial tuberosity, and there is suggestion of early bone destruction. ESR 68 s/p biopsy/cults 03/02. culture + MSSA Hypothermia - better Leukocytosis - resolved DKA Peripheral neuropathy Loose stools, c. diff neg 02/27 Plan Plan of Care STEPHANY ,pt refused CT-guided biopsy, soft tissue thickening at the insertion of the hamstring tendons on the pubic bone.,, MSSA Repeat BC neg 03/01 cefazolin for 6 wks ss to arrange through SUZANNE MARIE MD Mar 10, 2019 10:43
[2019-03-10 11:00] VITALS: BP 121/73
--- NOTE | 2019-03-10 11:00 | NUR ---
SELWYN following pt. SELWYN spoke with Geraldine, , fax: [phone] at [facility] in [place]. Pt was supposed to be seen by Dr. Mills on the for start of care appointment but was hospitalized. Geraldine reports they normally don't process outpatient orders if the pt was not seen by their Physician but another Physician would like to review pt's clinicals first. SELWYN faxed IV abx orders to clinic and awaiting on a response. SELWYN requested Physician for home health orders.
[2019-03-10 11:43] LABS: BASO # 0.1 x10^3/uL (0.0-0.2); BASO % 1 % (0-3); EOS # 0.1 x10^3/uL (0.0-0.7); EOS % 2 % (0-3); HEMATOCRIT 28.3 % (39.0-53.0); HEMOGLOBIN 9.3 g/dL (13.0-17.5); LYMPH # 0.7 x10^3/uL (1.0-4.8); LYMPH % 9 % (24-48); MEAN CORPUSCULAR HEMOGLOBIN 30 pg (25-35); MEAN CORPUSCULAR HGB CONC 33 g/dL (31-37); MEAN CORPUSCULAR VOLUME 89 fL (79-100); MONO # 0.6 x10^3/uL (0.0-1.1); MONO % 8 % (0-9); NEUT # 5.5 x10^3/uL (1.8-7.7); NEUT % 79 % (31-73); PLATELET COUNT 215 x10^3/uL (140-400); RED BLOOD COUNT 3.17 x10^6/uL (4.30-5.70); RED CELL DISTRIBUTION WIDTH 13.7 % (11.5-14.5)
[2019-03-10 11:53] LABS: CALCIUM 8.1 mg/dL (8.5-10.1); CREATININE 1.1 mg/dL (0.7-1.3); GFR 71.4; POTASSIUM 4.5 mmol/L (3.5-5.1)
--- NOTE | 2019-03-10 14:06 | NUR ---
SELWYN spoke with DEON Gambino at [facility] OP clinic and they are not able to see pt as he was informed by the community animal care specialist, pt is not vested in outpatient services. He requested if SW can attempt to get pt transferred to a [place] center for inpatient and then they will be able to connect pt to outpatient services. SELWYN phoned [phone]. ext: [phone] and left a to transfer team. Discussed with Physician.
--- NOTE | 2019-03-10 14:15 | NUR ---
D/W Dr. Miller patient blood sugar 44 before breakfast, measures taken with blood sugar 127 with recheck, then blood sugar 341 before lunch.
[2019-03-10 15:00] VITALS: BP 123/67
--- NOTE | 2019-03-10 16:24 | NUR ---
SELWYN spoke with Sasha at Transfer center and she stated pt could come to [place] ED and their ED Physician is able to write the orders for the IV abx. She also expressed concerns regarding his wound care needs. Sasha reported maybe [facility] might be a better options unless pt is able to drive to outpatient 3x a week and might have a delay in getting wound care. Sasha reported pt had a lot of opportunities to see his PCP but was no show. She also reported they will not accept inpatient transfer as he does not meet criteria. SELWYN spoke with pt and pt's significant other on speaker phone. Pt agreeable to go to [facility] instead of driving to outpatient clinic 3x/day. Pt's significant wants the [place] to pay a nurse to come out daily because 'it is medically necessary'. SELWYN discussed that is a doctor decision and even in ideal situation, pt's are responsible to administer medication at home and home health nurse only visit twice or three times a week. Pt's significant other states she knows how insurance works since 'she works for medicare'. She wants pt to go to [place] for 2x and have a nurse come out for the third dose. SELWYN discussed this is unlikely to happen as pt does not have PCP and does not need to be seen by RN everyday. SELWYN discussed with pt that if [facility] accepts him, he can go there and they can possibly set him up with outpatient services. Pt agreeable with this plan and acknowledged that not showing up for his PCP appointments is the root of all these problems. SELWYN provided education regarding this. SELWYN phoned and faxed referral to [facility]. [place] location is full but [facility] has one bed open (pt is agreeable with this). Sanaz reported she will review clinicals in the morning. Acceptance to [facility] pending. SELWYN will continue to follow.
[2019-03-10 19:00] VITALS: BP 136/73
[2019-03-10] MEDS: PATCH REMOVAL. MC SCH (21:00)
[2019-03-10] MEDS: INSULIN GLARGINE SYRINGE. SQ SCH (21:37)
--- NOTE | 2019-03-10 21:50 | NUR ---
Per pt request, 10 units of Lantus given. Pt stated "My blood sugar was in the 250s last night and I woke up in the 40s. I don't want to do that again". Blood sugar 207 tonight.
[2019-03-10 23:00] VITALS: BP 125/72
[2019-03-11 03:00] VITALS: BP 123/75
[2019-03-11 07:00] VITALS: BP 129/78
[2019-03-11] MEDS: LIDOCAINE (700MG/PATCH) PATCH. TD SCH (07:40)
[2019-03-11] MEDS: DICLOFENAC SODIUM 1% TOPICAL GEL 100GM TUBE. TP SCH ×4 (07:40→21:00)
[2019-03-11] MEDS: CYANOCOBALAMIN (VITAMIN B-12) 1,000 MCG TABLET. PO SCH (08:15)
[2019-03-11] MEDS: POTASSIUM CHLORIDE 20 MEQ TABLET.ER. PO SCH (08:15)
[2019-03-11] MEDS: LACTOBACILLUS RHAMNOSUS GG 1 CAPSULE. PO SCH ×2 (08:15→20:54)
[2019-03-11] MEDS: INSULIN LISPRO 300 UNITS/3 ML VIAL. SQ SCH ×3 (08:18→17:47)
--- NOTE | 2019-03-11 08:37 | PDOC ---
Infectious Disease Note Subjective Subjective feeling much better ROS ROS no n/v/d/sob Vital Sign Vital Signs Vital Signs Date Time Temp Pulse Resp B/P (MAP) Pulse Ox O2 Delivery O2 Flow Rate FiO2 03/11/19 07:00 98.1 70 14 129/78 (95) 96 Room Air 98.1 Physical Exam PHYSICAL EXAM GENERAL: Propped up in bed, alert, in no apparent distress. HEENT: Pupils are equally round, reactive. Oral cavity, oropharynx pink and moist. Superficial scalp wound improved and alopecia. NECK: Supple. JVD LUNGS: Clear to auscultation. HEART: S1, S2 regular. ABDOMEN: Nondistended, soft, nontender with bowel sounds present. EXTREMITIES: Trace pedal edema in lower extremities bilaterally. Sensitive to touch. No cyanosis. Several dry annular wounds/scabs both legs bilaterally wo associated redness or drainage. LUE with trace edema SKIN: Warm to touch. No signs of rash NEUROLOGIC: Alert and oriented x 3. Labs Lab Laboratory Tests Test 03/10/19 11:13 03/10/19 11:15 03/10/19 17:09 03/10/19 21:34 Glucose (Fingerstick) 341 mg/dL (70-99) 231 mg/dL (70-99) 207 mg/dL (70-99) White Blood Count 7.0 x10^3/uL (4.0-11.0) Red Blood Count 3.17 x10^6/uL (4.30-5.70) Hemoglobin 9.3 g/dL (13.0-17.5) Hematocrit 28.3 % (39.0-53.0) Mean Corpuscular Volume 89 fL (79-100) Mean Corpuscular Hemoglobin 30 pg (25-35) Mean Corpuscular Hemoglobin Concent 33 g/dL (31-37) Red Cell Distribution Width 13.7 % (11.5-14.5) Platelet Count 215 x10^3/uL (140-400) Neutrophils (%) (Auto) 79 % (31-73) Lymphocytes (%) (Auto) 9 % (24-48) Monocytes (%) (Auto) 8 % (0-9) Eosinophils (%) (Auto) 2 % (0-3) Basophils (%) (Auto) 1 % (0-3) Neutrophils # (Auto) 5.5 x10^3/uL (1.8-7.7) Lymphocytes # (Auto) 0.7 x10^3/uL (1.0-4.8) Monocytes # (Auto) 0.6 x10^3/uL (0.0-1.1) Eosinophils # (Auto) 0.1 x10^3/uL (0.0-0.7) Basophils # (Auto) 0.1 x10^3/uL (0.0-0.2) Erythrocyte Sedimentation Rate 68 (0-15) Sodium Level 140 mmol/L (136-145) Potassium Level 4.5 mmol/L (3.5-5.1) Chloride Level 100 mmol/L (98-107) Carbon Dioxide Level 34 mmol/L (21-32) Anion Gap 6 (6-14) Blood Urea Nitrogen 16 mg/dL (8-26) Creatinine 1.1 mg/dL (0.7-1.3) Estimated GFR (Cockcroft-Gault) 71.4 Glucose Level 359 mg/dL (70-99) Calcium Level 8.1 mg/dL (8.5-10.1) Test 03/11/19 07:26 Glucose (Fingerstick) 248 mg/dL (70-99) Micro culture MSSA BC MSSA Objective Assessment MSSA bacteremia with sepsis, POA. 02/25 repeat 03/01 - neg so far TTE with Mod TV regurg 03/03 Nonhealing wounds involving scalp and lower extremities, bilaterally - superficial - healing Right hip pain - pelvis CT shows soft tissue thickening and focal gas overlying the right ischial tuberosity, and there is suggestion of early bone destruction. ESR 68 s/p biopsy/cults 03/02. culture + MSSA Hypothermia - better Leukocytosis - resolved DKA Peripheral neuropathy Loose stools, c. diff neg 02/27 Plan Plan of Care STEPHANY ,pt refused CT-guided biopsy, soft tissue thickening at the insertion of the hamstring tendons on the pubic bone.,, MSSA Repeat BC neg 03/01 cefazolin for 6 wks ss to [facility] f/u with me in 3 wks wkly cbc, bun/cr , sed rate fax to [phone] SUZANNE SINGH MD Mar 11, 2019 08:37
--- NOTE | 2019-03-11 09:51 | NUR ---
SELWYN spoke with [facility] and [facility]. [facility] pending. [facility] spoke with [facility] transfer team and they only send a nurse daily to pt's residence if it is medically required for pt to be seen by a nurse. They reported they don't send nurses to pt's home three times a day. Pt is also not eligible for home health as he has not been seen by PCP. SELWYN relayed this message to pt. Pt is not able to drive to OP clinic three times a day and [facility] or do infusion at home. Discussed with ID and awaiting on dapto sensitivity to see if pt is able to do dapto once a day instead. Awaiting on final response from [facility]. Discussed with RN.
--- NOTE | 2019-03-11 10:28 | PDOC ---
PROGRESS NOTES Chief Complaint Chief Complaint impression GPC bacteremia (STAPH AUREAUS) with sepsis, POA. refusing STEPHANY (wont change mx) AEROBIC RES 1 Final Comment Staphylococcus aureus No growth in 36 - 48 hours. Nonhealing wounds involving scalp and lower extremities, bilaterally - superficial - healing Right hip pain - pelvis CT shows soft tissue thickening and focal gas overlying the right ischial tuberosity, and there is suggestion of early bone destruction. ESR 68 Hypothermia - better moderate protein-caloric malnutrition Leukocytosis - sepsis dehydration DKA Peripheral neuropathy TTE with Mod TV regurg 03/03///PA pressure was estimated at 52 mmHg NORMOCYTIC ANEMIA Gallbladder wall thickening is present but ascites is noted and may account for this finding. cont iv ancef q 8 hrs cefazolin for 6 wks ss to arrange through [facility] pending 38 min pt exam, chart review, > 50% of time spent with exam, chart review, pt care coordination History of Present Illness History of Present Illness he has no complaints DIfficult dc as per case mx ([facility] etc) NEeds 6 weeks IV cefazolin TID HAs GPC STAPH BAteremia and refusing STEPHANY (will not change mx anyways) Doing well with current cefazolin PLAN: Dc plans in the works NEeds 6 weeks IV abx bec this is STAPH BACTEREMIA - I updated pt of his status- he is aware Vitals Vitals Vital Signs Date Time Temp Pulse Resp B/P (MAP) Pulse Ox O2 Delivery O2 Flow Rate FiO2 03/11/19 07:00 98.1 70 14 129/78 (95) 96 Room Air 98.1 Physical Exam Physical Exam GENERAL: Propped up in bed, alert, in no apparent distress. HEENT: Pupils are equally round, reactive. Oral cavity, oropharynx pink and moist. Superficial scalp wound improved and alopecia. NECK: Supple. JVD LUNGS: Clear to auscultation. HEART: S1, S2 regular. ABDOMEN: Nondistended, soft, nontender with bowel sounds present. EXTREMITIES: Trace pedal edema in lower extremities bilaterally. Sensitive to touch. No cyanosis. Several dry annular wounds/scabs both legs bilaterally wo associated redness or drainage. LUE with trace edema SKIN: Warm to touch. No signs of rash NEUROLOGIC: Alert and oriented x 3. General: Alert, Oriented X3, Cooperative, No acute distress Heart: Regular rate, Normal S1, Normal S2, No murmurs Lungs: Clear, Other (No respiratory distress) Abdomen: Normal bowel sounds, Soft, No tenderness Extremities: No clubbing, No cyanosis, No edema Skin: No rashes, No significant lesion Labs LABS MENTS: PELVIS TISSUE (RIGHT HIP) Has specimen been collected/obtained? Y -------- ---- Procedure Result ANAEROBIC-AEROBIC CULTURE Final Final report ANAEROBIC RES 1 Final Comment No anaerobic growth in 72 hours. AEROBIC CULT Final Preliminary report Final report AEROBIC RES 1 Final Comment Staphylococcus aureus No growth in 36 - 48 hours. 1-2 colonies . 1-2 colonies . Most isolates of Staphylococcus sp. produce a beta- lactamase enzyme rendering them resistant to penicillin. Please contact the laboratory if penicillin is being considered for therapy. ANTIMICROBIAL SUSCEPTIBILITY Final Comment Additional Susceptibility Testing Requested DAPTOMYCIN= S 1.0 S = Susceptible; I = Intermediate; R = Resistant P = Positive; N = Negative MICS are expressed in micrograms per mL Antibiotic RSLT#1 RSLT#2 RSLT#3 RSLT#4 Ciprofloxacin S<=0.5 Clindamycin S<=0.25 CONTINUED ON NEXT PAGE -------- ---- RUN DATE: 03/11/19 [facility] *LIVE* PAGE 2 RUN TIME: 926 Specimen Inquiry SPEC: [id number] PATIENT: NATHALIE WONG [id number] (Continued) Laboratory Tests Test 03/10/19 11:13 03/10/19 11:15 03/10/19 17:09 03/10/19 21:34 Glucose (Fingerstick) 341 mg/dL (70-99) 231 mg/dL (70-99) 207 mg/dL (70-99) White Blood Count 7.0 x10^3/uL (4.0-11.0) Red Blood Count 3.17 x10^6/uL (4.30-5.70) Hemoglobin 9.3 g/dL (13.0-17.5) Hematocrit 28.3 % (39.0-53.0) Mean Corpuscular Volume 89 fL (79-100) Mean Corpuscular Hemoglobin 30 pg (25-35) Mean Corpuscular Hemoglobin Concent 33 g/dL (31-37) Red Cell Distribution Width 13.7 % (11.5-14.5) Platelet Count 215 x10^3/uL (140-400) Neutrophils (%) (Auto) 79 % (31-73) Lymphocytes (%) (Auto) 9 % (24-48) Monocytes (%) (Auto) 8 % (0-9) Eosinophils (%) (Auto) 2 % (0-3) Basophils (%) (Auto) 1 % (0-3) Neutrophils # (Auto) 5.5 x10^3/uL (1.8-7.7) Lymphocytes # (Auto) 0.7 x10^3/uL (1.0-4.8) Monocytes # (Auto) 0.6 x10^3/uL (0.0-1.1) Eosinophils # (Auto) 0.1 x10^3/uL (0.0-0.7) Basophils # (Auto) 0.1 x10^3/uL (0.0-0.2) Erythrocyte Sedimentation Rate 68 (0-15) Sodium Level 140 mmol/L (136-145) Potassium Level 4.5 mmol/L (3.5-5.1) Chloride Level 100 mmol/L (98-107) Carbon Dioxide Level 34 mmol/L (21-32) Anion Gap 6 (6-14) Blood Urea Nitrogen 16 mg/dL (8-26) Creatinine 1.1 mg/dL (0.7-1.3) Estimated GFR (Cockcroft-Gault) 71.4 Glucose Level 359 mg/dL (70-99) Calcium Level 8.1 mg/dL (8.5-10.1) Test 03/11/19 07:26 Glucose (Fingerstick) 248 mg/dL (70-99) Assessment and Plan Assessmemt and Plan Problems Medical Problems: (1) Dehydration Status: Acute (2) DKA (diabetic ketoacidoses) Status: Acute (3) Scalp abscess Status: Acute (4) Sepsis Status: Acute Comment Review of Relevant I have reviewed the following items orestes (where applicable) has been applied. Labs Laboratory Tests Test 03/09/19 16:44 03/09/19 20:48 03/10/19 08:00 03/10/19 08:28 Glucose (Fingerstick) 225 mg/dL (70-99) 250 mg/dL (70-99) 44 mg/dL (70-99) 127 mg/dL (70-99) Test 03/10/19 11:13 03/10/19 11:15 03/10/19 17:09 03/10/19 21:34 Glucose (Fingerstick) 341 mg/dL (70-99) 231 mg/dL (70-99) 207 mg/dL (70-99) White Blood Count 7.0 x10^3/uL (4.0-11.0) Red Blood Count 3.17 x10^6/uL (4.30-5.70) Hemoglobin 9.3 g/dL (13.0-17.5) Hematocrit 28.3 % (39.0-53.0) Mean Corpuscular Volume 89 fL (79-100) Mean Corpuscular Hemoglobin 30 pg (25-35) Mean Corpuscular Hemoglobin Concent 33 g/dL (31-37) Red Cell Distribution Width 13.7 % (11.5-14.5) Platelet Count 215 x10^3/uL (140-400) Neutrophils (%) (Auto) 79 % (31-73) Lymphocytes (%) (Auto) 9 % (24-48) Monocytes (%) (Auto) 8 % (0-9) Eosinophils (%) (Auto) 2 % (0-3) Basophils (%) (Auto) 1 % (0-3) Neutrophils # (Auto) 5.5 x10^3/uL (1.8-7.7) Lymphocytes # (Auto) 0.7 x10^3/uL (1.0-4.8) Monocytes # (Auto) 0.6 x10^3/uL (0.0-1.1) Eosinophils # (Auto) 0.1 x10^3/uL (0.0-0.7) Basophils # (Auto) 0.1 x10^3/uL (0.0-0.2) Erythrocyte Sedimentation Rate 68 (0-15) Sodium Level 140 mmol/L (136-145) Potassium Level 4.5 mmol/L (3.5-5.1) Chloride Level 100 mmol/L (98-107) Carbon Dioxide Level 34 mmol/L (21-32) Anion Gap 6 (6-14) Blood Urea Nitrogen 16 mg/dL (8-26) Creatinine 1.1 mg/dL (0.7-1.3) Estimated GFR (Cockcroft-Gault) 71.4 Glucose Level 359 mg/dL (70-99) Calcium Level 8.1 mg/dL (8.5-10.1) Test 03/11/19 07:26 Glucose (Fingerstick) 248 mg/dL (70-99) Laboratory Tests Test 03/10/19 11:13 03/10/19 11:15 03/10/19 17:09 03/10/19 21:34 Glucose (Fingerstick) 341 mg/dL (70-99) 231 mg/dL (70-99) 207 mg/dL (70-99) White Blood Count 7.0 x10^3/uL (4.0-11.0) Red Blood Count 3.17 x10^6/uL (4.30-5.70) Hemoglobin 9.3 g/dL (13.0-17.5) Hematocrit 28.3 % (39.0-53.0) Mean Corpuscular Volume 89 fL (79-100) Mean Corpuscular Hemoglobin 30 pg (25-35) Mean Corpuscular Hemoglobin Concent 33 g/dL (31-37) Red Cell Distribution Width 13.7 % (11.5-14.5) Platelet Count 215 x10^3/uL (140-400) Neutrophils (%) (Auto) 79 % (31-73) Lymphocytes (%) (Auto) 9 % (24-48) Monocytes (%) (Auto) 8 % (0-9) Eosinophils (%) (Auto) 2 % (0-3) Basophils (%) (Auto) 1 % (0-3) Neutrophils # (Auto) 5.5 x10^3/uL (1.8-7.7) Lymphocytes # (Auto) 0.7 x10^3/uL (1.0-4.8) Monocytes # (Auto) 0.6 x10^3/uL (0.0-1.1) Eosinophils # (Auto) 0.1 x10^3/uL (0.0-0.7) Basophils # (Auto) 0.1 x10^3/uL (0.0-0.2) Erythrocyte Sedimentation Rate 68 (0-15) Sodium Level 140 mmol/L (136-145) Potassium Level 4.5 mmol/L (3.5-5.1) Chloride Level 100 mmol/L (98-107) Carbon Dioxide Level 34 mmol/L (21-32) Anion Gap 6 (6-14) Blood Urea Nitrogen 16 mg/dL (8-26) Creatinine 1.1 mg/dL (0.7-1.3) Estimated GFR (Cockcroft-Gault) 71.4 Glucose Level 359 mg/dL (70-99) Calcium Level 8.1 mg/dL (8.5-10.1) Test 03/11/19 07:26 Glucose (Fingerstick) 248 mg/dL (70-99) Microbiology 03/02/19 Anaerobic/Aerobic Culture - Final, Complete 03/02/19 Anaerobic Culture Result 1 (SUNITA) - Final, Complete 03/02/19 Aerobic Culture - Final, Complete 03/02/19 Aerobic Culture Result 1 (SUNITA) - Final, Complete 03/02/19 Antimicrobic Susceptibility - Final, Complete 03/02/19 Gram Stain - Final, Complete 03/02/19 Gram Stain Result 1 (SUNITA) - Final, Complete 03/02/19 Gram Stain Result 2 (SUNITA) - Final, Complete 03/02/19 Yeast/Fungus Susceptibility - Final, Complete 03/01/19 Blood Culture - Final, Complete NO GROWTH AFTER 5 DAYS 02/26/19 Urine Culture - Final, Complete 02/26/19 Urine Culture Result 1 (SUNITA) - Final, Complete Medications Current Medications Sodium Chloride 1,000 ml @ 1,000 mls/hr 1X ONCE IV Last administered on 02/25/19at 15:20; Start 02/25/19 at 14:45; Stop 02/25/19 at 15:44; Status DC Sodium Chloride 1,000 ml @ 1,000 mls/hr 1X ONCE IV Last administered on 02/25/19at 15:20; Start 02/25/19 at 15:15; Stop 02/25/19 at 16:14; Status DC Insulin Human Regular 150 ml @ 0 mls/hr 1X ONCE IV Last administered on 02/25/19at 16:01; Start 02/25/19 at 15:30; Stop 02/25/19 at 15:32; Status DC Vancomycin HCl 250 ml @ 250 mls/hr 1X ONCE IV Last administered on 02/25/19at 16:04; Start 02/25/19 at 16:00; Stop 02/25/19 at 16:59; Status DC Ondansetron HCl (Zofran) 4 mg PRN Q8HRS PRN IV NAUSEA/VOMITING; Start 02/25/19 at 16:15; Stop 02/25/19 at 17:32; Status DC Sodium Chloride 1,000 ml @ 100 mls/hr Q10H IV ; Start 02/25/19 at 16:08; Stop 02/26/19 at 08:29; Status DC Sodium Chloride 1,000 ml @ 250 mls/hr Q4H IV Last administered on 02/25/19at 21:28; Start 02/25/19 at 17:00; Stop 02/26/19 at 03:06; Status DC Dextrose/Sodium Chloride 1,000 ml @ 250 mls/hr Q4H IV Last administered on 02/25/19at 23:26; Start 02/25/19 at 16:39; Stop 02/26/19 at 03:06; Status DC Insulin Human Regular 150 unit/ Sodium Chloride 151.5 ml @ 0 mls/hr CONT PRN PRN IV PER PROTOCOL; Start 02/25/19 at 16:45; Stop 02/26/19 at 03:06; Status DC Potassium Chloride/Water 100 ml @ 100 mls/hr PRN Q1HR PRN IV SEE COMMENTS Last administered on 02/26/19at 01:19; Start 02/25/19 at 16:45; Stop 02/26/19 at 03:06; Status DC Potassium Chloride/Water 100 ml @ 100 mls/hr PRN Q1HR PRN IV SEE COMMENTS Last administered on 02/25/19at 23:26; Start 02/25/19 at 16:45; Stop 02/26/19 at 03:06; Status DC Potassium Chloride/Water 100 ml @ 100 mls/hr PRN Q1HR PRN IV SEE COMMENTS; Start 02/25/19 at 16:45; Stop 02/26/19 at 03:06; Status DC Sodium Bicarbonate 50 meq/Sodium Chloride 1,050 ml @ 125 mls/hr 1X ONCE IV Last administered on 02/25/19at 17:51; Start 02/25/19 at 16:45; Stop 02/26/19 at 01:08; Status DC Calcium Carbonate/ Glycine (Tums) 500 mg PRN AFTMEALHC PRN PO INDIGESTION; Start 02/25/19 at 16:45 Temazepam (Restoril) 7.5 mg PRN QHS PRN PO INSOMNIA; Start 02/25/19 at 16:45 Acetaminophen (Tylenol) 500 mg PRN Q6HRS PRN PO MILD PAIN / TEMP; Start 02/25/19 at 16:45 Acetaminophen/ Codeine Phosphate (Tylenol #3) 1 tab PRN Q6HRS PRN PO MODERATE PAIN Last administered on 03/01/19at 21:33; Start 02/25/19 at 16:45 Ondansetron HCl (Zofran) 4 mg PRN Q6HRS PRN IVP NAUSEA/VOMITING; Start 02/25/19 at 16:45 Cefazolin Sodium 50 ml @ 100 mls/hr Q8HRS IV ; Start 02/25/19 at 22:00; Status UNV Cefazolin Sodium 50 ml @ As Directed STK-MED ONCE IV ; Start 02/25/19 at 17:12; Stop 02/25/19 at 17:32; Status DC Cefazolin Sodium 50 ml @ 100 mls/hr 1X ONCE IV Last administered on 02/25/19at 17:30; Start 02/25/19 at 17:30; Stop 02/25/19 at 17:59; Status DC Cefazolin Sodium (Ancef) 1 gm Q8HRS IVP Last administered on 02/28/19at 13:54; Start 02/25/19 at 22:00; Stop 02/28/19 at 18:52; Status DC Potassium Chloride/Water 100 ml @ 100 mls/hr PRN Q1HR PRN IV SEE COMMENTS; Start 02/25/19 at 21:00; Stop 03/08/19 at 12:11; Status DC Magnesium Sulfate 100 ml @ 25 mls/hr DAILY IV Last administered on 02/28/19at 12:24; Start 02/26/19 at 09:00; Stop 03/01/19 at 08:59; Status DC Dextrose (Dextrose 50%-Water Syringe) 12.5 gm PRN Q15MIN PRN IV SEE COMMENTS; Start 02/26/19 at 03:00; Status UNV Insulin Glargine (Lantus Syringe) 20 unit QHS SQ Last administered on 03/10/19at 21:37; Start 02/26/19 at 21:00 Insulin Human Lispro (HumaLOG) 10 units TIDWMEALS SQ Last administered on 02/26/19at 17:33; Start 02/26/19 at 08:00; Stop 02/26/19 at 18:45; Status DC Dextrose (Dextrose 50%-Water Syringe) 12.5 gm PRN Q15MIN PRN IV SEE COMMENTS; Start 02/26/19 at 03:00; Stop 03/07/19 at 10:41; Status DC Insulin Glargine (Lantus Syringe) 10 unit 1X ONCE SQ Last administered on 02/26/19at 03:16; Start 02/26/19 at 03:30; Stop 02/26/19 at 03:31; Status DC Sodium Chloride 1,000 ml @ 100 mls/hr Q10H IV Last administered on 03/07/19at 09:59; Start 02/26/19 at 03:00; Stop 03/07/19 at 10:39; Status DC Vancomycin HCl (Vanco Per Pharmacy) 1 each PRN DAILY PRN MC SEE COMMENTS Last administered on 03/01/19at 15:41; Start 02/26/19 at 08:45; Stop 03/02/19 at 12:58; Status DC Vancomycin HCl 1 gm/Sodium Chloride 250 ml @ 250 mls/hr Q12H IV Last administered on 02/26/19at 21:22; Start 02/26/19 at 09:00; Stop 02/27/19 at 09:06; Status DC Diclofenac Sodium (Voltaren) 1 jeannine BID TP Last administered on 02/27/19 07:56; Start 02/26/19 at 10:30; Stop 02/27/19 at 11:58; Status DC Potassium Chloride (Klor-Con) 40 meq 1X ONCE PO Last administered on 02/26/19at 11:01; Start 02/26/19 at 11:00; Stop 02/26/19 at 11:01; Status DC Lidocaine (Lidoderm) 1 patch DAILY TD Last administered on 02/27/19at 07:56; Start 02/26/19 at 11:30 Miscellaneous (Lidoderm Patch Removal) 1 ea QHS MC Last administered on 03/10/19at 21:00; Start 02/26/19 at 21:00 Lactobacillus Rhamnosus (Culturelle) 1 cap BID PO Last administered on 03/11/19at 08:15; Start 02/26/19 at 21:00 Vancomycin HCl (Vancomycin Trough Level) 1 each 1X ONCE MC Last administered on 02/27/19at 08:30; Start 02/27/19 at 08:30; Stop 02/27/19 at 08:31; Status DC Insulin Human Lispro (HumaLOG) 0-7 UNITS TIDWMEALS SQ Last administered on 03/06/19at 18:05; Start 02/27/19 at 08:00; Stop 03/07/19 at 10:42; Status DC Vancomycin HCl 750 mg/Sodium Chloride 250 ml @ 250 mls/hr Q8H IV Last administered on 03/02/19at 09:26; Start 02/27/19 at 09:30; Stop 03/02/19 at 12:58; Status DC Vancomycin HCl (Vancomycin Trough Level) 1 each 1X ONCE MC Last administered on 02/28/19at 09:00; Start 02/28/19 at 09:00; Stop 02/28/19 at 09:01; Status DC Potassium Chloride (Klor-Con) 40 meq 1X ONCE PO Last administered on 02/27/19at 09:56; Start 02/27/19 at 10:00; Stop 02/27/19 at 10:01; Status DC Diclofenac Sodium (Voltaren) 1 jeannine QID TP Last administered on 03/07/19at 21:23; Start 02/27/19 at 12:00 Potassium Chloride (Klor-Con) 20 meq 1X ONCE PO Last administered on 02/28/19at 12:24; Start 02/28/19 at 11:00; Stop 02/28/19 at 11:01; Status DC Potassium Chloride (Klor-Con) 40 meq 1X ONCE PO Last administered on 02/28/19at 06:58; Start 02/28/19 at 07:00; Stop 02/28/19 at 07:01; Status DC Potassium Chloride (Klor-Con) 40 meq DAILY PO Last administered on 03/11/19at 08:15; Start 02/28/19 at 09:00 Piperacillin Sod/ Tazobactam Sod 3.375 gm/Sodium Chloride 50 ml @ 100 mls/hr Q6HRS IV Last administered on 03/07/19at 05:47; Start 02/28/19 at 12:00; Stop 03/07/19 at 10:37; Status DC Lidocaine HCl (Buffered Lidocaine 1%) 3 ml STK-MED ONCE .ROUTE ; Start 03/02/19 at 08:01; Stop 03/02/19 at 08:02; Status DC Midazolam HCl (Versed) 2 mg STK-MED ONCE .ROUTE ; Start 03/02/19 at 08:26; Sto p 03/02/19 at 08:26; Status DC Fentanyl Citrate (Fentanyl 2ml Vial) 100 mcg STK-MED ONCE .ROUTE ; Start 03/02/19 at 08:26; Stop 03/02/19 at 08:27; Status DC Lidocaine HCl (Buffered Lidocaine 1%) 3 ml 1X ONCE IJ Last administered on 03/02/19at 08:45; Start 03/02/19 at 08:45; Stop 03/02/19 at 08:48; Status DC Midazolam HCl (Versed) 2 mg 1X ONCE IV Last administered on 03/02/19at 08:45; Start 03/02/19 at 08:45; Stop 03/02/19 at 08:48; Status DC Fentanyl Citrate (Fentanyl 2ml Vial) 100 mcg 1X ONCE IV Last administered on 03/02/19at 08:45; Start 03/02/19 at 08:45; Stop 03/02/19 at 08:48; Status DC Ringer's Solution 1,000 ml @ 50 mls/hr Q20H IV ; Start 03/04/19 at 07:00; Stop 03/04/19 at 18:59; Status DC Lidocaine HCl (Viscous Lidocaine) 15 ml 1X ONCE SWSW ; Start 03/04/19 at 07:30; Stop 03/04/19 at 07:31; Status DC Lidocaine HCl (Xylocaine 2% Topical 30gm Tube) 1 jeannine 1X ONCE TP ; Start 03/04/19 at 07:30; Stop 03/04/19 at 07:31; Status DC Benzocaine (Hurricaine One) 2 spray 1X ONCE MM ; Start 03/04/19 at 07:30; Stop 03/04/19 at 07:31; Status DC Lidocaine HCl (Xylocaine 2% Topical 30gm Tube) 1 jeannine 1X ONCE TP ; Start 03/04/19 at 07:30; Stop 03/04/19 at 07:31; Status UNV Lidocaine HCl (Viscous Lidocaine) 15 ml 1X ONCE SWSW ; Start 03/04/19 at 07:30; Stop 03/04/19 at 07:31; Status UNV Benzocaine (Hurricaine One) 2 spray 1X ONCE MM ; Start 03/04/19 at 07:30; Stop 03/04/19 at 07:31; Status UNV Lidocaine HCl (Buffered Lidocaine 1%) 3 ml STK-MED ONCE .ROUTE ; Start 03/04/19 at 14:44; Stop 03/04/19 at 14:45; Status DC Lidocaine HCl (Buffered Lidocaine 1%) 3 ml 1X ONCE INJ Last administered on 03/04/19at 15:00; Start 03/04/19 at 15:00; Stop 03/04/19 at 15:01; Status DC Insulin Human Lispro (HumaLOG) 11 units 1X SQ ; Start 03/06/19 at 22:30; Stop 03/06/19 at 22:36; Status DC Insulin Human Lispro (HumaLOG) 11 units 1X ONCE SQ Last administered on 03/06/19at 22:41; Start 03/06/19 at 22:45; Stop 03/06/19 at 22:46; Status DC Dextrose (Iv Dextrose 5%) 250 ml PRN Q15MIN PRN IV SEE COMMENTS Last administered on 03/07/19at 08:10; Start 03/07/19 at 08:15; Stop 03/07/19 at 10:41; Status DC Cefazolin Sodium 2 gm/Dextrose 50 ml @ 100 mls/hr Q8HRS IV ; Start 03/07/19 at 14:00; Status UNV Cefazolin Sodium/ Dextrose 50 ml @ 100 mls/hr Q8HRS IV Last administered on 03/11/19at 06:03; Start 03/07/19 at 14:00 Insulin Human Lispro (HumaLOG) 0-9 UNITS TIDWMEALS SQ Last administered on 03/11/19at 08:18; Start 03/07/19 at 12:00 Dextrose (Dextrose 50%-Water Syringe) 12.5 gm PRN Q15MIN PRN IV SEE COMMENTS; Start 03/07/19 at 10:45 Dextrose (Iv Dextrose 5%) 250 ml PRN Q15MIN PRN IV SEE COMMENTS Last adminis tered on 03/10/19at 08:04; Start 03/07/19 at 10:45 Cyanocobalamin (Vitamin B-12) 1,000 mcg DAILY PO Last administered on 03/11at 08:15; Start 03/07/19 at 14:00 Active Scripts Active Lidocaine PATCH (Lidocaine) 1 Each Adh..patch 1 Patch TD DAILY Vitamin B-12 (Cyanocobalamin (Vitamin B-12)) 1,000 Mcg Tablet 1,000 Mcg PO DAILY Lantus (Insulin Glargine,Hum.rec.anlog) 100 Unit/1 Ml Vial 20 Unit SQ QHS 30 Days Klor-Con M20 (Potassium Chloride) 20 Meq Tab.er.prt 40 Meq PO DAILY 7 Days Acetaminophen-Cod #3 Tablet (Acetaminophen/Codeine Phosphate) 1 Each Tablet 1 Tab PO PRN Q6HRS PRN Restoril (Temazepam) 7.5 Mg Capsule 7.5 Mg PO PRN QHS PRN Voltaren (Diclofenac Sodium) 100 Gm Gel..gram. 1 Jeannine TP QID 14 Days Vitals/I & O Vital Sign - Last 24 Hours 03/10/19 03/10/19 03/10/19 03/10/19 11:00 15:00 19:00 20:00 Temp 98.4 98.4 98.1 98.4 98.4 98.1 Pulse 78 74 71 Resp 14 14 18 B/P (MAP) 121/73 (89) 123/67 (85) 136/73 (94) Pulse Ox 91 97 95 O2 Delivery Room Air Room Air Room Air Room Air 03/10/19 03/11/19 03/11/19 23:00 03:00 07:00 Temp 98.0 97.8 98.1 98.0 97.8 98.1 Pulse 78 69 70 Resp 18 18 14 B/P (MAP) 125/72 (89) 123/75 (91) 129/78 (95) Pulse Ox 97 96 96 O2 Delivery Room Air Room Air Room Air Intake and Output 03/10/19 03/10/19 03/11/19 15:00 23:00 07:00 Intake Total 50 ml 290 ml 150 ml Balance 50 ml 290 ml 150 ml Nutrition Consultation Dietary Evaluation: Recommendations by RD: Dietary education by RD, Protein supplementation Comments: ADA, DBL meats encourage BS control RD available x [phone] if interested in diet education REC mvi and vit c per wound protocal Expected Outcomes/Goals: to meet >75% est protein needs glycemic control Goals : ongoing Malnutrition Findings: Body Fat Depletion (Non Severe: Mild Depletion Weight Status: Underweight Hemodynamically unstable?: No Is patient in severe pain?: No Is NPO status required?: No ALIX RONQUILLO MD Mar 11, 2019 10:28
--- NOTE | 2019-03-11 10:31 | PDOC ---
Subjective: Subjective: No GI complaints. Objective: Vital Signs: Vital Signs Date Time Temp Pulse Resp B/P (MAP) Pulse Ox O2 Delivery O2 Flow Rate FiO2 03/11/19 07:00 98.1 70 14 129/78 (95) 96 Room Air 98.1 Labs: Laboratory Tests Test 03/10/19 11:13 03/10/19 11:15 03/10/19 17:09 03/10/19 21:34 Glucose (Fingerstick) 341 mg/dL 231 mg/dL 207 mg/dL White Blood Count 7.0 x10^3/uL Red Blood Count 3.17 x10^6/uL Hemoglobin 9.3 g/dL Hematocrit 28.3 % Mean Corpuscular Volume 89 fL Mean Corpuscular Hemoglobin 30 pg Mean Corpuscular Hemoglobin Concent 33 g/dL Red Cell Distribution Width 13.7 % Platelet Count 215 x10^3/uL Neutrophils (%) (Auto) 79 % Lymphocytes (%) (Auto) 9 % Monocytes (%) (Auto) 8 % Eosinophils (%) (Auto) 2 % Basophils (%) (Auto) 1 % Neutrophils # (Auto) 5.5 x10^3/uL Lymphocytes # (Auto) 0.7 x10^3/uL Monocytes # (Auto) 0.6 x10^3/uL Eosinophils # (Auto) 0.1 x10^3/uL Basophils # (Auto) 0.1 x10^3/uL Erythrocyte Sedimentation Rate 68 Sodium Level 140 mmol/L Potassium Level 4.5 mmol/L Chloride Level 100 mmol/L Carbon Dioxide Level 34 mmol/L Anion Gap 6 Blood Urea Nitrogen 16 mg/dL Creatinine 1.1 mg/dL Estimated GFR (Cockcroft-Gault) 71.4 Glucose Level 359 mg/dL Calcium Level 8.1 mg/dL Test 03/11/19 07:26 Glucose (Fingerstick) 248 mg/dL ORDERED: ANAER/AEROB/GS COMMENTS: PELVIS TISSUE (RIGHT HIP) Has specimen been collected/obtained? Y Procedure Result ANAEROBIC-AEROBIC CULTURE Final Final report ANAEROBIC RES 1 Final Comment No anaerobic growth in 72 hours. AEROBIC CULT Final Preliminary report Final report AEROBIC RES 1 Final Comment Staphylococcus aureus No growth in 36 - 48 hours. 1-2 colonies . 1-2 colonies . Most isolates of Staphylococcus sp. produce a beta- lactamase enzyme rendering them resistant to penicillin. Please contact the laboratory if penicillin is being considered for therapy. ANTIMICROBIAL SUSCEPTIBILITY Final Comment Additional Susceptibility Testing Requested DAPTOMYCIN= S 1.0 S = Susceptible; I = Intermediate; R = Resistant P = Positive; N = Negative MICS are expressed in micrograms per mL Antibiotic RSLT#1 RSLT#2 RSLT#3 RSLT#4 Ciprofloxacin S<=0.5 Clindamycin S<=0.25 ANTIMICROBIAL SUSCEPTIBILITY Final (continued) Erythromycin S<=0.25 Gentamicin S<=0.5 Levofloxacin S<=0.12 Linezolid S =2 Moxifloxacin S<=0.25 Oxacillin S =0.5 Quinupristin/Dalfopristin S =0.5 Rifampin S<=0.5 Tetracycline S<=1 Trimethoprim/Sulfa S<=10 Vancomycin S<=0.5 * This is a corrected result. * A prior result that was reported as final has been changed. GRAM STAIN Final Final report GRAM STAIN RES 1 Final Comment No white blood cells seen. GRAM STAIN RES 2 Final No organisms seen Performed at: - [facility] [address], [place], [place] [id number] Corporate Travel Agent: CLEVELAND Pisano MD, Phone: [phone] SUSCEPTIBILITY TESTING AEROBIC Final Comment Written Authorization Received. Authorization received from MADDIE LÓPEZ MT 03-08-2019 Logged by Steven Alarcon Performed at: [facility] [id number] Corporate Travel Agent: Alex Moon MD, Phone: [phone] PE: GEN: at nurses' station talking to Dr. Hills NEURO/PSYCH: A & O 3 A/P: Anemia - on B12 replacement -- Awaiting DC. Hemodynamically unstable?: No Is patient in severe pain?: No Is NPO status required?: No ADITYA STEVE Mar 11, 2019 10:31
[2019-03-11 11:00] VITALS: BP 127/73
[2019-03-11 15:00] VITALS: BP 138/79
--- NOTE | 2019-03-11 15:43 | NUR ---
Spoke with Sanaz at [facility] and acceptance is still pending. She reports they can't admit today or over the weekend. We likely won't get an answer until Thursday. SW updated pt regarding this. Pt states he does not feel comfortable going to [place] [facility] as he is does not believe they will be able to provide his infusion for him. Updated Pt's RN.
[2019-03-11 19:00] VITALS: BP 147/83
[2019-03-11] MEDS: INSULIN GLARGINE SYRINGE. SQ SCH (21:00)
[2019-03-11] MEDS: PATCH REMOVAL. MC SCH (21:00)
[2019-03-11 23:08] VITALS: BP 129/72
[2019-03-12 04:16] VITALS: BP 135/78
[2019-03-12 07:00] VITALS: BP 125/72
[2019-03-12] MEDS: INSULIN LISPRO 300 UNITS/3 ML VIAL. SQ SCH ×3 (08:00→17:09)
[2019-03-12] MEDS: LIDOCAINE (700MG/PATCH) PATCH. TD SCH (08:03)
[2019-03-12] MEDS: DICLOFENAC SODIUM 1% TOPICAL GEL 100GM TUBE. TP SCH ×4 (09:00→21:00)
[2019-03-12] MEDS: POTASSIUM CHLORIDE 20 MEQ TABLET.ER. PO SCH (09:03)
[2019-03-12] MEDS: LACTOBACILLUS RHAMNOSUS GG 1 CAPSULE. PO SCH ×2 (09:03→22:17)
[2019-03-12] MEDS: CYANOCOBALAMIN (VITAMIN B-12) 1,000 MCG TABLET. PO SCH (09:03)
[2019-03-12 11:00] VITALS: BP 100/61
--- NOTE | 2019-03-12 11:00 | PDOC ---
PROGRESS NOTES Chief Complaint Chief Complaint impression GPC bacteremia (STAPH AUREAUS) with sepsis, POA. refusing STEPHANY (wont change mx) AEROBIC RES 1 Final Comment Staphylococcus aureus No growth in 36 - 48 hours. Nonhealing wounds involving scalp and lower extremities, bilaterally - superficial - healing Right hip pain - pelvis CT shows soft tissue thickening and focal gas overlying the right ischial tuberosity, and there is suggestion of early bone destruction. ESR 68 Hypothermia - better moderate protein-caloric malnutrition Leukocytosis - sepsis dehydration DKA Peripheral neuropathy TTE with Mod TV regurg 03/03///PA pressure was estimated at 52 mmHg NORMOCYTIC ANEMIA Gallbladder wall thickening is present but ascites is noted and may account for this finding. cont iv ancef q 8 hrs cefazolin for 6 wks ss to arrange through [place] pending // f/u with Dr. Caldwell-[place] at [place] 2- 3 wks 28 min pt exam, chart review, > 50% of time spent with exam, chart review, pt care coordination History of Present Illness History of Present Illness he has no complaints DIfficult dc as per case mx ([facility] etc) NEeds 6 weeks IV cefazolin TID HAs GPC STAPH BAteremia and refusing STEPHANY (will not change mx anyways) Doing well with current cefazolin PLAN: Dc plans in the works NEeds 6 weeks IV abx bec this is STAPH BACTEREMIA - I updated pt of his status- he is aware Vitals Vitals Vital Signs Date Time Temp Pulse Resp B/P (MAP) Pulse Ox O2 Delivery O2 Flow Rate FiO2 03/12/19 07:00 98.4 71 17 125/72 (89) 97 Room Air 98.4 03/11/19 08:00 2.0 Physical Exam Physical Exam GENERAL: Propped up in bed, alert, in no apparent distress. HEENT: Pupils are equally round, reactive. Oral cavity, oropharynx pink and moist. Superficial scalp wound improved and alopecia. NECK: Supple. JVD LUNGS: Clear to auscultation. HEART: S1, S2 regular. ABDOMEN: Nondistended, soft, nontender with bowel sounds present. EXTREMITIES: Trace pedal edema in lower extremities bilaterally. Sensitive to touch. No cyanosis. Several dry annular wounds/scabs both legs bilaterally wo associated redness or drainage. LUE with trace edema SKIN: Warm to touch. No signs of rash NEUROLOGIC: Alert and oriented x 3. General: Alert, Oriented X3, Cooperative, No acute distress Heart: Regular rate, Normal S1, Normal S2, No murmurs Lungs: Clear, Other (No respiratory distress) Abdomen: Normal bowel sounds, Soft, No tenderness Extremities: No clubbing, No cyanosis, No edema Skin: No rashes, No significant lesion Labs LABS Laboratory Tests Test 03/11/19 16:20 03/11/19 20:45 03/12/19 07:57 Glucose (Fingerstick) 285 mg/dL (70-99) 220 mg/dL (70-99) 96 mg/dL (70-99) Assessment and Plan Assessmemt and Plan Problems Medical Problems: (1) Dehydration Status: Acute (2) DKA (diabetic ketoacidoses) Status: Acute (3) Scalp abscess Status: Acute (4) Sepsis Status: Acute Comment Review of Relevant I have reviewed the following items orestes (where applicable) has been applied. Labs Laboratory Tests Test 03/10/19 11:13 03/10/19 11:15 03/10/19 17:09 03/10/19 21:34 Glucose (Fingerstick) 341 mg/dL (70-99) 231 mg/dL (70-99) 207 mg/dL (70-99) White Blood Count 7.0 x10^3/uL (4.0-11.0) Red Blood Count 3.17 x10^6/uL (4.30-5.70) Hemoglobin 9.3 g/dL (13.0-17.5) Hematocrit 28.3 % (39.0-53.0) Mean Corpuscular Volume 89 fL (79-100) Mean Corpuscular Hemoglobin 30 pg (25-35) Mean Corpuscular Hemoglobin Concent 33 g/dL (31-37) Red Cell Distribution Width 13.7 % (11.5-14.5) Platelet Count 215 x10^3/uL (140-400) Neutrophils (%) (Auto) 79 % (31-73) Lymphocytes (%) (Auto) 9 % (24-48) Monocytes (%) (Auto) 8 % (0-9) Eosinophils (%) (Auto) 2 % (0-3) Basophils (%) (Auto) 1 % (0-3) Neutrophils # (Auto) 5.5 x10^3/uL (1.8-7.7) Lymphocytes # (Auto) 0.7 x10^3/uL (1.0-4.8) Monocytes # (Auto) 0.6 x10^3/uL (0.0-1.1) Eosinophils # (Auto) 0.1 x10^3/uL (0.0-0.7) Basophils # (Auto) 0.1 x10^3/uL (0.0-0.2) Erythrocyte Sedimentation Rate 68 (0-15) Sodium Level 140 mmol/L (136-145) Potassium Level 4.5 mmol/L (3.5-5.1) Chloride Level 100 mmol/L (98-107) Carbon Dioxide Level 34 mmol/L (21-32) Anion Gap 6 (6-14) Blood Urea Nitrogen 16 mg/dL (8-26) Creatinine 1.1 mg/dL (0.7-1.3) Estimated GFR (Cockcroft-Gault) 71.4 Glucose Level 359 mg/dL (70-99) Calcium Level 8.1 mg/dL (8.5-10.1) Test 03/11/19 07:26 03/11/19 10:57 03/11/19 16:20 03/11/19 20:45 Glucose (Fingerstick) 248 mg/dL (70-99) 172 mg/dL (70-99) 285 mg/dL (70-99) 220 mg/dL (70-99) Test 03/12/19 07:57 Glucose (Fingerstick) 96 mg/dL (70-99) Laboratory Tests Test 03/11/19 16:20 03/11/19 20:45 03/12/19 07:57 Glucose (Fingerstick) 285 mg/dL (70-99) 220 mg/dL (70-99) 96 mg/dL (70-99) Microbiology 03/02/19 Anaerobic/Aerobic Culture - Final, Complete 03/02/19 Anaerobic Culture Result 1 (SUNITA) - Final, Complete 03/02/19 Aerobic Culture - Final, Complete 03/02/19 Aerobic Culture Result 1 (SUNITA) - Final, Complete 03/02/19 Antimicrobic Susceptibility - Final, Complete 03/02/19 Gram Stain - Final, Complete 03/02/19 Gram Stain Result 1 (SUNITA) - Final, Complete 03/02/19 Gram Stain Result 2 (SUNITA) - Final, Complete 03/02/19 Yeast/Fungus Susceptibility - Final, Complete 03/01/19 Blood Culture - Final, Complete NO GROWTH AFTER 5 DAYS 02/26/19 Urine Culture - Final, Complete 02/26/19 Urine Culture Result 1 (SUNITA) - Final, Complete Medications Current Medications Sodium Chloride 1,000 ml @ 1,000 mls/hr 1X ONCE IV Last administered on 02/25/19at 15:20; Start 02/25/19 at 14:45; Stop 02/25/19 at 15:44; Status DC Sodium Chloride 1,000 ml @ 1,000 mls/hr 1X ONCE IV Last administered on 02/25/19at 15:20; Start 02/25/19 at 15:15; Stop 02/25/19 at 16:14; Status DC Insulin Human Regular 150 ml @ 0 mls/hr 1X ONCE IV Last administered on 02/25at 16:01; Start 02/25/19 at 15:30; Stop 02/25/19 at 15:32; Status DC Vancomycin HCl 250 ml @ 250 mls/hr 1X ONCE IV Last administered on 02/25/19at 16:04; Start 02/25/19 at 16:00; Stop 02/25/19 at 16:59; Status DC Ondansetron HCl (Zofran) 4 mg PRN Q8HRS PRN IV NAUSEA/VOMITING; Start 02/25/19 at 16:15; Stop 02/25/19 at 17:32; Status DC Sodium Chloride 1,000 ml @ 100 mls/hr Q10H IV ; Start 02/25/19 at 16:08; Stop 02/26/19 at 08:29; Status DC Sodium Chloride 1,000 ml @ 250 mls/hr Q4H IV Last administered on 02/25/19at 21:28; Start 02/25/19 at 17:00; Stop 02/26/19 at 03:06; Status DC Dextrose/Sodium Chloride 1,000 ml @ 250 mls/hr Q4H IV Last administered on 02/25/19at 23:26; Start 02/25/19 at 16:39; Stop 02/26/19 at 03:06; Status DC Insulin Human Regular 150 unit/ Sodium Chloride 151.5 ml @ 0 mls/hr CONT PRN PRN IV PER PROTOCOL; Start 02/25/19 at 16:45; Stop 02/26/19 at 03:06; Status DC Potassium Chloride/Water 100 ml @ 100 mls/hr PRN Q1HR PRN IV SEE COMMENTS Last administered on 02/26/19at 01:19; Start 02/25/19 at 16:45; Stop 02/26/19 at 03:06; Status DC Potassium Chloride/Water 100 ml @ 100 mls/hr PRN Q1HR PRN IV SEE COMMENTS Last administered on 02/25/19at 23:26; Start 02/25/19 at 16:45; Stop 02/26/19 at 03:06; Status DC Potassium Chloride/Water 100 ml @ 100 mls/hr PRN Q1HR PRN IV SEE COMMENTS; Start 02/25/19 at 16:45; Stop 02/26/19 at 03:06; Status DC Sodium Bicarbonate 50 meq/Sodium Chloride 1,050 ml @ 125 mls/hr 1X ONCE IV Last administered on 02/25/19at 17:51; Start 02/25/19 at 16:45; Stop 02/26/19 at 01:08; Status DC Calcium Carbonate/ Glycine (Tums) 500 mg PRN AFTMEALHC PRN PO INDIGESTION; Start 02/25/19 at 16:45 Temazepam (Restoril) 7.5 mg PRN QHS PRN PO INSOMNIA; Start 02/25/19 at 16:45 Acetaminophen (Tylenol) 500 mg PRN Q6HRS PRN PO MILD PAIN / TEMP; Start 02/25/19 at 16:45 Acetaminophen/ Codeine Phosphate (Tylenol #3) 1 tab PRN Q6HRS PRN PO MODERATE PAIN Last administered on 03/01/19at 21:33; Start 02/25/19 at 16:45 Ondansetron HCl (Zofran) 4 mg PRN Q6HRS PRN IVP NAUSEA/VOMITING; Start 02/25/19 at 16:45 Cefazolin Sodium 50 ml @ 100 mls/hr Q8HRS IV ; Start 02/25/19 at 22:00; Status UNV Cefazolin Sodium 50 ml @ As Directed STK-MED ONCE IV ; Start 02/25/19 at 17:12; Stop 02/25/19 at 17:32; Status DC Cefazolin Sodium 50 ml @ 100 mls/hr 1X ONCE IV Last administered on 02/25/19at 17:30; Start 02/25/19 at 17:30; Stop 02/25/19 at 17:59; Status DC Cefazolin Sodium (Ancef) 1 gm Q8HRS IVP Last administered on 02/28/19at 13:54; Start 02/25/19 at 22:00; Stop 02/28/19 at 18:52; Status DC Potassium Chloride/Water 100 ml @ 100 mls/hr PRN Q1HR PRN IV SEE COMMENTS; Start 02/25/19 at 21:00; Stop 03/08/19 at 12:11; Status DC Magnesium Sulfate 100 ml @ 25 mls/hr DAILY IV Last administered on 02/28/19at 12:24; Start 02/26/19 at 09:00; Stop 03/01/19 at 08:59; Status DC Dextrose (Dextrose 50%-Water Syringe) 12.5 gm PRN Q15MIN PRN IV SEE COMMENTS; Start 02/26/19 at 03:00; Status UNV Insulin Glargine (Lantus Syringe) 20 unit QHS SQ Last administered on 03/11/19at 21:00; Start 02/26/19 at 21:00 Insulin Human Lispro (HumaLOG) 10 units TIDWMEALS SQ Last administered on 02/26/19at 17:33; Start 02/26/19 at 08:00; Stop 02/26/19 at 18:45; Status DC Dextrose (Dextrose 50%-Water Syringe) 12.5 gm PRN Q15MIN PRN IV SEE COMMENTS; Start 02/26/19 at 03:00; Stop 03/07/19 at 10:41; Status DC Insulin Glargine (Lantus Syringe) 10 unit 1X ONCE SQ Last administered on 02/26/19at 03:16; Start 02/26/19 at 03:30; Stop 02/26/19 at 03:31; Status DC Sodium Chloride 1,000 ml @ 100 mls/hr Q10H IV Last administered on 03/07/19at 09:59; Start 02/26/19 at 03:00; Stop 03/07/19 at 10:39; Status DC Vancomycin HCl (Vanco Per Pharmacy) 1 each PRN DAILY PRN MC SEE COMMENTS Last administered on 03/01/19 15:41; Start 02/26/19 at 08:45; Stop 03/02/19 at 12:58; Status DC Vancomycin HCl 1 gm/Sodium Chloride 250 ml @ 250 mls/hr Q12H IV Last administered on 02/26/19 21:22; Start 02/26/19 at 09:00; Stop 02/27/19 at 09:06; Status DC Diclofenac Sodium (Voltaren) 1 faith BID TP Last administered on 02/27/19 07:56; Start 02/26/19 at 10:30; Stop 02/27/19 at 11:58; Status DC Potassium Chloride (Klor-Con) 40 meq 1X ONCE PO Last administered on 02/26/19 11:01; Start 02/26/19 at 11:00; Stop 02/26/19 at 11:01; Status DC Lidocaine (Lidoderm) 1 patch DAILY TD Last administered on 02/27/19 07:56; Start 02/26/19 at 11:30 Miscellaneous (Lidoderm Patch Removal) 1 ea QHS MC Last administered on 03/10 21:00; Start 02/26/19 at 21:00 Lactobacillus Rhamnosus (Culturelle) 1 cap BID PO Last administered on 03/12/19 09:03; Start 02/26/19 at 21:00 Vancomycin HCl (Vancomycin Trough Level) 1 each 1X ONCE MC Last administered on 02/27/19 08:30; Start 02/27/19 at 08:30; Stop 02/27/19 at 08:31; Status DC Insulin Human Lispro (HumaLOG) 0-7 UNITS TIDWMEALS SQ Last administered on 03/06/19 18:05; Start 02/27/19 at 08:00; Stop 03/07/19 at 10:42; Status DC Vancomycin HCl 750 mg/Sodium Chloride 250 ml @ 250 mls/hr Q8H IV Last administered on 03/02/19 09:26; Start 02/27/19 at 09:30; Stop 03/02/19 at 12:58; Status DC Vancomycin HCl (Vancomycin Trough Level) 1 each 1X ONCE MC Last administered on 02/28/19 09:00; Start 02/28/19 at 09:00; Stop 02/28/19 at 09:01; Status DC Potassium Chloride (Klor-Con) 40 meq 1X ONCE PO Last administered on 02/27/19at 09:56; Start 02/27/19 at 10:00; Stop 02/27/19 at 10:01; Status DC Diclofenac Sodium (Voltaren) 1 faith QID TP Last administered on 03/07/19at 21:23; Start 02/27/19 at 12:00 Potassium Chloride (Klor-Con) 20 meq 1X ONCE PO Last administered on 02/28/19at 12:24; Start 02/28/19 at 11:00; Stop 02/28/19 at 11:01; Status DC Potassium Chloride (Klor-Con) 40 meq 1X ONCE PO Last administered on 02/28/19at 06:58; Start 02/28/19 at 07:00; Stop 02/28/19 at 07:01; Status DC Potassium Chloride (Klor-Con) 40 meq DAILY PO Last administered on 03/12/19at 09:03; Start 02/28/19 at 09:00 Piperacillin Sod/ Tazobactam Sod 3.375 gm/Sodium Chloride 50 ml @ 100 mls/hr Q6HRS IV Last administered on 03/07/19at 05:47; Start 02/28/19 at 12:00; Stop 03/07/19 at 10:37; Status DC Lidocaine HCl (Buffered Lidocaine 1%) 3 ml STK-MED ONCE .ROUTE ; Start 03/02/19 at 08:01; Stop 03/02/19 at 08:02; Status DC Midazolam HCl (Versed) 2 mg STK-MED ONCE .ROUTE ; Start 03/02/19 at 08:26; Stop 03/02/19 at 08:26; Status DC Fentanyl Citrate (Fentanyl 2ml Vial) 100 mcg STK-MED ONCE .ROUTE ; Start 03/02/19 at 08:26; Stop 03/02/19 at 08:27; Status DC Lidocaine HCl (Buffered Lidocaine 1%) 3 ml 1X ONCE IJ Last administered on 03/02/19at 08:45; Start 03/02/19 at 08:45; Stop 03/02/19 at 08:48; Status DC Midazolam HCl (Versed) 2 mg 1X ONCE IV Last administered on 03/02/19at 08:45; Start 03/02/19 at 08:45; Stop 03/02/19 at 08:48; Status DC Fentanyl Citrate (Fentanyl 2ml Vial) 100 mcg 1X ONCE IV Last administered on 03/02/19at 08:45; Start 03/02/19 at 08:45; Stop 03/02/19 at 08:48; Status DC Ringer's Solution 1,000 ml @ 50 mls/hr Q20H IV ; Start 03/04/19 at 07:00; Stop 03/04/19 at 18:59; Status DC Lidocaine HCl (Viscous Lidocaine) 15 ml 1X ONCE SWSW ; Start 03/04/19 at 07:30; Stop 03/04/19 at 07:31; Status DC Lidocaine HCl (Xylocaine 2% Topical 30gm Tube) 1 faith 1X ONCE TP ; Start 03/04/19 at 07:30; Stop 03/04/19 at 07:31; Status DC Benzocaine (Hurricaine One) 2 spray 1X ONCE MM ; Start 03/04/19 at 07:30; Stop 03/04/19 at 07:31; Status DC Lidocaine HCl (Xylocaine 2% Topical 30gm Tube) 1 faith 1X ONCE TP ; Start 03/04/19 at 07:30; Stop 03/04/19 at 07:31; Status UNV Lidocaine HCl (Viscous Lidocaine) 15 ml 1X ONCE SWSW ; Start 03/04/19 at 07:30; Stop 03/04/19 at 07:31; Status UNV Benzocaine (Hurricaine One) 2 spray 1X ONCE MM ; Start 03/04/19 at 07:30; Stop 03/04/19 at 07:31; Status UNV Lidocaine HCl (Buffered Lidocaine 1%) 3 ml STK-MED ONCE .ROUTE ; Start 03/04/19 at 14:44; Stop 03/04/19 at 14:45; Status DC Lidocaine HCl (Buffered Lidocaine 1%) 3 ml 1X ONCE INJ Last administered on 03/04/19at 15:00; Start 03/04/19 at 15:00; Stop 03/04/19 at 15:01; Status DC Insulin Human Lispro (HumaLOG) 11 units 1X SQ ; Start 03/06/19 at 22:30; Stop 03/06/19 at 22:36; Status DC Insulin Human Lispro (HumaLOG) 11 units 1X ONCE SQ Last administered on 03/06/19at 22:41; Start 03/06/19 at 22:45; Stop 03/06/19 at 22:46; Status DC Dextrose (Iv Dextrose 5%) 250 ml PRN Q15MIN PRN IV SEE COMMENTS Last administered on 03/07/19at 08:10; Start 03/07/19 at 08:15; Stop 03/07/19 at 10:41; Status DC Cefazolin Sodium 2 gm/Dextrose 50 ml @ 100 mls/hr Q8HRS IV ; Start 03/07/19 at 14:00; Status UNV Cefazolin Sodium/ Dextrose 50 ml @ 100 mls/hr Q8HRS IV Last administered on 03/12/19at 05:28; Start 03/07/19 at 14:00 Insulin Human Lispro (HumaLOG) 0-9 UNITS TIDWMEALS SQ Last administered on 03/11/19at 17:47; Start 03/07/19 at 12:00 Dextrose (Dextrose 50%-Water Syringe) 12.5 gm PRN Q15MIN PRN IV SEE COMMENTS; Start 03/07/19 at 10:45 Dextrose (Iv Dextrose 5%) 250 ml PRN Q15MIN PRN IV SEE COMMENTS Last administered on 03/10/19at 08:04; Start 03/07/19 at 10:45 Cyanocobalamin (Vitamin B-12) 1,000 mcg DAILY PO Last administered on 03/12/19at 09:03; Start 03/07/19 at 14:00 Active Scripts Active Lidocaine PATCH (Lidocaine) 1 Each Adh..patch 1 Patch TD DAILY Vitamin B-12 (Cyanocobalamin (Vitamin B-12)) 1,000 Mcg Tablet 1,000 Mcg PO DAILY Lantus (Insulin Glargine,Hum.rec.anlog) 100 Unit/1 Ml Vial 20 Unit SQ QHS 30 Days Klor-Con M20 (Potassium Chloride) 20 Meq Tab.er.prt 40 Meq PO DAILY 7 Days Acetaminophen-Cod #3 Tablet (Acetaminophen/Codeine Phosphate) 1 Each Tablet 1 Tab PO PRN Q6HRS PRN Restoril (Temazepam) 7.5 Mg Capsule 7.5 Mg PO PRN QHS PRN Voltaren (Diclofenac Sodium) 100 Gm Gel..gram. 1 Faith TP QID 14 Days Vitals/I & O Vital Sign - Last 24 Hours 03/11/19 03/11/19 03/11/1920/19 11:00 15:00 19:00 19:45 Temp 98.0 98.0 98.3 98.0 98.0 98.3 Pulse 79 74 63 Resp 14 14 18 B/P (MAP) 127/73 (91) 138/79 (98) 147/83 (104) Pulse Ox 95 93 97 O2 Delivery Room Air Room Air Room Air Room Air 03/11/19 03/12/19 03/12/19 23:08 04:16 07:00 Temp 99.3 98.7 98.4 99.3 98.7 98.4 Pulse 77 74 71 Resp 18 18 17 B/P (MAP) 129/72 (91) 135/78 (97) 125/72 (89) Pulse Ox 93 95 97 O2 Delivery Room Air Room Air Room Air Intake and Output 03/11/19 03/11/19 03/12/19 15:00 23:00 07:00 Intake Total 260 ml Balance 260 ml Nutrition Consultation Dietary Evaluation: Recommendations by RD: Dietary education by RD, Protein supplementation Comments: ADA, DBL meats encourage BS control RD available x [phone] if interested in diet education REC mvi and vit c per wound protocal Expected Outcomes/Goals: to meet >75% est protein needs glycemic control Goals : ongoing Malnutrition Findings: Body Fat Depletion (Non Severe: Mild Depletion Weight Status: Underweight Hemodynamically unstable?: No Is patient in severe pain?: No Is NPO status required?: No ALIX RONQUILLO MD Mar 12, 2019 10:59
--- NOTE | 2019-03-12 11:02 | PDOC ---
Infectious Disease Note Subjective Subjective Comfortable Occ loose stool No F/C/N/V/cramps/pain ROS ROS per HPI Vital Sign Vital Signs Vital Signs Date Time Temp Pulse Resp B/P (MAP) Pulse Ox O2 Delivery O2 Flow Rate FiO2 03/12/19 07:00 98.4 71 17 125/72 (89) 97 Room Air 98.4 03/11/19 08:00 2.0 Physical Exam PHYSICAL EXAM GENERAL: Propped up in bed, alert, in no apparent distress. HEENT: Oral cavity clear moist. Superficial scalp wound improved and alopecia - clean NECK: Supple. LUNGS: Clear to auscultation. HEART: S1, S2 regular. ABDOMEN: Nondistended, soft, nontender with bowel sounds present. EXTREMITIES: No gross edema or cyanosis. Several dry annular wounds/scabs both legs bilaterally wo associated redness or drainage. SKIN: Warm to touch. No signs of rash NEUROLOGIC: Alert and oriented x 3. RUE-PICC (03/04) without signs of complications Labs Lab Laboratory Tests Test 03/11/19 10:57 03/11/19 16:20 03/11/19 20:45 03/12/19 07:57 Glucose (Fingerstick) 172 mg/dL (70-99) 285 mg/dL (70-99) 220 mg/dL (70-99) 96 mg/dL (70-99) Micro 03/02. Left hip GRAM STAIN RES 2 Final No organisms seen Objective Assessment MSSA bacteremia with sepsis, POA. 02/25. repeat 03/01 - neg TTE with Mod TV regurg 03/03 Nonhealing wounds involving scalp and lower extremities, bilaterally - superficial - healing Right hip pain - pelvis CT shows soft tissue thickening and focal gas overlying the right ischial tuberosity, and there is suggestion of early bone destruction. - ESR 68 (03/10) -s/p CT-guided biopsy, soft tissue thickening at the insertion of the hamstring tendons on the pubic bone,03/02,,+ MSSA Hypothermia - better Leukocytosis - resolved DKA Peripheral neuropathy Loose stools, c. diff neg 02/27 Plan Plan of Care STEPHANY , pt refused Repeat BC neg 03/01 cefazolin for 6 wks ss [facility]. f/u with Dr. Caldwell-[place] at [place] 2- 3 wks wkly cbc, bun/cr , sed rate Rx faxed to D/w nursing On 03/12/19; Patient seen and examined. Chart reviewed in detail. Case discussed with [facility]. Agree with above plan. ALYSSA CHRISTY APRN Mar 12, 2019 11:02 PAUL CALDWELL MD Mar 13, 2019 19:43
[2019-03-12 15:00] VITALS: BP 125/72
[2019-03-12 19:00] VITALS: BP 101/59
[2019-03-12] MEDS: PATCH REMOVAL. MC SCH (21:00)
[2019-03-12] MEDS: INSULIN GLARGINE SYRINGE. SQ SCH (22:24)
[2019-03-12 23:09] VITALS: BP 126/74
[2019-03-13 06:18] LABS: BASO % 0 % (0-3); EOS # 0.3 x10^3/uL (0.0-0.7); EOS % 4 % (0-3); HEMATOCRIT 29.9 % (39.0-53.0); HEMOGLOBIN 9.9 g/dL (13.0-17.5); LYMPH # 1.3 x10^3/uL (1.0-4.8); LYMPH % 16 % (24-48); MEAN CORPUSCULAR HEMOGLOBIN 30 pg (25-35); MEAN CORPUSCULAR HGB CONC 33 g/dL (31-37); MEAN CORPUSCULAR VOLUME 90 fL (79-100); MONO # 0.9 x10^3/uL (0.0-1.1); MONO % 12 % (0-9); NEUT # 5.3 x10^3/uL (1.8-7.7); NEUT % 68 % (31-73); PLATELET COUNT 219 x10^3/uL (140-400); RED BLOOD COUNT 3.34 x10^6/uL (4.30-5.70); RED CELL DISTRIBUTION WIDTH 14.1 % (11.5-14.5); WHITE BLOOD COUNT 7.8 x10^3/uL (4.0-11.0)
[2019-03-13 06:27] LABS: CALCIUM 8.6 mg/dL (8.5-10.1); GFR 79.8; POTASSIUM 4.1 mmol/L (3.5-5.1)
[2019-03-13 07:00] VITALS: BP 123/74
[2019-03-13] MEDS: CYANOCOBALAMIN (VITAMIN B-12) 1,000 MCG TABLET. PO SCH (07:56)
[2019-03-13] MEDS: LACTOBACILLUS RHAMNOSUS GG 1 CAPSULE. PO SCH ×2 (07:57→21:37)
[2019-03-13] MEDS: POTASSIUM CHLORIDE 20 MEQ TABLET.ER. PO SCH (07:57)
[2019-03-13] MEDS: INSULIN LISPRO 300 UNITS/3 ML VIAL. SQ SCH ×3 (08:03→16:53)
[2019-03-13] MEDS: DICLOFENAC SODIUM 1% TOPICAL GEL 100GM TUBE. TP SCH ×4 (08:14→21:00)
[2019-03-13] MEDS: LIDOCAINE (700MG/PATCH) PATCH. TD SCH (08:14)
--- NOTE | 2019-03-13 09:50 | PDOC ---
PROGRESS NOTES Chief Complaint Chief Complaint impression GPC bacteremia (STAPH AUREAUS) with sepsis, POA. refusing STEPAHNY (wont change mx) AEROBIC RES 1 Final Comment Staphylococcus aureus No growth in 36 - 48 hours. Nonhealing wounds involving scalp and lower extremities, bilaterally - superficial - healing Right hip pain - pelvis CT shows soft tissue thickening and focal gas overlying the right ischial tuberosity, and there is suggestion of early bone destruction. ESR 68 Hypothermia - better moderate protein-caloric malnutrition Leukocytosis - sepsis dehydration DKA Peripheral neuropathy TTE with Mod TV regurg 03/03///PA pressure was estimated at 52 mmHg NORMOCYTIC ANEMIA Gallbladder wall thickening is present but ascites is noted and may account for this finding. cont iv ancef q 8 hrs cefazolin for 6 wks ss to arrange through [facility] pending // f/u with Dr. Hoffman at [facility] 2- 3 wks 27 min pt exam, chart review, > 50% of time spent with exam, chart review, pt care coordination History of Present Illness History of Present Illness he has no complaints DIfficult dc as per case mx ([facility] etc) NEeds 6 weeks IV cefazolin TID HAs GPC STAPH BAteremia and refusing STEPHANY (will not change mx anyways) Doing well with current cefazolin PLAN: Dc plans in the works NEeds 6 weeks IV abx bec this is STAPH BACTEREMIA - I updated pt of his status- he is aware f/u with Dr. Hoffman at [facility] 2- 3 wks Vitals Vitals Vital Signs Date Time Temp Pulse Resp B/P (MAP) Pulse Ox O2 Delivery O2 Flow Rate FiO2 03/13/19 07:00 98.4 74 16 123/74 (90) 94 Room Air 98.4 Physical Exam Physical Exam GENERAL: Propped up in bed, alert, in no apparent distress. HEENT: Oral cavity clear moist. Superficial scalp wound improved and alopecia - clean NECK: Supple. LUNGS: Clear to auscultation. HEART: S1, S2 regular. ABDOMEN: Nondistended, soft, nontender with bowel sounds present. EXTREMITIES: No gross edema or cyanosis. Several dry annular wounds/scabs both legs bilaterally wo associated redness or drainage. SKIN: Warm to touch. No signs of rash NEUROLOGIC: Alert and oriented x 3. RUE-PICC (03/04) without signs of complications General: Alert, Oriented X3, Cooperative, No acute distress Heart: Regular rate, Normal S1, Normal S2, No murmurs Lungs: Clear, Other (No respiratory distress) Abdomen: Normal bowel sounds, Soft, No tenderness Extremities: No clubbing, No cyanosis, No edema Skin: No rashes, No significant lesion Labs LABS Laboratory Tests Test 03/12/19 11:30 03/12/19 12:30 03/12/19 16:57 03/12/19 20:45 Glucose (Fingerstick) 343 mg/dL (70-99) 190 mg/dL (70-99) 281 mg/dL (70-99) Iron Level 29 ug/dL (65-175) Total Iron Binding Capacity 294 ug/dL (250-450) Iron Saturation 10 % (15-34) Test 03/13/19 05:55 03/13/19 07:56 White Blood Count 7.8 x10^3/uL (4.0-11.0) Red Blood Count 3.34 x10^6/uL (4.30-5.70) Hemoglobin 9.9 g/dL (13.0-17.5) Hematocrit 29.9 % (39.0-53.0) Mean Corpuscular Volume 90 fL (79-100) Mean Corpuscular Hemoglobin 30 pg (25-35) Mean Corpuscular Hemoglobin Concent 33 g/dL (31-37) Red Cell Distribution Width 14.1 % (11.5-14.5) Platelet Count 219 x10^3/uL (140-400) Neutrophils (%) (Auto) 68 % (31-73) Lymphocytes (%) (Auto) 16 % (24-48) Monocytes (%) (Auto) 12 % (0-9) Eosinophils (%) (Auto) 4 % (0-3) Basophils (%) (Auto) 0 % (0-3) Neutrophils # (Auto) 5.3 x10^3/uL (1.8-7.7) Lymphocytes # (Auto) 1.3 x10^3/uL (1.0-4.8) Monocytes # (Auto) 0.9 x10^3/uL (0.0-1.1) Eosinophils # (Auto) 0.3 x10^3/uL (0.0-0.7) Basophils # (Auto) 0.0 x10^3/uL (0.0-0.2) Sodium Level 141 mmol/L (136-145) Potassium Level 4.1 mmol/L (3.5-5.1) Chloride Level 103 mmol/L (98-107) Carbon Dioxide Level 34 mmol/L (21-32) Anion Gap 4 (6-14) Blood Urea Nitrogen 21 mg/dL (8-26) Creatinine 1.0 mg/dL (0.7-1.3) Estimated GFR (Cockcroft-Gault) 79.8 Glucose Level 227 mg/dL (70-99) Calcium Level 8.6 mg/dL (8.5-10.1) Glucose (Fingerstick) 157 mg/dL (70-99) Assessment and Plan Assessmemt and Plan Problems Medical Problems: (1) Dehydration Status: Acute (2) DKA (diabetic ketoacidoses) Status: Acute (3) Scalp abscess Status: Acute (4) Sepsis Status: Acute Comment Review of Relevant I have reviewed the following items orestes (where applicable) has been applied. Labs Laboratory Tests Test 03/11/19 10:57 03/11/19 16:20 03/11/19 20:45 03/12/19 07:57 Glucose (Fingerstick) 172 mg/dL (70-99) 285 mg/dL (70-99) 220 mg/dL (70-99) 96 mg/dL (70-99) Test 03/12/19 11:30 03/12/19 12:30 03/12/19 16:57 03/12/19 20:45 Glucose (Fingerstick) 343 mg/dL (70-99) 190 mg/dL (70-99) 281 mg/dL (70-99) Iron Level 29 ug/dL (65-175) Total Iron Binding Capacity 294 ug/dL (250-450) Iron Saturation 10 % (15-34) Test 03/13/19 05:55 03/13/19 07:56 White Blood Count 7.8 x10^3/uL (4.0-11.0) Red Blood Count 3.34 x10^6/uL (4.30-5.70) Hemoglobin 9.9 g/dL (13.0-17.5) Hematocrit 29.9 % (39.0-53.0) Mean Corpuscular Volume 90 fL (79-100) Mean Corpuscular Hemoglobin 30 pg (25-35) Mean Corpuscular Hemoglobin Concent 33 g/dL (31-37) Red Cell Distribution Width 14.1 % (11.5-14.5) Platelet Count 219 x10^3/uL (140-400) Neutrophils (%) (Auto) 68 % (31-73) Lymphocytes (%) (Auto) 16 % (24-48) Monocytes (%) (Auto) 12 % (0-9) Eosinophils (%) (Auto) 4 % (0-3) Basophils (%) (Auto) 0 % (0-3) Neutrophils # (Auto) 5.3 x10^3/uL (1.8-7.7) Lymphocytes # (Auto) 1.3 x10^3/uL (1.0-4.8) Monocytes # (Auto) 0.9 x10^3/uL (0.0-1.1) Eosinophils # (Auto) 0.3 x10^3/uL (0.0-0.7) Basophils # (Auto) 0.0 x10^3/uL (0.0-0.2) Sodium Level 141 mmol/L (136-145) Potassium Level 4.1 mmol/L (3.5-5.1) Chloride Level 103 mmol/L (98-107) Carbon Dioxide Level 34 mmol/L (21-32) Anion Gap 4 (6-14) Blood Urea Nitrogen 21 mg/dL (8-26) Creatinine 1.0 mg/dL (0.7-1.3) Estimated GFR (Cockcroft-Gault) 79.8 Glucose Level 227 mg/dL (70-99) Calcium Level 8.6 mg/dL (8.5-10.1) Glucose (Fingerstick) 157 mg/dL (70-99) Laboratory Tests Test 03/12/19 11:30 03/12/19 12:30 03/12/19 16:57 03/12/19 20:45 Glucose (Fingerstick) 343 mg/dL (70-99) 190 mg/dL (70-99) 281 mg/dL (70-99) Iron Level 29 ug/dL (65-175) Total Iron Binding Capacity 294 ug/dL (250-450) Iron Saturation 10 % (15-34) Test 03/13/19 05:55 03/13/19 07:56 White Blood Count 7.8 x10^3/uL (4.0-11.0) Red Blood Count 3.34 x10^6/uL (4.30-5.70) Hemoglobin 9.9 g/dL (13.0-17.5) Hematocrit 29.9 % (39.0-53.0) Mean Corpuscular Volume 90 fL (79-100) Mean Corpuscular Hemoglobin 30 pg (25-35) Mean Corpuscular Hemoglobin Concent 33 g/dL (31-37) Red Cell Distribution Width 14.1 % (11.5-14.5) Platelet Count 219 x10^3/uL (140-400) Neutrophils (%) (Auto) 68 % (31-73) Lymphocytes (%) (Auto) 16 % (24-48) Monocytes (%) (Auto) 12 % (0-9) Eosinophils (%) (Auto) 4 % (0-3) Basophils (%) (Auto) 0 % (0-3) Neutrophils # (Auto) 5.3 x10^3/uL (1.8-7.7) Lymphocytes # (Auto) 1.3 x10^3/uL (1.0-4.8) Monocytes # (Auto) 0.9 x10^3/uL (0.0-1.1) Eosinophils # (Auto) 0.3 x10^3/uL (0.0-0.7) Basophils # (Auto) 0.0 x10^3/uL (0.0-0.2) Sodium Level 141 mmol/L (136-145) Potassium Level 4.1 mmol/L (3.5-5.1) Chloride Level 103 mmol/L (98-107) Carbon Dioxide Level 34 mmol/L (21-32) Anion Gap 4 (6-14) Blood Urea Nitrogen 21 mg/dL (8-26) Creatinine 1.0 mg/dL (0.7-1.3) Estimated GFR (Cockcroft-Gault) 79.8 Glucose Level 227 mg/dL (70-99) Calcium Level 8.6 mg/dL (8.5-10.1) Glucose (Fingerstick) 157 mg/dL (70-99) Microbiology 03/02/19 Anaerobic/Aerobic Culture - Final, Complete 03/02/19 Anaerobic Culture Result 1 (SUNITA) - Final, Complete 03/02/19 Aerobic Culture - Final, Complete 03/02/19 Aerobic Culture Result 1 (SUNITA) - Final, Complete 03/02/19 Antimicrobic Susceptibility - Final, Complete 03/02/19 Gram Stain - Final, Complete 03/02/19 Gram Stain Result 1 (SUNITA) - Final, Complete 03/02/19 Gram Stain Result 2 (SUNITA) - Final, Complete 03/02/19 Yeast/Fungus Susceptibility - Final, Complete 03/01/19 Blood Culture - Final, Complete NO GROWTH AFTER 5 DAYS 02/26/19 Urine Culture - Final, Complete 02/26/19 Urine Culture Result 1 (SUNITA) - Final, Complete Medications Current Medications Sodium Chloride 1,000 ml @ 1,000 mls/hr 1X ONCE IV Last administered on 02/25/19at 15:20; Start 02/25/19 at 14:45; Stop 02/25/19 at 15:44; Status DC Sodium Chloride 1,000 ml @ 1,000 mls/hr 1X ONCE IV Last administered on 02/25/19at 15:20; Start 02/25/19 at 15:15; Stop 02/25/19 at 16:14; Status DC Insulin Human Regular 150 ml @ 0 mls/hr 1X ONCE IV Last administered on 02/25/19at 16:01; Start 02/25/19 at 15:30; Stop 02/25/19 at 15:32; Status DC Vancomycin HCl 250 ml @ 250 mls/hr 1X ONCE IV Last administered on 02/25/19at 16:04; Start 02/25/19 at 16:00; Stop 02/25/19 at 16:59; Status DC Ondansetron HCl (Zofran) 4 mg PRN Q8HRS PRN IV NAUSEA/VOMITING; Start 02/25/19 at 16:15; Stop 02/25/19 at 17:32; Status DC Sodium Chloride 1,000 ml @ 100 mls/hr Q10H IV ; Start 02/25/19 at 16:08; Stop 02/26/19 at 08:29; Status DC Sodium Chloride 1,000 ml @ 250 mls/hr Q4H IV Last administered on 02/25/19at 21:28; Start 02/25/19 at 17:00; Stop 02/26/19 at 03:06; Status DC Dextrose/Sodium Chloride 1,000 ml @ 250 mls/hr Q4H IV Last administered on 02/25/19at 23:26; Start 02/25/19 at 16:39; Stop 02/26/19 at 03:06; Status DC Insulin Human Regular 150 unit/ Sodium Chloride 151.5 ml @ 0 mls/hr CONT PRN PRN IV PER PROTOCOL; Start 02/25/19 at 16:45; Stop 02/26/19 at 03:06; Status DC Potassium Chloride/Water 100 ml @ 100 mls/hr PRN Q1HR PRN IV SEE COMMENTS Last administered on 02/26/19at 01:19; Start 02/25/19 at 16:45; Stop 02/26/19 at 03:06; Status DC Potassium Chloride/Water 100 ml @ 100 mls/hr PRN Q1HR PRN IV SEE COMMENTS Last administered on 02/25/19at 23:26; Start 02/25/19 at 16:45; Stop 02/26/19 at 03:06; Status DC Potassium Chloride/Water 100 ml @ 100 mls/hr PRN Q1HR PRN IV SEE COMMENTS; Start 02/25/19 at 16:45; Stop 02/26/19 at 03:06; Status DC Sodium Bicarbonate 50 meq/Sodium Chloride 1,050 ml @ 125 mls/hr 1X ONCE IV Last administered on 02/25/19at 17:51; Start 02/25/19 at 16:45; Stop 02/26/19 at 01:08; Status DC Calcium Carbonate/ Glycine (Tums) 500 mg PRN AFTMEALHC PRN PO INDIGESTION; Start 02/25/19 at 16:45 Temazepam (Restoril) 7.5 mg PRN QHS PRN PO INSOMNIA; Start 02/25/19 at 16:45 Acetaminophen (Tylenol) 500 mg PRN Q6HRS PRN PO MILD PAIN / TEMP; Start 1 04/28/18 at 16:45 Acetaminophen/ Codeine Phosphate (Tylenol #3) 1 tab PRN Q6HRS PRN PO MODERATE PAIN Last administered on 03/01/19at 21:33; Start 02/25/19 at 16:45 Ondansetron HCl (Zofran) 4 mg PRN Q6HRS PRN IVP NAUSEA/VOMITING; Start 02/25/19 at 16:45 Cefazolin Sodium 50 ml @ 100 mls/hr Q8HRS IV ; Start 02/25/19 at 22:00; Status UNV Cefazolin Sodium 50 ml @ As Directed STK-MED ONCE IV ; Start 02/25/19 at 17:12; Stop 02/25/19 at 17:32; Status DC Cefazolin Sodium 50 ml @ 100 mls/hr 1X ONCE IV Last administered on 02/25/19at 17:30; Start 02/25/19 at 17:30; Stop 02/25/19 at 17:59; Status DC Cefazolin Sodium (Ancef) 1 gm Q8HRS IVP Last administered on 02/28/19at 13:54; Start 02/25/19 at 22:00; Stop 02/28/19 at 18:52; Status DC Potassium Chloride/Water 100 ml @ 100 mls/hr PRN Q1HR PRN IV SEE COMMENTS; Start 02/25/19 at 21:00; Stop 03/08/19 at 12:11; Status DC Magnesium Sulfate 100 ml @ 25 mls/hr DAILY IV Last administered on 02/28/19at 12:24; Start 02/26/19 at 09:00; Stop 03/01/19 at 08:59; Status DC Dextrose (Dextrose 50%-Water Syringe) 12.5 gm PRN Q15MIN PRN IV SEE COMMENTS; Start 02/26/19 at 03:00; Status UNV Insulin Glargine (Lantus Syringe) 20 unit QHS SQ Last administered on 03/12/19at 22:24; Start 02/26/19 at 21:00 Insulin Human Lispro (HumaLOG) 10 units TIDWMEALS SQ Last administered on 02/26/19at 17:33; Start 02/26/19 at 08:00; Stop 02/26/19 at 18:45; Status DC Dextrose (Dextrose 50%-Water Syringe) 12.5 gm PRN Q15MIN PRN IV SEE COMMENTS; Start 02/26/19 at 03:00; Stop 03/07/19 at 10:41; Status DC Insulin Glargine (Lantus Syringe) 10 unit 1X ONCE SQ Last administered on 02/26/19at 03:16; Start 02/26/19 at 03:30; Stop 02/26/19 at 03:31; Status DC Sodium Chloride 1,000 ml @ 100 mls/hr Q10H IV Last administered on 03/07/19at 09:59; Start 02/26/19 at 03:00; Stop 03/07/19 at 10:39; Status DC Vancomycin HCl (Vanco Per Pharmacy) 1 each PRN DAILY PRN MC SEE COMMENTS Last administered on 03/01/19at 15:41; Start 02/26/19 at 08:45; Stop 03/02/19 at 12:58; Status DC Vancomycin HCl 1 gm/Sodium Chloride 250 ml @ 250 mls/hr Q12H IV Last administered on 02/26/19 21:22; Start 02/26/19 at 09:00; Stop 02/27/19 at 09:06; Status DC Diclofenac Sodium (Voltaren) 1 jeannine BID TP Last administered on 02/27/19 07:56; Start 02/26/19 at 10:30; Stop 02/27/19 at 11:58; Status DC Potassium Chloride (Klor-Con) 40 meq 1X ONCE PO Last administered on 02/26/19at 11:01; Start 02/26/19 at 11:00; Stop 02/26/19 at 11:01; Status DC Lidocaine (Lidoderm) 1 patch DAILY TD Last administered on 02/27/19 07:56; Start 02/26/19 at 11:30 Miscellaneous (Lidoderm Patch Removal) 1 ea QHS MC Last administered on 03/10/19at 21:00; Start 02/26/19 at 21:00 Lactobacillus Rhamnosus (Culturelle) 1 cap BID PO Last administered on 03/13/19at 07:57; Start 02/26/19 at 21:00 Vancomycin HCl (Vancomycin Trough Level) 1 each 1X ONCE MC Last administered on 02/27/19at 08:30; Start 02/27/19 at 08:30; Stop 02/27/19 at 08:31; Status DC Insulin Human Lispro (HumaLOG) 0-7 UNITS TIDWMEALS SQ Last administered on 03/06/19 18:05; Start 02/27/19 at 08:00; Stop 03/07/19 at 10:42; Status DC Vancomycin HCl 750 mg/Sodium Chloride 250 ml @ 250 mls/hr Q8H IV Last administered on 03/02/19at 09:26; Start 02/27/19 at 09:30; Stop 03/02/19 at 12:58; Status DC Vancomycin HCl (Vancomycin Trough Level) 1 each 1X ONCE MC Last administered on 02/28/19at 09:00; Start 02/28/19 at 09:00; Stop 02/28/19 at 09:01; Status DC Potassium Chloride (Klor-Con) 40 meq 1X ONCE PO Last administered on 02/27/19at 09:56; Start 02/27/19 at 10:00; Stop 02/27/19 at 10:01; Status DC Diclofenac Sodium (Voltaren) 1 jeannine QID TP Last administered on 03/07/19at 21:23; Start 02/27/19 at 12:00 Potassium Chloride (Klor-Con) 20 meq 1X ONCE PO Last administered on 02/28/19at 12:24; Start 02/28/19 at 11:00; Stop 02/28/19 at 11:01; Status DC Potassium Chloride (Klor-Con) 40 meq 1X ONCE PO Last administered on 02/28/19at 06:58; Start 02/28/19 at 07:00; Stop 02/28/19 at 07:01; Status DC Potassium Chloride (Klor-Con) 40 meq DAILY PO Last administered on 03/13/19at 07:57; Start 02/28/19 at 09:00 Piperacillin Sod/ Tazobactam Sod 3.375 gm/Sodium Chloride 50 ml @ 100 mls/hr Q6HRS IV Last administered on 03/07/19at 05:47; Start 02/28/19 at 12:00; Stop 03/07/19 at 10:37; Status DC Lidocaine HCl (Buffered Lidocaine 1%) 3 ml STK-MED ONCE .ROUTE ; Start 03/02/19 at 08:01; Stop 03/02/19 at 08:02; Status DC Midazolam HCl (Versed) 2 mg STK-MED ONCE .ROUTE ; Start 03/02/19 at 08:26; Stop 03/02/19 at 08:26; Status DC Fentanyl Citrate (Fentanyl 2ml Vial) 100 mcg STK-MED ONCE .ROUTE ; Start 02/08 at 08:26; Stop 03/02/19 at 08:27; Status DC Lidocaine HCl (Buffered Lidocaine 1%) 3 ml 1X ONCE IJ Last administered on 03/02/19at 08:45; Start 03/02/19 at 08:45; Stop 03/02/19 at 08:48; Status DC Midazolam HCl (Versed) 2 mg 1X ONCE IV Last administered on 03/02/19at 08:45; Start 03/02/19 at 08:45; Stop 03/02/19 at 08:48; Status DC Fentanyl Citrate (Fentanyl 2ml Vial) 100 mcg 1X ONCE IV Last administered on 03/02/19at 08:45; Start 03/02/19 at 08:45; Stop 03/02/19 at 08:48; Status DC Ringer's Solution 1,000 ml @ 50 mls/hr Q20H IV ; Start 03/04/19 at 07:00; Stop 03/04/19 at 18:59; Status DC Lidocaine HCl (Viscous Lidocaine) 15 ml 1X ONCE SWSW ; Start 03/04/19 at 07:30; Stop 03/04/19 at 07:31; Status DC Lidocaine HCl (Xylocaine 2% Topical 30gm Tube) 1 jeannine 1X ONCE TP ; Start 03/04/19 at 07:30; Stop 03/04/19 at 07:31; Status DC Benzocaine (Hurricaine One) 2 spray 1X ONCE MM ; Start 03/04/19 at 07:30; Stop 03/04/19 at 07:31; Status DC Lidocaine HCl (Xylocaine 2% Topical 30gm Tube) 1 jeannine 1X ONCE TP ; Start 03/04/19 at 07:30; Stop 03/04/19 at 07:31; Status UNV Lidocaine HCl (Viscous Lidocaine) 15 ml 1X ONCE SWSW ; Start 03/04/19 at 07:30; Stop 03/04/19 at 07:31; Status UNV Benzocaine (Hurricaine One) 2 spray 1X ONCE MM ; Start 03/04/19 at 07:30; Stop 03/04/19 at 07:31; Status UNV Lidocaine HCl (Buffered Lidocaine 1%) 3 ml STK-MED ONCE .ROUTE ; Start 03/04/19 at 14:44; Stop 03/04/19 at 14:45; Status DC Lidocaine HCl (Buffered Lidocaine 1%) 3 ml 1X ONCE INJ Last administered on 03/04/19at 15:00; Start 03/04/19 at 15:00; Stop 03/04/19 at 15:01; Status DC Insulin Human Lispro (HumaLOG) 11 units 1X SQ ; Start 03/06/19 at 22:30; Stop 03/06/19 at 22:36; Status DC Insulin Human Lispro (HumaLOG) 11 units 1X ONCE SQ Last administered on 03/06/19at 22:41; Start 03/06/19 at 22:45; Stop 03/06/19 at 22:46; Status DC Dextrose (Iv Dextrose 5%) 250 ml PRN Q15MIN PRN IV SEE COMMENTS Last administered on 03/07/19at 08:10; Start 03/07/19 at 08:15; Stop 03/07/19 at 10:41; Status DC Cefazolin Sodium 2 gm/Dextrose 50 ml @ 100 mls/hr Q8HRS IV ; Start 03/07/19 at 14:00; Status UNV Cefazolin Sodium/ Dextrose 50 ml @ 100 mls/hr Q8HRS IV Last administered on 03/13/19at 05:52; Start 03/07/19 at 14:00 Insulin Human Lispro (HumaLOG) 0-9 UNITS TIDWMEALS SQ Last administered on 03/13/19at 08:03; Start 03/07/19 at 12:00 Dextrose (Dextrose 50%-Water Syringe) 12.5 gm PRN Q15MIN PRN IV SEE COMMENTS; Start 03/07/19 at 10:45 Dextrose (Iv Dextrose 5%) 250 ml PRN Q15MIN PRN IV SEE COMMENTS Last administered on 03/10/19at 08:04; Start 03/07/19 at 10:45 Cyanocobalamin (Vitamin B-12) 1,000 mcg DAILY PO Last administered on 03/13/19at 07:56; Start 03/07/19 at 14:00 Active Scripts Active Lidocaine PATCH (Lidocaine) 1 Each Adh..patch 1 Patch TD DAILY Vitamin B-12 (Cyanocobalamin (Vitamin B-12)) 1,000 Mcg Tablet 1,000 Mcg PO DAILY Lantus (Insulin Glargine,Hum.rec.anlog) 100 Unit/1 Ml Vial 20 Unit SQ QHS 30 Days Klor-Con M20 (Potassium Chloride) 20 Meq Tab.er.prt 40 Meq PO DAILY 7 Days Acetaminophen-Cod #3 Tablet (Acetaminophen/Codeine Phosphate) 1 Each Tablet 1 Tab PO PRN Q6HRS PRN Restoril (Temazepam) 7.5 Mg Capsule 7.5 Mg PO PRN QHS PRN Voltaren (Diclofenac Sodium) 100 Gm Gel..gram. 1 Jeannine TP QID 14 Days Vitals/I & O Vital Sign - Last 24 Hours 03/12/19 03/12/19 03/12/19 03/12/19 08:00 11:00 15:00 19:00 Temp 98.8 98.8 98.8 98.8 Pulse 75 73 74 Resp 17 17 18 B/P (MAP) 100/61 (74) 125/72 (89) 101/59 (73) Pulse Ox 97 97 95 O2 Delivery Room Air Room Air Room Air Room Air 03/12/19 03/12/19 03/13/19 20:10 23:09 07:00 Temp 99.1 98.4 99.1 98.4 Pulse 76 74 Resp 18 16 B/P (MAP) 126/74 (91) 123/74 (90) Pulse Ox 93 94 O2 Delivery Room Air Room Air Room Air Intake and Output 03/12/19 03/13/19 03/13/19 17:00 01:00 09:00 Intake Total 50 ml 290 ml Output Total 200 ml Balance 50 ml 90 ml Nutrition Consultation Dietary Evaluation: Recommendations by RD: Dietary education by RD, Protein supplementation Comments: ADA, DBL meats encourage BS control RD available x [phone] if interested in diet education REC mvi and vit c per wound protocal Expected Outcomes/Goals: to meet >75% est protein needs glycemic control Goals : ongoing Malnutrition Findings: Body Fat Depletion (Non Severe: Mild Depletion Weight Status: Underweight Hemodynamically unstable?: No Is patient in severe pain?: No Is NPO status required?: No ALIX RONQUILLO MD Mar 13, 2019 09:50
--- NOTE | 2019-03-13 10:09 | PDOC ---
Infectious Disease Note Subjective Subjective Comfortable Occ loose stool Denies hip pain, walking No F/C/N/V/cramps ROS ROS per HPI Vital Sign Vital Signs Vital Signs Date Time Temp Pulse Resp B/P (MAP) Pulse Ox O2 Delivery O2 Flow Rate FiO2 03/13/19 07:00 98.4 74 16 123/74 (90) 94 Room Air 98.4 Physical Exam PHYSICAL EXAM GENERAL: Propped up in bed, alert, in no apparent distress. HEENT: Oral cavity clear moist. Superficial scalp wound improved and alopecia - clean NECK: Supple. LUNGS: Clear to auscultation. HEART: S1, S2 regular. ABDOMEN: Nondistended, soft, nontender with bowel sounds present. EXTREMITIES: No gross edema or cyanosis. SKIN: Warm to touch. No signs of rash NEUROLOGIC: Alert and oriented x 3. RUE-PICC (03/04) without signs of complications Labs Lab Laboratory Tests Test 03/12/19 11:30 03/12/19 12:30 03/12/19 16:57 03/12/19 20:45 Glucose (Fingerstick) 343 mg/dL (70-99) 190 mg/dL (70-99) 281 mg/dL (70-99) Iron Level 29 ug/dL (65-175) Total Iron Binding Capacity 294 ug/dL (250-450) Iron Saturation 10 % (15-34) Test 03/13/19 05:55 03/13/19 07:56 White Blood Count 7.8 x10^3/uL (4.0-11.0) Red Blood Count 3.34 x10^6/uL (4.30-5.70) Hemoglobin 9.9 g/dL (13.0-17.5) Hematocrit 29.9 % (39.0-53.0) Mean Corpuscular Volume 90 fL (79-100) Mean Corpuscular Hemoglobin 30 pg (25-35) Mean Corpuscular Hemoglobin Concent 33 g/dL (31-37) Red Cell Distribution Width 14.1 % (11.5-14.5) Platelet Count 219 x10^3/uL (140-400) Neutrophils (%) (Auto) 68 % (31-73) Lymphocytes (%) (Auto) 16 % (24-48) Monocytes (%) (Auto) 12 % (0-9) Eosinophils (%) (Auto) 4 % (0-3) Basophils (%) (Auto) 0 % (0-3) Neutrophils # (Auto) 5.3 x10^3/uL (1.8-7.7) Lymphocytes # (Auto) 1.3 x10^3/uL (1.0-4.8) Monocytes # (Auto) 0.9 x10^3/uL (0.0-1.1) Eosinophils # (Auto) 0.3 x10^3/uL (0.0-0.7) Basophils # (Auto) 0.0 x10^3/uL (0.0-0.2) Sodium Level 141 mmol/L (136-145) Potassium Level 4.1 mmol/L (3.5-5.1) Chloride Level 103 mmol/L (98-107) Carbon Dioxide Level 34 mmol/L (21-32) Anion Gap 4 (6-14) Blood Urea Nitrogen 21 mg/dL (8-26) Creatinine 1.0 mg/dL (0.7-1.3) Estimated GFR (Cockcroft-Gault) 79.8 Glucose Level 227 mg/dL (70-99) Calcium Level 8.6 mg/dL (8.5-10.1) Glucose (Fingerstick) 157 mg/dL (70-99) Objective Assessment MSSA bacteremia with sepsis, POA. 02/25. repeat 03/01 - neg TTE with Mod TV regurg 03/03 Nonhealing wounds involving scalp and lower extremities, bilaterally - shahid perficial - healing Right hip pain - pelvis CT shows soft tissue thickening and focal gas overlying the right ischial tuberosity, and there is suggestion of early bone destruction. - ESR 68 (03/10) -s/p CT-guided biopsy, soft tissue thickening at the insertion of the hamstring tendons on the pubic bone,03/02,,+ MSSA Hypothermia - better Leukocytosis - resolved DKA Peripheral neuropathy Loose stools, c. diff neg 02/27 Plan Plan of Care STEPHANY , pt refused Repeat BC neg 03/01 cefazolin for 6 wks ss [facility] arrange [facility]. f/u with Dr. Jansen-ID at [facility] 2- 3 wks wkly cbc, bun/cr , sed rate Rx faxed to D/[facility] nursing Patient seen and examined. Chart reviewed in detail. Case discussed with JIG MAKER. Agree with above plan. ALYSSA CHRISTY APRN Mar 13, 2019 10:09 PAUL JANSEN MD Mar 13, 2019 19:42
[2019-03-13 11:00] VITALS: BP 124/74
[2019-03-13 15:00] VITALS: BP 130/76
[2019-03-13 19:17] VITALS: BP 120/70
[2019-03-13] MEDS: PATCH REMOVAL. MC SCH (21:00)
[2019-03-13] MEDS: INSULIN GLARGINE SYRINGE. SQ SCH (21:46)
[2019-03-13 23:15] VITALS: BP 137/79
[2019-03-14 03:05] VITALS: BP 123/74
[2019-03-14 07:00] VITALS: BP 121/69
[2019-03-14] MEDS: CYANOCOBALAMIN (VITAMIN B-12) 1,000 MCG TABLET. PO SCH (07:58)
[2019-03-14] MEDS: LACTOBACILLUS RHAMNOSUS GG 1 CAPSULE. PO SCH (07:58)
[2019-03-14] MEDS: POTASSIUM CHLORIDE 20 MEQ TABLET.ER. PO SCH (07:58)
[2019-03-14] MEDS: INSULIN LISPRO 300 UNITS/3 ML VIAL. SQ SCH ×2 (07:59→12:02)
[2019-03-14] MEDS: LIDOCAINE (700MG/PATCH) PATCH. TD SCH (08:00)
[2019-03-14] MEDS: DICLOFENAC SODIUM 1% TOPICAL GEL 100GM TUBE. TP SCH (08:00)
--- NOTE | 2019-03-14 09:56 | PDOC ---
Subjective: Subjective: No complaints. Might get to leave today. Objective: Vital Signs: Vital Signs Date Time Temp Pulse Resp B/P (MAP) Pulse Ox O2 Delivery O2 Flow Rate FiO2 03/14/19 08:30 Room Air 03/14/19 07:00 68 18 121/69 (86) 96 03/14/19 03:05 98.4 98.4 Labs: Laboratory Tests Test 03/13/19 11:48 03/13/19 16:39 03/13/19 20:57 03/14/19 07:55 Glucose (Fingerstick) 324 mg/dL 229 mg/dL 224 mg/dL 57 mg/dL PE: GEN: NAD LUNGS: room air HEART: RRR ABD: S/ND/NT NEURO/PSYCH: A & O 3 A/P: Anemia - started B12 last week -- Still awaiting DC, stable GI-blood. Hemodynamically unstable?: No Is patient in severe pain?: No Is NPO status required?: No ADITYA STEVE Mar 14, 2019 09:56
--- NOTE | 2019-03-14 10:05 | PDOC ---
PROGRESS NOTES Chief Complaint Chief Complaint discharge dx GPC bacteremia (STAPH AUREAUS) with sepsis, POA. refusing STEPHANY (wont change mx) AEROBIC RES 1 Final Comment Staphylococcus aureus No growth in 36 - 48 hours. Nonhealing wounds involving scalp and lower extremities, bilaterally - superficial - healing Right hip pain - pelvis CT shows soft tissue thickening and focal gas overlying the right ischial tuberosity, and there is suggestion of early bone destruction. ESR 68 Hypothermia - better moderate protein-caloric malnutrition Leukocytosis - sepsis dehydration DKA Peripheral neuropathy TTE with Mod TV regurg 03/03///PA pressure was estimated at 52 mmHg NORMOCYTIC ANEMIA Gallbladder wall thickening is present but ascites is noted and may account for this finding. cont iv ancef q 8 hrs cefazolin for 6 wks iv q 8 hrs ss to arrange through [place] pending // f/u with Dr. Caldwell-AUGUSTINA at [place] 2- [address] smiley by phone, they will accept today chana 03/14 33 min pt exam, chart review D/C PLANNING, > 50% of time spent with exam, chart review, pt care coordination PATIENT: NATHALIE WONG ACCOUNT: [id number] : 1970 LOCATION: [address] [place] [address] AGE: 48 SEX: M EXAM STATUS: ADM IN ORD. PHYSICIAN: AMNA LIVE MD REASON: right hip pain with CT abnormality hamstring origin on inferior pubic ramus PROCEDURE: MUSCLE BX PERC NEEDLE CT-guided biopsy, soft tissue thickening at the insertion of the hamstring tendon on the inferior pubic bone. 03/03/2019 6:08 AM Indication: Possible infection Discussion: The risks and benefits of the procedure, including but not limited to, bleeding and infection were discussed patient. Informed consent was obtained. The patient was brought to the CT scanner and placed in the prone position. A timeout procedure was performed. Prosthetic Aides Teacher CT imaging of the pelvis redemonstrates some soft tissue thickening and minimal gas overlying the insertion of the hamstrings tendon of the pubic bone. The overlying soft tissues were prepped and draped using maximum sterile barrier technique. 1% lidocaine without epinephrine was administered for local anesthesia. Under intermittent CT guidance, an 17-gauge needle was advanced into this region. Aspiration yielded no significant result. Core biopsy was performed and placed in a sterile container. Samples were delivered to pathology. The needle was removed and manual pressure held to achieve hemostasis. No immediate complications were identified. The procedure was performed under conscious sedation including continuous cardiopulmonary monitoring via dedicated sedation nurse. Sedation time: 20 minutes Impression: CT-guided biopsy, soft tissue thickening at the insertion of the hamstring tendons on the pubic bone. [facility] Compliance Statement: One or more of the following individualized dose reduction techniques were utilized for this examination: 1. Automated exposure control 2. Adjustment of the mA and/or kV according to patient size 3. Use of iterative reconstruction technique SPEC #: [id number] NILO: 03/02/19 STATUS: COMP REQ #: [id number] RECD: 03/02/[address]: TIERNEY KENNEDY MD SOURCE: HIP ENTR: 03/02/19 [facility] DR: SURENDRA SINGH MD SPDESC: RIGHT SHADI RUBY CHERRIE Y MD UNKNOWN PCP NAME WOODY ROBLES MD ORDERED: ANAER/AEROB/GS COMMENTS: PELVIS TISSUE (RIGHT HIP) Has specimen been collected/obtained? Y Procedure Result ANAEROBIC-AEROBIC CULTURE Final Final report ANAEROBIC RES 1 Final Comment No anaerobic growth in 72 hours. AEROBIC CULT Final Preliminary report Final report AEROBIC RES 1 Final Comment Staphylococcus aureus No growth in 36 - 48 hours. 1-2 colonies . 1-2 colonies . Most isolates of Staphylococcus sp. produce a beta- lactamase enzyme rendering them resistant to penicillin. Please contact the laboratory if penicillin is being considered for therapy. ANTIMICROBIAL SUSCEPTIBILITY Final Comment Additional Susceptibility Testing Requested DAPTOMYCIN= S 1.0 S = Susceptible; I = Intermediate; R = Resistant P = Positive; N = Negative MICS are expressed in micrograms per mL Antibiotic RSLT#1 RSLT#2 RSLT#3 RSLT#4 Ciprofloxacin S<=0.5 Clindamycin S<=0.25 CONTINUED ON NEXT PAGE RUN DATE: 03/11/19 [facility] *LIVE* PAGE 2 RUN TIME: 926 Specimen Inquiry SPEC: [id number] PATIENT: SHIVA WONGTOMI Jacobs [id number] (Continued) Procedure Result ANTIMICROBIAL SUSCEPTIBILITY Final (continued) Erythromycin S<=0.25 Gentamicin S<=0.5 Levofloxacin S<=0.12 Linezolid S =2 Moxifloxacin S<=0.25 Oxacillin S =0.5 Quinupristin/Dalfopristin S =0.5 Rifampin S<=0.5 Tetracycline S<=1 Trimethoprim/Sulfa S<=10 Vancomycin S<=0.5 * This is a corrected result. * A prior result that was reported as final has been changed. GRAM STAIN Final Final report GRAM STAIN RES 1 Final Comment No white blood cells seen. GRAM STAIN RES 2 Final No organisms seen Performed at: [address], [place] [id number] Visual Specialist: CLEVELAND Pisano MD, Phone: [phone] SUSCEPTIBILITY TESTING AEROBIC Final Comment Written Authorization Received. Authorization received from MADDIE LÓPEZ MT 03-08-2019 Logged by Steven Alarcon Performed at: [facility] [id number] Visual Specialist: Alex Moon MD, Phone: [phone] END OF REPORT History of Present Illness History of Present Illness he has no complaints DIfficult dc as per case mx ([facility] etc) NEeds 6 weeks IV cefazolin TID HAs GPC STAPH BAteremia and refusing STEPHANY (will not change mx anyways) Doing well with current cefazolin PLAN: Dc plans in the works NEeds 6 weeks IV abx bec this is STAPH BACTEREMIA - I updated pt of his status- he is aware f/u with Dr. Caldwell-AUGUSTINA at [place] 2- 3 wks Vitals Vitals Vital Signs Date Time Temp Pulse Resp B/P (MAP) Pulse Ox O2 Delivery O2 Flow Rate FiO2 03/14/19 08:30 Room Air 03/14/19 07:00 68 18 121/69 (86) 96 03/14/19 03:05 98.4 98.4 Physical Exam Physical Exam GENERAL: Propped up in bed, alert, in no apparent distress. HEENT: Oral cavity clear moist. Superficial scalp wound improved and alopecia - clean NECK: Supple. LUNGS: Clear to auscultation. HEART: S1, S2 regular. ABDOMEN: Nondistended, soft, nontender with bowel sounds present. EXTREMITIES: No gross edema or cyanosis. SKIN: Warm to touch. No signs of rash NEUROLOGIC: Alert and oriented x 3. RUE-PICC (03/04) without signs of complications General: Alert, Oriented X3, Cooperative, No acute distress Heart: Regular rate, Normal S1, Normal S2, No murmurs Lungs: Clear, Other (No respiratory distress) Abdomen: Normal bowel sounds, Soft, No tenderness Extremities: No clubbing, No cyanosis, No edema Skin: No rashes, No breakdown, No significant lesion Labs LABS Laboratory Tests Test 03/13/19 11:48 03/13/19 16:39 03/13/19 20:57 03/14/19 07:55 Glucose (Fingerstick) 324 mg/dL (70-99) 229 mg/dL (70-99) 224 mg/dL (70-99) 57 mg/dL (70-99) Assessment and Plan Assessmemt and Plan Problems Medical Problems: (1) Dehydration Status: Acute (2) DKA (diabetic ketoacidoses) Status: Acute (3) Scalp abscess Status: Acute (4) Sepsis Status: Acute Comment Review of Relevant I have reviewed the following items orestes (where applicable) has been applied. Labs Laboratory Tests Test 03/12/19 11:30 03/12/19 12:30 03/12/19 16:57 03/12/19 20:45 Glucose (Fingerstick) 343 mg/dL (70-99) 190 mg/dL (70-99) 281 mg/dL (70-99) Iron Level 29 ug/dL (65-175) Total Iron Binding Capacity 294 ug/dL (250-450) Iron Saturation 10 % (15-34) Test 03/13/19 05:55 03/13/19 07:56 03/13/19 11:48 03/13/19 16:39 White Blood Count 7.8 x10^3/uL (4.0-11.0) Red Blood Count 3.34 x10^6/uL (4.30-5.70) Hemoglobin 9.9 g/dL (13.0-17.5) Hematocrit 29.9 % (39.0-53.0) Mean Corpuscular Volume 90 fL (79-100) Mean Corpuscular Hemoglobin 30 pg (25-35) Mean Corpuscular Hemoglobin Concent 33 g/dL (31-37) Red Cell Distribution Width 14.1 % (11.5-14.5) Platelet Count 219 x10^3/uL (140-400) Neutrophils (%) (Auto) 68 % (31-73) Lymphocytes (%) (Auto) 16 % (24-48) Monocytes (%) (Auto) 12 % (0-9) Eosinophils (%) (Auto) 4 % (0-3) Basophils (%) (Auto) 0 % (0-3) Neutrophils # (Auto) 5.3 x10^3/uL (1.8-7.7) Lymphocytes # (Auto) 1.3 x10^3/uL (1.0-4.8) Monocytes # (Auto) 0.9 x10^3/uL (0.0-1.1) Eosinophils # (Auto) 0.3 x10^3/uL (0.0-0.7) Basophils # (Auto) 0.0 x10^3/uL (0.0-0.2) Sodium Level 141 mmol/L (136-145) Potassium Level 4.1 mmol/L (3.5-5.1) Chloride Level 103 mmol/L (98-107) Carbon Dioxide Level 34 mmol/L (21-32) Anion Gap 4 (6-14) Blood Urea Nitrogen 21 mg/dL (8-26) Creatinine 1.0 mg/dL (0.7-1.3) Estimated GFR (Cockcroft-Gault) 79.8 Glucose Level 227 mg/dL (70-99) Calcium Level 8.6 mg/dL (8.5-10.1) Glucose (Fingerstick) 157 mg/dL (70-99) 324 mg/dL (70-99) 229 mg/dL (70-99) Test 03/13/19 20:57 03/14/19 07:55 Glucose (Fingerstick) 224 mg/dL (70-99) 57 mg/dL (70-99) Laboratory Tests Test 03/13/19 11:48 03/13/19 16:39 03/13/19 20:57 03/14/19 07:55 Glucose (Fingerstick) 324 mg/dL (70-99) 229 mg/dL (70-99) 224 mg/dL (70-99) 57 mg/dL (70-99) Microbiology 03/02/19 Anaerobic/Aerobic Culture - Final, Complete 03/02/19 Anaerobic Culture Result 1 (SUNITA) - Final, Complete 03/02/19 Aerobic Culture - Final, Complete 03/02/19 Aerobic Culture Result 1 (SUNITA) - Final, Complete 03/02/19 Antimicrobic Susceptibility - Final, Complete 03/02/19 Gram Stain - Final, Complete 03/02/19 Gram Stain Result 1 (SUNITA) - Final, Complete 03/02/19 Gram Stain Result 2 (SUNITA) - Final, Complete 03/02/19 Yeast/Fungus Susceptibility - Final, Complete 03/01/19 Blood Culture - Final, Complete NO GROWTH AFTER 5 DAYS 02/26/19 Urine Culture - Final, Complete 02/26/19 Urine Culture Result 1 (SUNITA) - Final, Complete Medications Current Medications Sodium Chloride 1,000 ml @ 1,000 mls/hr 1X ONCE IV Last administered on 02/25/19at 15:20; Start 02/25/19 at 14:45; Stop 02/25/19 at 15:44; Status DC Sodium Chloride 1,000 ml @ 1,000 mls/hr 1X ONCE IV Last administered on 02/25/19at 15:20; Start 02/25/19 at 15:15; Stop 02/25/19 at 16:14; Status DC Insulin Human Regular 150 ml @ 0 mls/hr 1X ONCE IV Last administered on 9at 16:01; Start 02/25/19 at 15:30; Stop 02/25/19 at 15:32; Status DC Vancomycin HCl 250 ml @ 250 mls/hr 1X ONCE IV Last administered on 02/25/19at 16:04; Start 02/25/19 at 16:00; Stop 02/25/19 at 16:59; Status DC Ondansetron HCl (Zofran) 4 mg PRN Q8HRS PRN IV NAUSEA/VOMITING; Start 02/25/19 at 16:15; Stop 02/25/19 at 17:32; Status DC Sodium Chloride 1,000 ml @ 100 mls/hr Q10H IV ; Start 02/25/19 at 16:08; Stop 02/26/19 at 08:29; Status DC Sodium Chloride 1,000 ml @ 250 mls/hr Q4H IV Last administered on 02/25/19at 21:28; Start 02/25/19 at 17:00; Stop 02/26/19 at 03:06; Status DC Dextrose/Sodium Chloride 1,000 ml @ 250 mls/hr Q4H IV Last administered on 02/25/19at 23:26; Start 02/25/19 at 16:39; Stop 02/26/19 at 03:06; Status DC Insulin Human Regular 150 unit/ Sodium Chloride 151.5 ml @ 0 mls/hr CONT PRN PRN IV PER PROTOCOL; Start 02/25/19 at 16:45; Stop 02/26/19 at 03:06; Status DC Potassium Chloride/Water 100 ml @ 100 mls/hr PRN Q1HR PRN IV SEE COMMENTS Last administered on 02/26/19at 01:19; Start 02/25/19 at 16:45; Stop 02/26/19 at 03:06; Status DC Potassium Chloride/Water 100 ml @ 100 mls/hr PRN Q1HR PRN IV SEE COMMENTS Last administered on 02/25/19at 23:26; Start 02/25/19 at 16:45; Stop 02/26/19 at 03:06; Status DC Potassium Chloride/Water 100 ml @ 100 mls/hr PRN Q1HR PRN IV SEE COMMENTS; Start 02/25/19 at 16:45; Stop 02/26/19 at 03:06; Status DC Sodium Bicarbonate 50 meq/Sodium Chloride 1,050 ml @ 125 mls/hr 1X ONCE IV Last administered on 02/25/19at 17:51; Start 02/25/19 at 16:45; Stop 02/26/19 at 01:08; Status DC Calcium Carbonate/ Glycine (Tums) 500 mg PRN AFTMEALHC PRN PO INDIGESTION; Start 02/25/19 at 16:45 Temazepam (Restoril) 7.5 mg PRN QHS PRN PO INSOMNIA; Start 02/25/19 at 16:45 Acetaminophen (Tylenol) 500 mg PRN Q6HRS PRN PO MILD PAIN / TEMP; Start 02/25/19 at 16:45 Acetaminophen/ Codeine Phosphate (Tylenol #3) 1 tab PRN Q6HRS PRN PO MODERATE PAIN Last administered on 03/01/19at 21:33; Start 02/25/19 at 16:45 Ondansetron HCl (Zofran) 4 mg PRN Q6HRS PRN IVP NAUSEA/VOMITING; Start 02/25/19 at 16:45 Cefazolin Sodium 50 ml @ 100 mls/hr Q8HRS IV ; Start 02/25/19 at 22:00; Status UNV Cefazolin Sodium 50 ml @ As Directed STK-MED ONCE IV ; Start 02/25/19 at 17:12; Stop 02/25/19 at 17:32; Status DC Cefazolin Sodium 50 ml @ 100 mls/hr 1X ONCE IV Last administered on 02/25/19at 17:30; Start 02/25/19 at 17:30; Stop 02/25/19 at 17:59; Status DC Cefazolin Sodium (Ancef) 1 gm Q8HRS IVP Last administered on 02/28/19at 13:54; Start 02/25/19 at 22:00; Stop 02/28/19 at 18:52; Status DC Potassium Chloride/Water 100 ml @ 100 mls/hr PRN Q1HR PRN IV SEE COMMENTS; Start 02/25/19 at 21:00; Stop 03/08/19 at 12:11; Status DC Magnesium Sulfate 100 ml @ 25 mls/hr DAILY IV Last administered on 02/28/19at 12:24; Start 02/26/19 at 09:00; Stop 03/01/19 at 08:59; Status DC Dextrose (Dextrose 50%-Water Syringe) 12.5 gm PRN Q15MIN PRN IV SEE COMMENTS; Start 02/26/19 at 03:00; Status UNV Insulin Glargine (Lantus Syringe) 20 unit QHS SQ Last administered on 03/13/19at 21:46; Start 02/26/19 at 21:00 Insulin Human Lispro (HumaLOG) 10 units TIDWMEALS SQ Last administered on 02/26/19at 17:33; Start 02/26/19 at 08:00; Stop 02/26/19 at 18:45; Status DC Dextrose (Dextrose 50%-Water Syringe) 12.5 gm PRN Q15MIN PRN IV SEE COMMENTS; Start 02/26/19 at 03:00; Stop 03/07/19 at 10:41; Status DC Insulin Glargine (Lantus Syringe) 10 unit 1X ONCE SQ Last administered on 02/26/19at 03:16; Start 02/26/19 at 03:30; Stop 02/26/19 at 03:31; Status DC Sodium Chloride 1,000 ml @ 100 mls/hr Q10H IV Last administered on 03/07/19at 09:59; Start 02/26/19 at 03:00; Stop 03/07/19 at 10:39; Status DC Vancomycin HCl (Vanco Per Pharmacy) 1 each PRN DAILY PRN MC SEE COMMENTS Last administered on 03/01/19at 15:41; Start 02/26/19 at 08:45; Stop 03/02/19 at 12:58; Status DC Vancomycin HCl 1 gm/Sodium Chloride 250 ml @ 250 mls/hr Q12H IV Last administered on 02/26/19at 21:22; Start 02/26/19 at 09:00; Stop 02/27/19 at 09:06; Status DC Diclofenac Sodium (Voltaren) 1 jeannine BID TP Last administered on 02/27/19 07:56; Start 02/26/19 at 10:30; Stop 02/27/19 at 11:58; Status DC Potassium Chloride (Klor-Con) 40 meq 1X ONCE PO Last administered on 02/26/19at 11:01; Start 02/26/19 at 11:00; Stop 02/26/19 at 11:01; Status DC Lidocaine (Lidoderm) 1 patch DAILY TD Last administered on 02/27/19 07:56; Start 02/26/19 at 11:30 Miscellaneous (Lidoderm Patch Removal) 1 ea QHS MC Last administered on 9at 21:00; Start 02/26/19 at 21:00 Lactobacillus Rhamnosus (Culturelle) 1 cap BID PO Last administered on 03/14/19at 07:58; Start 02/26/19 at 21:00 Vancomycin HCl (Vancomycin Trough Level) 1 each 1X ONCE MC Last administered on 02/27/19at 08:30; Start 02/27/19 at 08:30; Stop 02/27/19 at 08:31; Status DC Insulin Human Lispro (HumaLOG) 0-7 UNITS TIDWMEALS SQ Last administered on 03/06/19at 18:05; Start 02/27/19 at 08:00; Stop 03/07/19 at 10:42; Status DC Vancomycin HCl 750 mg/Sodium Chloride 250 ml @ 250 mls/hr Q8H IV Last administered on 03/02/19 09:26; Start 02/27/19 at 09:30; Stop 03/02/19 at 12:58; Status DC Vancomycin HCl (Vancomycin Trough Level) 1 each 1X ONCE MC Last administered on 02/28/19at 09:00; Start 02/28/19 at 09:00; Stop 02/28/19 at 09:01; Status DC Potassium Chloride (Klor-Con) 40 meq 1X ONCE PO Last administered on 02/27/19 09:56; Start 02/27/19 at 10:00; Stop 02/27/19 at 10:01; Status DC Diclofenac Sodium (Voltaren) 1 jeannine QID TP Last administered on 03/07/19at 21:23; Start 02/27/19 at 12:00 Potassium Chloride (Klor-Con) 20 meq 1X ONCE PO Last administered on 02/28/19at 12:24; Start 02/28/19 at 11:00; Stop 02/28/19 at 11:01; Status DC Potassium Chloride (Klor-Con) 40 meq 1X ONCE PO Last administered on 02/28/19at 06:58; Start 02/28/19 at 07:00; Stop 02/28/19 at 07:01; Status DC Potassium Chloride (Klor-Con) 40 meq DAILY PO Last administered on 03/14/19at 07:58; Start 02/28/19 at 09:00 Piperacillin Sod/ Tazobactam Sod 3.375 gm/Sodium Chloride 50 ml @ 100 mls/hr Q6HRS IV Last administered on 03/07/19at 05:47; Start 02/28/19 at 12:00; Stop 03/07/19 at 10:37; Status DC Lidocaine HCl (Buffered Lidocaine 1%) 3 ml STK-MED ONCE .ROUTE ; Start 03/02/19 at 08:01; Stop 03/02/19 at 08:02; Status DC Midazolam HCl (Versed) 2 mg STK-MED ONCE .ROUTE ; Start 03/02/19 at 08:26; Stop 03/02/19 at 08:26; Status DC Fentanyl Citrate (Fentanyl 2ml Vial) 100 mcg STK-MED ONCE .ROUTE ; Start 03/02/19 at 08:26; Stop 03/02/19 at 08:27; Status DC Lidocaine HCl (Buffered Lidocaine 1%) 3 ml 1X ONCE IJ Last administered on 03/02/19at 08:45; Start 03/02/19 at 08:45; Stop 03/02/19 at 08:48; Status DC Midazolam HCl (Versed) 2 mg 1X ONCE IV Last administered on 03/02/19at 08:45; Start 03/02/19 at 08:45; Stop 03/02/19 at 08:48; Status DC Fentanyl Citrate (Fentanyl 2ml Vial) 100 mcg 1X ONCE IV Last administered on 03/02/19at 08:45; Start 03/02/19 at 08:45; Stop 03/02/19 at 08:48; Status DC Ringer's Solution 1,000 ml @ 50 mls/hr Q20H IV ; Start 03/04/19 at 07:00; Stop 03/04/19 at 18:59; Status DC Lidocaine HCl (Viscous Lidocaine) 15 ml 1X ONCE SWSW ; Start 03/04/19 at 07:30; Stop 03/04/19 at 07:31; Status DC Lidocaine HCl (Xylocaine 2% Topical 30gm Tube) 1 jeannine 1X ONCE TP ; Start 03/04/19 at 07:30; Stop 03/04/19 at 07:31; Status DC Benzocaine (Hurricaine One) 2 spray 1X ONCE MM ; Start 03/04/19 at 07:30; Stop 03/04/19 at 07:31; Status DC Lidocaine HCl (Xylocaine 2% Topical 30gm Tube) 1 jeannine 1X ONCE TP ; Start 03/04/19 at 07:30; Stop 03/04/19 at 07:31; Status UNV Lidocaine HCl (Viscous Lidocaine) 15 ml 1X ONCE SWSW ; Start 03/04/19 at 07:30; Stop 03/04/19 at 07:31; Status UNV Benzocaine (Hurricaine One) 2 spray 1X ONCE MM ; Start 03/04/19 at 07:30; Stop 03/04/19 at 07:31; Status UNV Lidocaine HCl (Buffered Lidocaine 1%) 3 ml STK-MED ONCE .ROUTE ; Start 03/04/19 at 14:44; Stop 03/04/19 at 14:45; Status DC Lidocaine HCl (Buffered Lidocaine 1%) 3 ml 1X ONCE INJ Last administered on 03/04/19at 15:00; Start 03/04/19 at 15:00; Stop 03/04/19 at 15:01; Status DC Insulin Human Lispro (HumaLOG) 11 units 1X SQ ; Start 03/06/19 at 22:30; Stop 03/06/19 at 22:36; Status DC Insulin Human Lispro (HumaLOG) 11 units 1X ONCE SQ Last administered on 03/06/19at 22:41; Start 03/06/19 at 22:45; Stop 03/06/19 at 22:46; Status DC Dextrose (Iv Dextrose 5%) 250 ml PRN Q15MIN PRN IV SEE COMMENTS Last administered on 03/07/19at 08:10; Start 03/07/19 at 08:15; Stop 03/07/19 at 10:41; Status DC Cefazolin Sodium 2 gm/Dextrose 50 ml @ 100 mls/hr Q8HRS IV ; Start 03/07/19 at 14:00; Status UNV Cefazolin Sodium/ Dextrose 50 ml @ 100 mls/hr Q8HRS IV Last administered on 03/14/19at 06:20; Start 03/07/19 at 14:00 Insulin Human Lispro (HumaLOG) 0-9 UNITS TIDWMEALS SQ Last administered on 03/13/19at 16:53; Start 03/07/19 at 12:00 Dextrose (Dextrose 50%-Water Syringe) 12.5 gm PRN Q15MIN PRN IV SEE COMMENTS; Start 03/07/19 at 10:45 Dextrose (Iv Dextrose 5%) 250 ml PRN Q15MIN PRN IV SEE COMMENTS Last administered on 03/10/19at 08:04; Start 03/07/19 at 10:45 Cyanocobalamin (Vitamin B-12) 1,000 mcg DAILY PO Last administered on 03/14/19at 07:58; Start 03/07/19 at 14:00 Active Scripts Active Lidocaine PATCH (Lidocaine) 1 Each Adh..patch 1 Patch TD DAILY Vitamin B-12 (Cyanocobalamin (Vitamin B-12)) 1,000 Mcg Tablet 1,000 Mcg PO DAILY Lantus (Insulin Glargine,Hum.rec.anlog) 100 Unit/1 Ml Vial 20 Unit SQ QHS 30 Days Klor-Con M20 (Potassium Chloride) 20 Meq Tab.er.prt 40 Meq PO DAILY 7 Days Acetaminophen-Cod #3 Tablet (Acetaminophen/Codeine Phosphate) 1 Each Tablet 1 Tab PO PRN Q6HRS PRN Restoril (Temazepam) 7.5 Mg Capsule 7.5 Mg PO PRN QHS PRN Voltaren (Diclofenac Sodium) 100 Gm Gel..gram. 1 Jeannine TP QID 14 Days Vitals/I & O Vital Sign - Last 24 Hours 03/13/19 03/13/19 03/13/19 03/13/19 11:00 15:00 19:17 20:22 Temp 98.4 98.6 99.5 98.4 98.6 99.5 Pulse 77 70 75 Resp 16 16 18 B/P (MAP) 124/74 (91) 130/76 (94) 120/70 (87) Pulse Ox 97 96 94 O2 Delivery Room Air Room Air Room Air Room Air 03/13/19 03/14/19 03/14/19 03/14/19 23:15 03:05 07:00 08:30 Temp 99.1 98.4 99.1 98.4 Pulse 70 70 68 Resp 18 16 18 B/P (MAP) 137/79 (98) 123/74 (90) 121/69 (86) Pulse Ox 96 95 96 O2 Delivery Room Air Room Air Room Air Room Air Intake and Output 03/13/19 03/13/19 03/14/19 15:00 23:00 07:00 Intake Total 240 ml 170 ml 170 ml Output Total 200 ml 120 ml Balance 40 ml 50 ml 170 ml Nutrition Consultation Dietary Evaluation: Recommendations by RD: Dietary education by RD, Protein supplementation Comments: JESUS ORTIZ meats encourage BS control RD available x [phone] if interested in diet education REC mvi and vit c per wound protocal Expected Outcomes/Goals: to meet >75% est protein needs glycemic control Goals : ongoing Malnutrition Findings: Body Fat Depletion (Non Severe: Mild Depletion Weight Status: Underweight Hemodynamically unstable?: No Is patient in severe pain?: No Is NPO status required?: No ALIX RONQUILLO MD Mar 14, 2019 10:05
--- NOTE | 2019-03-14 10:10 | NUR ---
[facility]WYN [facility] and provided [facility] with Physician contact info. Acceptance pending. SELWYN also faxed facesheet to [facility] (they are not preferred provider for [facility]). Faxed facesheet to [facility]. Awaiting to hear on benefits.
[2019-03-14 11:00] VITALS: BP 114/70
--- NOTE | 2019-03-14 11:16 | PDOC3 ---
Discharge Summary Date of Admission: Feb 25, 2019 Date of Discharge: Mar 14, 2019 Follow-Up: 1-2 days Admitting Diagnosis comment: discharge dx GPC bacteremia (STAPH AUREAUS) with sepsis, POA. refusing STEPHANY (wont change mx) AEROBIC RES 1 Final Comment Staphylococcus aureus No growth in 36 - 48 hours. Nonhealing wounds involving scalp and lower extremities, bilaterally - superficial - healing Right hip pain - pelvis CT shows soft tissue thickening and focal gas overlying the right ischial tuberosity, and there is suggestion of early bone destruction. ESR 68 Hypothermia - better moderate protein-caloric malnutrition Leukocytosis - sepsis dehydration DKA Peripheral neuropathy TTE with Mod TV regurg 03/03//PA pressure was estimated at 52 mmHg NORMOCYTIC ANEMIA Gallbladder wall thickening is present but ascites is noted and may account for this finding. cont iv ancef q 8 hrs cefazolin for 6 wks iv q 8 hrs ss to arrange through [facility] pending // f/u with Dr. Caldwell-AUGUSTINA at [facility] 2- [address] smiley by phone, they will accept today chana 03/14 33 min pt exam, chart review D/C PLANNING, > 50% of time spent with exam, chart review, pt care coordination PATIENT: NATHALIE WONG ACCOUNT: [id number] : 1970 LOCATION: [address] [place] [address] AGE: 48 SEX: M EXAM STATUS: ADM IN ORD. PHYSICIAN: AMNA LIVE MD REASON: right hip pain with CT abnormality hamstring origin on inferior pubic ramus PROCEDURE: MUSCLE BX PERC NEEDLE CT-guided biopsy, soft tissue thickening at the insertion of the hamstring tendon on the inferior pubic bone. 03/03/2019 6:08 AM Indication: Possible infection Discussion: The risks and benefits of the procedure, including but not limited to, bleeding and infection were discussed patient. Informed consent was obtained. The patient was brought to the CT scanner and placed in the prone position. A timeout procedure was performed. Hockey [facility] CT imaging of the pelvis redemonstrates some soft tissue thickening and minimal gas overlying the insertion of the hamstrings tendon of the pubic bone. The overlying soft tissues were prepped and draped using maximum sterile barrier technique. 1% lidocaine without epinephrine was administered for local anesthesia. Under intermittent CT guidance, an 17-gauge needle was advanced into this region. Aspiration yielded no significant result. Core biopsy was performed and placed in a sterile container. Samples were delivered to pathology. The needle was removed and manual pressure held to achieve hemostasis. No immediate complications were identified. The procedure was performed under conscious sedation including continuous cardiopulmonary monitoring via dedicated sedation nurse. Sedation time: 20 minutes Impression: CT-guided biopsy, soft tissue thickening at the insertion of the hamstring tendons on the pubic bone. RS Compliance Statement: One or more of the following individualized dose reduction techniques were utilized for this examination: 1. Automated exposure control 2. Adjustment of the mA and/or kV according to patient size 3. Use of iterative reconstruction technique SPEC #: [id number] NILO: 03/02/19 STATUS: COMP REQ #: [id number] RECD: 03/02/[address] [facility] [address]: TIERNEY KENNEDY MD SOURCE: HIP ENTR: 03/02/[address] [facility] [address]: SURENDRA SINGH MD SPDESC: RIGHT SHADI RUBY CHERRIE Y MD UNKNOWN PCP NAME WOODY ORBLES MD ORDERED: ANAER/AERMICHELLE/ERICK COMMENTS: PELVIS TISSUE (RIGHT HIP) Has specimen been collected/obtained? Y Procedure Result ANAEROBIC-AEROBIC CULTURE Final Final report ANAEROBIC RES 1 Final Comment No anaerobic growth in 72 hours. AEROBIC CULT Final Preliminary report Final report AEROBIC RES 1 Final Comment Staphylococcus aureus No growth in 36 - 48 hours. 1-2 colonies . 1-2 colonies . Most isolates of Staphylococcus sp. produce a beta- lactamase enzyme rendering them resistant to penicillin. Please contact the laboratory if penicillin is being considered for therapy. ANTIMICROBIAL SUSCEPTIBILITY Final Comment Additional Susceptibility Testing Requested DAPTOMYCIN= S 1.0 S = Susceptible; I = Intermediate; R = Resistant P = Positive; N = Negative MICS are expressed in micrograms per mL Antibiotic RSLT#1 RSLT#2 RSLT#3 RSLT#4 Ciprofloxacin S<=0.5 Clindamycin S<=0.25 CONTINUED ON NEXT PAGE RUN DATE: 03/11/19 [facility] *LIVE* PAGE 2 RUN TIME: 926 Specimen Inquiry SPEC: [id number] PATIENT: NATHALIE WONG [id number] (Continued) ----- ------- Procedure Result ANTIMICROBIAL SUSCEPTIBILITY Final (continued) Erythromycin S<=0.25 Gentamicin S<=0.5 Levofloxacin S<=0.12 Linezolid S =2 Moxifloxacin S<=0.25 Oxacillin S =0.5 Quinupristin/Dalfopristin S =0.5 Rifampin S<=0.5 Tetracycline S<=1 Trimethoprim/Sulfa S<=10 Vancomycin S<=0.5 * This is a corrected result. * A prior result that was reported as final has been changed. GRAM STAIN Final Final report GRAM STAIN RES 1 Final Comment No white blood cells seen. GRAM STAIN RES 2 Final No organisms seen Performed at: - [facility], [place], [place] [id number] Sixth Grade Teacher: CLEVELAND Pisano MD, Phone: [phone] SUSCEPTIBILITY TESTING AEROBIC Final Comment Written Authorization Received. Authorization received from MADDIE LÓPEZ [place] 03-08-2019 Logged by Steven Alarcon Performed at: [facility] - [facility] [id number] Sixth Grade Teacher: Alex Moon MD, Phone: [phone] END OF REPORT History of Present Illness History of Present Illness no complaints DIfficult dc as per case mx ([facility] etc) NEeds 6 weeks IV cefazolin TID HAs GPC STAPH BAteremia and refusing STEPHANY (will not change mx anyways) Doing well with current cefazolin PLAN: Dc plans 03/14 NEeds 6 weeks IV abx bec this is STAPH BACTEREMIA - updated pt of his status- he is aware f/u with Dr. Hoffman at [facility] Vitals Vitals Vital Signs Date Time Temp Pulse Resp B/P (MAP) Pulse Ox O2 Delivery O2 Flow Rate FiO2 03/14/19 08:30 Room Air 03/14/19 07:00 68 18 121/69 (86) 96 03/14/19 03:05 98.4 98.4 Physical Exam Physical Exam GENERAL: Propped up in bed, alert, in no apparent distress. HEENT: Oral cavity clear moist. Superficial scalp wound improved and alopecia - clean NECK: Supple. LUNGS: Clear to auscultation. HEART: S1, S2 regular. ABDOMEN: Nondistended, soft, nontender with bowel sounds present. EXTREMITIES: No gross edema or cyanosis. SKIN: Warm to touch. No signs of rash NEUROLOGIC: Alert and oriented x 3. RUE-PICC (03/04) without signs of complications General: Alert, Oriented X3, Cooperative, No acute distress Heart: Regular rate, Normal S1, Normal S2, No murmurs Lungs: Clear, Other (No respiratory distress) Abdomen: Normal bowel sounds, Soft, No tenderness Extremities: No clubbing, No cyanosis, No edema Skin: No rashes, No breakdown, No significant lesion FINAL DIAGNOSIS Problems Medical Problems: (1) Dehydration Status: Acute (2) DKA (diabetic ketoacidoses) Status: Acute (3) Scalp abscess Status: Acute (4) Sepsis Status: Acute Brief Hospital Course Mr. Wong is a 48 old [sex] who presented with [ staph bacteremia, dka., septic joint] CONDITION AT DISCHARGE: Improved Discharge Medications Current Medications Sodium Chloride 1,000 ml @ 1,000 mls/hr 1X ONCE IV Last administered on 02/25/19at 15:20; Start 02/25/19 at 14:45; Stop 02/25/19 at 15:44; Status DC Sodium Chloride 1,000 ml @ 1,000 mls/hr 1X ONCE IV Last administered on 02/25/19at 15:20; Start 02/25/19 at 15:15; Stop 02/25/19 at 16:14; Status DC Insulin Human Regular 150 ml @ 0 mls/hr 1X ONCE IV Last administered on at 16:01; Start 02/25/19 at 15:30; Stop 02/25/19 at 15:32; Status DC Vancomycin HCl 250 ml @ 250 mls/hr 1X ONCE IV Last administered on 02/25/19at 16:04; Start 02/25/19 at 16:00; Stop 02/25/19 at 16:59; Status DC Ondansetron HCl (Zofran) 4 mg PRN Q8HRS PRN IV NAUSEA/VOMITING; Start 02/25/19 at 16:15; Stop 02/25/19 at 17:32; Status DC Sodium Chloride 1,000 ml @ 100 mls/hr Q10H IV ; Start 02/25/19 at 16:08; Stop 02/26/19 at 08:29; Status DC Sodium Chloride 1,000 ml @ 250 mls/hr Q4H IV Last administered on 02/25/19at 21:28; Start 02/25/19 at 17:00; Stop 02/26/19 at 03:06; Status DC Dextrose/Sodium Chloride 1,000 ml @ 250 mls/hr Q4H IV Last administered on 02/25/19at 23:26; Start 02/25/19 at 16:39; Stop 02/26/19 at 03:06; Status DC Insulin Human Regular 150 unit/ Sodium Chloride 151.5 ml @ 0 mls/hr CONT PRN PRN IV PER PROTOCOL; Start 02/25/19 at 16:45; Stop 02/26/19 at 03:06; Status DC Potassium Chloride/Water 100 ml @ 100 mls/hr PRN Q1HR PRN IV SEE COMMENTS Last administered on 02/26/19at 01:19; Start 02/25/19 at 16:45; Stop 02/26/19 at 03:06; Status DC Potassium Chloride/Water 100 ml @ 100 mls/hr PRN Q1HR PRN IV SEE COMMENTS Last administered on 02/25/19at 23:26; Start 02/25/19 at 16:45; Stop 02/26/19 at 03:06; Status DC Potassium Chloride/Water 100 ml @ 100 mls/hr PRN Q1HR PRN IV SEE COMMENTS; Start 02/25/19 at 16:45; Stop 02/26/19 at 03:06; Status DC Sodium Bicarbonate 50 meq/Sodium Chloride 1,050 ml @ 125 mls/hr 1X ONCE IV Last administered on 02/25/19at 17:51; Start 02/25/19 at 16:45; Stop 02/26/19 at 01:08; Status DC Calcium Carbonate/ Glycine (Tums) 500 mg PRN AFTMEALHC PRN PO INDIGESTION; Start 02/25/19 at 16:45 Temazepam (Restoril) 7.5 mg PRN QHS PRN PO INSOMNIA; Start 02/25/19 at 16:45 Acetaminophen (Tylenol) 500 mg PRN Q6HRS PRN PO MILD PAIN / TEMP; Start 02/25/19 at 16:45 Acetaminophen/ Codeine Phosphate (Tylenol #3) 1 tab PRN Q6HRS PRN PO MODERATE PAIN Last administered on 03/01/19at 21:33; Start 02/25/19 at 16:45 Ondansetron HCl (Zofran) 4 mg PRN Q6HRS PRN IVP NAUSEA/VOMITING; Start 02/25/19 at 16:45 Cefazolin Sodium 50 ml @ 100 mls/hr Q8HRS IV ; Start 02/25/19 at 22:00; Status UNV Cefazolin Sodium 50 ml @ As Directed STK-MED ONCE IV ; Start 02/25/19 at 17:12; Stop 02/25/19 at 17:32; Status DC Cefazolin Sodium 50 ml @ 100 mls/hr 1X ONCE IV Last administered on 02/25/19at 17:30; Start 02/25/19 at 17:30; Stop 02/25/19 at 17:59; Status DC Cefazolin Sodium (Ancef) 1 gm Q8HRS IVP Last administered on 02/28/19at 13:54; Start 02/25/19 at 22:00; Stop 02/28/19 at 18:52; Status DC Potassium Chloride/Water 100 ml @ 100 mls/hr PRN Q1HR PRN IV SEE COMMENTS; Start 02/25/19 at 21:00; Stop 03/08/19 at 12:11; Status DC Magnesium Sulfate 100 ml @ 25 mls/hr DAILY IV Last administered on 02/28/19at 12:24; Start 02/26/19 at 09:00; Stop 03/01/19 at 08:59; Status DC Dextrose (Dextrose 50%-Water Syringe) 12.5 gm PRN Q15MIN PRN IV SEE COMMENTS; Start 02/26/19 at 03:00; Status UNV Insulin Glargine (Lantus Syringe) 20 unit QHS SQ Last administered on 03/13/19at 21:46; Start 02/26/19 at 21:00 Insulin Human Lispro (HumaLOG) 10 units TIDWMEALS SQ Last administered on 02/26/19at 17:33; Start 02/26/19 at 08:00; Stop 02/26/19 at 18:45; Status DC Dextrose (Dextrose 50%-Water Syringe) 12.5 gm PRN Q15MIN PRN IV SEE COMMENTS; Start 02/26/19 at 03:00; Stop 03/07/19 at 10:41; Status DC Insulin Glargine (Lantus Syringe) 10 unit 1X ONCE SQ Last administered on 02/26/19at 03:16; Start 02/26/19 at 03:30; Stop 02/26/19 at 03:31; Status DC Sodium Chloride 1,000 ml @ 100 mls/hr Q10H IV Last administered on 03/07/19at 09:59; Start 02/26/19 at 03:00; Stop 03/07/19 at 10:39; Status DC Vancomycin HCl (Vanco Per Pharmacy) 1 each PRN DAILY PRN MC SEE COMMENTS Last administered on 03/01/19at 15:41; Start 02/26/19 at 08:45; Stop 03/02/19 at 12:58; Status DC Vancomycin HCl 1 gm/Sodium Chloride 250 ml @ 250 mls/hr Q12H IV Last administered on 02/26/19 21:22; Start 02/26/19 at 09:00; Stop 02/27/19 at 09:06; Status DC Diclofenac Sodium (Voltaren) 1 jeannine BID TP Last administered on 02/27/19 07:56; Start 02/26/19 at 10:30; Stop 02/27/19 at 11:58; Status DC Potassium Chloride (Klor-Con) 40 meq 1X ONCE PO Last administered on 02/26/19 11:01; Start 02/26/19 at 11:00; Stop 02/26/19 at 11:01; Status DC Lidocaine (Lidoderm) 1 patch DAILY TD Last administered on 02/27/19 07:56; Start 02/26/19 at 11:30 Miscellaneous (Lidoderm Patch Removal) 1 ea QHS MC Last administered on 21:00; Start 02/26/19 at 21:00 Lactobacillus Rhamnosus (Culturelle) 1 cap BID PO Last administered on 03/14/19 07:58; Start 02/26/19 at 21:00 Vancomycin HCl (Vancomycin Trough Level) 1 each 1X ONCE MC Last administered on 02/27/19 08:30; Start 02/27/19 at 08:30; Stop 02/27/19 at 08:31; Status DC Insulin Human Lispro (HumaLOG) 0-7 UNITS TIDWMEALS SQ Last administered on 03/06/19 18:05; Start 02/27/19 at 08:00; Stop 03/07/19 at 10:42; Status DC Vancomycin HCl 750 mg/Sodium Chloride 250 ml @ 250 mls/hr Q8H IV Last administered on 03/02/19 09:26; Start 02/27/19 at 09:30; Stop 03/02/19 at 12:58; Status DC Vancomycin HCl (Vancomycin Trough Level) 1 each 1X ONCE MC Last administered on 02/28/19 09:00; Start 02/28/19 at 09:00; Stop 02/28/19 at 09:01; Status DC Potassium Chloride (Klor-Con) 40 meq 1X ONCE PO Last administered on 02/27/19 09:56; Start 02/27/19 at 10:00; Stop 02/27/19 at 10:01; Status DC Diclofenac Sodium (Voltaren) 1 jeannine QID TP Last administered on 03/07/19at 21:23; Start 02/27/19 at 12:00 Potassium Chloride (Klor-Con) 20 meq 1X ONCE PO Last administered on 02/28/19at 12:24; Start 02/28/19 at 11:00; Stop 02/28/19 at 11:01; Status DC Potassium Chloride (Klor-Con) 40 meq 1X ONCE PO Last administered on 02/28/19at 06:58; Start 02/28/19 at 07:00; Stop 02/28/19 at 07:01; Status DC Potassium Chloride (Klor-Con) 40 meq DAILY PO Last administered on 03/14/19at 07:58; Start 02/28/19 at 09:00 Piperacillin Sod/ Tazobactam Sod 3.375 gm/Sodium Chloride 50 ml @ 100 mls/hr Q6HRS IV Last administered on 03/07/19at 05:47; Start 02/28/19 at 12:00; Stop 03/07/19 at 10:37; Status DC Lidocaine HCl (Buffered Lidocaine 1%) 3 ml STK-MED ONCE .ROUTE ; Start 03/02/19 at 08:01; Stop 03/02/19 at 08:02; Status DC Midazolam HCl (Versed) 2 mg STK-MED ONCE .ROUTE ; Start 03/02/19 at 08:26; Stop 03/02/19 at 08:26; Status DC Fentanyl Citrate (Fentanyl 2ml Vial) 100 mcg STK-MED ONCE .ROUTE ; Start 03/02/19 at 08:26; Stop 03/02/19 at 08:27; Status DC Lidocaine HCl (Buffered Lidocaine 1%) 3 ml 1X ONCE IJ Last administered on 03/02/19at 08:45; Start 03/02/19 at 08:45; Stop 03/02/19 at 08:48; Status DC Midazolam HCl (Versed) 2 mg 1X ONCE IV Last administered on 03/02/19at 08:45; Start 03/02/19 at 08:45; Stop 03/02/19 at 08:48; Status DC Fentanyl Citrate (Fentanyl 2ml Vial) 100 mcg 1X ONCE IV Last administered on 03/02/19at 08:45; Start 03/02/19 at 08:45; Stop 03/02/19 at 08:48; Status DC Ringer's Solution 1,000 ml @ 50 mls/hr Q20H IV ; Start 03/04/19 at 07:00; Stop 03/04/19 at 18:59; Status DC Lidocaine HCl (Viscous Lidocaine) 15 ml 1X ONCE SWSW ; Start 03/04/19 at 07:30; Stop 03/04/19 at 07:31; Status DC Lidocaine HCl (Xylocaine 2% Topical 30gm Tube) 1 jeannine 1X ONCE TP ; Start 03/04/19 at 07:30; Stop 03/04/19 at 07:31; Status DC Benzocaine (Hurricaine One) 2 spray 1X ONCE MM ; Start 03/04/19 at 07:30; Stop 03/04/19 at 07:31; Status DC Lidocaine HCl (Xylocaine 2% Topical 30gm Tube) 1 jeannine 1X ONCE TP ; Start 03/04/19 at 07:30; Stop 03/04/19 at 07:31; Status UNV Lidocaine HCl (Viscous Lidocaine) 15 ml 1X ONCE SWSW ; Start 03/04/19 at 07:30; Stop 03/04/19 at 07:31; Status UNV Benzocaine (Hurricaine One) 2 spray 1X ONCE MM ; Start 03/04/19 at 07:30; Stop 03/04/19 at 07:31; Status UNV Lidocaine HCl (Buffered Lidocaine 1%) 3 ml STK-MED ONCE .ROUTE ; Start 03/04/19 at 14:44; Stop 03/04/19 at 14:45; Status DC Lidocaine HCl (Buffered Lidocaine 1%) 3 ml 1X ONCE INJ Last administered on 03/04/19at 15:00; Start 03/04/19 at 15:00; Stop 03/04/19 at 15:01; Status DC Insulin Human Lispro (HumaLOG) 11 units 1X SQ ; Start 03/06/19 at 22:30; Stop 03/06/19 at 22:36; Status DC Insulin Human Lispro (HumaLOG) 11 units 1X ONCE SQ Last administered on 03/06/19at 22:41; Start 03/06/19 at 22:45; Stop 03/06/19 at 22:46; Status DC Dextrose (Iv Dextrose 5%) 250 ml PRN Q15MIN PRN IV SEE COMMENTS Last administered on 03/07/19at 08:10; Start 03/07/19 at 08:15; Stop 03/07/19 at 10:41; Status DC Cefazolin Sodium 2 gm/Dextrose 50 ml @ 100 mls/hr Q8HRS IV ; Start 03/07/19 at 14:00; Status UNV Cefazolin Sodium/ Dextrose 50 ml @ 100 mls/hr Q8HRS IV Last administered on 03/14/19at 06:20; Start 03/07/19 at 14:00 Insulin Human Lispro (HumaLOG) 0-9 UNITS TIDWMEALS SQ Last administered on 03/13/19at 16:53; Start 03/07/19 at 12:00 Dextrose (Dextrose 50%-Water Syringe) 12.5 gm PRN Q15MIN PRN IV SEE COMMENTS; Start 03/07/19 at 10:45 Dextrose (Iv Dextrose 5%) 250 ml PRN Q15MIN PRN IV SEE COMMENTS Last administered on 03/10/19at 08:04; Start 03/07/19 at 10:45 Cyanocobalamin (Vitamin B-12) 1,000 mcg DAILY PO Last administered on 03/14/19at 07:58; Start 03/07/19 at 14:00 Active Scripts Active Lidocaine PATCH (Lidocaine) 1 Each Adh..patch 1 Patch TD DAILY Vitamin B-12 (Cyanocobalamin (Vitamin B-12)) 1,000 Mcg Tablet 1,000 Mcg PO DAILY Lantus (Insulin Glargine,Hum.rec.anlog) 100 Unit/1 Ml Vial 20 Unit SQ QHS 30 Days Klor-Con M20 (Potassium Chloride) 20 Meq Tab.er.prt 40 Meq PO DAILY 7 Days Acetaminophen-Cod #3 Tablet (Acetaminophen/Codeine Phosphate) 1 Each Tablet 1 Tab PO PRN Q6HRS PRN Restoril (Temazepam) 7.5 Mg Capsule 7.5 Mg PO PRN QHS PRN Voltaren (Diclofenac Sodium) 100 Gm Gel..gram. 1 Jeannine TP QID 14 Days Vital Signs Vital Signs Date Time Temp Pulse Resp B/P (MAP) Pulse Ox O2 Delivery O2 Flow Rate FiO2 03/14/19 08:30 Room Air 03/14/19 07:00 68 18 121/69 (86) 96 03/14/19 03:05 98.4 98.4 Labs Laboratory Tests Test 03/12/19 11:30 03/12/19 12:30 03/12/19 16:57 03/12/19 20:45 Glucose (Fingerstick) 343 mg/dL (70-99) 190 mg/dL (70-99) 281 mg/dL (70-99) Iron Level 29 ug/dL (65-175) Total Iron Binding Capacity 294 ug/dL (250-450) Iron Saturation 10 % (15-34) Test 03/13/19 05:55 03/13/19 07:56 03/13/19 11:48 03/13/19 16:39 White Blood Count 7.8 x10^3/uL (4.0-11.0) Red Blood Count 3.34 x10^6/uL (4.30-5.70) Hemoglobin 9.9 g/dL (13.0-17.5) Hematocrit 29.9 % (39.0-53.0) Mean Corpuscular Volume 90 fL (79-100) Mean Corpuscular Hemoglobin 30 pg (25-35) Mean Corpuscular Hemoglobin Concent 33 g/dL (31-37) Red Cell Distribution Width 14.1 % (11.5-14.5) Platelet Count 219 x10^3/uL (140-400) Neutrophils (%) (Auto) 68 % (31-73) Lymphocytes (%) (Auto) 16 % (24-48) Monocytes (%) (Auto) 12 % (0-9) Eosinophils (%) (Auto) 4 % (0-3) Basophils (%) (Auto) 0 % (0-3) Neutrophils # (Auto) 5.3 x10^3/uL (1.8-7.7) Lymphocytes # (Auto) 1.3 x10^3/uL (1.0-4.8) Monocytes # (Auto) 0.9 x10^3/uL (0.0-1.1) Eosinophils # (Auto) 0.3 x10^3/uL (0.0-0.7) Basophils # (Auto) 0.0 x10^3/uL (0.0-0.2) Sodium Level 141 mmol/L (136-145) Potassium Level 4.1 mmol/L (3.5-5.1) Chloride Level 103 mmol/L (98-107) Carbon Dioxide Level 34 mmol/L (21-32) Anion Gap 4 (6-14) Blood Urea Nitrogen 21 mg/dL (8-26) Creatinine 1.0 mg/dL (0.7-1.3) Estimated GFR (Cockcroft-Gault) 79.8 Glucose Level 227 mg/dL (70-99) Calcium Level 8.6 mg/dL (8.5-10.1) Glucose (Fingerstick) 157 mg/dL (70-99) 324 mg/dL (70-99) 229 mg/dL (70-99) Test 03/13/19 20:57 03/14/19 07:55 Glucose (Fingerstick) 224 mg/dL (70-99) 57 mg/dL (70-99) Laboratory Tests Test 03/13/19 11:48 03/13/19 16:39 03/13/19 20:57 03/14/19 07:55 Glucose (Fingerstick) 324 mg/dL (70-99) 229 mg/dL (70-99) 224 mg/dL (70-99) 57 mg/dL (70-99) Allergies Allergies Coded Allergies Type Severity Reaction Last Updated Verified No Known Drug Allergies 02/25/19 No Disposition/Orders: D/C to Another Facility Hemodynamically unstable?: No Is patient in severe pain?: No Is NPO status required?: No ALIX RONQUILLO MD Mar 14, 2019 11:16
[2019-03-14] MEDS ORDERED: INSU100I11 SQ (11:28)
[2019-03-14] MEDS ORDERED: LACT1CAP19 PO (11:28)
[2019-03-14] MEDS ORDERED: ACET500T68 PO (11:28)
[2019-03-14] MEDS ORDERED: CALC200T23 PO (11:28)
--- NOTE | 2019-03-14 11:30 | SNU/HH DC ---
DISCHARGE ORDERS DISCHARGE INFORMATION: DISCHARGE DATE: Mar 07, 2019 FINAL DIAGNOSIS Problems Medical Problems: (1) Dehydration Status: Acute (2) DKA (diabetic ketoacidoses) Status: Acute (3) Scalp abscess Status: Acute (4) Sepsis Status: Acute CONDITION ON DISCHARGE: Stable CODE STATUS: Code Status: Full SENIOR CARE: SNF STAY <30 DAYS: No HOSPICE: HOSPICE: No HOSPICE EVAL & TREAT: No LTAC: ADMIT TO LTAC: No POST DISCHARGE ORDERS: ACTIVITY ORDERS: Resume previous activity DIET AFTER DISCHARGE: ADA WOUND/INCISION CARE: Ice to area for comfort, Keep wound/cast CDI CHECKS AFTER DISCHARGE: CHECKS AFTER DISCHARGE: Check blood press - daily COMMENTS: Buttock FOLLOW-UP: PHYSICIAN FOLLOW-UP: iodine every after bath/local wound care to scalp ADDITIONAL FOLLOW-UP: iv abx , cefazolin q8 as per ID re duration LAB ORDERS FOR FOLLOW-UP: see written order TREATMENT/EQUIPMENT ORDERS: ADAPTIVE EQUIPMENT NEEDED: None INFUSION EQUIPMENT NEEDED: PICC Line Physical Therapy For: Evalulation/Treatment Occupational Therapy For: Evaluation/Treatment DISCHARGE MEDICATIONS: Home Meds Active Scripts Insulin Lispro (HUMALOG) 100 Unit/1 Ml Insuln.pen, 0 UNITS SQ TIDWMEALS for diabetes for 14 Days, #1 EACH Prov:ALIX RONQUILLO MD 03/14/19 Lactobacillus Rhamnosus Gg (CULTURELLE) 1 Each Cap.sprink, 1 CAP PO BID for supplement for 30 Days, #60 CAP Prov:ALIX RONQUILLO MD 03/14/19 Calcium Carbonate (CALCIUM CARBONATE) 200 Mg Tab.chew, 500 MG PO PRN AFTMEALHC PRN for INDIGESTION for 30 Days, #30 TAB.CHEW Prov:ALIX RONQUILLO MD 03/14/19 Acetaminophen (ACETAMINOPHEN) 500 Mg Tablet, 500 MG PO PRN Q6HRS PRN for MILD PAIN / TEMP for 14 Days, #30 TAB Prov:ALIX RONQUILLO MD 03/14/19 Lidocaine (Lidocaine PATCH ) 1 Each Adh..patch, 1 PATCH TD DAILY for msk pain, #14 PATCH Prov:RADHA RODRIGUEZ MD 03/07/19 Cyanocobalamin (Vitamin B-12) (VITAMIN B-12) 1,000 Mcg Tablet, 1000 MCG PO DAILY for mvi, #30 TAB Prov:RADHA RODRIGUEZ MD 03/07/19 Insulin Glargine,Hum.rec.anlog (LANTUS) 100 Unit/1 Ml Vial, 20 UNIT SQ QHS for dm for 30 Days, EACH Prov:RADHA RODRIGUEZ MD 03/07/19 Potassium Chloride (KLOR-CON M20) 20 Meq Tab.er.prt, 40 MEQ PO DAILY for low K for 7 Days, #14 TAB.SR Prov:RADHA RODRIGUEZ MD 03/07/19 Acetaminophen With Codeine (ACETAMINOPHEN-COD #3 TABLET) 1 Each Tablet, 1 TAB PO PRN Q6HRS PRN for MODERATE PAIN, #30 TAB Prov:RADHA RODRIGUEZ MD 03/07/19 Temazepam (RESTORIL) 7.5 Mg Capsule, 7.5 MG PO PRN QHS PRN for INSOMNIA, #30 CAP Prov:RADHA RODRIGUEZ MD 03/07/19 Diclofenac Sodium (VOLTAREN) 100 Gm Gel..gram., 1 MYLA TP QID for wound for 14 Days, #56 EACH Prov:RADHA RODRIGUEZ MD 03/07/19 ALIX RONQUILLO MD Mar 14, 2019 11:30
--- NOTE | 2019-03-14 12:02 | NUR ---
SELWYN following pt. Pt has been accepted at [facility] and Celeste reported [facility] is at capacity. Celeste reported pt will need to be at the [facility] no later than 1300. SELWYN phoned updated dc summary/orders. Packet on chart. SELWYN arranged transport via [employer] between [phone]. Pt is notified of plan and is agreeable with discharge plan. Pt denies other needs. Discussed with RN.
--- NOTE | 2019-03-14 12:07 | NUR ---
Discharge Note: NATHALIE WONG Discharge instructions and discharge home medications reviewed with other facility ([facility]) and a copy given. All questions have been answered and understanding verbalized. The following instructions and handouts were given: copy of chart and discharge continuing care plan. Discontinued lines and drains: DL PICC left intact for fpc antibiotics. Patient discharged to [facility] in [place] with transport Personnel via [employer]
== END 2019-03-14 12:12 | disposition short-term general hospital (02) | DRG 853 ==
LOC: ER 14:11 → 1 WEST ICU 16:07 → 5 SOUTH 02-26 14:51
PROVIDERS: ADMIT Internal Medicine; ATTEND Internal Medicine
PROC: 0LB Tendons, Excision (ICD-10-PCS; principal; 2019-03-03)
PROC: 02HV33Z Insertion of Infusion Device into Superior Vena Cava, Percutaneous Approach (ICD-10-PCS; 2019-03-04)
PROC: B5181ZA Fluoroscopy of Superior Vena Cava using Low Osmolar Contrast, Guidance (ICD-10-PCS; 2019-03-04)
PROC: B548ZZA Ultrasonography of Superior Vena Cava, Guidance (ICD-10-PCS; 2019-03-04)
DX: A41.01 Sepsis due to Methicillin susceptible Staphylococcus aureus (principal); E10.10 Type 1 diabetes mellitus with ketoacidosis without coma; E44.0 Moderate protein-calorie malnutrition; L02.811 Cutaneous abscess of head [any part, except face]; R18.8 Other ascites; Z16.11 Resistance to penicillins; Z68.1 Body mass index [BMI] 19.9 or less, adult; D64.9 Anemia, unspecified; E10.42 Type 1 diabetes mellitus with diabetic polyneuropathy; E10.649 Type 1 diabetes mellitus with hypoglycemia without coma; E86.0 Dehydration; E87.6 Hypokalemia; Z79.4 Long term (current) use of insulin; Z80.9 Family history of malignant neoplasm, unspecified; Z82.3 Family history of stroke; Z82.49 Family history of ischemic heart disease and other diseases of the circulatory system; Z83.3 Family history of diabetes mellitus; Z91.14 Patient's other noncompliance with medication regimen; Z79.899 Other long term (current) drug therapy; M89.8X5 Other specified disorders of bone, thigh
CPT/HCPCS: 20206; 36415; 36573; 36600; 71046; 72192; 73502; 76700; 77001; 77012; 80048; 80053; 80202; 80307; 81001; 82010; 82607; 82805; 82962; 83036; 83540; 83550; 83605; 83735; 85007; 85025; 85045; 85610; 85651; 87040; 87071; 87075; 87077; 87086; 87186; 87205; 87493; 93005; 93306; 93971; 96361; 96365; 96368; 99152; C1751; C1892; J0690; J0696; J1815; J2250; J2543; J3010; J3370; J3475; J3480; J7030; J7050; 99285-25; G0378